=== PATIENT | female | born 1930 | race Caucasian/White ===

== ENCOUNTER 2016-08-24 18:31 | Inpatient (IN) ==
--- NOTE | 2016-08-24 18:56 | Diag Imaging Result Doc PS360 ---
EXAM: HEAD W/O CONTRAST HISTORY: AMS TECHNIQUE: CT of the head without contrast with dose reduction (clarity.) COMMENT: There is some motion artifact. There is encephalomalacia in the posterior parietal lobe on the right. This was not present on 06/08/2008. There is also patchy lucency in the internal capsule on both sides particularly the right with lacunae in a in the basal ganglia. There is generally more atrophic change in the brain than on the previous study. No evidence of bleed or abnormal extra-axial fluid collection is present. IMPRESSION: Chronic ischemic changes and atrophy which have progressed since 06/08/2008. No evidence of acute disease. Electronically signed by Dmitriy Rios 08/24/2016 6:54 PM
--- NOTE | 2016-08-24 19:09 | ED EKG INTERP ---
This chart was entered by Jerry Varghese Scribe, acting as scribe for Tyrese Baumann MD. EKG Interpretation - EKG Time of EKG reading by physician:: 18:50 EKG Read and Signed by:: Tyrese Baumann EKG Interpretation (*Must complete 3 of following elements*): Abnormal (Marked ST abnormality, consider subendocardial injury) Rate: 137 Rhythm: SVT This chart was documented by the indicated scribe, (Jerry Varghese Scribe) and accurately reflects the services I performed and decisions made by me, Tyrese Baumann MD, as attested by the provider's signature.
--- NOTE | 2016-08-24 21:12 | Diag Imaging Result Doc PS360 ---
EXAM: CHEST-PORTABLE HISTORY: AMS TECHNIQUE: AP portable chest at 2100 COMMENT: There is cardiomegaly and increased pulmonary vascularity. There is mild interstitial pulmonary edema. This is worse than on 01/20/2010. IMPRESSION: Pulmonary edema and cardiomegaly. Electronically signed by Dmitriy Rios 08/24/2016 9:10 PM
[2016-08-24 21:13] LABS: ALLEN TEST YES; BE 1.1 mmoll (-3.0-3.0); BLOOD TYPE ARTERIAL; DRAW SITE R RADIAL; METHB 0.5 % (0.0-1.5); MODALITY ROOM AIR; PCO2(98.6) 37 mmHg (35-45); PO2(98.6) 84 mmHg (60-100); SAMPLE BLOOD; THB 12.4 g/dL (11.5-17.4); pH(98.6) 7.44 (7.35-7.45)
[2016-08-24 21:23] LABS: MANUAL DIFF NEEDED? NO; URINE CULTURE NEEDED? NO; URINE MICRO REVIEW NEEDED? NO; URINE SOURCE CATH
[2016-08-24 21:31] LABS: BASO% 0.4 % (0.0-0.8); EOS# 0.05 X1000 (0.0-0.7); EOS% 0.7 % (0.0-10.0); HEMATOCRIT 39.9 % (37.0-47.0); HEMOGLOBIN 13.3 g/dL (12.0-16.0); IMM GRAN# 0.04 X1000 (0.0-0.04); IMM GRAN% 0.5 % (0.0-0.5); LYMPH# 1.51 X1000 (1.2-3.4); LYMPH% 20.5 % (20.5-51.1); MCH 31.5 PG (27-31); MCHC 33.3 g/dL (33-37); MCV 94.5 FL (81-99); MONO# 0.46 X1000 (0.11-0.59); MONO% 6.2 % (1.7-9.3); MPV 11.2 FL (7.4-10.4); NEUT% 71.7 % (42.2-75.2); PLT 179 X1000 (130-400); RBC 4.22 XMIL (4.2-5.4)
[2016-08-24 21:34] LABS: BILIRUBIN URINE NEGATIVE (NEGATIVE); BLOOD URINE NEGATIVE (NEGATIVE); COLOR YELLOW; GLUCOSE URINE NEGATIVE (NEGATIVE); LEUKOCYTES URINE NEGATIVE (NEGATIVE); NITRITE URINE NEGATIVE (NEGATIVE); PROTEIN URINE NEGATIVE (NEGATIVE); SP GRAVITY URINE 1.015; TURBIDITY URINE CLEAR (CLEAR); UROBILINOGEN URINE NORMAL (NORMAL)
[2016-08-24 21:36] LABS: UR EPITHELIAL CELLS <10 /HPF (<10); URINE BACTERIA NEGATIVE /HPF; URINE RBC <10 /HPF (<10); URINE WBC <10 /HPF (<10)
[2016-08-24 21:44] LABS: UR AMPHETAMINES QUAL NONE DETECTED (NONE DETECT); UR BARBITUATES QUAL NONE DETECTED (NONE DETECT); UR BENZODIAZEPIN QUAL NONE DETECTED (NONE DETECT); UR CANNABINOIDS QUAL NONE DETECTED (NONE DETECT); UR COCAINE QUAL NONE DETECTED (NONE DETECT); UR METHADONE QUAL NONE DETECTED (NONE DETECT); UR OPIATES QUAL NONE DETECTED (NONE DETECT); UR OXYCODONE QUAL NONE DETECTED (NONE DETECT); UR PCP QUAL NONE DETECTED (NONE DETECT)
[2016-08-24 21:57] LABS: ALBUMIN 3.6 g/dL (3.5-5.0); CALCIUM 9.4 mg/dL (8.8-10.2); TOTAL BILIRUBIN 0.13 mg/dL (0.20-1.00); TOTAL PROTEIN 6.3 g/dL (6.3-8.3)
[2016-08-24] MEDS ORDERED: LASIX IV ONE (22:00)
--- NOTE | 2016-08-24 22:17 | PROVIDER DOCUMENTATION ---
This chart was entered by Jerry Varghese Scribe, acting as scribe for Tyrese Baumann MD. HPI-Neurological Disorder - General Chief Complaint: Brain Attack Stated Complaint: AMS Time Seen by Provider: 08/24/16 18:59 Source: EMS, RN notes reviewed Unable to obtain history due to:: altered Allergies/Adverse Reactions: Patient Allergies Allergy/AdvReac Type Severity Reaction Status Date / Time Penicillins Allergy ANAPHYLAXIS Verified 08/24/16 22:04 Home Medications: Home Medication List Medication Instructions Recorded Confirmed Last Taken Type Atenolol [Tenormin] 1 tab PO DAILY 08/24/16 08/24/16 Unknown History Divalproex E.r. [Depakote ER] 250 mg PO DIRECTED 08/24/16 08/24/16 Unknown History Divalproex E.r. [Depakote ER] 500 mg PO DAILY 08/24/16 08/24/16 Unknown History Losartan [Cozaar] 50 mg PO DAILY 08/24/16 08/24/16 Unknown History Rivastigmine [Exelon 9.5MG/24Hrs] 1 patch TD DIRECTED 08/24/16 08/24/16 Unknown History - History of Present Illness-Neuro Nature of Presenting Problem: Pt is a 86 yowf who presents to ER via EMS from home for possible stroke. Pt's family reports taht pt was at her baseline all yesterday and today until approximately [id number]. Family states that they went to the grocery store at 1630 and when they arrived home at 1700, pt was slouched over the side of her bed and was drooling. Pt non-verbal and does not obey commands. GCS - 9. Family states pt recently started on an anti-seizure medicine for bipolar disorder. Severity: reports: moderate Onset/Duration: reports: unsure Timing: reports: still present Context: reports: other (decreased responsiveness, found by family) Character of Altered Mental Status: reports: decreased responsiveness Character of Deficits: reports: impaired speech Cognitive Baseline: alert, oriented x3 Gait Baseline: walks without assistance Associated Symptoms: reports: other (non-verbal and does not obey commands). denies: short of breath, headache, decreased ability to walk or stand, fainting , fatigue, loss of consciousness, seizures, slurred speech, vision changes, weakness Similar Symptoms Previously?: Yes Recently seen or treated by another doctor?: Yes Review of Systems - Adult - REVIEW OF SYSTEMS - ADULT ROS:: limited per condition Constitutional: denies: chills, fever, fatique, night sweats, weight gain, weight loss Eyes: reports: no symptoms reported Ears, Nose, Mouth & Throat: reports: no symptoms reported Cardiovascular: reports: no symptoms reported Respiratory: reports: no symptoms reported Gastrointestinal: reports: no symptoms reported Genitourinary: reports: no symptoms reported Musculoskeletal: reports: no symptoms reported Integumentary: reports: no symptoms reported Neurological: reports: other (non-verbal, does not obey commands). denies: ataxia, dizziness/vertigo, headache/migraines, loss of balance, numbness, paresthesia, seizure, slurred speech, syncope, tremors Psychiatric: reports: no symptoms reported Endocrine: reports: no symptoms reported Hematologic/Lymphatic: reports: no symptoms reported Allergic/Immunologic: reports: no symptoms reported All Other Systems: Reviewed and Negative Past History - Adult - PAST MEDICAL HISTORY-ADULT Review of Records: reports: Nursing Assessment Review, Medications Reviewed - IMMUNIZATION STATUS Childhood Immunizations: See Nurse Assessment Flu Vaccine: See Nurse Assessment Physical Exam- Neurological - Physical Exam-Neuro Initial Vital Signs Reviewed: Yes General Appearance: alert, moderate distress, obtunded. negative: appears well Eye Exam: bilateral eye: PERRL, EOMI HENMT: moist mucous membranes, TMs normal, pharynx normal Head Injury: no evidence of injury Respiratory: chest non-tender, lungs clear, no pleuratic chest pain, no respiratory distress, no accessory muscle use, other (upper respiratory wheezing ). negative: normal breath sounds, respiratory distress, decreased breath sounds, accessory muscle use Cardiovascular: normal peripheral pulses, tachycardia. negative: regular rate, rhythm, bradycardia, irregularly irregular Abdominal Exam: normal bowel sounds, non tender, soft, no organomegaly, no pulsatile mass. 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 negative: normal hearing, normal speech Motor/Sensory: weak motor strength LUE, weak motor strength LLE Neurologic: other (decreased responsiveness; non-verbal and does not obey commands) Psych/Mental Status: depressed affect, other (non-verbal). negative: normal mood/affect, normal thought content, normal thought process, oriented x 3 - Glascow Coma Scale Best Eye Response: (4) open spontaneously Best Verbal Response: (1) no verbal response Best Motor Response: (4) withdraws to pain Total Glascow Score: 9 Progress - PLAN OF CARE/RESULTS Progress/Plan/Lab Results: Vital Signs - 8 hr 08/24/16 18:55 08/24/16 19:18 08/24/16 21:41 Temperature 98.0 F Pulse Rate 133 H 134 H 115 H Respiratory Rate 18 29 H 23 Blood Pressure 100/78 105/78 97/72 O2 Sat by Pulse Oximetry 95 99 96 Laboratory Results - last 24 hr 08/24/16 08/24/16 08/24/16 20:42 21:14 21:14 WBC 7.38 RBC 4.22 Hgb 13.3 Hct 39.9 MCV 94.5 MCH 31.5 H MCHC 33.3 RDW Std Deviation 12.6 Plt Count 179 MPV 11.2 H Immature Gran % (Auto) 0.5 Neut % (Auto) 71.7 Lymph % (Auto) 20.5 Tift % (Auto) 6.2 Eos % (Auto) 0.7 Baso % (Auto) 0.4 Immature Gran # (Auto) 0.04 Neut # (Auto) 5.29 Lymph # (Auto) 1.51 Tift # (Auto) 0.46 Eos # (Auto) 0.05 Baso # (Auto) 0.03 Specimen Type ARTERIAL Sample Site R RADIAL pH 7.44 pCO2 37 pO2 84 HCO3 25.8 Base Excess 1.1 Oxyhemoglobin 97.0 ABG O2 Sat (Calculated) 17.0 ABG O2 Saturation 100.0 ABG Carboxyhemoglobin 2.50 ABG Methemoglobin 0.5 Luis Carlos Test YES A-a O2 Difference 19.0 Total Hemoglobin 12.4 Lactate 3.20 H Blood Gas Modality ROOM AIR FiO2 % 21.0 Sodium 143 Potassium 4.0 Chloride 106 Carbon Dioxide 23 L Anion Gap 14 BUN 32 H Creatinine 1.2 H Estimated GFR/1.73 m2 43 BUN/Creatinine Ratio 27 Glucose 151 H Calculated Osmolality 295 Calcium 9.4 Total Bilirubin 0.13 L AST 21 ALT 10 Alkaline Phosphatase 49 Creatine Kinase 54 Troponin T Total Protein 6.3 Albumin 3.6 Globulin 2.7 Albumin/Globulin Ratio 1.3 Plasma Lactate Urine Source Urine Color Urine Turbidity Urine pH Ur Specific [place] Urine Protein Ur Glucose (Stick) Ur Ketones (Stick) Urine Blood Urine Nitrite Urine Bilirubin Urobilinogen Dipstick Urine Leukocytes Urine WBC (Auto) Urine RBC (Auto) U Epithel Cells (Auto) Urine Bacteria (Auto) Urine Opiates Screen Ur Oxycodone Screen Ur Methadone, Qual Ur Barbiturates Screen Ur Phencyclidine Scrn Ur Amphetamines Screen U Benzodiazepines Scrn Urine Cocaine Screen U Cannabinoids Screen 08/24/16 08/24/16 08/24/16 21:14 21:14 21:14 WBC RBC Hgb Hct MCV MCH MCHC RDW Std Deviation Plt Count MPV Immature Gran % (Auto) Neut % (Auto) Lymph % (Auto) Tift % (Auto) Eos % (Auto) Baso % (Auto) Immature Gran # (Auto) Neut # (Auto) Lymph # (Auto) Tift # (Auto) Eos # (Auto) Baso # (Auto) Specimen Type Sample Site pH pCO2 pO2 HCO3 Base Excess Oxyhemoglobin ABG O2 Sat (Calculated) ABG O2 Saturation ABG Carboxyhemoglobin ABG Methemoglobin Luis Carlos Test A-a O2 Difference Total Hemoglobin Lactate Blood Gas Modality FiO2 % Sodium Potassium Chloride Carbon Dioxide Anion Gap BUN Creatinine Estimated GFR/1.73 m2 BUN/Creatinine Ratio Glucose Calculated Osmolality Calcium Total Bilirubin AST ALT Alkaline Phosphatase Creatine Kinase Troponin T < 0.010 Total Protein Albumin Globulin Albumin/Globulin Ratio Plasma Lactate 3.4 H Urine Source CATH Urine Color YELLOW Urine Turbidity CLEAR Urine pH 6.0 Ur Specific [place] 1.015 Urine Protein NEGATIVE Ur Glucose (Stick) NEGATIVE Ur Ketones (Stick) NEGATIVE Urine Blood NEGATIVE Urine Nitrite NEGATIVE Urine Bilirubin NEGATIVE Urobilinogen Dipstick NORMAL Urine Leukocytes NEGATIVE Urine WBC (Auto) <10 Urine RBC (Auto) <10 U Epithel Cells (Auto) <10 Urine Bacteria (Auto) NEGATIVE Urine Opiates Screen Ur Oxycodone Screen Ur Methadone, Qual Ur Barbiturates Screen Ur Phencyclidine Scrn Ur Amphetamines Screen U Benzodiazepines Scrn Urine Cocaine Screen U Cannabinoids Screen 08/24/16 21:14 WBC RBC Hgb Hct MCV MCH MCHC RDW Std Deviation Plt Count MPV Immature Gran % (Auto) Neut % (Auto) Lymph % (Auto) Tift % (Auto) Eos % (Auto) Baso % (Auto) Immature Gran # (Auto) Neut # (Auto) Lymph # (Auto) Tift # (Auto) Eos # (Auto) Baso # (Auto) Specimen Type Sample Site pH pCO2 pO2 HCO3 Base Excess Oxyhemoglobin ABG O2 Sat (Calculated) ABG O2 Saturation ABG Carboxyhemoglobin ABG Methemoglobin Luis Carlos Test A-a O2 Difference Total Hemoglobin Lactate Blood Gas Modality FiO2 % Sodium Potassium Chloride Carbon Dioxide Anion Gap BUN Creatinine Estimated GFR/1.73 m2 BUN/Creatinine Ratio Glucose Calculated Osmolality Calcium Total Bilirubin AST ALT Alkaline Phosphatase Creatine Kinase Troponin T Total Protein Albumin Globulin Albumin/Globulin Ratio Plasma Lactate Urine Source Urine Color Urine Turbidity Urine pH Ur Specific [place] Urine Protein Ur Glucose (Stick) Ur Ketones (Stick) Urine Blood Urine Nitrite Urine Bilirubin Urobilinogen Dipstick Urine Leukocytes Urine WBC (Auto) Urine RBC (Auto) U Epithel Cells (Auto) Urine Bacteria (Auto) Urine Opiates Screen NONE DETECTED Ur Oxycodone Screen NONE DETECTED Ur Methadone, Qual NONE DETECTED Ur Barbiturates Screen NONE DETECTED Ur Phencyclidine Scrn NONE DETECTED Ur Amphetamines Screen NONE DETECTED U Benzodiazepines Scrn NONE DETECTED Urine Cocaine Screen NONE DETECTED U Cannabinoids Screen NONE DETECTED Orders Category Date Time Status Cardiac Monitoring DIRECTED Care 08/24/16 20:42 Active Finger Stick Blood Sugar (ED) DIRECTED Care 08/24/16 20:42 Active Oxygen Therapy- ED Nursing DIRECTED Care 08/24/16 20:42 Active Saline Loc NOW Care 08/24/16 20:42 Active CHEST-PORTABLE [RAD] Stat Exams 08/24/16 20:42 Completed HEAD W/O CONTRAST [CT] Stat Exams 08/24/16 18:32 Completed ABG [RESP] Routine Lab 08/24/16 20:42 Completed BLOOD CULTURE [BLDCUL] Stat Lab 08/24/16 22:08 Ordered CBC WITH ELECTRONIC DIFF [HEME] Stat Lab 08/24/16 21:14 Completed CK PROFILE [SP CHEM] Stat Lab 08/24/16 21:14 Completed CK PROFILE [SP CHEM] Urgent Lab 08/24/16 22:14 Ordered COMPREHENSIVE METABOLIC PANEL [CHEM] Stat Lab 08/24/16 21:14 Completed LACTATE, PLASMA [CHEM] Stat Lab 08/24/16 21:14 Completed TROPONIN T Stat Lab 08/24/16 21:14 Completed TROPONIN T Urgent Lab 08/24/16 22:14 Ordered URINALYSIS W/POSS RFLX CULT-1 [URINALYSIS] Stat Lab 08/24/16 21:14 Completed URINE DRUG SCREEN Stat Lab 08/24/16 21:14 Completed pro-bnp [PRO B-NATRIURETIC PEPTIDE] Stat Lab 08/24/16 21:14 Received Furosemide [Lasix] Med 08/24/16 22:00 Discontinued 40 mg IV NOW ONE Pulse Oximetry Stat Oth 08/24/16 20:42 Active EKG [EKG] Stat Ther 08/24/16 20:42 Ordered Result Diagrams: 08/24/16 21:14 08/24/16 21:14 - REASSESSMENT Reassessment #1 Time Reassessed: 20:54 (Family at bedside reports that pt's diaz is A/Ox3, cognitive, and self-sustainable. Family reports that they last saw pt at baseline at approximately 0261-1919 today, when family came back from store, pt was slouched over her bed drooling, non-verbal, and does not follow commands.) Status: other Reassessment #2 Time Reassessed: 22:07 (Discussed results of labs and radiology and discussed POC to admit pt. Family at bedside verbally acknowledge and agreed.) Status: other - XRAY 1 XRAY: Bilateral XRAY Study: Chest Impression: See EMR Report (Pulmonary edema and cardiomegaly - Dr. Rios ( Radiologist)) XRAY Interpretation: See report - CT/MRI 1 CT Study: Head Impression: See EMR Report (Chronic ischemic changes and atrophy which have progressed since 06/08/2008. No evidence of acute disease - Dr. Rios ( Radiologist)) CT Results: See report - CONSULTS/PCP/HOSPITALIST Notification #1 *Consult/PCP/Hospitalist*: Dr. Dominguez (Hospitalist) Time Discussed: 22:10 Consult Disposition: Admit Departure - Departure Date of Disposition Decision: 08/24/16 Time of Disposition Decision: 22:15 DIAGNOSIS: CVA (cerebral vascular accident) Qualifiers: CVA mechanism: thrombosis Precerebral and cerebral artery: unspecified cerebral artery Qualified Code(s): I63.30 - Cerebral infarction due to thrombosis of unspecified cerebral artery Disposition: ADMITTED INPATIENT 09 Certified Medical Emergency: Emergent Condition: Serious Referrals and Follow-Ups: Zulay Walker MD [Primary Care Provider] - - Critical Care Note This patient required my direct & personal management of CC.: Yes Total Time (mins): 30 Critical Care Statement: This patient required my direct personal management to treat or rule out processes, the absence of which, could potentiallly result in sudden, clinically significant life or limb threatening deterioration. This chart was documented by the indicated scribe, (Jerry Varghese, Yuliya) and accurately reflects the services I performed and decisions made by me, Tyrese Baumann MD, as attested by the provider's signature.
--- NOTE | 2016-08-24 23:34 | HISTORY AND PHYSICAL ---
PRIMARY CARE PHYSICIAN: Dr. Walker. CHIEF COMPLAINT: Altered mental status. HISTORY OF PRESENT ILLNESS: Ms Morris is a 86-year-old female with a past medical history of CVA, bipolar disorder, coronary artery disease status post IA, hypertension, dementia and thyroid goiter status post thyroidectomy per family, presents to the emergency room on date of admission with confusion. The patient's family reports that this morning she was her usual self alert, oriented and very independent actively helping take care of her great granddaughter when the granddaughter left and returned to find her around 4:30 p.m. this afternoon very confused and drooling out of the right side of her mouth and dysphasic and has not spoke a word since and is not obeying many commands. She was brought to the emergency room at which time she was found have atrial fibrillation in the 130s when she arrived. She does not have a known history of atrial fibrillation per the daughter and she currently is not on any anticoagulant including aspirin, she has not had any preceding illness per the granddaughter or any other symptoms prior to this episode tonight and no injury reported as well. She will be admitted for further evaluation by Cardiology and Neurology and with MRI in the morning. PAST MEDICAL HISTORY: 1. CVA approximately 2008 with no major deficits per granddaughter. 2. Bipolar disorder. 3. Coronary artery disease status post IA. 4. Hypertension. 5. Dementia. 6. Thyroid goiter. PAST SURGICAL HISTORY: 1. Questionable heart surgery per granddaughter believed to be possibly an intraaortic balloon pump. 2. Thyroid surgery. 3. D and C. SOCIAL HISTORY: Patient dips snuff 1-2 times a day and has done so for many years. No other tobacco use. No alcohol use and she does live with her granddaughter. FAMILY HISTORY: Her father of a presumed IA less than 60 years old and also a history of CVA within the family. ALLERGIES: Penicillin. MEDICATIONS: Pending reconciliation. LABORATORIES AND DIAGNOSTICS: CBC: White count 7.38, hemoglobin and hematocrit 13.3, 39.9, platelets 179,000. Blood gases within normal limits however lactate of 3.2. Sodium 143, potassium 4, chloride 106, CO2 23, BUN 32, creatinine 1.2, glucose 151, pro-BNP was 1947. CPK was 54, troponin less than 0.010. LFTs were within normal limits. UA was normal. Urine drug screen was negative. Chest x-ray showed pulmonary edema, cardiomegaly. Head CT showed chronic ischemic changes. REVIEW OF SYSTEMS: Negative 10-point review of systems other than previously stated in HPI. PHYSICAL EXAMINATION: HEENT: Normocephalic, atraumatic. Pupils equal, round, reactive to light. NECK: Supple. No JVD. CHEST: Bilateral breath sounds diminished. No accessory muscle use noted. Respirations unlabored. CARDIOVASCULAR: Irregular rhythm. Tachycardic rate. ABDOMEN: Abdomen soft, nontender. EXTREMITIES: Trace amount of edema. NEUROLOGIC: Patient is alert and awake however she does not obey even simple commands. Her pupils are equal, round, reactive to light. She does appear to have a slight right facial droop and is not moving her right upper and lower extremities as much and appeared to be slightly weaker. However she does not obey commands to check hand grasps and other exam testing. ASSESSMENT AND PLAN: 1. New onset atrial fibrillation with rapid ventricular response. We will place on anticoagulation and admit to [facility] for further evaluation. Will have Cardiology evaluate. Will check a TSH, cardiac enzymes, obtain an echocardiogram and if blood pressure tolerates will attempt possibly Cardizem. 2. Rule out cerebrovascular accident. We will check carotid Dopplers, echocardiogram as previously reported. This is likely due to the new onset atrial fibrillation. We will go ahead and place on aspirin and also will get a swallowing screen with her drooling. Will place NPO to prevent any aspiration. 3. Unilateral weakness. Will consult physical therapy to evaluate and treat accordingly. 4. Hypertension. Will continue her medications an continue to observe her blood pressures. 5. Pulmonary edema. We will go ahead and treat with diuresis and strict I's and O's and obtain an echocardiogram in the morning. Further orders pending physician evaluation. Dictated by LANA Fleming for Vinod Dominguez MD cc: LANA Felming MD pt examined, most likley a new CVA related to afib, will pursue MRI and then consider full anticoagulation as she will likely need [facility] antico[facility], pt is outside window for TPA and higher risk to likely size of CVA APENOT MTDD
[2016-08-25] MEDS ORDERED: LOVENOX SUBQ SCH (00:55)
[2016-08-25] MEDS: CARDIZEM 100 MG/NS 100 MG/100 ML IVPB IV SCH (01:26)
[2016-08-25 02:02] LABS: INR 0.94 (0.86-1.15); PROTIME 12.9 Seconds (12.1-15.5)
[2016-08-25 02:03] LABS: PTT PL 36.4 Seconds (22.6-43.9)
--- NOTE | 2016-08-25 05:39 | EKG Report ---
Test Performed on : 08/24/2016 10:26:20 PM Test Reason : AMS Blood Pressure : / mmHG Vent. Rate : 109 BPM Atrial Rate : 375 BPM P-R Int : 000 ms QRS Dur : 092 ms QT Int : 350 ms P-R-T Axes : 000 -04 095 degrees QTc Int : 471 ms Atrial fibrillation. with rapid ventricular response. Minimal voltage criteria for LVH, may be normal variant ST \T\ T wave abnormality, consider lateral ischemia Abnormal ECG When compared with ECG of 24-AUG-2016 18:54, (Unconfirmed) Atrial fibrillation. has replaced Sinus rhythm. ST less depressed in Anterior leads Unconfirmed Result
[2016-08-25 05:58] LABS: MANUAL DIFF NEEDED? NO
[2016-08-25 06:21] LABS: HEMATOCRIT 42.5 % (37.0-47.0); LYMPH% 20.6 % (20.5-51.1); MCH 30.9 PG (27-31); MCHC 32.9 g/dL (33-37); MCV 93.8 FL (81-99); MPV 11.3 FL (7.4-10.4); NEUT% 68.5 % (42.2-75.2); PLT 196 X1000 (130-400); RBC 4.53 XMIL (4.2-5.4)
[2016-08-25 06:22] LABS: BASO% 0.2 % (0.0-0.8); EOS# 0.03 X1000 (0.0-0.7); EOS% 0.3 % (0.0-10.0); IMM GRAN# 0.04 X1000 (0.0-0.04); IMM GRAN% 0.4 % (0.0-0.5); LYMPH# 2.08 X1000 (1.2-3.4); MONO# 1.01 X1000 (0.11-0.59)
[2016-08-25 06:37] LABS: CALCIUM 9.5 mg/dL (8.8-10.2)
[2016-08-25] MEDS ORDERED: TYLENOL PO PRN (07:11)
[2016-08-25] MEDS ORDERED: ZOFRAN IV PRN (07:11)
--- NOTE | 2016-08-25 07:24 | EKG Report ---
Test Performed on : 08/25/2016 02:18:41 AM Test Reason : rhythm change Blood Pressure : / mmHG Vent. Rate : 056 BPM Atrial Rate : 056 BPM P-R Int : 160 ms QRS Dur : 094 ms QT Int : 456 ms P-R-T Axes : 052 003 100 degrees QTc Int : [address] \T\ T wave abnormality, consider anterolateral ischemia Abnormal ECG When compared with ECG of 24-AUG-2016 22:26, (Unconfirmed) Sinus rhythm. has replaced Atrial fibrillation. Vent. rate has decreased BY 53 BPM T wave inversion now evident in Anterior leads Unconfirmed Result
--- NOTE | 2016-08-25 07:34 | EKG Report ---
Test Performed on : 08/24/2016 6:50:39 PM Test Reason : No Order in Simparel Blood Pressure : / mmHG Vent. Rate : 137 BPM Atrial Rate : 024 BPM P-R Int : 000 ms QRS Dur : 088 ms QT Int : 330 ms P-R-T Axes : 000 020 173 degrees QTc Int : 498 ms Supraventricular tachycardia. Marked ST abnormality, possible anterior subendocardial injury Abnormal ECG No previous ECGs available Unconfirmed Result
[2016-08-25] MEDS: LASIX IV SCH ×2 (08:42→20:48)
[2016-08-25] MEDS: ASPIRIN PR SCH (08:42)
--- NOTE | 2016-08-25 11:29 | EKG Report ---
Test Performed on : 08/25/2016 11:11:52 AM Test Reason : afib, cva Blood Pressure : / mmHG Vent. Rate : 048 BPM Atrial Rate : 048 BPM P-R Int : 162 ms QRS Dur : 100 ms QT Int : 534 ms P-R-T Axes : 052 025 087 degrees QTc Int : 477 ms Sinus bradycardia. Left ventricular hypertrophy with repolarization abnormality Abnormal ECG When compared with ECG of 25-AUG-2016 02:18, (Unconfirmed) T wave inversion more evident in Anterior leads Confirmed by Barak Mckeon MD ([id number]) on 08/25/2016 6:22:25 PM
--- NOTE | 2016-08-25 12:33 | PROGRESS NOTE ---
DATE: 08/25/2016 SUBJECTIVE: The patient is awake but does not respond to commands. OBJECTIVE: Temperature 97, pulse 50, respiratory rate 21-32. Blood pressure 97/52, 118/57. Saturating 100% on 2 L.General: Patient is lying in bed. She is currently having an echo performed. A carotid was done earlier. The patient does not follow commands nor respond to questions. She simply sneezes and sighs occasionally. She has very little movement otherwise. HEENT: Normocephalic. Neck: Supple. No JVD appreciable. Cardiovascular: Bradycardia. Chest: Positive rhonchi. Otherwise clear. Abdomen: Soft. Extremities: The patient is noted to have very minimal movement if any in her extremities. Currently she does not follow commands. Neurologic: As noted. Patient is not awake and does not follow commands and does not answer questions. Simply yawns and sneezes occasionally. ASSESSMENT: 1. New onset atrial fibrillation. Currently with bradycardia. 2. Acute cerebrovascular accident. 3. Unilateral weakness secondary to the acute cerebrovascular accident. 4. Hypertension. 5. Pulmonary edema appears to be improving. PLAN: We will continue to follow. Cardiology has seen the patient and recommends Eliquis 2.5 b.i.d., when appropriate, due to her current stroke. We will continue to follow. Keep in the ICU. Further orders as needed. cc: Jean Paul Johnson MD
--- NOTE | 2016-08-25 13:58 | Extremity Venous Study ---
EXAM: Carotid Ultrasound - 08/25/2016 HISTORY: cva TECHNIQUE: Carotid flow studies COMPARISON: None FINDINGS: There is mild atherosclerotic plaquing at the right carotid bulb. Maximum systolic velocity in the right internal carotid artery is 79 cm/s, and maximum diastolic velocity is 21 cm/s. The right internal to common carotid artery systolic velocity ratio is 1.50. The flow velocities and ratio are consistent with less than 40% stenosis in the right internal carotid artery. The right vertebral artery demonstrates antegrade flow. There is atherosclerotic plaquing of the left carotid bulb. Maximum systolic velocity in the left internal carotid artery is 85 cm/s, and maximum diastolic velocity is 18 cm/s. The left internal to common carotid artery systolic velocity ratio is 1.40. The flow velocities and ratio are consistent with less than 40% stenosis in the left internal carotid artery. The left vertebral artery demonstrates antegrade flow. IMPRESSION: Atherosclerotic plaquing at bilateral carotid bulbs. No evidence of hemodynamically significant stenosis in the right nor the left carotid system. Electronically signed by Jesus Calvo 08/25/2016 1:56 PM
--- NOTE | 2016-08-25 14:10 | ECHO REPORT ---
ORDER DATE: 08/25/2016 INTERPRETING PHYSICIAN: Dr. Constantino Reed ECHOCARDIOGRAPHIC MEASUREMENTS: Interventricular septum: 1.1 cm. Left ventricular posterior wall: 0.9 cm. Diastolic diameter: 4.7 cm. Right ventricle: 5.1 cm. Aorta: 3.5 cm. Technically suboptimal study. Poor acoustic window SUMMARY OF THE 2-DIMENSIONAL IMAGING: Aortic valve leaflets are trileaflet, sclerosed, opening normally. Pulmonic valve was normal. Mitral valve leaflets are normal. There is moderate mitral annular calcification. Mild systolic motion of the tip of the anterior mitral leaflet. Normal left ventricular cavity size. Estimated ejection fraction of 60% to 6%. There is left atrial enlargement. There is mild mitral regurgitation. Peak velocity across the aortic valve was 3 meters per second. There is no aortic stenosis. There is aortic sclerosis. There is mild aortic regurgitation. There is mild tricuspid regurgitation. Peak velocity across the tricuspid valve was 2.5 meters per second. There is no pericardial effusion . Cannot rule out apical thrombus would recommend Definity study to assess and better evaluate left ventricle. Technically suboptimal study. Poor acoustic window. cc: MD Janeth Christie CRNP MTDD
--- NOTE | 2016-08-25 14:33 | Diag Imaging Result Doc PS360 ---
EXAM: MRI BRAIN W/O CONTRAST - 08/25/2016 HISTORY: RULE OUT CVA TECHNIQUE: Without contrast per request the referring provider COMPARISON: CT head on 08/24/2016 FINDINGS: There are artifacts from motion which limit detail on some images. The diffusion weighted images show restricted diffusion at the superior temporal lobe and adjacent inferior frontal parietal junction on the left. The FLAIR and T2-weighted images show corresponding increased signal and gyral swelling. These findings are compatible with acute infarct. There are chronic microvascular ischemic changes and there is an old small infarct at the right temporal occipital junction. There is an old tiny lacunar infarct at the left thalamus. There is no evidence of hemorrhage, substantial mass effect on the ventricular system, midline shift, or hydrocephalus. IMPRESSION: Acute infarct involving the superior temporal lobe and adjacent inferior frontal parietal junction on the left. Verbal results provided to Tiffani Perez at 2:30 PM on 08/25/2016. Electronically signed by Jesus Calvo 08/25/2016 2:31 PM
[2016-08-25] MEDS: D5 1/2 NS 1,000 ML IV SCH (15:57)
--- NOTE | 2016-08-25 17:33 | CONSULTATION ---
DATE OF CONSULTATION: 08/25/2016 HISTORY OF PRESENT ILLNESS: Ms. Morris is 86 years old and she has had a stroke. History from the patient is unobtainable because of apparent dysphasia. History from review of hospital chart and discussion with attentive staff is that she had sudden neurologic change and was found drooling and unable to speak. In the hospital, she has been noted to have right-sided paralysis and she has continued not speaking, not following commands but awake. There is reported to be history of previous stroke event causing left hemiparesis. I am not certain about the timing of that. The initial noncontrast CT of the head here showed old right posterior parietal encephalomalacia which was not present on the 06/08/2008 scan , so I presume the previous stroke event occurred just prior to that scan. Current CT does show chronic ischemic changes, which are not significantly changed compared to 06/08/2008 scan. Laboratory showed BUN 32, 33, blood sugar 157, proBNP about 2000, urine drug screen all negative. She has been afebrile. Heart rate has ranged from the 130s on admission down to the 50s recently. There is report that she has atrial fibrillation. Systolic blood pressures have ranged from 90s to 100s. PAST MEDICAL HISTORY: Past history is remarkable for stroke as above, hypertension, ischemic heart disease, and [place]. There is report of bipolar disorder and dementia but I do not have details. HOME MEDICINES: Include rivastigmine patch 9.5 mg daily, divalproex 500 mg every day and 250 mg additional dose every other day, atenolol, losartan. PHYSICAL EXAMINATION: On exam now, she is awake, alert, attentive. She is not able to follow simple commands. She attempted to mimic but could not do that consistently. She did not speak. She used her left hand purposefully. She did not use her right limbs. There is brisk withdrawal of the left foot more than the right. When I held her right arm passively above her face, she allowed the right arm to drop to her face consistently. Tone is diminished in the right arm. She has full lateral eye movement with passive head turning. Pupils react to light. I did not test visual hubbard. Facial motility is diminished bilaterally with the right nasolabial fold less prominent than the left. Tongue is midline. Head is unremarkable. There is not meningismus. Plantar response is extensor bilaterally. IMPRESSION: 1. Acute onset global dysphasia and right hemiplegia in an 86-year-old woman with history of previous stroke and other risk factors including ischemic heart disease and hypertension, now also atrial fibrillation. All of this is consistent with acute ischemic significant dominant left hemisphere infarction. She has MRI just completed and further plans will depend on that report. Initial negative CT is consistent with acute ischemic stroke. 2. Previous nondominant right hemisphere infarction as documented on imaging. 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 3. Chart reports history of dementia and rivastigmine patch on board. However, she apparently was doing well and the family was comfortable with her tending to a great- grandchild while family was away for a short time. PLAN: I do not have any urgent suggestion. We need to see the MRI report. I believe that she had carotid ultrasound this morning with report pending. Decision regarding anticoagulation will depend on the extent of hemisphere infarction, on her clinical course, on her baseline cognitive function. In general, the risk of converting ischemic infarction into hemorrhagic event is greater than the potential benefit with anticoagulation acutely. That equation will change gradually to favor full anticoagulation at some point in the future. Literature is uncertain on precise timing and 1 week has recently been a generally accepted reasonable timeframe. Thanks for asking me to see Ms. Morris. cc: MD CHRISTO Kearns III
[2016-08-25] MEDS: LIPITOR PO SCH (20:25)
--- NOTE | 2016-08-25 20:57 | CONSULTATION ---
DATE OF CONSULTATION: 08/25/2016 CONSULTATION REQUESTED BY: Hospitalist Service. REASON FOR CONSULTATION: Stroke, atrial fibrillation (paroxysmal). HISTORY OF PRESENT ILLNESS: The patient presented to the hospital on August 24 at about 6:30 p.m., brought by the family because they found her nonverbal and not responding to commands. At the time of initial evaluation in the ER at [facility], she was obviously aphasic and could not move the right side of her body. This raised concern for acute stroke. CT scan of the head has been done at the time of admission and that shows chronic ischemic changes and atrophy with encephalomalacia in the posterior parietal lobe on the right side. A carotid ultrasound has been done but there are no reports yet. Initial electrocardiogram showed atrial fibrillation with a rapid response and eventually she converted back to sinus rhythm. A chest x-ray was done and that showed some pulmonary edema, congestion, with cardiomegaly. The patient was placed on a low dose of Cardizem. Eventually she converted relatively quickly to sinus rhythm and she had no further arrhythmia since last night. At this time she is not in any distress. She is lying in bed, however, she is totally nonverbal. She seems to track me with her eyesight. PAST MEDICAL HISTORY: Her past history per records is positive for: 1. Supraventricular tachycardia somehow treated with radiofrequency ablation several years ago. She was followed by Dr. [facility]. She had a heart catheterization in February 2002 which showed essentially normal coronary arteries. 2. History of suspected cerebrovascular disease at some point. 3. Hypertension. 4. There is a history of bipolar disorder and also some dementia. 5. There has been thyroid enlargement and thyroid surgery has been done at some point. SOCIAL HISTORY: She lives with her granddaughter. She has used smokeless tobacco. FAMILY HISTORY: Positive for myocardial infarction and stroke. ALLERGIES: Penicillin. HOME MEDICATIONS: Home medications reported at the time of this visit included: 1. Depakote 250 every other day. 2. Exelon 9.5 every 24 hours. 3. Cozaar 50 mg daily. 4. Depakote 500 mg daily. 5. Atenolol 1 tablet daily. REVIEW OF SYSTEMS: Review of systems is not obtainable. The patient is nonverbal. There is no family around here. PHYSICAL EXAMINATION: Vital signs: Today pulse is 50 per minute. Blood pressure 97/50. Temperature 97.2. Respirations 16. General: She is awake, opens her eyes, follows some minimal commands, does not move the rest of her body. HEENT: Otherwise unremarkable. Chest: Symmetrical breath sounds. I do not hear any rales. Cardiac: Heart sounds are regular and rhythmic with a systolic murmur 2 to 3/6 over the aortic area. That raises concern for aortic stenosis. Abdomen: Soft, nontender. Extremities: Show good palpable pulses bilaterally. No edema. Neurologic: She has hemiplegia of her right side. She is aphasic. LABORATORY STUDIES: Hemoglobin 14 g. BUN 33, creatinine 1.4, sodium 143, potassium 4.0. Troponin has been checked 3 times. They are negative. ProBNP was checked, it was 1947. EKGs done serially reveal diffuse repolarization abnormality with a deep T wave inversion across the precordial leads with LVH. IMPRESSION: 1. Patient presenting with paroxysmal atrial fibrillation converting spontaneously to sinus rhythm. There is a remote history of paroxysmal supraventricular tachycardia treated with ablation. 2. Acute left cerebrovascular accident with right hemiplegia and aphasia. That would suggest involvement of the frontoparietal lobe on the left side. CT scan is unrevealing. MRI is pending. 3. History of hypertension. 4. Abnormal EKG with deep T wave inversion. The patient has ausculatory findings consistent with aortic stenosis. This could be severe. That may explain her EKG abnormalities. She had normal coronary arteries on a cardiac cath performed 14 years ago. RECOMMENDATIONS: We will review the echocardiogram whenever it gets done. We will observe her for the time being. I would suggest to get a neurology consultation for specific recommendations regarding management of her acute cerebrovascular condition. We will be following her along. cc: Catarino Tinsley MD
[2016-08-26] MEDS: CARDIZEM 100 MG/NS 100 MG/100 ML IVPB IV SCH ×4 (01:58→18:35)
[2016-08-26] MEDS: D5 1/2 NS 1,000 ML IV SCH (05:14)
--- NOTE | 2016-08-26 06:50 | Diag Imaging Result Doc PS360 ---
EXAM: CHEST-PORTABLE HISTORY: dyspnea TECHNIQUE: Portable COMPARISON: 08/24/2016 FINDINGS: The lungs are well expanded. Heart is not enlarged. The vessels are not distended. No consolidation. No pleural effusions identified. Trachea is deviated to the right. Prominent soft tissue adjacent to the aortic arch. IMPRESSION: Deviated trachea to the right which may be due to a dilated aortic arch or from a substernal thyroid. This is similar to study from 01/20/2010. Electronically signed by Porfirio Houser 08/26/2016 6:48 AM
[2016-08-26 07:39] LABS: AGAP 12; BUN 38 mg/dL (8-22); CHLORIDE 98 mmol/L (98-107); COSMO 286; HDL 29 mg/dL (45-65); LDL 146 mg/dL; POTASSIUM 3.7 mmol/L (3.5-5.1); SODIUM 138 mmol/L (136-145); TCO2 29 mmol/L (25-35); TRIGLYCERIDES 253 mg/dL (35-135); VLDL 51 mg/dL
[2016-08-26] MEDS: LASIX IV SCH (09:20)
[2016-08-26] MEDS: ASPIRIN PR SCH (10:18)
[2016-08-26] MEDS: NS 1,000 ML IV SCH ×3 (11:27→22:18)
--- NOTE | 2016-08-26 11:52 | PROGRESS NOTE ---
DATE: 08/26/2016 SUBJECTIVE: Early on today, the patient's blood pressures were in the very lows consistently, so the nurses notified us and came to evaluate the patient early. We tried to get her a right IJ but were unable to cannulize the vein. OBJECTIVE: Vital signs: Now blood pressure is 113/83, pulse is 129, respiration is 22, patient is saturating 95%. General: Ms. Morris is an 86-year-old female. She is in bed, not seemingly distressed. HEENT: Mucosa is pink, slightly dry. Anicteric and acyanotic. Neck: Supple. Chest: Air entry is bilaterally reduced. There is no crepitations. Cardiovascular: Irregularly irregular. Very tachycardic, no murmurs. Abdomen: Soft. Extremities: No pedal edema. DRY CLEANING CHECKER: Patient is awake, but nonverbal and has a right hemiparesis. LABORATORY DATA: Sodium is 138, potassium is 3.7, chloride is 98, bicarb is 29. Creatinine is 1.3. Triglyceride is 253. Total cholesterol is 226. MRI of the brain was done yesterday which shows acute infarct involving the superior temporal lobe and I just sent in for a frontal parietal junction on the left. ASSESSMENT: 1. Left dominant MCA territory infarct with subsequent right-sided hemiparesis and global Aphasia. 2. Atrial fibrillation, rapid ventricular rate. Patient continues to be on the Cardizem drip. We are going to titrate this for a better rate control. 3. Hypertension. Patient was running actually hypotensive, so we are going to get her central line but were unsuccessful. will get surgery Blood pressure is now normalized. However, patient will have to be on pressor to help with adequate perfusion of the penumbra. We would avoid any antihypertensive medications in her. 6. I understand patient has failed a swallow evaluation which would mean that down the line would have to be thinking about PEG tube placement for nutritional purposes with the family if she continues to fail swallow evaluation. 7. Acute kidney injury likely from hypoperfusion from the atrial fibrillation, rapid ventricular rate. We are going to continue with IV fluids. We will however discontinue the D51/2NS because of the brain injury now and put the patient on just normal saline at 100 mL/h and reevaluate her. We will also discontinue the Lasix that she was on. 8. We will use rectal aspirin if needed for now all p.o. medications have stand by. 9. Will get a chest x-ray to review for the attempted right IJ central line placement. 10. We will also consult surgery just in case. We will continue to be needing a central line at a later date and they will be on board. cc: Canelo Moncada MD MTDD
--- NOTE | 2016-08-26 11:55 | EKG Report ---
Test Performed on : 08/26/2016 09:14:03 AM Test Reason : poss afib conversion Blood Pressure : / mmHG Vent. Rate : 125 BPM Atrial Rate : 131 BPM P-R Int : 192 ms QRS Dur : 102 ms QT Int : 348 ms P-R-T Axes : 000 025 089 degrees QTc Int : 502 ms Sinus tachycardia. Nonspecific ST abnormality Abnormal ECG No previous ECGs available Unconfirmed Result
--- NOTE | 2016-08-26 11:59 | Diag Imaging Result Doc PS360 ---
EXAM: CHEST-PORTABLE HISTORY: dyspnea TECHNIQUE: COMPARISON: Compared to films taken earlier at 5:29 AM FINDINGS: The lungs remain well expanded and clear. There are no infiltrates. The vessels are not distended. No pleural effusions identified. Left paratracheal prominence persists. IMPRESSION: No interval change. Electronically signed by Porfirio Houser 08/26/2016 11:56 AM
[2016-08-26] MEDS: NEO-SYNEPHRINE 50 MG in NS 250 ML IV SCH ×4 (12:08→23:50)
--- NOTE | 2016-08-26 13:33 | Diag Imaging Result Doc PS360 ---
EXAM: CHEST-PORTABLE HISTORY: Central line placement TECHNIQUE: Portable COMPARISON: Compared to films taken at 11:22 AM FINDINGS: Interval placement of a right-sided jugular line. The tip overlies the right atrium. No pneumothorax. No other change has occurred since the prior exam. IMPRESSION: No postprocedural pneumothorax following placement of the right jugular line. Electronically signed by Porfirio Houser 08/26/2016 1:31 PM
--- NOTE | 2016-08-26 13:34 | OPERATIVE NOTE ---
PROCEDURE DATE: 08/26/2016 PREOPERATIVE DIAGNOSES: 1. Recent cerebrovascular accident. 2. Phlebosclerosis. 3. Hypotension. 4. Paroxysmal atrial fibrillation. POSTOPERATIVE DIAGNOSES: 1. Recent cerebrovascular accident. 2. Phlebosclerosis. 3. Hypotension. 4. Paroxysmal atrial fibrillation. PROCEDURE PERFORMED: Ultrasound-guided placement of right internal jugular vein central line. SURGEON: Duncan Campos MD DEPOT MANAGER: None. ANESTHESIA: Local, administered by the surgeon. INTRAOPERATIVE FINDINGS: Ultrasound showed a small caliber right internal jugular vein but is of sufficient size to accommodate a triple-lumen. HISTORY: The patient is an 86-year-old female who came in with stroke-like symptoms. She was requiring medications for blood pressure support and heart rate support. It was felt the patient would benefit from a central line. The risks, benefits, and alternatives were discussed. Consent was obtained. It should be noted that the hospitalist service had attempted, prior to my placement but were unsuccessful. They did do a chest x-ray that did not show any obvious pathology. DESCRIPTION OF PROCEDURE: After informed consent was obtained, the patient remained in her ICU bed. The right neck was prepped and draped in a sterile fashion. After a formal time-out, we used ultrasound to identify the right internal jugular vein. We used a local anesthetic to anesthetize the skin. I was able to cannulate the right internal jugular vein under ultrasound guidance and pass a wire easily into the vein. I was able to serially dilate up the tract and pass a central line using the Seldinger technique and secured it to the skin, approximately 15 cm. All ports aspirated and flushed easily. We placed a sterile dressing. At the time of this dictation, chest x-ray is pending. The patient tolerated the procedure well and had no immediate postprocedure complications. A chest x-ray is pending. cc: Duncan Campos MD
--- NOTE | 2016-08-26 18:43 | EKG Report ---
Test Performed on : 08/26/2016 5:19:58 PM Test Reason : a.flutter possibility Blood Pressure : / mmHG Vent. Rate : 098 BPM Atrial Rate : 098 BPM P-R Int : 286 ms QRS Dur : 098 ms QT Int : 370 ms P-R-T Axes : 088 017 103 degrees QTc Int : 472 ms Sinus rhythm. with 1st degree AV block. with premature supraventricular complexes. Marked ST abnormality, possible inferior subendocardial injury Abnormal ECG When compared with ECG of 26-AUG-2016 09:14, (Unconfirmed) premature supraventricular complexes. are now present NH interval has increased ST now depressed in Inferior leads T wave inversion now evident in Inferior leads Unconfirmed Result
[2016-08-26] MEDS ORDERED: NS 250 ML ONE ×2 (19:34→22:50)
[2016-08-26] MEDS: LIPITOR PO SCH (20:36)
[2016-08-26] MEDS ORDERED: NEO-SYNEPHRINE ONE (23:07)
--- NOTE | 2016-08-27 01:18 | EKG Report ---
Test Performed on : 08/27/2016 01:10:59 AM Test Reason : rhythm change Blood Pressure : / mmHG Vent. Rate : 056 BPM Atrial Rate : 072 BPM P-R Int : 000 ms QRS Dur : 102 ms QT Int : 466 ms P-R-T Axes : 000 011 112 degrees QTc Int : [address] \T\ T wave abnormality, consider anterolateral ischemia Abnormal ECG When compared with ECG of 26-AUG-2016 17:19, (Unconfirmed) Junctional rhythm. has replaced Sinus rhythm. Vent. rate has decreased BY [address] no longer depressed in Inferior leads T wave inversion no longer evident in Inferior leads T wave inversion now evident in Anterior leads Unconfirmed Result
[2016-08-27] MEDS: NEO-SYNEPHRINE 50 MG in NS 250 ML IV SCH ×3 (04:23→18:12)
--- NOTE | 2016-08-27 05:49 | EKG Report ---
Test Performed on : 08/26/2016 05:41:37 AM Test Reason : afib, cva Blood Pressure : / mmHG Vent. Rate : 065 BPM Atrial Rate : 056 BPM P-R Int : 158 ms QRS Dur : 096 ms QT Int : 438 ms P-R-T Axes : 055 022 089 degrees QTc Int : 455 ms Sinus bradycardia. with premature atrial complexes. ST \T\ T wave abnormality, consider anterolateral ischemia Abnormal ECG When compared with ECG of 25-AUG-2016 11:11, premature atrial complexes. are now present T wave inversion less evident in Lateral leads Unconfirmed Result
--- NOTE | 2016-08-27 05:51 | EKG Report ---
Test Performed on : 08/27/2016 05:39:16 AM Test Reason : No Order in [employer] Blood Pressure : / mmHG Vent. Rate : 052 BPM Atrial Rate : 052 BPM P-R Int : 112 ms QRS Dur : 098 ms QT Int : 546 ms P-R-T Axes : 000 031 179 degrees QTc Int : 507 ms Sinus bradycardia. Marked ST abnormality, possible inferior subendocardial injury Prolonged QT Abnormal ECG When compared with ECG of 27-AUG-2016 01:10, (Unconfirmed) Sinus rhythm. has replaced Junctional rhythm. Nonspecific T wave abnormality now evident in Inferior leads QT has lengthened Unconfirmed Result
[2016-08-27 06:17] LABS: HEMATOCRIT 41.2 % (37.0-47.0); HEMOGLOBIN 13.6 g/dL (12.0-16.0); MCH 30.6 PG (27-31); MCV 92.8 FL (81-99); MPV 11.2 FL (7.4-10.4); RBC 4.44 XMIL (4.2-5.4)
[2016-08-27 06:31] LABS: ALBUMIN 3.4 g/dL (3.5-5.0); CALCIUM 8.2 mg/dL (8.8-10.2); POTASSIUM 3.4 mmol/L (3.5-5.1); TOTAL BILIRUBIN 0.5 mg/dL (0.20-1.00); TOTAL PROTEIN 6.1 g/dL (6.3-8.3)
--- NOTE | 2016-08-27 08:53 | ECHO REPORT ---
ORDER DATE: 08/25/2016 ADDENDUM REPORT CONCLUSIONS: 1. No pericardial effusion. 2. Cannot rule out layered thrombus in the left ventricular apex as it was technically suboptimal. I would recommend Definity study to assess for LV apical thrombus. cc: MD Janeth Christie CRNP
[2016-08-27] MEDS: NS 1,000 ML IV SCH ×3 (09:33→19:46)
[2016-08-27] MEDS: ASPIRIN PR SCH (09:34)
--- NOTE | 2016-08-27 10:45 | PROGRESS NOTE ---
DATE: 08/27/2016 SUBJECTIVE: Today, Ms. Morris continued to be stable. She continues to be nonverbal, but she did have a very good interaction with her granddaughter who was at the room at the time. She was more focalized when she was talking to her, and she seems to give her some smiles. I am not quite sure if she understood what ever the granddaughter was saying. OBJECTIVE: Vital Signs: Blood pressure is 165/76, pulse of 52, respiration is 20, temperature 98.8 degrees. General: Ms. Morris is an 86-year-old, female. She is in bed, not seemingly distress. HEENT: Mucosa is pink, slightly dry. Anicteric. Acyanotic. Neck is supple. Chest: Good air entry bilaterally. Few bibasilar crepitations. Cardiovascular: Regular rate is slightly bradycardic. No murmurs. Abdomen is soft. Extremities: No pedal edema. INTERN BRAND: Patient is awake and nonverbal, has a right hemiparesis. I do not think she understands what is communicated to her. She actively moves the left side. LABORATORY DATA: WBC is 12.28, hemoglobin is 13.6, platelet count of 196,000. Chemistries reviewed. Sodium is 139, potassium is 3.4, chloride is 103, bicarb is 24, creatinine is down to 1.1. ASSESSMENT: 1. 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 2. Atrial fibrillation with rapid ventricular response. Patient was on Cardizem drip. The drip was turned off. She has converted to sinus and bradycardic actually now. Will however keep the drip very closely since she might probably bounce back into paroxysmal atrial fibrillation. The patient failed the swallow evaluation yesterday, so we cannot use any oral medications at this point. 3. Hypertension. The patient was running hypotensive yesterday and was hard to be started on phenylephrine to keep the blood pressure at an acceptable range to perfuse the penumbra. This morning, blood pressures are high. We are coming down on the phenylephrine, hopefully, we will be able to take it off later on today and monitor the blood pressure. 4. Acute kidney injury likely from hypoperfusion during the atrial fibrillation rapid ventricular response. Creatinine is a little better and patient is having adequate urine output. We will continue with the current IV fluids and recheck her labs in the morning. At this point, the patient is not on any blood thinner for the atrial fibrillation because of the acute stroke which would have to wait until after 2 weeks to re-evaluate for anticoagulation. Patient seems to be failing her swallow evaluation which means on the long-term she is going to be needing a PEG tube to be placed. We would have to start thinking about that. If patient fails her swallow evaluation today, we would get GI consult for a PEG tube placement. cc: Canelo Moncada MD
[2016-08-27] MEDS: LIPITOR PO SCH (20:45)
[2016-08-28] MEDS: NEO-SYNEPHRINE 50 MG in NS 250 ML IV SCH ×3 (00:57→04:39)
[2016-08-28] MEDS: NS 1,000 ML IV SCH ×2 (05:42→18:00)
[2016-08-28 05:44] LABS: HEMATOCRIT 35.8 % (37.0-47.0); HEMOGLOBIN 11.4 g/dL (12.0-16.0); MCH 30.4 PG (27-31); MCHC 31.8 g/dL (33-37); MCV 95.5 FL (81-99); RBC 3.75 XMIL (4.2-5.4)
--- NOTE | 2016-08-28 05:44 | EKG Report ---
Test Performed on : 08/28/2016 05:37:07 AM Test Reason : a.fib protocol/cardizem gtt Blood Pressure : / mmHG Vent. Rate : 093 BPM Atrial Rate : 250 BPM P-R Int : 000 ms QRS Dur : 098 ms QT Int : 390 ms P-R-T Axes : 000 004 100 degrees QTc Int : 484 ms Atrial flutter. with variable AV block. Nonspecific ST and T wave abnormality Prolonged QT Abnormal ECG When compared with ECG of 27-AUG-2016 05:39, Atrial flutter. has replaced Sinus rhythm. Vent. rate has increased BY [address] no longer depressed in Inferior leads Nonspecific T wave abnormality no longer evident in Inferior leads T wave inversion less evident in Anterolateral leads Unconfirmed Result
[2016-08-28 05:51] LABS: AGAP 9; ALBUMIN 2.6 g/dL (3.5-5.0); ALKALINE PHOSPHATASE 39 U/L (32-104); BUN 26 mg/dL (8-22); CALCIUM 7.8 mg/dL (8.8-10.2); CHLORIDE 110 mmol/L (98-107); COSMO 285; GOT 29 U/L (10-30); GPT 7 U/L (10-36); POTASSIUM 3.4 mmol/L (3.5-5.1); SODIUM 141 mmol/L (136-145); TCO2 21 mmol/L (25-35); TOTAL PROTEIN 5.1 g/dL (6.3-8.3)
[2016-08-28] MEDS: ASPIRIN PR SCH (10:30)
[2016-08-28] MEDS ORDERED: LIPOSYN 20% 500 ML IV SCH (12:14)
[2016-08-28] MEDS ORDERED: NS 1,000 ML IV SCH (12:14)
[2016-08-28] MEDS ORDERED: CLINIMIX E 4.25%-5% SOLUTION 1,000 ML IV SCH (12:14)
--- NOTE | 2016-08-28 12:38 | PROGRESS NOTE ---
DATE: 08/28/2016 SUBJECTIVE: Today, Ms. Morris continues to be in the ICU, but relatively stable and looks a little better than yesterday. She is able to make some sounds, incomprehensible, but I think that is a little bit of improvement from yesterday or the day before, when she was not able to make anything at all. She is also able to smile and able to move actively the left side. She tried to move the right side, but no movement. At other times, she just does not seem to understand what you are telling her. OBJECTIVE: Vital signs: Blood pressure is 103/56, pulse is 92, respirations 20, temperature is 98.2 degrees. General: Ms. Morris is an 86-year-old female. She is in bed, not seemingly distressed. HEENT: Mucosa is pink, a little dry, anicteric and acyanotic. Neck: Supple. Chest: Good air entry bilaterally. A few bibasilar crepitations. Cardiovascular: Irregularly irregular, but normal rate. No murmurs. Abdomen: Soft, nontender. Extremities: No pedal edema. Central Nervous System: Patient is awake, alert, able to mumble some sounds which are incomprehensible. Continues to have a dense right hemiplegia, more so upper than the lower, since when you scratch the bottom of the foot she is able to withdraw it slightly. The left side is fine. Occasionally, patient seems to understand, but it is very, very inconsistent. LABORATORY DATA: WBC is 7.02, hemoglobin is 11.4, platelet count is 121,000. Chemistries reviewed. Sodium is 140, potassium is 3.4, chloride is 110, bicarbonate is 21. ASSESSMENT: 1. Left dominant middle cerebral artery territory infarct with subsequent right-sided hemiplegia and global aphasia. 2. Atrial fibrillation with rapid ventricular response. Patient was on Cardizem drip. Yesterday, this was turned off because she was bradycardic. Today, the pulse is on the higher end. We are going to pay critical attention to that. If it is above 110, we are going to start her back on the Cardizem drip. 3. Hypertension, stable. 4. Acute kidney injury secondary to hypoperfusion during atrial fibrillation with rapid ventricular response. This is improved. Creatinine has normalized. 5. Nutritional needs. The patient has not had anything to eat since the last 4 days. We are therefore going to put her on Clinimix with lipid infusion and hopefully get Gastroenterology to put in a PEG tube and start enteral feedings. 6. I have been in contact with Dr. Jefferson's office, but I have not had any response back. I am also in communication with Dr. Xiong and have notified him of the patient needing a PEG tube. He has responded that they can do this tomorrow. We are still waiting for the final arrangement as to what time and how we are going to get the patient there. Hopefully, we can make all the necessary arrangements and get a PEG tube done tomorrow and bring her back. cc: Canelo Moncada MD
[2016-08-28] MEDS ORDERED: ZOFRAN IV PRN (17:32)
[2016-08-28] MEDS: CLINIMIX E 4.25%-5% SOLUTION 1,000 ML IV SCH ×2 (17:59→18:00)
[2016-08-28] MEDS: LIPITOR PO SCH (20:39)
[2016-08-29 05:32] LABS: HEMATOCRIT 32.7 % (37.0-47.0); HEMOGLOBIN 10.8 g/dL (12.0-16.0); MCH 31.8 PG (27-31); MCV 96.2 FL (81-99); RBC 3.4 XMIL (4.2-5.4)
[2016-08-29 05:55] LABS: AGAP 11; ALBUMIN 2.6 g/dL (3.5-5.0); ALKALINE PHOSPHATASE 41 U/L (32-104); BUN 34 mg/dL (8-22); CALCIUM 7.9 mg/dL (8.8-10.2); CHLORIDE 110 mmol/L (98-107); COSMO 293; GOT 32 U/L (10-30); GPT 11 U/L (10-36); POTASSIUM 3.8 mmol/L (3.5-5.1); SODIUM 143 mmol/L (136-145); TCO2 22 mmol/L (25-35); TOTAL BILIRUBIN 0.36 mg/dL (0.20-1.00); TOTAL PROTEIN 4.9 g/dL (6.3-8.3)
--- NOTE | 2016-08-29 06:13 | EKG Report ---
Test Performed on : 08/29/2016 05:39:22 AM Test Reason : a.fib protocol/cardizem gtt Blood Pressure : / mmHG Vent. Rate : 075 BPM Atrial Rate : 330 BPM P-R Int : 000 ms QRS Dur : 098 ms QT Int : 404 ms P-R-T Axes : 000 010 110 degrees QTc Int : 451 ms Atrial flutter. with variable AV block. ST \T\ T wave abnormality, consider anterior ischemia Abnormal ECG When compared with ECG of 28-AUG-2016 05:37, Inverted T waves have replaced nonspecific T wave abnormality in Anterior leads Nonspecific T wave abnormality, improved in Lateral leads Confirmed by Maximus CHILDERS, MPiyush Reece ([id number]) on 08/29/2016 1:02:55 PM
--- NOTE | 2016-08-29 09:25 | PROGRESS NOTE ---
DATE: 08/29/2016 SUBJECTIVE: The patient is resting comfortably in the bed. She does not answer any questions but opening eyes to verbal stimuli. OBJECTIVE: Vital Signs: Temperature 96.8 degrees, heart rate 92, respiratory rate 22, blood pressure 122/64. O2 saturation 100% 2 L nasal cannula. General: This is a chronically ill- looking, frail, and malnourished 86-year-old female lying in bed in no acute distress. HEENT: Head is normocephalic and atraumatic. Anicteric sclerae. Very dry mucous membranes. Neck supple. No JVD noted. No carotid bruits. No lymphadenopathy. Cardiovascular : S1, S2 heard. Irregularly irregular. No murmurs, gallops, or rubs. Respiratory: Some few bibasilar crepitations noted but patient is not using any accessory muscles or having work of breathing. Abdomen is soft, nontender to palpation. Bowel sounds present. No organomegaly. Extremities: No clubbing, cyanosis, or edema. Neurological: Patient is sleepy today and does not talk. Awakes to verbal stimuli. Right hemiplegia noted more remarkable in the upper than the lower. LABORATORY DATA: ASSESSMENT AND PLAN: 1. Left dominant middle cerebral artery territory infarct, aware. Physical therapy is going to be consulted to work with her. 2. Atrial fibrillation with rapid ventricular response. Patient is still in atrial fibrillation but heart rate is well controlled. At this point, we are going to continue with the same management. 3. Hypertension. Blood pressure is definitely stable. We will continue with the same management. 4. Acute kidney injury, resolved. 5. Malnourishment. As per previous notes from this patient, apparently she had not had anything to eat in the last 5 days so that is why the patient was transferred over here. GI was consulted to put a PEG tube and then, apparently, the patient will go back to [facility]. Dr. Xiong from has been consulted and, apparently, he is going to place the PEG tube today. cc: Sanchez Zepeda MD [facility]
[2016-08-29] MEDS: ASPIRIN PR SCH (09:58)
--- NOTE | 2016-08-29 10:17 | PROGRESS NOTE ---
DATE: 08/29/2016 CHIEF COMPLAINT: Aphasia, weakness of the right side of the body, and irregular heartbeat. SUBJECTIVE: Ms. Morris has been transferred from [facility] to the main campus at [facility] for the purposes of implanting a percutaneous gastrostomy tube. The patient is mumbling or trying to vocalize some words. However, she does not make any sense. This is an improvement compared to her initial presentation when she was completely aphasic. She is still completely paralyzed on the right side. She does have upgoing toe on the right foot, Babinski's sign. She is not in any distress. She is on IV Cardizem. OBJECTIVE: Vital signs: Temperature is 98.1, pulse 87, respirations 23, and blood pressure 157/78. General: She is awake. She mumbles. HEENT: Otherwise, unremarkable. Chest: Symmetrical breath sounds. I do not hear any rales. Cardiovascular: Heart sounds are slightly irregular. She is in atrial fibrillation with a controlled rate. Abdomen: Nontender. Extremities: The extremities show no obvious edema. Neurological: She has hemiplegia on the right side and severe dysphasia or global aphasia. LABORATORY DATA: Blood work today shows a sodium of 143, potassium 3.8, BUN 34, and creatinine 0.7. White count is 5,830, hemoglobin 10.8, and platelet count 120,000. IMPRESSION: 1. The patient has suffered a severe stroke involving the left side of the brain with resultant hemiplegia and aphasia. 2. Paroxysmal atrial fibrillation which is controlled right now with Cardizem. She had converted for some period of time however she went back into atrial fibrillation and now she is controlled with Cardizem. 3. History of hypertension. 4. Questionable history of myocardial infarction in the past. Heart catheterization performed several years ago showed no evidence of any coronary stenosis. RECOMMENDATIONS: At this point in time I would suggest to continue IV Cardizem. Once the gastrostomy tube is in place we can switch over to liquid Cardizem or crushed tablet of regular Cardizem. Otherwise, her prognosis appears to be very guarded because she has dense hemiplegia and she is going to have to go to rehab and she may end up staying indefinitely at a detention since she will be very difficult to care for. We will follow her along. cc: Catarino Tinsley MD
[2016-08-29] MEDS ORDERED: DIPRIVAN 1% ONE (14:01)
[2016-08-29] MEDS ORDERED: XYLOCAINE-MPF 2% ONE (14:01)
[2016-08-29] MEDS: CLINIMIX E 4.25%-5% SOLUTION 1,000 ML IV SCH (16:10)
[2016-08-29] MEDS: LIPOSYN 20% 250 ML IV SCH (17:38)
[2016-08-29] MEDS: NS 1,000 ML IV SCH (18:37)
[2016-08-29] MEDS: LIPITOR PO SCH (23:16)
[2016-08-30] MEDS: CARDIZEM 100 MG/NS 100 MG/100 ML IVPB IV SCH (01:22)
[2016-08-30] MEDS: TYLENOL PR PRN (03:43)
[2016-08-30 06:06] LABS: AGAP 12; ALBUMIN 2.7 g/dL (3.5-5.0); ALKALINE PHOSPHATASE 45 U/L (32-104); BUN 32 mg/dL (8-22); CALCIUM 7.8 mg/dL (8.8-10.2); CHLORIDE 107 mmol/L (98-107); COSMO 287; GOT 27 U/L (10-30); GPT 8 U/L (10-36); MAGNESIUM 1.9 mg/dL (1.5-2.7); POTASSIUM 3.6 mmol/L (3.5-5.1); PREALBUMIN 13.9 mg/dL (20-40); SODIUM 140 mmol/L (136-145); TCO2 21 mmol/L (25-35); TOTAL BILIRUBIN 0.45 mg/dL (0.20-1.00); TRIGLYCERIDES 151 mg/dL (35-135)
[2016-08-30] MEDS: CLINIMIX E 4.25%-5% SOLUTION 1,000 ML IV SCH ×2 (07:03→11:30)
[2016-08-30] MEDS: ASPIRIN PR SCH (08:15)
--- NOTE | 2016-08-30 12:13 | PROGRESS NOTE ---
DATE: 08/30/2016 SUBJECTIVE: The patient is resting comfortably on the bed, is nonverbal today with me. Opened eyes to verbal stimuli. OBJECTIVE: Vital signs: Temperature 97.8, heart rate 89, respiratory rate 24, blood pressure 148/89, O2 sat 100% on 2 L nasal cannula. General: This is a chronically ill- looking and frail and malnourished 86-year-old female lower GI bleed in no acute distress. HEENT: Head is normocephalic and atraumatic. Anicteric sclerae. Pale conjunctivae. Mucous membranes dry. Neck: Supple, no JVD noted, no carotid bruits, no lymphadenopathy, no thyromegaly. Cardiovascular: The S1, S2 heard. Irregularly irregular, no murmurs, gallops, or rubs. Respiratory : Some few bibasilar crepitations noted, but patient is not using any accessory muscles or having work of breathing. Abdomen: Soft, nontender to palpation, bowel sounds present, no organomegaly. PEG tube in place. Extremities: No clubbing, cyanosis, or edema. Neurological: The patient is sleepy, does not talk. Left hemiparesis noted. ASSESSMENT AND PLAN: 1. Left dominant middle cerebral artery territory infarct. Aware. Physical Therapy has been consulted, but considering his mental status, the prognosis is very poor. 2. Paroxysmal atrial fibrillation. That condition is now controlled with Cardizem. Some time she converted to sinus rhythm and then she is back to atrial fibrillation again. At this point, we will treat with Cardizem and, as she has a PEG tube, we can use liquid or crush the Cardizem. Cardiology is following this patient. 3. Hypertension. Blood pressure is stable. 4. Acute kidney injury, resolved. 5. Malnourishment. The patient had a PEG tube placed yesterday, so we are planning to send this patient back to [facility] today. cc: Sanchez Zepeda MD [facility]
[2016-08-30] MEDS: LIPOSYN 20% 250 ML IV SCH (17:59)
[2016-08-30] MEDS: NS 1,000 ML IV SCH (18:00)
[2016-08-30] MEDS: LIPITOR PO SCH (23:03)
[2016-08-31] MEDS: CLINIMIX E 4.25%-5% SOLUTION 1,000 ML IV SCH ×2 (03:16→05:04)
[2016-08-31] MEDS: CARDIZEM 100 MG/NS 100 MG/100 ML IVPB IV SCH ×2 (03:16→22:57)
[2016-08-31] MEDS: TYLENOL PR PRN (03:18)
[2016-08-31] MEDS: ASPIRIN PR SCH (08:46)
--- NOTE | 2016-08-31 09:48 | PROGRESS NOTE ---
DATE: 08/31/2016 SUBJECTIVE: Patient is awake resting comfortable in bed. Nonverbal today. Definitely opens eyes to verbal stimuli. OBJECTIVE: Vital Signs: Temperature 97.9 degrees, heart rate 79, respiratory rate 22, blood pressure 119/74. O2 saturation 99% on 2 L nasal cannula. General Examination: This is a chronically ill-looking and frail, malnourished 86-year-old female lying in bed in no acute distress. HEENT: Head is normocephalic, atraumatic. Anicteric sclerae and pale conjunctivae. Mucous membranes moist. Neck: Supple. No JVD noted. No carotid bruits. No lymphadenopathy. No thyromegaly. Cardiovascular: S1-S2 heard, irregularly irregular but no murmurs, gallops, or rubs. Respiratory: Bibasilar crepitation noted in both bases. Definitely better in comparing with yesterday. Patient is not using any accessory muscles or having work of breathing. Abdomen: Soft, nontender to palpation. Bowel sounds present. No organomegaly. Peg tube in place. No erythema surrounding the PEG tube insertion area. Extremities: No clubbing, cyanosis, or edema. Neurological: Patient is sleepy. Left hemiparesis is noted. LABORATORY DATA: There are no labs from today. ASSESSMENT AND PLAN: 1. Left dominant middle cerebral artery territory infarct. Aware. Physical therapy has been consulted. 2. Paroxysmal atrial fibrillation. Patient is not controlled with Cardizem. Cardiology is following. 3. Hypertension. Blood pressure is well controlled. We will continue with the same management. 4. Acute kidney injury, resolved. 5. Malnutrition. The patient had a PEG tube placed 2 days ago and according to nursing staff, as per nursing staff, there is no high residual and the patient is tolerating those feelings very well. 6. Disposition: Patient, once cleared by cardiology, is straight to go to a rehab facility. cc: Sanchez [facility]epeda [facility]
[2016-08-31] MEDS: DIFLUCAN 150 MG/NS 150 MG/75 ML IVPB IV SCH (10:58)
[2016-08-31] MEDS: MONISTAT-7 VAG CREAM VAG SCH (13:35)
--- NOTE | 2016-08-31 13:49 | PROGRESS NOTE ---
DATE: 08/31/2016 SUBJECTIVE: Patient awake. Responds to verbal stimuli. Family at bedside. OBJECTIVE: Vital signs: Are noted and normal. O2 saturation 99-100% on 2 L. General: No scleral icterus or conjunctival pallor. Heart: Normal first and second heart sounds. Lungs: Clear. Abdomen: G site appears normal. No signs of infection. Tolerating feeding. Abdomen: Soft, nondistended. LABORATORY: None today. IMPRESSION AND PLAN: 1. Left dominant middle cerebral artery infarct. 2. Paroxysmal atrial fibrillation. 3. Hypertension. 4. Motor dysphagia. Currently being treated with G-tube feedings. Tolerating the feedings well with no significant residuals. 5. Disposition. Once she is cleared, she will go to the rehab, but no further suggestions from Gastroenterology. We will ask the dietitian to calculate the calorie requirement and adjust her tube feedings accordingly. -1 cc: Marli Jefferson MD
--- NOTE | 2016-08-31 13:49 | PROGRESS NOTE ---
DATE: 08/30/2016 SUBJECTIVE: The patient responds to verbal stimuli by opening her eyes, moving the left side of the face and the left hand. Family is at bedside. OBJECTIVE: Vital Signs: Temperature 97.9 degrees, heart rate 79, respirations 20, blood pressure 119/70, O2 saturation 99% on 2 L. HEENT: No scleral icterus or conjunctival pallor. Neck: Supple. Heart: Normal first and second heart sounds. Lungs: Clear. Abdomen: G site is normal. There is no evidence of any infection. Tube feeding is progressing. Neurological: Unable to examine. LABORATORY DATA: No change. IMPRESSION AND PLAN: 1. Left dominant middle cerebral artery infarct. 2. Paroxysmally atrial fibrillation. 3. Hypertension. 4. Acute tubular necrosis, resolved. 5. Malnutrition. Patient is tolerating the tube feeding without any problems. 6. Disposition. Depends on Cardiology, and once they clear the patient, will go to [place] and then rehab. cc: Marli Jefferson MD
[2016-08-31 16:31] LABS: HEMATOCRIT 35.4 % (37.0-47.0); MCH 31.2 PG (27-31); MCHC 33.9 g/dL (33-37); MCV 91.9 FL (81-99); RBC 3.85 XMIL (4.2-5.4)
--- NOTE | 2016-08-31 17:33 | OPERATIVE NOTE ---
PROCEDURE DATE: 08/29/2016 PROCEDURE: Percutaneous endoscopy gastrostomy. 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 DESCRIPTION OF PROCEDURE: After informed consent and adequate intravenous sedation by Anesthesia, the scope was introduced to the esophagus and stomach. Good transillumination is obtained in the epigastric area which was previously cleaned and draped in sterile fashion. A small incision was made and angiocath was introduced through which silk was introduced, pulled through the patient's mouth. To this end, a 24-Welsh gastrostomy tube was attached and gentle traction was applied to the abdominal side until the tube came through the anterior gastric and anterior abdominal wall and the internal bolster was close to the anterior gastric wall. External bolster was applied and dressings were placed. The patient tolerated the procedure well without any immediate complications. cc: Marli Jefferson MD
[2016-08-31] MEDS: NS 1,000 ML IV SCH (18:37)
[2016-08-31] MEDS: LIPITOR PO SCH (22:57)
[2016-09-01] MEDS: ASPIRIN PR SCH (08:35)
[2016-09-01] MEDS: DIFLUCAN 150 MG/NS 150 MG/75 ML IVPB IV SCH (08:35)
[2016-09-01] MEDS: MONISTAT-7 VAG CREAM VAG SCH (08:35)
--- NOTE | 2016-09-01 09:19 | PROGRESS NOTE ---
DATE: 09/01/2016 SUBJECTIVE: Patient is more awake today, nonverbal, basic commands. OBJECTIVE: Vital Signs: Temperature 98.9 degrees, heart rate 94, respiratory rate 32, blood pressure 127/71, O2 saturation 99% on 2 L nasal cannula. General: This is a chronically ill- looking and frail, malnourished, 86-year-old, female lying in bed, in no acute distress. HEENT: Head is normocephalic and atraumatic. Anicteric sclerae and pale conjunctivae. Mucous membranes dry. Neck: Supple. No JVD noted. No carotid bruits. No lymphadenopathy. No thyromegaly. Cardiovascular: S1 and S2 heard. Irregularly irregular. No murmurs, gallops, or rubs. Respiratory Examination: Bibasilar crepitations still noted in both bases but definitely better in comparing with the previous days. Patient is not using any accessory muscles or having work of breathing. Abdomen: Soft, nontender to palpation. Bowel sounds present. No organomegaly. PEG tube in place. No erythema surrounding the PEG tube insertion area. Extremities: No clubbing, cyanosis, or edema. Peripheral pulses present in both legs. Neurological Examination: Patient is sleepy, nonverbal, awake. Right hemiparesis noted. ASSESSMENT AND PLAN: 1. Left dominant middle cerebral artery territory infarct. Aware. Physical therapy has been consulted. 2. Paroxysmal atrial fibrillation. Patient is still on Cardizem drip, requiring 7.5 mg intravenous per hour. Cardiology is following this patient. We will leave to them the management of this condition. 3. Hypertension. Blood pressure is well controlled. We will continue with the same management. 4. Acute kidney injury, resolved. 5. Malnutrition. The patient had a PEG tube placed [address] Jefferson. According to the nursing staff, she is doing good. No high residuals. 6. Disposition. Patient, once cleared by cardiology, can go to a rehab facility. cc: Sanchez Zepeda MD
[2016-09-01] MEDS ORDERED: DUONEB (A & A) INH PRN (09:51)
[2016-09-01] MEDS: CARDIZEM 100 MG/NS 100 MG/100 ML IVPB IV SCH (11:02)
[2016-09-01] MEDS: DUONEB (A & A) INH SCH ×3 (11:24→19:46)
--- NOTE | 2016-09-01 15:00 | ECHO REPORT ---
ORDER DATE: 08/25/2016 ADDENDUM REPORT Definity was used to assess left ventricular systolic function and to rule out clot. CONCLUSIONS: There is no interventricular clot or thrombus. Left ventricular ejection fraction is 65% to 70%. cc: Constantino Reed MD
[2016-09-01] MEDS: NS 1,000 ML IV SCH (18:14)
[2016-09-01 18:59] LABS: URINE MICRO REVIEW NEEDED? NO; URINE SOURCE CATH
[2016-09-01 19:06] LABS: UR EPITHELIAL CELLS <10 /HPF (<10); URINE BACTERIA NEGATIVE /HPF; URINE RBC TNTC /HPF (<10); URINE WBC <10 /HPF (<10)
[2016-09-01 19:11] LABS: BILIRUBIN URINE NEGATIVE (NEGATIVE); BLOOD URINE LARGE (NEGATIVE); COLOR BROWN; GLUCOSE URINE NEGATIVE (NEGATIVE); LEUKOCYTES URINE TRACE (NEGATIVE); NITRITE URINE NEGATIVE (NEGATIVE); PROTEIN URINE 100 mg/dL (NEGATIVE); SP GRAVITY URINE 1.003; TURBIDITY URINE HAZY (CLEAR); URINE CULTURE NEEDED? YES; UROBILINOGEN URINE NORMAL (NORMAL)
[2016-09-01] MEDS: LIPITOR PO SCH (21:38)
[2016-09-02] MEDS: DUONEB (A & A) INH SCH ×7 (01:47→23:14)
[2016-09-02] MEDS: CARDIZEM 100 MG/NS 100 MG/100 ML IVPB IV SCH ×2 (02:26→14:06)
[2016-09-02] MEDS ORDERED: SOLU-MEDROL IV ONE (04:23)
[2016-09-02 04:38] LABS: ALLEN TEST YES; BE 0.6 mmoll (-3.0-3.0); BLOOD TYPE ARTERIAL; DRAW SITE R RADIAL; METHB 0.7 % (0.0-1.5); O2(CT) 13.9 mL/dL (15.0-23.0); PCO2(98.6) 34 mmHg (35-45); PO2(98.6) 102 mmHg (60-100); SAMPLE BLOOD; SAO2 100.3 % (95.0-100.0); pH(98.6) 7.46 (7.35-7.45)
[2016-09-02 04:39] LABS: MODALITY CANNULA
--- NOTE | 2016-09-02 08:00 | Diag Imaging Result Doc PS360 ---
EXAM: CHEST-PORTABLE INDICATION: Labored breathing/wheezing TECHNIQUE: One view COMPARISON: 08/26/2016 FINDINGS: The right IJ line has been retracted significantly. The tip now projects over the soft tissues of the right supraclavicular region. Lung volumes are very low. There is suggestion of subsegmental atelectasis at the right lung base. A trace right pleural effusion is possible as well. Low lung volumes are causing central vascular crowding. Cardiac silhouette is essentially stable. IMPRESSION: 1.Interval retraction of the right IJ line, which is now in suboptimal position. 2.Low lung volumes and suggestion of subsegmental atelectasis at the right lung base and possible trace right effusion. Electronically signed by Julio Posadas 09/02/2016 7:58 AM
--- NOTE | 2016-09-02 10:06 | Diag Imaging Result Doc PS360 ---
EXAM: ABDOMEN/PELVIS W/WO CONTRAST HISTORY: gross hematuria TECHNIQUE: CT of the abdomen and pelvis with and without intravenous contrast with dose reduction (clarity.) COMMENT: There are no previous studies. There are bilateral pleural effusions more so on the right than the left. There is bibasal or atelectasis. There is no evidence of nephrolithiasis. There is no evidence of cholelithiasis, although there is some apparent para cholecystic fluid. There is a gastrostomy tube with its tip in the gastric antrum. There is a solid mass arising from the upper pole of the right kidney measuring 6.1 x 5.1 x 6.6 cm. There are atherosclerotic calcifications in the aorta and the ostia of the superior mesenteric and left renal arteries. 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 One of the arteries, the one more most anteriorly located is partially draped over the mass anteroinferiorly. There are additional masses in the right kidney anteriorly and posteriorly of visible on image 71 of the arterial phase. Both are round 19 to 20 mm in diameter. There is also an apparent solid mass anteriorly in the left kidney around image 61, another over the upper pole on image 42 measuring 15 mm in diameter and to other areas of decreased attenuation on the portal venous phase are present on image 49 in the left kidney one measuring 18 mm and the other 9 mm. There is no evidence of thrombus in the renal vein on the right or the inferior vena cava. The adrenal glands are unremarkable. The pancreas spleen and liver are otherwise unremarkable. There is some perinephric fluid on the right. There is no evidence of significant adenopathy. Pelvis with and without intravenous contrast: There is a Manuel catheter in the urinary bladder which is completely contracted. There is diverticulosis in the sigmoid colon without evidence of diverticulitis. There are no adnexal masses or abnormal fluid collections. There is bilateral spondylolysis at L5. IMPRESSION: 1. Renal masses particularly on the right. The smaller masses may be due to metastatic disease. The larger mass would most likely be a solid renal neoplasm. 2. Bilateral pleural effusions and basilar opacities probably representing atelectasis although the possibility of pneumonia cannot be excluded. Electronically signed by Dmitriy Rios 09/02/2016 10:03 AM
[2016-09-02] MEDS: DIFLUCAN 150 MG/NS 150 MG/75 ML IVPB IV SCH (10:09)
[2016-09-02] MEDS: ASPIRIN PR SCH (10:10)
[2016-09-02] MEDS: MONISTAT-7 VAG CREAM VAG SCH (10:10)
[2016-09-02] MEDS ORDERED: LASIX IV ONE (14:20)
--- NOTE | 2016-09-02 15:04 | PROGRESS NOTE ---
DATE: 09/02/2016 SUBJECTIVE: Today Ms. Morris continues to be the same. Unfortunately she had a CT scan of the abdomen done early this morning because of hematuria and the findings have been very devastating with a right renal mass which is suspicious for renal cell carcinoma. OBJECTIVE: Vital signs: Blood pressure is 94/59, pulse is 103, respiration is 24, temperature 97.9 degrees. General: Ms. Morris is an 86-year-old female. She is in bed, not seemingly distressed. HEENT: Mucosa is pink and moist. Anicteric and acyanotic. Neck: Neck is supple. Chest: Air entry is bilaterally reduced. There are a few bibasilar crepitations. Cardiovascular: Irregularly irregular. Abdomen: Soft. Extremities: No pedal edema. PEDIGREE TRACER: Patient is awake and alert. Continues to be nonverbal. Makes some noncomprehensive noise. Actively moves the left side, not the right. DIAGNOSTIC STUDIES: A CT scan of the abdomen and pelvis was done this morning which shows renal masses particularly on the right, the small masses may be due to metastatic disease. The larger mass would most likely be a solid renal mass. There are bilateral pleural effusions and basilar opacities probably represent atelectasis, although a possibility of pneumonia could not be excluded. O2 saturations 97%. ASSESSMENT: 1. 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 2. Paroxysmal atrial fibrillation. Currently on Cardizem drip. We are going to start the patient on 30 mg of p.o. Cardizem through the PEG tube as we gradually take care of the IV Cardizem. 3. Hypertension, stable. 4. Acute kidney injury, resolved. 5. Nutritional needs. The patient is now on PEG tube feedings. We will plan to continue on that. We are going to discontinue the IV fluids. 6. Recently diagnosed right renal mass with metastases suspicious for renal cell carcinoma. Patient will eventually need to have a tissue diagnosis. However, with a baseline performance status as well as her primary diagnoses of stroke, I am not quite sure if this is the path the family wants to take. So I will be waiting on the granddaughter to come and I will discuss this new finding with her.. 7. Mild respiratory distress likely secondary to pleural effusions and atelectasis. We are going to discontinue the IV fluids. We will give the patient a dose of Lasix and repeat a chest x- ray for tomorrow morning. PLAN: So in general I think Ms. Morris continues to be critically sick, has hematuria which I think is due to the underlying right renal tumor which we suspect is malignant. I am going to be waiting on the granddaughter to come and we will discuss this new finding since I think the overall prognosis looks very dismal and at this point, I think Ms. Morris will better be served with hospice services going forward, but I am yet to discuss this with the granddaughter. We are going to discontinue the central line since it is almost completely out cc: Canelo Moncada MD MTDD
--- NOTE | 2016-09-02 21:30 | CONSULTATION ---
DATE OF CONSULTATION: 09/01/2016 CONSULTING PHYSICIAN: Sanchez Zepeda MD REASON FOR CONSULTATION: Gross hematuria. HISTORY OF PRESENT ILLNESS: An 86-year-old female, who is here because of stroke with significant deterioration in her mental status. In fact, she is unable to give any history. Hence, the records are obtained through other notes. She has been nonverbal and not following commands. She has been on aspirin. Of note, she did have a right internal jugular central line placed on 08/24/2016. She developed gross hematuria. Urology was consulted. Again per record review, there was no evidence of hematuria in the past. There is nothing in past medical history to suggest the etiology of it. PAST MEDICAL HISTORY: Cerebrovascular accident, coronary artery disease, hypertension, thyroid disorder, bipolar dementia. PAST SURGICAL HISTORY: Heart surgery. Thyroid surgery. Dilatation and curettage. ALLERGIES: Penicillin. MEDICATIONS: See electronic medical chart. FAMILY HISTORY: No record of malignancies. SOCIAL HISTORY: There is no record of illicit drugs or alcohol. History of tobacco use. REVIEW OF SYSTEMS: Unobtainable secondary to mental status. PHYSICAL EXAMINATION: Vital signs: Temperature 97.8 degrees, pulse 109, blood pressure 125/67. General: No acute distress. Cardiovascular: Regular rhythm. Pulmonary: Bilateral breath sounds. Abdomen: Protuberant, nontender to palpation. : Bladder is nontender to palpation. Manuel catheter in place draining red urine. No groin lymphadenopathy. Back: No CVA tenderness. Neurologic: She does not respond to conversation or any commands. Psychiatric: Unable to assess. PERTINENT LABORATORY: Her white cell count is 8000, hematocrit 35, creatinine 0.8. Her urinalysis on 09/01/2016 is positive for blood, negative for bacteria. ASSESSMENT: An 86-year-old female with history of stroke who is fairly nonfunctional and is definitely not a historian. I have discussed with the nursing staff that she would benefit from workup given the absence of urinary tract infection and we agreed to try to perform computed tomography abdomen and pelvis with an without intravenous contrast. PLAN: 1. Computed tomography abdominal and pelvis with and without contrast later today. 2. We will review the findings and proceed from there. 3. Thank you for the consultation. cc: Ru Freedman MD
[2016-09-02] MEDS: LIPITOR PO SCH (21:57)
[2016-09-02] MEDS: CARDIZEM SCH (21:58)
[2016-09-03] MEDS: CARDIZEM 100 MG/NS 100 MG/100 ML IVPB IV SCH ×3 (02:25→21:45)
[2016-09-03] MEDS: CARDIZEM SCH ×4 (02:25→21:21)
[2016-09-03] MEDS: DUONEB (A & A) INH SCH ×6 (02:40→22:57)
[2016-09-03] MEDS ORDERED: LASIX IV ONE (02:52)
[2016-09-03 05:10] LABS: BASO% 0.1 % (0.0-0.8); HEMATOCRIT 29.6 % (37.0-47.0); HEMOGLOBIN 9.8 g/dL (12.0-16.0); IMM GRAN# 0.06 X1000 (0.0-0.04); IMM GRAN% 0.5 % (0.0-0.5); LYMPH# 0.47 X1000 (1.2-3.4); LYMPH% 3.8 % (20.5-51.1); MANUAL DIFF NEEDED? YES; MCH 30.8 PG (27-31); MCHC 33.1 g/dL (33-37); MCV 93.1 FL (81-99); MONO% 5.6 % (1.7-9.3); MPV 11.2 FL (7.4-10.4); PLT 253 X1000 (130-400); RBC 3.18 XMIL (4.2-5.4)
[2016-09-03 05:28] LABS: CALCIUM 8.9 mg/dL (8.8-10.2); POTASSIUM 3.6 mmol/L (3.5-5.1)
[2016-09-03 07:39] LABS: BANDS 1 % (0-1); LYMPHS 4 % (21-51); NRBC 1 % (0-0)
[2016-09-03] MEDS: MONISTAT-7 VAG CREAM VAG SCH (08:30)
[2016-09-03] MEDS: ASPIRIN PR SCH (08:30)
--- NOTE | 2016-09-03 12:54 | Diag Imaging Result Doc PS360 ---
CHEST-PORTABLE - 09/03/2016 INDICATION: SOB TECHNIQUE: COMPARISON: 09/02/2016 FINDINGS: The right central line appears to have been removed. Lung volumes are improved but still very low. There is improvement in the bibasilar bronchovascular crowding. No obvious infiltrates. No pneumothorax or large effusion. Stable cardiomegaly. IMPRESSION: Right central line removed. Improved aeration of the lungs. No new abnormalities. Electronically signed by Carl Rodrigues 09/03/2016 12:51 PM
[2016-09-03 13:19] LABS: ALLEN TEST YES; BE 4.1 mmoll (-3.0-3.0); BLOOD TYPE ARTERIAL; DRAW SITE R RADIAL; METHB 1.1 % (0.0-1.5); O2(CT) 13.6 mL/dL (15.0-23.0); PCO2(98.6) 33 mmHg (35-45); PO2(98.6) 99 mmHg (60-100); SAMPLE BLOOD; SAO2 98.9 % (95.0-100.0); THB 9.9 g/dL (11.5-17.4); pH(98.6) 7.52 (7.35-7.45)
[2016-09-03 13:21] LABS: MODALITY VENTIMASK
[2016-09-03] MEDS: MORPHINE IV PRN ×2 (15:14→22:58)
--- NOTE | 2016-09-03 16:55 | PROGRESS NOTE ---
DATE: 09/03/2016 SUBJECTIVE: Today, Ms. Morris continues to be the same. There has not been any significant changes in her clinical picture. OBJECTIVE: Blood pressure is 114/74, pulse of 128, respirations 20, temperature 98.2. General, Ms. Moscoso is an 86-year-old, female. She is in bed, seems slightly tachypneic. HEENT: Mucosa is pink and moist. Chest: Air entry is bilaterally reduced. There is bilateral crepitations. Cardiovascular is irregularly irregular. Abdomen is soft. Extremities: No pedal edema. COTTAGE ATTENDANT: Patient is awake. Does not follow any commands. She continues to be nonverbal. Will move actively the left side, not the right. LABORATORY DATA: WBC is 12.4, hemoglobin is 9.8, platelet count of 253,000. Chemistry is reviewed. Creatinine is 1.1. Recent chest x-ray which was done this morning shows improvement of aeration of the lung. No new abnormalities is found. ASSESSMENT: 1. 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 2. Persistent atrial fibrillation with rapid ventricular response. Patient is on Cardizem drip. 3. Hypertension. 4. Acute kidney injury, resolved. However, creatinine has bumped up slightly today. 5. Recently diagnosed right renal mass with metastasis suspicious for renal cell carcinoma. 6. Respiratory distress likely secondary to underlying pulmonary effusions and atelectasis. 7. Diastolic heart failure. In general, I think Ms. Morris continues to be stable. Her respiratory status seems to be declining a little bit. I had a lengthy phone conversation with Dr. Freedman and he is also with the impression that at this point there is no benefit trying to go in there to do any surgery. He also recommends that we go more with palliative therapy and I am pending to discuss the plan with the family members today. cc: Canelo Moncada MD
[2016-09-03] MEDS: LIPITOR PO SCH (21:21)
[2016-09-03] MEDS: LASIX IV SCH (21:21)
[2016-09-03] MEDS: SOLU-MEDROL IV SCH (21:21)
[2016-09-04] MEDS: CARDIZEM SCH ×4 (03:11→21:28)
[2016-09-04] MEDS: MORPHINE IV PRN ×4 (03:27→21:45)
[2016-09-04] MEDS: DUONEB (A & A) INH SCH ×6 (03:46→23:03)
[2016-09-04] MEDS: MONISTAT-7 VAG CREAM VAG SCH (08:45)
[2016-09-04] MEDS: LASIX IV SCH ×2 (08:46→21:28)
[2016-09-04] MEDS: SOLU-MEDROL IV SCH ×2 (08:46→21:28)
[2016-09-04] MEDS: ASPIRIN PR SCH (08:47)
--- NOTE | 2016-09-04 13:15 | PROGRESS NOTE ---
DATE: 09/04/2016 SUBJECTIVE: Ms. Morris had a CT scan performed yesterday as ordered by me, which revealed large right renal mass, as well as the multiple bilateral renal masses concerning for possible metastatic disease. This morning on rounds, her urine looked clear, although had some streaks of blood in it. There were no clots that I saw in the bag. She had no family at bedside present at the time of the rounds. OBJECTIVE: Vital Signs: Temperature 97.2, pulse 76, blood pressure 97/42. General: No acute distress. Abdomen: Nontender, nondistended. Genitourinary: Manuel catheter in place, draining straw-colored urine with streaks of blood, but no clots. ASSESSMENT AND PLAN: An 86-year-old female with medical comorbidities and advanced age, dementia, and gross hematuria, with CT scan findings of multiple renal masses. I have spoken to Dr. Canelo Moncada yesterday and over the phone and explained to him that given the patient's advanced age, medical comorbidities, and extent of disease, I do not feel surgical intervention would be beneficial. I agree with Dr. Canelo Moncada that she will likely benefit from hospice being comfortable. If she had significant hematuria which caused her much distress, which on this morning rounds does not appear to be so, she could qualify for potential embolization of the right renal arteries, which would lead to renal infarct but may resolve hematuria. I definitely do not recommend at this point. PLAN: 1. No genitourinary intervention planned at this point. 2. Please call with questions. 3. Thank you for consultation. cc: Ru Freedman MD
[2016-09-04] MEDS: CARDIZEM 100 MG/NS 100 MG/100 ML IVPB IV SCH (18:54)
[2016-09-04] MEDS: LIPITOR PO SCH (21:28)
[2016-09-05] MEDS: CARDIZEM SCH ×4 (02:09→20:41)
[2016-09-05] MEDS: DUONEB (A & A) INH SCH ×6 (02:44→23:09)
[2016-09-05] MEDS: CARDIZEM 100 MG/NS 100 MG/100 ML IVPB IV SCH (02:52)
[2016-09-05] MEDS: ASPIRIN PR SCH (08:36)
[2016-09-05] MEDS: LASIX IV SCH (08:36)
[2016-09-05] MEDS: MONISTAT-7 VAG CREAM VAG SCH (08:36)
[2016-09-05] MEDS: SOLU-MEDROL IV SCH ×2 (08:40→20:41)
--- NOTE | 2016-09-05 17:07 | PROGRESS NOTE ---
DATE: 09/05/2016 Today Ms. Morris continues to be stable. She tries to make some noise but it is non comprehensible.Vitals: Her blood pressure is 119/74, pulse of 97, respirations 20, temperature is 98 degrees. General Exam: Ms. Morris is an 86-year-old, female. She is in bed. She is not in any distress. HEENT: Mucosa is pink and moist. Anicteric. Acyanotic. Neck: Neck is supple. Chest: Air entry is bilaterally reduced. There are a few bibasilar crepitations. Cardiovascular: Irregularly irregular. No murmurs. Abdomen: Is soft. Extremities: No pedal edema. FACILITY WORKER: Patient is awake. She tries to make some non comprehensive sounds. She she actively moves the left side, the right side not so much. LABORATORY DATA: None for today. ASSESSMENT: 1. 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 2. Persistent atrial fibrillation with rapid ventricular response. The patient is currently on oral Cardizem. 3. Hypertension stable. 4. Acute kidney injury improved. 5. Recently diagnosed right renal mass with other masses in the left which is suspicious for metastasis from renal cell carcinoma. 6. Respiratory distress secondary to underlying pulmonary effusion and atelectasis. 7. Diastolic heart failure. So, today I spoke extensively with the granddaughter for Ms. Morris. At this point, they think Ms. Morris is showing a little bit of improvement so they would want her to go to a rehab and transition her to a long-term snf. We would therefore be pending social work for placement. For today we are going to discontinue the Manuel catheter and will use adult brief if necessary. cc: Canelo Moncada MD
[2016-09-05] MEDS: LIPITOR PO SCH (20:41)
[2016-09-06] MEDS: CARDIZEM SCH ×4 (02:59→20:15)
[2016-09-06] MEDS: DUONEB (A & A) INH SCH ×6 (03:09→23:05)
[2016-09-06 05:07] LABS: BASO% 0.2 % (0.0-0.8); HEMATOCRIT 32.3 % (37.0-47.0); HEMOGLOBIN 10.5 g/dL (12.0-16.0); IMM GRAN# 0.47 X1000 (0.0-0.04); IMM GRAN% 2.6 % (0.0-0.5); LYMPH# 0.79 X1000 (1.2-3.4); LYMPH% 4.4 % (20.5-51.1); MANUAL DIFF NEEDED? YES; MCHC 32.5 g/dL (33-37); MCV 95.3 FL (81-99); MONO# 0.66 X1000 (0.11-0.59); MONO% 3.7 % (1.7-9.3); NEUT% 89.1 % (42.2-75.2); PLT 376 X1000 (130-400); RBC 3.39 XMIL (4.2-5.4)
[2016-09-06 05:41] LABS: BANDS 14 % (0-1); LYMPHS 4 % (21-51); MONO 2 % (1-9)
[2016-09-06 05:58] LABS: CALCIUM 9.1 mg/dL (8.8-10.2); POTASSIUM 3.6 mmol/L (3.5-5.1)
[2016-09-06] MEDS: MONISTAT-7 VAG CREAM VAG SCH (09:24)
[2016-09-06] MEDS: ASPIRIN PR SCH (09:24)
[2016-09-06] MEDS: SOLU-MEDROL IV SCH (09:24)
--- NOTE | 2016-09-06 11:53 | PROGRESS NOTE ---
DATE: 09/06/2016 Today Ms. Morris continues to be stable. There were not any acute changes overnight. However when I inquired if Ms. Morris had any bowel movement I do not see any charted since the . OBJECTIVE: Vital signs: Blood pressure 127/61, pulse 97, respirations 20, temperature 97.9 degrees. General: Ms. Morris is an 86-year-old, female. She is in bed, not seemingly distressed. HEENT: Mucosa is pink and moist. Anicteric. Acyanotic. Neck: Supple. Chest: Air entry is bilaterally reduced. A few bibasilar crepitations. Cardiovascular: Irregularly irregular. No murmurs, no rubs. No gallops. Abdomen: Soft. Slightly distended. Extremities: No pedal edema. SKILLED LABOR: Patient is awake and alert. Tries to makes some non comprehensive sounds. Has a right-sided hemiparesis. LABORATORY DATA: WBC 17.96, hemoglobin is 10.5, platelet count is 376,000. There is 14% of bands on the peripheral smear. Chemistry is reviewed. BUN is 52. ASSESSMENT: 1. 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 2. Persistent atrial fibrillation with RVR. Patient has been started on oral Cardizem. I spoke with the pharmacy yesterday and my understanding is that the short acting Cardizem can be crushed and give it to her through the PEG tube so that is what we will be doing. 3. Hypertension is stable. 4. Acute kidney injury improved. 5. Recently diagnosed right renal mass with other masses on the left suspicious for metastatic renal cell carcinoma. I will discuss this with Urology and with the family members. At this point, they do not want to pursue anything aggressive. 6. Respiratory distress secondary to underlying pneumonia, effusion and atelectasis. Patient had antibiotic course for over 10 days. Antibiotics were discontinued 3 days ago however, this morning, white count is high and there are some bands on the peripheral smear. Not quite sure if there is a recurring pneumonia or something else. I will therefore do a chest x-ray to follow up on the lungs. We will also do a KUB to follow up on the abdominal distention. 7. Abdomen distention likely due to constipation. Patient is tolerating her tube feedings. There has not been any residual reported. We would do a KUB to be sure there are no underlying obstructions. 8. Diastolic heart failure. Noted. Today Ms. Morris continued to be stable. Has not had any bowel movement. Seems to be tolerating the NG tube feedings. We would do a KUB and a chest x-ray and I will follow up on the results. cc: Canelo Moncada MD
--- NOTE | 2016-09-06 13:17 | Diag Imaging Result Doc PS360 ---
EXAM: FLAT/UPRIGHT ABD/1 VIEW CHEST HISTORY: wbc/ abd distension TECHNIQUE: Three views COMPARISON: Chest is compared to 09/03/2016 FINDINGS: Poor inspiratory effort. The heart is enlarged. There are mild increased interstitial markings believed to be pulmonary edema. No free air beneath the diaphragm. The bowel loops are not dilated. There is stool throughout the colon. No organomegaly. Believe there is a gastric tube. IMPRESSION: 1.Cardiomegaly with mild pulmonary edema 2.Mild constipation Electronically signed by Porfirio Houser 09/06/2016 1:15 PM
[2016-09-06] MEDS: LIPITOR PO SCH (20:15)
[2016-09-07] MEDS: DUONEB (A & A) INH SCH ×6 (03:20→23:17)
[2016-09-07] MEDS: CARDIZEM SCH ×4 (03:50→20:48)
[2016-09-07 06:10] LABS: CALCIUM 8.8 mg/dL (8.8-10.2); POTASSIUM 3.8 mmol/L (3.5-5.1)
[2016-09-07 06:24] LABS: BASO% 0.2 % (0.0-0.8); EOS# 0.06 X1000 (0.0-0.7); EOS% 0.4 % (0.0-10.0); HEMATOCRIT 32.3 % (37.0-47.0); HEMOGLOBIN 10.4 g/dL (12.0-16.0); IMM GRAN% 3.6 % (0.0-0.5); LYMPH# 0.84 X1000 (1.2-3.4); LYMPH% 5.1 % (20.5-51.1); MANUAL DIFF NEEDED? YES; MCH 30.9 PG (27-31); MCHC 32.2 g/dL (33-37); MCV 95.8 FL (81-99); MONO# 0.91 X1000 (0.11-0.59); MONO% 5.5 % (1.7-9.3); MPV 11.1 FL (7.4-10.4); NEUT% 85.2 % (42.2-75.2); PLT 382 X1000 (130-400); RBC 3.37 XMIL (4.2-5.4)
[2016-09-07 07:38] LABS: LYMPHS 11 % (21-51); MONO 3 % (1-9)
[2016-09-07] MEDS: ASPIRIN PR SCH (08:22)
[2016-09-07] MEDS: MONISTAT-7 VAG CREAM VAG SCH (08:23)
--- NOTE | 2016-09-07 09:10 | PROGRESS NOTE ---
DATE: 09/02/2016 SUBJECTIVE: Ms. Morris appears to be about the same. She had some hematuria and has a CT of the abdomen which showed a possible renal cell carcinoma. OBJECTIVE: Vital Signs: Blood pressure 94/59, pulse of 90, respiratory rate 24, temperature normal. General: Elderly lady, appears weak, in no distress. HEENT: No scleral icterus or cyanosis or pallor. Neck: Supple. Heart: Irregularly irregular. Lungs: Normal. Abdomen: Soft. PEG site appears dry. No signs of infection. IMPRESSION AND PLAN: 1. Left cerebrovascular accident with right hemiplegia. 2. Motor dysphagia, on percutaneous endoscopic gastrostomy, tolerating the tubes well and no significant residuals. 3. Paroxysmal atrial fibrillation. 4. Hypertension, stable. 5. Renal mass, most likely renal cancer. RECOMMENDATION AND PLAN: I think the GI-ovalle, the patient is tolerating the diet well. From her CVA and new renal cancer with possible metastasis, I think she needs hospice care. cc: Marli Jefferson MD
--- NOTE | 2016-09-07 09:12 | PROGRESS NOTE ---
DATE: 09/05/2016 SUBJECTIVE: Stable, no change. Tolerating the tube feedings. OBJECTIVE: General: An 86-year-old lady in no acute distress. HEENT: No scleral icterus or conjunctival pallor. Neck: Supple. Trachea midline. Heart: Irregular. Lungs: Are clear. Abdomen: G-site appears uninfected and dry. Laboratory Data: None. IMPRESSION AND PLAN: 1. Left cerebrovascular accident with right hemiplegia. 2. Atrial fibrillation with rapid ventricular response, on Cardizem. 3. Hypertension. 4. Acute kidney injury, improved. 5. Renal mass with possible metastasis. 6. Diastolic heart failure. Dr. Moncada has talked to the granddaughter. Nephrology is consulted. Hospice will be consulted. She seems to shows slight improvement. I think it appears mostly palliative care in this 86-year- old lady. Patient is stable as far as nutrition and G-tube issues are concerned. We will sign off. -3 cc: Marli Jefferson MD
--- NOTE | 2016-09-07 17:45 | PROGRESS NOTE ---
DATE: 09/07/2016 SUBJECTIVE: Today Ms. Morris continues to be relatively stable. No acute changes overnight. OBJECTIVE: Vital signs: Blood pressure is 115/67, pulse of 83, respirations 16, temperature 97.7 degrees. Patient is saturating 100% on 3 L of oxygen. General: Ms. Morris is an 86-year-old female. She is in bed, not seemingly distressed. HEENT: Mucosa is pink and moist. Anicteric. Acyanotic. Neck: Supple. Chest: Good air entry bilaterally. Few bibasilar crepitations. Cardiovascular: Irregularly irregular. No murmurs. Abdomen: Soft. PEG tube is in place. Extremities: No pedal edema. BAND MANAGER: Patient is awake, alert. She tries to makes some incomprehensive sounds. Has a right-sided hemiparesis. LABORATORY DATA: WBC 16.52, hemoglobin is 10.4, platelet count of 382,000. Chemistries is reviewed and completely unremarkable except for BUN that is slightly elevated but it is getting better. ASSESSMENT: 1. 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 2. Atrial fibrillation with rapid ventricular response, currently rate controlled. 3. Motor dysphagia. Patient is status post PEG tube. 4. Recently diagnosed renal mass suspicious for renal cell carcinoma with metastasis. 5. Respiratory distress secondary, improved. 6. Abdominal distention due to constipation. KUB yesterday did show some constipation. Will continue to address this more symptomatically. 7. Diastolic heart failure, stable. PLAN: So in general, I think Ms. Morris is relatively stable. She is pending a rehab evaluation but I think eventually Ms. Morris will need hospice. I think the plan from the family's standpoint is to have her go to rehab and transition to long-term care because they do not think they will be able to take care of her at home. cc: Canelo Moncada MD
[2016-09-07] MEDS: LIPITOR PO SCH (20:48)
[2016-09-08] MEDS: CARDIZEM SCH ×4 (02:45→20:23)
[2016-09-08] MEDS: DUONEB (A & A) INH SCH ×6 (03:20→23:39)
[2016-09-08] MEDS: ASPIRIN PR SCH (08:07)
--- NOTE | 2016-09-08 15:47 | PROGRESS NOTE ---
DATE: 09/08/2016 SUBJECTIVE: Today Ms. Morris continued to be stable. No acute changes overnight. OBJECTIVE: Vital signs: Blood pressure is 125/87, pulse of 125, respiration is 21, temperature is 97.2. General: Ms. Morris 86-year-old female. She is in bed, not seemingly distressed. HEENT: Mucosa is pink and moist. Anicteric. Acyanotic. Neck: Supple. Chest: Air entry is bilaterally reduced. Cardiovascular: Irregularly irregular. No murmurs. Abdomen: Soft. PEG tube is in place. Extremities: No pedal edema. CASTING AND LOCKER ROOM SERVICER: Patient is awake, alert, tried to make some incomprehensible sounds, has a right side hemiparesis. LABORATORY DATA: None for today. ASSESSMENT: 1. Left dominant middle cerebral artery territory infarct with right side hemiparesis. 2. Motor dysphagia status post percutaneous endoscopic gastrostomy tube placement. 3. Atrial fibrillation with rapid ventricular response currently rate controlled. Patient continues to be on p.o. Cardizem. We added atenolol which patient was on it at home. 4. Recently diagnosed renal mass suspicious for renal cell carcinoma with metastases. Patient family members have decided not to do any further investigations on this. Patient was evaluated by Dr. Freedman with regard to this and the decision is to keep the patient comfortable. 5. Respiratory distress improved. 6. Abdominal distention secondary to constipation. Will continue to treat this symptomatically. 7. Diastolic heart failure improved. So in general Ms. Morris is relatively stable from a medical standpoint. At 1 point the decision was to discharge her with hospice. However patient's family referred that they will not be able to cater for her at home so they are looking for a long-term placement for Ms. Morris. hot tamale worker is on board and we are pending adequate disposition plan. cc: Canelo Moncada MD MTDD
[2016-09-08] MEDS: TENORMIN PO SCH (17:50)
[2016-09-08] MEDS: EXELON 9.5MG/24HRS TD SCH (17:51)
[2016-09-08] MEDS: LIPITOR PO SCH (20:23)
[2016-09-09] MEDS: CARDIZEM SCH ×4 (03:08→20:34)
[2016-09-09] MEDS: DUONEB (A & A) INH SCH ×6 (03:30→23:10)
[2016-09-09] MEDS: TENORMIN PO SCH (08:40)
[2016-09-09] MEDS: COZAAR PO SCH (08:40)
[2016-09-09] MEDS: ASPIRIN PO SCH (08:40)
[2016-09-09] MEDS ORDERED: DEPAKOTE ER PO SCH (09:00)
[2016-09-09] MEDS: EXELON 9.5MG/24HRS TD SCH (09:07)
--- NOTE | 2016-09-09 15:23 | DISCHARGE SUMMARY ---
ADMISSION DATE: 08/24/2016 DISCHARGE DATE: 09/09/2016 CONSULTATIONS: 1. Dr. Catarino Tinsley with Cardiology. 2. Dr. Maggie Sloan with Neurology. 3. Dr. Marli Jefferson with Gastroenterology. 4. Dr. Ru Freedman with Urology. DISCHARGE DIAGNOSES: 1. 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 2. Motor dysphagia, status post PEG tube placement performed by Dr. Jefferson. 3. Atrial fibrillation. Currently rate controlled. 4. Recently diagnosed renal mass suspicious for renal cell carcinoma with metastasis. Family members have decided not to do any further investigation. The patient was evaluated by Dr. Freedman in regard to this and the decision is to keep the patient comfortable. 5. Respiratory distress, improved. 6. Abdominal distention secondary to constipation. Continue to treat symptomatically. Improved. 7. Diastolic heart failure. Improved. PERTINENT PROCEDURES: 1. Head CT showed chronic ischemic changes and atrophy which progressed since 06/08/2008. No evidence of acute disease. Brain MRI showed acute infarct involving the superior temporal lobe and adjacent inferior frontoparietal junction on the left. 2. Carotid Doppler study showed atherosclerotic plaquing at bilateral carotid bulbs. No evidence of hemodynamically significant stenosis on the right nor the left carotid system. 3. Echocardiogram showed an EF of 60-65%. 4. Ultrasound-guided placement of a right internal jugular central line performed by Dr. Duncan Campos. 5. PEG tube placement performed by Dr. Jefferson. 6. Abdomen and pelvis CT showed renal masses, particularly on the right. Smaller masses may be due to metastatic disease. The larger mass would most likely be a solid renal neoplasm. Bilateral pleural effusion and basilar opacities probably representing atelectasis, although the possibility of pneumonia could not be excluded. 7. Abdominal x-ray showed cardiomegaly with mild pulmonary edema, mild constipation. HOSPITAL COURSE: Briefly, Ms. Morris is an 86-year-old female, who carries a past medical history of CVA, bipolar disease, coronary artery disease, status post [place], hypertension, dementia, thyroid goiter status post thyroidectomy per family presented to the ED with confusion. Family reported she was her usual self. Alert and oriented. Very independent. Actively helping take care of her great granddaughter. When the granddaughter left, and returned to find her around 4:30 p.m. in the afternoon very confused, drooling out of the right side of her mouth, dysphasic and has not spoken a word since and was not obeying any commands. She was brought to the ED at which time she was found to be in atrial fibrillation in the 130s. She was noted to have atrial fibrillation per the daughter and was currently not on any anticoagulation, including aspirin. She has not had any preceding illnesses per the granddaughter or any other symptoms prior to this episode tonight, and no injury reported as well. She was admitted for further evaluation by Cardiology and Neurology with an MRI pending the next day. She was placed on anticoagulation and admitted to the [facility], trended cardiac enzymes as well as an echocardiogram and started on Cardizem and obtained carotid Dopplers. Patient was made nothing per oral and placed on aspiration precautions and consulted physical therapy for unilateral weakness. Her brain MRI did show acute infarct involving the superior temporal lobe adjacent to the inferior frontoparietal junction on the left. The patient did fail her swallow study. Her pressures did drop on a Cardizem drip. General Surgery was called in to place a central line. GI was called in to place a PEG tube. The patient's pressures were able to normalize. Her heart rate stabilized. She continued to have right-sided hemiparesis and global aphasia. Dr. Freedman was brought in for gross hematuria. After a CT of the abdomen and pelvis was obtained, they did note a right renal mass as well as multiple bilateral renal masses concerning for possible metastatic disease. They did not feel that surgical intervention would even beneficial given the patient's age and multiple medical comorbidities and extent of her diseases that it would be appropriate and that she would likely benefit from hospice and being comfortable. Dr. Moncada had extensively spoken with the granddaughter for Ms. Morris. At one point they had decided for her to go home with hospice; however, she showed a slight sign of improvement to the family so now they are looking for long-term placement for the patient. Greenhouse Assistant has been reconsulted for long-term placement. The granddaughter had visited nursing homes over the weekend. She has chosen to [facility]. They have accepted the patient and she will be discharged there today. In the interim, Ms. Morris has been tolerating her PEG tube feedings with minimal residuals reported. She has been getting Jevity 1.5 at a goal rate of 40 mL/hour with 30 mL/hour H2O flush. She has remained stable with no acute changes. VITAL SIGNS AT TIME OF HER DISCHARGE: Temperature is 97.5 degrees, heart rate 91, respirations 20, blood pressure is 129/69, O2 is 100% on 2 L nasal cannula. DISCHARGE DIET: NPO. Aspiration precautions. She will be getting PEG tube feedings with Jevity 1.5 at goal rate of 40 mL/hour with 30 mL/hour H2O flush. DISCHARGE MEDICATIONS: As per Dr. Dominguez. Please see MAR. FOLLOW-UP: Ms. Morris is being discharged to [facility] for long-term placement. She can return to the ED for any worsening of symptoms. She was a Do Not Resuscitate level 1 while in our facility. DISCHARGE TIME: Greater than 40 minutes. Dictated by LANA Mckeon for Vinod Dominguez MD cc: Vinod Dominguez MD
[2016-09-09] MEDS: LOVENOX SUBQ SCH (18:09)
[2016-09-09] MEDS ORDERED: CALMOSEPTINE OINTMENT TOP PRN (18:33)
[2016-09-09] MEDS: LIPITOR PO SCH (20:33)
--- NOTE | 2016-09-09 20:47 | PROGRESS NOTE ---
DATE: 09/09/2016 SUBJECTIVE: Patient has no focal complaints. OBJECTIVE: Vital Signs: Blood pressure 140/79, heart rate 92, respiratory rate 18, temperature 97.6 degrees, 99% on room air. Cardiovascular: Regular rate and rhythm. Pulmonary: Bilateral breath sounds. Clear to auscultation. Gastrointestinal: Soft, nontender, nondistended. Bowel sounds are positive. LABORATORY DATA: White count 16, hemoglobin and hematocrit 10 and 32, platelets 382,000. Basic was normal. BUN of 44. PROBLEM LIST: 1. Acute ischemic stroke with dysphagia. She is status post PEG and getting tube feeds. 2. Atrial fibrillation with rapid ventricular response. Rate controlled on Cardizem. She has been on atenolol. Holding on long-term anticoagulation because of large stroke. I think she will need this revenue tax specialist though, with atrial fibrillation and the stroke. Her stroke I think was on admission, which at this point was on the 3rd, so I would consider that we should be able to start anticoagulation on her. We have not done so, I guess just because of the large volume of stroke. 3. Acute kidney injury. She seems to be doing better. 4. Presumed metastatic renal carcinoma at this point. Family does not want to be further aggressive with the patient, so we are just managing it with comfort care. DISPOSITION: Plan for rehab when cleared. Because of her bipolar disorder we are awaiting psychiatric evaluation per the state before placement. cc: Vinod Dominguez MD
[2016-09-10] MEDS: DEPAKOTE SPRINKLE PO SCH ×4 (02:23→21:00)
[2016-09-10] MEDS: CARDIZEM SCH ×5 (02:23→20:59)
[2016-09-10] MEDS: DUONEB (A & A) INH SCH ×6 (03:05→23:28)
[2016-09-10 05:39] LABS: HEMATOCRIT 34.8 % (37.0-47.0); HEMOGLOBIN 11.1 g/dL (12.0-16.0); MCHC 31.9 g/dL (33-37); MCV 97.2 FL (81-99); MPV 10.5 FL (7.4-10.4); RBC 3.58 XMIL (4.2-5.4)
[2016-09-10 06:13] LABS: CALCIUM 8.1 mg/dL (8.8-10.2); POTASSIUM 4.4 mmol/L (3.5-5.1)
[2016-09-10] MEDS ORDERED: DEPAKOTE ER PO SCH (09:00)
[2016-09-10] MEDS: ASPIRIN PO SCH ×2 (09:30→09:47)
[2016-09-10] MEDS: TENORMIN PO SCH ×2 (09:32→09:47)
[2016-09-10] MEDS: EXELON 9.5MG/24HRS TD SCH (09:55)
[2016-09-10] MEDS: COZAAR PO SCH (09:59)
[2016-09-10] MEDS: LOVENOX SUBQ SCH (16:30)
[2016-09-10] MEDS: LIPITOR PO SCH (21:00)
--- NOTE | 2016-09-10 22:18 | PROGRESS NOTE ---
DATE: 09/10/2016 SUBJECTIVE: The patient is sleeping. No major complaints. OBJECTIVE: Vital signs: Blood pressure 94/65, heart rate 79, respiratory 16, temperature 93 degrees, 100% saturation on 2 L. Cardiovascular: Regular rate and rhythm. Pulmonary: Bilateral breath sounds. Clear to auscultation. GI: Soft, nontender, nondistended. Bowel sounds are positive. Extremities: No clubbing or cyanosis. Lymphatics: No peripheral edema. Neurological: Nonfocal. LABORATORY DATA: White count down 11, hemoglobin and hematocrit 11 and 34, platelets 359,000. CMP looked okay. PROBLEM LIST: 1. Acute ischemic stroke with dysphagia. She is on aspirin therapy and stable. 2. Atrial fibrillation with rapid ventricular response. She is on Cardizem, atenolol, holding on long-term anticoagulation, although I think we can probably start that on her soon. She is on deep venous thrombosis prophylaxis at this point. 3. Acute kidney injury appears to be stable. 4. Presumed diagnosis renal cell carcinoma. We are pursuing noninvasive means at this time. 5. Disposition: Planning for rehab, but she needs a state evaluation before that happens because of history about bipolar disorder. She has been switched to Depakote sprinkles because of the PEG, so we are awaiting that before transition. cc: Vinod Dominguez MD
[2016-09-11] MEDS: CARDIZEM SCH ×4 (02:10→20:28)
[2016-09-11] MEDS: DUONEB (A & A) INH SCH ×6 (03:30→23:44)
[2016-09-11] MEDS: TENORMIN PO SCH (09:09)
[2016-09-11] MEDS: DEPAKOTE SPRINKLE PO SCH ×2 (09:09→20:28)
[2016-09-11] MEDS: ASPIRIN PO SCH (09:09)
[2016-09-11] MEDS: COZAAR PO SCH (09:09)
[2016-09-11] MEDS: EXELON 9.5MG/24HRS TD SCH (09:12)
--- NOTE | 2016-09-11 16:28 | PROGRESS NOTE ---
DATE: 09/11/2016 SUBJECTIVE: Patient is awake, but is nonverbal. OBJECTIVE: Vital Signs: Temperature 98.4 degrees, heart rate 99, respiratory rate 18, blood pressure 118/60, O2 saturation 100% 2 L nasal cannula. General Examination: This is a chronically ill-looking and frail, 86-year-old female, lying in bed in no acute distress. HEENT: Head is normocephalic, atraumatic. Anicteric sclerae and pale conjunctivae. Mucous membranes moist. Neck: Supple. No JVD noted. No carotid bruits. No lymphadenopathy. No thyromegaly. Cardiovascular exam: S1, S2 heard. No murmurs, gallops, or rubs. Regular rate and rhythm. Respiratory exam: Clear bilaterally to auscultation. No work of breathing or using accessory muscles. Abdomen: PEG tube noted. Soft, nontender to palpation. Extremities: No clubbing, cyanosis, or edema. Peripheral pulses present in both legs. Neurological exam: There is a right hemiplegia noted, more remarkable in the upper than lower extremities. ASSESSMENT AND PLAN: 1. Acute ischemic stroke with dysphagia. Patient on aspirin as per PEG tube, stable. 2. Atrial fibrillation with rapid ventricular response. Patient is on Cardizem and atenolol. I do not think she is a good candidate for long-term anticoagulation considering her high risk of falling. We will continue just with deep vein thrombosis prophylaxis only. 3. Acute kidney injury, resolved. 4. Presumed renal cell carcinoma, aware. DISPOSITION: The patient is to go to rehabilitation, but because of history of bipolar disorder she needs to be evaluated by the State. That will be probably be next week. In the meantime, we will keep this patient in the hospital. cc: Sanchez Zepeda MD
[2016-09-11] MEDS: DIFLUCAN 150 MG/NS 150 MG/75 ML IVPB IV SCH (17:15)
[2016-09-11] MEDS: LOVENOX SUBQ SCH (17:15)
[2016-09-11] MEDS: LIPITOR PO SCH (20:28)
[2016-09-12] MEDS: CARDIZEM SCH ×4 (02:03→21:57)
[2016-09-12] MEDS: DUONEB (A & A) INH SCH ×6 (03:26→23:08)
[2016-09-12] MEDS: COZAAR PO SCH ×2 (08:55→09:03)
[2016-09-12] MEDS: TENORMIN PO SCH (08:55)
[2016-09-12] MEDS: ASPIRIN PO SCH (08:55)
[2016-09-12] MEDS: DEPAKOTE SPRINKLE PO SCH ×2 (08:56→21:57)
[2016-09-12] MEDS: EXELON 9.5MG/24HRS TD SCH (09:03)
--- NOTE | 2016-09-12 14:53 | PROGRESS NOTE ---
DATE: 09/12/2016 SUBJECTIVE: Patient is awake, but nonverbal. OBJECTIVE: Vital Signs: Temperature 97.4 degrees, heart rate 84, respiratory rate 22, blood pressure 105/69, and O2 saturation 99% on 3L nasal cannula. General: This is a chronically ill- looking, frail, looking older than her age, female lying in bed in no acute distress. HEENT: Head is normocephalic and atraumatic. Anicteric sclerae and pale conjunctivae. Mucous membranes moist. Neck: Supple. No JVD noted. No carotid bruits. No lymphadenopathy. No thyromegaly. Cardiovascular: S1 and S2 heard. No murmurs, gallops, or rubs. Regular rate and rhythm. Respiratory: Clear bilaterally to auscultation. No work of breathing or use of accessory muscles. Abdomen: PEG tube present. Soft, nontender to palpation. Extremities: No clubbing, cyanosis, or edema. Neurologic: Patient has a right hemiplegia, more remarkable in the upper than in the lower extremity. ASSESSMENT AND PLAN: 1. Acute ischemic stroke with dysphagia. Patient is on aspirin per PEG tube and is stable. 2. Atrial fibrillation with rapid ventricular response. Patient is on Cardizem and atenolol. Will continue with the same management. 3. Acute kidney injury. Resolved. 4. Presumed renal cell carcinoma. Aware. DISPOSITION: Patient, as we mentioned before, is ready to go to rehab, but because of the history of bipolar disorder, the patient is going to be evaluated by the state next week. We will see what they have to say. cc: Sanchez Zepeda MD
[2016-09-12] MEDS: LOVENOX SUBQ SCH (18:27)
[2016-09-12] MEDS: DIFLUCAN 150 MG/NS 150 MG/75 ML IVPB IV SCH (18:27)
[2016-09-12] MEDS: LIPITOR PO SCH (21:57)
[2016-09-13] MEDS: DUONEB (A & A) INH SCH ×6 (03:17→22:54)
[2016-09-13] MEDS: CARDIZEM SCH ×5 (04:24→23:46)
[2016-09-13 05:27] LABS: MANUAL DIFF NEEDED? NO
[2016-09-13 05:35] LABS: BASO% 0.1 % (0.0-0.8); EOS# 0.23 X1000 (0.0-0.7); EOS% 2.8 % (0.0-10.0); HEMATOCRIT 34.8 % (37.0-47.0); HEMOGLOBIN 11.3 g/dL (12.0-16.0); IMM GRAN# 0.21 X1000 (0.0-0.04); IMM GRAN% 2.6 % (0.0-0.5); LYMPH# 0.79 X1000 (1.2-3.4); LYMPH% 9.6 % (20.5-51.1); MCH 30.8 PG (27-31); MCHC 32.5 g/dL (33-37); MCV 94.8 FL (81-99); MONO# 0.79 X1000 (0.11-0.59); MONO% 9.6 % (1.7-9.3); MPV 10.4 FL (7.4-10.4); NEUT% 75.3 % (42.2-75.2); PLT 340 X1000 (130-400); RBC 3.67 XMIL (4.2-5.4)
[2016-09-13] MEDS: TENORMIN PO SCH (10:00)
[2016-09-13] MEDS: DEPAKOTE SPRINKLE PO SCH (10:01)
[2016-09-13] MEDS: COZAAR PO SCH (10:02)
[2016-09-13] MEDS: ASPIRIN PO SCH (10:02)
[2016-09-13] MEDS: EXELON 9.5MG/24HRS TD SCH (10:03)
--- NOTE | 2016-09-13 13:16 | PROGRESS NOTE ---
DATE: 09/13/2016 SUBJECTIVE: Patient is awake, but nonverbal. OBJECTIVE: Vital Signs: Temperature 97.7 degrees, heart rate 86, respiratory rate 20, blood pressure 113/70, O2 saturation 100% on 2L nasal cannula. General: This is a chronically ill- looking, frail, and looking older than her age, 86-year-old female lying in bed in no acute distress. HEENT: Head is normocephalic and atraumatic. Anicteric sclerae and pale conjunctivae. Mucous membranes moist. Neck: Supple. No JVD noted. No carotid bruits. No lymphadenopathy. No thyromegaly. Cardiovascular: S1 and S2 heard. No murmurs, gallops, or rubs. Regular rate and rhythm. Respiratory: Clear bilaterally to auscultation. No work of breathing or use of accessory muscles. Abdomen: Soft, with PEG tube present. Bowel sounds present. Extremities: No clubbing, cyanosis, or edema. Peripheral pulses present. Neurologic: Right hemiplegia noted, more in the upper than in the lower extremities. ASSESSMENT AND PLAN: 1. Acute ischemic stroke with dysphagia. Patient on aspirin and PEG tube. The patient is doing okay. 2. Atrial fibrillation with rapid ventricular response. The heart rate is well controlled with Cardizem and we will continue with same management. 3. Acute kidney injury. Resolved. 4. Presumed renal cell carcinoma. Aware. DISPOSITION: The patient is stable from the medical standpoint and ready to go to rehabilitation, but, because of history of bipolar disorder, she needs to be evaluated by the state next week. We will keep this patient in the hospital until then. cc: Sanchez Zepeda MD
--- NOTE | 2016-09-13 15:17 | PROGRESS NOTE ---
DATE: 09/12/2016 SUBJECTIVE: The patient is awake, looking at me, and does not seem to be in any acute distress, but she is nonverbal. OBJECTIVE: Vital Signs: Temperature 97 degrees, heart rate 80, respirations 20, blood pressure 105/69, O2 saturation 99% on 3L nasal cannula. General: Chronically ill lady, looking frail, laying in bed in no acute distress. HEENT: No scleral icterus. Pale conjunctivae. The mucous membranes are moist. Neck: Supple. Trachea midline. Heart: Normal. Lungs: Normal. Abdomen: G-tube site appears to be clean and not infected. Dressings are in place. Bowel sounds are present and normal. Extremities: No cyanosis or clubbing. Patient does have evidence of right hemiplegia, but she has some movement in the right lower extremity. ASSESSMENT AND PLAN: 1. Acute ischemic stroke and resulting motor dysphagia. 2. Status post percutaneous endoscopic gastrostomy tube for nutritional support. 3. History of atrial fibrillation and rapid ventricular response, on Cardizem and nadolol, which appears to control the rate. 4. Acute tubular necrosis, resolved. 5. New found incidental primary renal carcinoma. RECOMMENDATIONS AND PLAN: I do not see any problems with the G-tube with infection. She is tolerating the tube feedings. Currently, the plan is most likely her disposition. However, she has bipolar disorder and is awaiting for state clearance to place her in rehab/half-way. We will sign off. Please call us if needed. cc: Marli Jefferson MD
[2016-09-13] MEDS: LOVENOX SUBQ SCH (16:15)
[2016-09-13] MEDS: DIFLUCAN 150 MG/NS 150 MG/75 ML IVPB IV SCH (16:15)
[2016-09-13] MEDS: LIPITOR PO SCH (22:43)
[2016-09-13] MEDS: DEPAKENE LIQUID PO SCH (22:43)
[2016-09-14] MEDS: DUONEB (A & A) INH SCH ×6 (03:26→22:48)
[2016-09-14] MEDS: CARDIZEM SCH ×4 (05:31→22:37)
[2016-09-14 06:01] LABS: MANUAL DIFF NEEDED? NO
[2016-09-14 06:05] LABS: BASO% 0.2 % (0.0-0.8); EOS# 0.17 X1000 (0.0-0.7); EOS% 2.1 % (0.0-10.0); HEMATOCRIT 35.6 % (37.0-47.0); HEMOGLOBIN 11.9 g/dL (12.0-16.0); IMM GRAN# 0.24 X1000 (0.0-0.04); LYMPH# 0.78 X1000 (1.2-3.4); LYMPH% 9.7 % (20.5-51.1); MCH 31.6 PG (27-31); MCHC 33.4 g/dL (33-37); MCV 94.7 FL (81-99); MONO# 0.92 X1000 (0.11-0.59); MONO% 11.4 % (1.7-9.3); MPV 10.7 FL (7.4-10.4); NEUT% 73.6 % (42.2-75.2); PLT 340 X1000 (130-400); RBC 3.76 XMIL (4.2-5.4)
[2016-09-14] MEDS: TENORMIN PO SCH (10:15)
[2016-09-14] MEDS: DEPAKENE LIQUID PO SCH ×2 (10:16→22:19)
[2016-09-14] MEDS: ASPIRIN PO SCH (10:16)
[2016-09-14] MEDS: COZAAR PO SCH (10:16)
[2016-09-14] MEDS: EXELON 9.5MG/24HRS TD SCH (10:16)
[2016-09-14] MEDS: LOVENOX SUBQ SCH (17:22)
[2016-09-14] MEDS: DIFLUCAN 150 MG/NS 150 MG/75 ML IVPB IV SCH (17:22)
--- NOTE | 2016-09-14 17:26 | PROGRESS NOTE ---
DATE: 09/14/2016 SUBJECTIVE: Patient is awake but nonverbal. Apparently not in any pain. OBJECTIVE: Vital Signs: Temperature 98.6 degrees, heart rate 76, respiratory rate 24, blood pressure 110/58, O2 saturation 99% on 3 L nasal cannula. General examination: This is a chronically ill-looking, frail, and looking older than her stated age, 86-year-old, female lying in bed, in no acute distress. HEENT: Head is normocephalic, atraumatic. Anicteric sclerae and pale conjunctivae. Mucous membranes moist. Neck: Supple. No JVD. No carotid bruits. No lymphadenopathy. No thyromegaly. Cardiovascular exam: S1, S2 heard. Irregularly irregular. No murmurs, gallops, or rubs. Respiratory: Clear bilaterally to auscultation. No work of breathing or using accessory muscles. Abdomen: Soft with PEG tube present. Bowel sounds present. No organomegaly. Extremities: No clubbing, cyanosis, or edema. Peripheral pulses present in both legs. Neurologic: Right hemiplegia noted, more in the upper than lower extremities. ASSESSMENT AND PLAN: 1. Acute ischemic stroke with dysphagia. Patient has been on PEG tube. The patient is doing fine. No complaints. 2. Atrial fibrillation with rapid ventricular response. The heart rate currently is well controlled with Cardizem and will continue with the same management. 3. Acute kidney injury. Resolved. 4. Bipolar disorder. Aware. 5. Presumed renal cell carcinoma. Aware. 6. Disposition. Awaiting evaluation by the [facility] next week for bipolar disorder. cc: Sanchez Zepeda MD
[2016-09-14] MEDS: LIPITOR PO SCH (22:20)
[2016-09-15] MEDS: DUONEB (A & A) INH SCH ×6 (03:28→23:00)
[2016-09-15] MEDS: CARDIZEM SCH ×4 (05:37→22:53)
[2016-09-15] MEDS: TYLENOL PO PRN (05:37)
[2016-09-15 05:49] LABS: MANUAL DIFF NEEDED? NO
[2016-09-15 05:55] LABS: BASO% 0.4 % (0.0-0.8); EOS# 0.12 X1000 (0.0-0.7); EOS% 1.6 % (0.0-10.0); HEMOGLOBIN 11.1 g/dL (12.0-16.0); IMM GRAN# 0.22 X1000 (0.0-0.04); LYMPH# 0.92 X1000 (1.2-3.4); LYMPH% 12.4 % (20.5-51.1); MCH 30.9 PG (27-31); MCHC 32.6 g/dL (33-37); MCV 94.7 FL (81-99); MONO# 0.83 X1000 (0.11-0.59); MONO% 11.2 % (1.7-9.3); MPV 10.6 FL (7.4-10.4); NEUT% 71.4 % (42.2-75.2); PLT 303 X1000 (130-400); RBC 3.59 XMIL (4.2-5.4)
[2016-09-15] MEDS: COZAAR PO SCH (09:00)
[2016-09-15 10:31] LABS: ALBUMIN 2.6 g/dL (3.5-5.0); CALCIUM 8.7 mg/dL (8.8-10.2); POTASSIUM 5.1 mmol/L (3.5-5.1); PREALBUMIN 23.3 mg/dL (20-40); TOTAL BILIRUBIN 0.27 mg/dL (0.20-1.00); TOTAL PROTEIN 4.4 g/dL (6.3-8.3)
[2016-09-15] MEDS: DEPAKENE LIQUID PO SCH ×2 (11:01→22:53)
[2016-09-15] MEDS: TENORMIN PO SCH (11:02)
[2016-09-15] MEDS: ASPIRIN PO SCH (11:02)
[2016-09-15] MEDS: EXELON 9.5MG/24HRS TD SCH (11:02)
--- NOTE | 2016-09-15 14:53 | PROGRESS NOTE ---
DATE: 09/15/2016 SUBJECTIVE: Patient awake, but nonverbal. Not in any pain apparently. Just follows simple commands like for example, squeeze my finger. No acute issues overnight as per nursing. OBJECTIVE: Vital signs: Temperature 97.7 degrees, heart rate 73, respiratory rate 20, blood pressure 109/59, O2 saturation 100% on room air. General: This is a chronically ill, frail, looking older than her age, 86-year-old female lying in bed, in no acute distress. HEENT: Head is normocephalic, atraumatic. Anicteric sclerae and pale conjunctivae. Mucous membranes moist. Neck: Supple. No JVD noted. No carotid bruits. No lymphadenopathy. No thyromegaly. Cardiovascular: S1, S2 heard. No murmurs, gallops, or rubs. Regular rate and rhythm. Respiratory: Clear bilaterally to auscultation. No work of breathing or using accessory muscles. Abdomen: Soft, nontender to palpation. Bowel sounds present. No organomegaly. PEG tube in place. Neurological: Patient has right hemiplegia noted, more in the upper than the lower extremities. ASSESSMENT AND PLAN: 1. Acute ischemic stroke with dysphagia. Patient has a PEG tube that is working normally. No complaints. 2. Atrial fibrillation with rapid ventricular response. The heart rate is well controlled with Cardizem. We will continue with the same management. 3. Acute kidney injury. Resolved. 4. Bipolar disorder. Aware. 5. Presumed renal cell carcinoma. Aware. 6. Disposition: Awaiting evaluation by the State which apparently as per social science research assistant will be next , and then she may be able to go to rehab facility. cc: Sanchez Zepeda MD
[2016-09-15] MEDS: DIFLUCAN 150 MG/NS 150 MG/75 ML IVPB IV SCH (17:05)
[2016-09-15] MEDS: LOVENOX SUBQ SCH (17:05)
[2016-09-15] MEDS: LIPITOR PO SCH (22:53)
[2016-09-16] MEDS: DUONEB (A & A) INH SCH ×6 (03:10→23:05)
[2016-09-16] MEDS: CARDIZEM SCH ×4 (05:00→21:12)
[2016-09-16 05:52] LABS: MANUAL DIFF NEEDED? NO
[2016-09-16 05:57] LABS: BASO% 0.3 % (0.0-0.8); EOS# 0.12 X1000 (0.0-0.7); EOS% 1.5 % (0.0-10.0); HEMATOCRIT 34.7 % (37.0-47.0); HEMOGLOBIN 11.4 g/dL (12.0-16.0); IMM GRAN# 0.16 X1000 (0.0-0.04); LYMPH# 0.58 X1000 (1.2-3.4); LYMPH% 7.4 % (20.5-51.1); MCH 30.6 PG (27-31); MCHC 32.9 g/dL (33-37); MONO# 0.91 X1000 (0.11-0.59); MONO% 11.7 % (1.7-9.3); MPV 10.4 FL (7.4-10.4); NEUT% 77.1 % (42.2-75.2); PLT 303 X1000 (130-400); RBC 3.73 XMIL (4.2-5.4)
[2016-09-16] MEDS: COZAAR PO SCH (10:04)
[2016-09-16] MEDS: DEPAKENE LIQUID PO SCH ×2 (10:05→21:11)
[2016-09-16] MEDS: ASPIRIN PO SCH (10:05)
[2016-09-16] MEDS: TENORMIN PO SCH (10:05)
[2016-09-16] MEDS: EXELON 9.5MG/24HRS TD SCH (10:06)
--- NOTE | 2016-09-16 16:37 | PROGRESS NOTE ---
DATE: 09/16/2016 Today Ms. Morris remains stable. No complaints. Vitals: Blood pressure is 145/78, pulse of 63, respirations 20, temperature 98.8 degrees. General Exam: Ms. Morris is an 86-year-old, female. She is in bed, not seemingly distressed. HEENT: Mucosa is pink and moist. She looks frail and chronically ill. Neck: Supple. No JVD. No carotid bruit. Cardiovascular: Regular rate and rhythm. No murmurs. Chest: Air entry is bilaterally reduced. No crepitations. No rhonchi. Abdomen: Is soft. There is a PEG tube in place. Extremities: No pedal edema. RANGE MECHANIC: Patient has a right hemiplegia. 1. No. LAB WORK: WBC 7.81, hemoglobin is 11.4, platelet count of 303,000. Chemistry is reviewed. It is completely normal. ASSESSMENT: 1. Acute ischemic stroke with motor dysphagia. Patient has a PEG tube and right-side hemiplegia. 2. Atrial fibrillation currently rate controlled. 3. Acute kidney injury resolved. 4. 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 5. Bipolar disorder. The patient is on Depakote. Has not had any form of abnormality since in the hospital. So I think the plan is we are still waiting for the state to evaluate Ms. Morris for appropriate disposition. cc: Canelo Moncada MD
[2016-09-16] MEDS: LOVENOX SUBQ SCH (18:13)
[2016-09-16] MEDS: DIFLUCAN 150 MG/NS 150 MG/75 ML IVPB IV SCH (18:13)
[2016-09-16] MEDS: LIPITOR PO SCH (21:12)
[2016-09-17] MEDS: CARDIZEM SCH ×4 (02:07→22:07)
[2016-09-17] MEDS: DUONEB (A & A) INH SCH ×6 (03:25→23:10)
[2016-09-17] MEDS: DEPAKENE LIQUID PO SCH ×2 (10:54→22:07)
[2016-09-17] MEDS: COZAAR PO SCH (10:54)
[2016-09-17] MEDS: ASPIRIN PO SCH (10:55)
[2016-09-17] MEDS: TENORMIN PO SCH (10:55)
[2016-09-17] MEDS: EXELON 9.5MG/24HRS TD SCH (10:55)
--- NOTE | 2016-09-17 16:08 | PROGRESS NOTE ---
DATE: 09/17/2016 SUBJECTIVE: Today Ms. Morris continues to be stable. She is nonverbal. No complaints. OBJECTIVE: Vital signs: Blood pressure is 132/60, pulse of 60, respiration is 16, temperature 98.6 degrees. The patient is saturating 98% on room air. General: Ms. Morris is an 86-year-old, female. She is in bed, no distress. HEENT: Mucosa is pink and moist. Anicteric. Acyanotic. Neck: Supple. Chest: Good air entry bilateral. A few bilateral crepitations. Cardiovascular: Regular rate and rhythm. Abdomen: Soft, distended, but nontender. Bowel sounds are present. There is a PEG tube in place. 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 Has a dense right side right-sided hemiplegia. LABORATORY DATA: None for today. ASSESSMENT: 1. 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 2. Motor dysphagia secondary to cerebrovascular accident. 3. Atrial fibrillation currently rate controlled. 4. Acute kidney injury, resolved. 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 1. Bipolar disorder. PLAN: In general, Ms. Morris is relatively stable. We are going to continue with her PEG tube feedings. We are still awaiting the state to evaluate her for disposition. cc: Canelo Moncada MD
[2016-09-17] MEDS: LOVENOX SUBQ SCH (17:31)
[2016-09-17] MEDS: DIFLUCAN 150 MG/NS 150 MG/75 ML IVPB IV SCH (17:32)
[2016-09-17] MEDS: LIPITOR PO SCH (22:07)
[2016-09-18] MEDS: DUONEB (A & A) INH SCH ×6 (03:28→22:57)
[2016-09-18] MEDS: CARDIZEM SCH ×4 (03:37→22:14)
[2016-09-18] MEDS: COZAAR PO SCH (10:07)
[2016-09-18] MEDS: DEPAKENE LIQUID PO SCH ×2 (10:07→22:14)
[2016-09-18] MEDS: ASPIRIN PO SCH (10:07)
[2016-09-18] MEDS: TENORMIN PO SCH (10:08)
[2016-09-18] MEDS: EXELON 9.5MG/24HRS TD SCH (10:08)
--- NOTE | 2016-09-18 16:01 | PROGRESS NOTE ---
DATE: 09/18/2016 SUBJECTIVE: Today Ms. Morris remains pretty much stable. There were 2 sisters at the bedside at the time of the interview, and I did update them about Ms. Morris current conditions. OBJECTIVE: Vital signs: Blood pressure is 123/57, pulse of 68, respirations 16 and temperature 97.6 degrees. General: Ms. Morris is an 86-year-old, female. She is in bed, not in any distress. HEENT: Mucosa is pink and moist. Anicteric. Acyanotic. Neck: Supple. Chest: Good air entry bilaterally. A few bibasilar crepitations. Cardiovascular: Regular rate and rhythm. No murmurs. Abdomen: Soft, nondistended. There is a PEG tube in place. MEAT SOAKER: Patient is awake, alert, nonverbal, has a dense right-sided hemiplegia. LABORATORY DATA: No lab work today. ASSESSMENT: 1. 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 2. Motor dysphagia secondary to cerebrovascular disease status post percutaneous endoscopic gastrostomy tube for feedings. 3. Atrial fibrillation, currently rate controlled. Patient on diltiazem. 4. Acute kidney injury, resolved. 5. 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 Family do not want to do any form of invasive procedures. 6. Bipolar disorder. PLAN: In general, Ms. Morris is relatively stable, ready for discharge, which is still pending on this date. cc: Canelo Moncada MD
[2016-09-18] MEDS: DIFLUCAN 150 MG/NS 150 MG/75 ML IVPB IV SCH (16:25)
[2016-09-18] MEDS: LOVENOX SUBQ SCH (16:26)
[2016-09-18] MEDS: LIPITOR PO SCH (22:14)
[2016-09-19] MEDS: CARDIZEM SCH ×4 (02:33→21:10)
[2016-09-19] MEDS: DUONEB (A & A) INH SCH ×6 (03:15→22:56)
[2016-09-19] MEDS: EXELON 9.5MG/24HRS TD SCH (09:41)
[2016-09-19] MEDS: ASPIRIN PO SCH (09:41)
[2016-09-19] MEDS: TENORMIN PO SCH (09:41)
[2016-09-19] MEDS: COZAAR PO SCH (09:41)
[2016-09-19] MEDS: DEPAKENE LIQUID PO SCH ×2 (09:41→21:10)
[2016-09-19 10:03] LABS: AGAP 11; ALBUMIN 2.5 g/dL (3.5-5.0); ALKALINE PHOSPHATASE 82 U/L (32-104); BUN 27 mg/dL (8-22); CALCIUM 8.4 mg/dL (8.8-10.2); CHLORIDE 91 mmol/L (98-107); COSMO 263; GOT 31 U/L (10-30); GPT 39 U/L (10-36); MAGNESIUM 1.8 mg/dL (1.5-2.7); POTASSIUM 4.9 mmol/L (3.5-5.1); SODIUM 128 mmol/L (136-145); TCO2 26 mmol/L (25-35); TOTAL BILIRUBIN 0.26 mg/dL (0.20-1.00); TOTAL PROTEIN 5.3 g/dL (6.3-8.3)
[2016-09-19] MEDS: DIFLUCAN 150 MG/NS 150 MG/75 ML IVPB IV SCH (15:58)
--- NOTE | 2016-09-19 16:52 | PROGRESS NOTE ---
DATE: 09/19/2016 SUBJECTIVE: I saw Ms. Morris today, the granddaughter was there, there are no acute changes. Will just be waiting on the state for disposition. OBJECTIVE: Vital Signs: Stable. Blood pressure is 121/89, pulse of 67, respirations 15, temperature 97.3 degrees. Physical Exam: Unchanged. 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 LAB: There is no lab work for today. ASSESSMENT: 1. Acute left middle cerebral territory artery infarct with right hemiplegia. 2. Motor dysphagia secondary to cerebrovascular disease status post percutaneous endoscopic gastrostomy tube placement. 3. Atrial fibrillation currently rate controlled. Will continue with Cardizem pills. 4. Acute kidney injury resolved. 5. 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 6. Bipolar disorder. Clinically Ms. Morris continued to be stable. We are still pending the critical access hospital for evaluation. cc: Canelo Moncada MD
[2016-09-19] MEDS: LOVENOX SUBQ SCH (17:39)
[2016-09-19] MEDS: LIPITOR PO SCH (21:10)
[2016-09-20] MEDS: CARDIZEM SCH ×4 (02:23→21:16)
[2016-09-20] MEDS: DUONEB (A & A) INH SCH ×6 (03:12→23:10)
[2016-09-20] MEDS: TENORMIN PO SCH (08:33)
[2016-09-20] MEDS: DEPAKENE LIQUID PO SCH ×2 (08:33→21:16)
[2016-09-20] MEDS: TYLENOL PO PRN (08:34)
[2016-09-20] MEDS: COZAAR PO SCH (08:34)
[2016-09-20] MEDS: EXELON 9.5MG/24HRS TD SCH (08:34)
[2016-09-20] MEDS: ASPIRIN PO SCH (08:34)
--- NOTE | 2016-09-20 15:03 | PROGRESS NOTE ---
DATE: 09/20/2016 SUBJECTIVE: Today there was nobody at the time of encounter in the room but Ms Morris is said to be stable, there has not been any changes overnight. OBJECTIVE: Vitals: Have been stable. Blood pressure is 101/73, pulse of 52, respirations 20, temperature is 98.0 degrees. General: Ms. Morris is an 86-year-old female. She is in bed, not in any distress. HEENT: Mucosa is pink and moist. Anicteric. Acyanotic. Neck: Supple. Chest: Was clear. Cardiovascular: Regular rate and rhythm. Abdomen: Soft. There is a PEG tube in place. DRUG ABUSE TECHNICIAN: Patient is awake and alert. She has a right hemiplegia and she continues to be nonverbal. LAB: There is no lab work for today. ASSESSMENT: 1. 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 2. Motor dysphagia secondary to cerebrovascular accident status post percutaneous endoscopic gastrostomy tube. 3. Percutaneous endoscopic gastrostomy tube feedings. 4. Atrial fibrillation currently rate controlled on Cardizem. 5. Acute kidney injury resolved. 6. 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 Patient has been evaluated by urology and by consensus from the family they do not want to proceed with any further investigations on that. 7. Bipolar disorder. Will continue with her medication. Patient is pending evaluation by the [facility] for disposition. cc: Canelo Moncada MD
[2016-09-20] MEDS: LOVENOX SUBQ SCH (15:49)
[2016-09-20] MEDS: DIFLUCAN 150 MG/NS 150 MG/75 ML IVPB IV SCH (15:49)
[2016-09-20] MEDS: LIPITOR PO SCH (21:16)
[2016-09-21] MEDS: CARDIZEM SCH ×4 (02:04→20:26)
[2016-09-21] MEDS: DUONEB (A & A) INH SCH ×6 (03:07→23:11)
[2016-09-21 06:31] LABS: AGAP 13; ALBUMIN 2.3 g/dL (3.5-5.0); ALKALINE PHOSPHATASE 77 U/L (32-104); BUN 28 mg/dL (8-22); CALCIUM 8.3 mg/dL (8.8-10.2); CHLORIDE 90 mmol/L (98-107); COSMO 267; GOT 33 U/L (10-30); GPT 35 U/L (10-36); MAGNESIUM 1.9 mg/dL (1.5-2.7); POTASSIUM 4.8 mmol/L (3.5-5.1); SODIUM 129 mmol/L (136-145); TCO2 26 mmol/L (25-35); TOTAL BILIRUBIN 0.22 mg/dL (0.20-1.00); TOTAL PROTEIN 4.8 g/dL (6.3-8.3)
[2016-09-21] MEDS: TENORMIN PO SCH (10:06)
[2016-09-21] MEDS: ASPIRIN PO SCH (10:06)
[2016-09-21] MEDS: DEPAKENE LIQUID PO SCH ×2 (10:06→20:27)
[2016-09-21] MEDS: COZAAR PO SCH (10:07)
[2016-09-21] MEDS: EXELON 9.5MG/24HRS TD SCH (10:07)
--- NOTE | 2016-09-21 10:31 | PROGRESS NOTE ---
DATE: 09/16/2016 SUBJECTIVE: Patient seems more alert. The patient is actually looking around. Family at bedside. No complaints. OBJECTIVE: Vital Signs: Blood pressure 140/70, pulse 63, respiratory rate 20, temperature is 98 degrees. General: An 86-year-old lady is in bed, in no distress. HEENT: The mucosa is moist. No scleral icterus. Neck: Supple. Trachea midline. Heart: Normal first and second heart sounds. Lungs: Clear. Abdomen: The G site is examined. There is no evidence of any infection. The tube position is checked. It is still at 2. The patient's feeding is in progress. Laboratory Data: Stable. IMPRESSION AND PLAN: 1. Acute ischemic stroke with oropharyngeal motor dysphagia. 2. G-tube feeding, adequate nutrition evaluated by dietitian. 3. Atrial fibrillation, under rate control. 4. Acute atubular necrosis, resolved. 5. Renal cell carcinoma with metastasis. 6. Bipolar disorder. I think the patient has been followed long enough that the G-tube site appears to be uninfected and the nutrition is going well as planned with no residuals. The patient is basically waiting for disposition. We will sign off. Please call us if needed. cc: Marli Jefferson MD
--- NOTE | 2016-09-21 14:51 | PROGRESS NOTE ---
DATE: 09/21/2016 SUBJECTIVE: Ms. Morris pretty much continues to be stable. There have not been any changes overnight. A brother and a [id number] were at the bedside at the time of my encounter. OBJECTIVE: Vital signs: Blood pressure 128/52, pulse 71, respirations 14, temperature 98.3 degrees. General: Ms. Morris is an 86-year-old female. She is in bed. She is not in any distress. HEENT: Mucosa is pink and moist. Anicteric. Acyanotic. Neck: Supple. Chest: Clear. Cardiovascular: Regular rate and rhythm. There are no murmurs. Abdomen: Soft, nontender. There is a PEG tube in place. The site is not infected. OPERATIONS COORDINATOR: Patient is awake, alert. Continues to be nonverbal and has a right hemiplegia. LABORATORY DATA: None. ASSESSMENT: 1. 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 2. Motor dysphagia secondary to cerebrovascular accident status post PEG tube placement. 3. PEG tube feedings. 4. Atrial fibrillation, currently rate controlled. 5. Acute kidney injury, resolved. 6. 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 7. Bipolar disorder. PLAN: We are going to continue with the current medications. The patient is tolerating her NG tube feedings and we are waiting for the state to evaluate her for adequate disposition. cc: Canelo Moncada MD
[2016-09-21] MEDS: LOVENOX SUBQ SCH (15:53)
[2016-09-21] MEDS: DIFLUCAN 150 MG/NS 150 MG/75 ML IVPB IV SCH (15:58)
[2016-09-21] MEDS: LIPITOR PO SCH (20:27)
[2016-09-22] MEDS: CARDIZEM SCH ×4 (02:12→22:33)
[2016-09-22] MEDS: DUONEB (A & A) INH SCH ×6 (03:35→23:15)
[2016-09-22] MEDS: TENORMIN PO SCH (10:13)
[2016-09-22] MEDS: COZAAR PO SCH (10:13)
[2016-09-22] MEDS: EXELON 9.5MG/24HRS TD SCH (10:29)
[2016-09-22] MEDS: DEPAKENE LIQUID PO SCH ×2 (10:29→22:33)
[2016-09-22] MEDS: ASPIRIN PO SCH (10:30)
[2016-09-22] MEDS: LOVENOX SUBQ SCH (16:18)
[2016-09-22] MEDS: DIFLUCAN 150 MG/NS 150 MG/75 ML IVPB IV SCH (16:18)
--- NOTE | 2016-09-22 20:18 | PROGRESS NOTE ---
DATE: 09/22/2016 SUBJECTIVE: I saw Ms. Morris this morning at about 10:30 in the morning. This is a delayed dictation for that visit. Today Ms. Morris continues to be nonverbal. She did not have any complaints. Per the nursing staff, her night was uneventful. OBJECTIVE: Vital signs: Blood pressure is 121/62, pulse of 66, respiration is 20, temperature is 98 degrees. General: Ms. Morris is an 86-year-old, female. She was in bed. Not in any distress. HEENT: Mucosa is pink and moist. Anicteric. Acyanotic. Neck: Supple. Chest: Clear. Cardiovascular: Regular rate and rhythm. There are no murmurs. Abdomen: Soft, nontender. There is a PEG tube in place. The site looks clean. HEADING AND PRIMING OPERATOR: Patient is awake and alert. She continues to be nonverbal and has a right hemiplegia. LABORATORY DATA: No lab work for today. ASSESSMENT: 1. 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 Patient is stable. 2. Motor dysphagia secondary to cerebrovascular disease status post PEG tube placement. 3. PEG tube feedings. Patient is tolerating this without complications. 4. Atrial fibrillation, currently rate controlled. We will continue with diltiazem. 5. Acute kidney injury resolved. 6. 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 7. Bipolar disorder. PLAN: 1. So in general, I think Ms. Morris continues to be medically stable. We are still pending the state to evaluate her for rehab placement. 2. We are going to continue with the current medications and PEG tube feedings. cc: Canelo Moncada MD
[2016-09-22] MEDS: LIPITOR PO SCH (22:33)
[2016-09-23] MEDS: DUONEB (A & A) INH SCH ×6 (03:55→23:04)
[2016-09-23] MEDS: CARDIZEM SCH ×4 (04:22→20:42)
[2016-09-23 06:13] LABS: AGAP 11; ALBUMIN 2.5 g/dL (3.5-5.0); ALKALINE PHOSPHATASE 80 U/L (32-104); BUN 27 mg/dL (8-22); CALCIUM 8.3 mg/dL (8.8-10.2); CHLORIDE 89 mmol/L (98-107); COSMO 264; GOT 35 U/L (10-30); GPT 30 U/L (10-36); MAGNESIUM 1.9 mg/dL (1.5-2.7); POTASSIUM 4.8 mmol/L (3.5-5.1); PREALBUMIN 29.2 mg/dL (20-40); SODIUM 128 mmol/L (136-145); TCO2 28 mmol/L (25-35); TOTAL BILIRUBIN 0.24 mg/dL (0.20-1.00)
[2016-09-23] MEDS: PERIDEX MT SCH ×2 (11:11→20:42)
[2016-09-23] MEDS: COZAAR PO SCH (11:11)
[2016-09-23] MEDS: EXELON 9.5MG/24HRS TD SCH (11:11)
[2016-09-23] MEDS: DEPAKENE LIQUID PO SCH ×2 (11:11→20:41)
[2016-09-23] MEDS: TENORMIN PO SCH (11:12)
[2016-09-23] MEDS: ASPIRIN PO SCH (11:12)
[2016-09-23 11:38] LABS: URINE MICRO REVIEW NEEDED? NO; URINE SOURCE CATH
[2016-09-23 11:46] LABS: BILIRUBIN URINE NEGATIVE (NEGATIVE); BLOOD URINE NEGATIVE (NEGATIVE); COLOR YELLOW; GLUCOSE URINE NEGATIVE (NEGATIVE); LEUKOCYTES URINE LARGE (NEGATIVE); NITRITE URINE POSITIVE (NEGATIVE); PH URINE 7.5; PROTEIN URINE TRACE mg/dL (NEGATIVE); SP GRAVITY URINE 1.009; TURBIDITY URINE HAZY (CLEAR); UR EPITHELIAL CELLS <10 /HPF (<10); URINE BACTERIA 4+ /HPF; URINE CULTURE NEEDED? YES; URINE RBC <10 /HPF (<10); URINE WBC TNTC /HPF (<10); UROBILINOGEN URINE NORMAL (NORMAL)
--- NOTE | 2016-09-23 13:28 | PROGRESS NOTE ---
DATE: 09/23/2016 SUBJECTIVE: Today Ms. Morris continues to be stable, nonverbal. According to the nurse her blood pressure was slightly in the lower zone early on today. OBJECTIVE: Vital signs: Blood pressure is 87/52, pulse 81, respirations 20, temperature is 97.9 degrees. General: Ms. Morris 86-year-old female. She is in bed, not in any distress. HEENT: Mucosa is slightly dry. Anicteric. Acyanotic. Neck: Supple. Chest: Good air entry bilateral. No crepitations. No rhonchi. Cardiovascular: Irregularly irregular but rate controlled. Abdomen: Soft, nontender. There is no hepatosplenomegaly and there and there is a PEG tube in place. The site looks clean. CARTON MACHINE OPERATOR: Patient is awake, alert, continues to be nonverbal and has a right hemiplegia. We did a urinalysis because of the fact that she went into some atrial fibrillation, RVR and became hypotensive and the urine is showing nitrite positive, there is large leukocyte and too numerous to count WBC and 4+ bacteria. I think she has UTI. ASSESSMENT: 1. 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 Patient is stable. 2. Motor dysphagia secondary to cerebrovascular disease status post percutaneous endoscopic gastrostomy tube. 3. Percutaneous endoscopic gastrostomy tube feedings. Patient is tolerating this without complications. 4. Atrial fibrillation, rapid ventricular response on presentation. The patient was actually rate control, I understand yesterday she went into rapid ventricular response , the rate was about 116, it is currently much better. We are going to continue with the p.o. diltiazem. 5. Acute kidney injury resolved. 6. 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 7. Bipolar disorder. 8. Suspected urinary tract infection. We think this probably what triggered her heart rate to be in rapid ventricular response last night and also became slightly hypotensive. The urinalysis is dirty, we are going to ask a culture on it. Patient also has low sodium and I think is probably related to her valproic acid but will do urine sodium and urine osmolarity to check on that. We going to start the patient on slow hydration with normal saline at 75 mL/h and check on her lab work for tomorrow morning. If it turns out to be SIADH, then we will DC valproic acid, dc iv fluids and plan a dose of samca. Yogi#: [id number] cc: Canelo Moncada MD [facility]
[2016-09-23] MEDS: LEVAQUIN 250 MG/D5W 250 MG/50 ML IVPB IV SCH (13:43)
[2016-09-23] MEDS: NS 1,000 ML IV SCH (13:43)
[2016-09-23] MEDS: LOVENOX SUBQ SCH (16:25)
[2016-09-23] MEDS: LIPITOR PO SCH (20:42)
[2016-09-24] MEDS: NS 1,000 ML IV SCH (03:36)
[2016-09-24] MEDS: CARDIZEM SCH ×4 (03:36→20:55)
[2016-09-24] MEDS: DUONEB (A & A) INH SCH ×6 (03:36→23:01)
[2016-09-24 05:47] LABS: BASO% 0.3 % (0.0-0.8); EOS# 0.07 X1000 (0.0-0.7); EOS% 1.1 % (0.0-10.0); HEMATOCRIT 34.7 % (37.0-47.0); HEMOGLOBIN 11.5 g/dL (12.0-16.0); IMM GRAN# 0.31 X1000 (0.0-0.04); IMM GRAN% 4.8 % (0.0-0.5); LYMPH# 0.87 X1000 (1.2-3.4); LYMPH% 13.4 % (20.5-51.1); MANUAL DIFF NEEDED? YES; MCH 30.6 PG (27-31); MCHC 33.1 g/dL (33-37); MCV 92.3 FL (81-99); MONO% 12.3 % (1.7-9.3); MPV 10.2 FL (7.4-10.4); NEUT% 68.1 % (42.2-75.2); PLT 181 X1000 (130-400); RBC 3.76 XMIL (4.2-5.4)
[2016-09-24 06:09] LABS: AGAP 7; ALBUMIN 2.4 g/dL (3.5-5.0); ALKALINE PHOSPHATASE 76 U/L (32-104); BUN 24 mg/dL (8-22); CHLORIDE 92 mmol/L (98-107); COSMO 261; GOT 29 U/L (10-30); GPT 30 U/L (10-36); POTASSIUM 4.8 mmol/L (3.5-5.1); SODIUM 127 mmol/L (136-145); TCO2 28 mmol/L (25-35); TOTAL BILIRUBIN 0.19 mg/dL (0.20-1.00); TOTAL PROTEIN 4.9 g/dL (6.3-8.3)
[2016-09-24] MEDS ORDERED: SAMSCA PO ONE (06:38)
[2016-09-24 06:55] LABS: BANDS 4 % (0-1); LYMPHS 22 % (21-51); MONO 6 % (1-9)
--- NOTE | 2016-09-24 07:27 | Diag Imaging Result Doc PS360 ---
EXAM: CHEST-PORTABLE HISTORY: dyspnea TECHNIQUE: Portable COMPARISON: 09/06/2016 FINDINGS: There is a large left paratracheal density which may be a large substernal thyroid. Heart remains mildly prominent. The vessels are slightly less distended centrally. No pleural effusions identified. No consolidation. IMPRESSION: Mild interval improvement. Electronically signed by Porfirio Houser 09/24/2016 7:25 AM
[2016-09-24] MEDS: PERIDEX MT SCH ×2 (08:38→20:55)
[2016-09-24] MEDS: EXELON 9.5MG/24HRS TD SCH (08:41)
[2016-09-24] MEDS: ASPIRIN PO SCH (08:45)
[2016-09-24] MEDS: TENORMIN PO SCH (08:46)
[2016-09-24] MEDS: LEVAQUIN 250 MG/D5W 250 MG/50 ML IVPB IV SCH (11:48)
[2016-09-24 14:58] LABS: AGAP 6; BUN 24 mg/dL (8-22); CALCIUM 8.6 mg/dL (8.8-10.2); CHLORIDE 98 mmol/L (98-107); COSMO 275; POTASSIUM 4.6 mmol/L (3.5-5.1); SODIUM 135 mmol/L (136-145); TCO2 31 mmol/L (25-35)
[2016-09-24] MEDS: COZAAR PO SCH (15:04)
--- NOTE | 2016-09-24 15:40 | PROGRESS NOTE ---
DATE: 09/24/2016 SUBJECTIVE: Today, Ms. Morris continues to be stable. She is nonverbal. Per the nurse, there are no acute changes overnight. OBJECTIVE: Vital Signs: Blood pressure is 106/53, pulse of 103, respirations 16, temperature is 97.9 degrees. General: Ms. Morris is an 86-year-old female. She is in bed, not seemingly distressed. HEENT: Mucosa is pink and moist. Anicteric. Acyanotic. Neck: Supple. Chest: Clear. Cardiovascular: Irregularly irregular. No murmurs, no rubs, no gallops. Abdomen: Soft. No hepatosplenomegaly. There is a PEG tube in place. The insertion site is clean. Central Nervous System: Patient is awake, alert, nonverbal, has dense right hemiplegia. LABORATORY DATA: WBC is 6.49, hemoglobin is 11.5, platelet count of 181,000. Chemistry is reviewed. Sodium was 127 this morning. We gave the patient Samsca. This improved to 135. Will continue to observe. The urine culture is growing Gram negative rods. ASSESSMENT AND PLAN: 1. Acute left middle cerebral artery territory with right hemiplegia and global aphasia. 2. Motor dysphagia, secondary to cerebrovascular disease, status post PEG tube placement. 3. PEG tube feedings. Patient seems to be tolerating this without complication. 4. Atrial fibrillation, with rapid ventricular response. This is better controlled now on Cardizem. 5. Acute kidney injury on presentation, resolved. 6. Presumed renal cell carcinoma, with metastases. 7. Bipolar disorder. Patient was on valproic acid. We had to discontinue that because it was causing syndrome of inappropriate antidiuretic hormone secretion. 8. Gram negative maria fernanda urinary tract infection. Patient has been started on levofloxacin. We will still be pending on the ID and sensitivity to make changes accordingly. 9. Syndrome of inappropriate antidiuretic hormone secretion. We suspect this was due to valproic acid. We have discontinued that. We gave the patient a dose of Samsca. Sodium has improved. We will repeat this tomorrow morning and make further recommendations accordingly. Disposition. Ms. Morris is still waiting on recommendations from the state to discharge her. I understand she has a bed in [facility], but we will have to wait on the state 's recommendations because of her history of mental illness (bipolar). cc: Canelo Moncada MD MTDD
[2016-09-24] MEDS: LOVENOX SUBQ SCH (17:26)
[2016-09-24] MEDS: LIPITOR PO SCH (20:55)
[2016-09-25] MEDS: CARDIZEM SCH ×4 (03:21→20:55)
[2016-09-25] MEDS: DUONEB (A & A) INH SCH ×6 (03:46→22:50)
[2016-09-25 06:27] LABS: AGAP 11; BUN 26 mg/dL (8-22); CALCIUM 8.5 mg/dL (8.8-10.2); CHLORIDE 98 mmol/L (98-107); COSMO 280; POTASSIUM 4.1 mmol/L (3.5-5.1); SODIUM 136 mmol/L (136-145); TCO2 27 mmol/L (25-35)
[2016-09-25] MEDS: PERIDEX MT SCH ×2 (08:34→20:55)
[2016-09-25] MEDS: EXELON 9.5MG/24HRS TD SCH (09:18)
[2016-09-25] MEDS: ASPIRIN PO SCH (09:20)
[2016-09-25] MEDS: TENORMIN PO SCH (09:20)
[2016-09-25] MEDS: COZAAR PO SCH (09:21)
[2016-09-25] MEDS: LEVAQUIN 250 MG/D5W 250 MG/50 ML IVPB IV SCH (11:50)
--- NOTE | 2016-09-25 13:54 | PROGRESS NOTE ---
DATE: 09/25/2016 SUBJECTIVE: This patient looks stable. She is nonverbal. No acute events overnight. OBJECTIVE: Vital Signs: Temperature 97.6 degrees, pulse 102, respiratory rate 20, blood pressure 107/49, oxygen saturation 98 on room air. HEENT: Head normocephalic. No trauma. PERRLA. Neck: Supple. Chest: Clear to auscultation. No wheezing. No rales. Cardiovascular: Irregularly irregular rate with no murmurs. Abdomen: Soft, nontender, nondistended. There is a PEG tube in place. The insertion site is clean. Neurological: The patient is awake, alert, nonverbal and she has right hemiplegia. She is not following commands for me. LABORATORY: Sodium 136, potassium 4.1, chloride 98, bicarbonate 27, BUN 26, creatinine 0.7. Glucose 149. Calcium 8.5. ASSESSMENT AND PLAN: 1. Acute left middle cerebral artery territory with right hemiplegia and global aphasia. Aware. Continue with the same management. 2. Motor dysphagia secondary to CVA status post PEG tube placement. 3. Nutritional status. Continue with PEG tube feedings. It looks like she is tolerating this without complication. 4. Atrial fibrillation with RVR. Better controlled now on Cardizem. 5. Acute kidney injury on presentation. Resolved. 6. 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 We will monitor. 7. Bipolar disorder. This patient was on valproic acid and it was discontinued secondary to syndrome of inappropriate antidiuretic hormone secretion. 8. Gram-negative maria fernanda urinary tract infection. Continue with levofloxacin. 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 She received a dose of Samsca and the sodium improved and today the sodium is stable. 10. Disposition. We are still waiting on recommendation from the State to discharge her. Apparently she was evaluated yesterday by the [facility], pending recommendations. As far as I know this patient has a bed in [facility]. cc: Seth Pina MD
[2016-09-25] MEDS: LOVENOX SUBQ SCH (17:01)
[2016-09-25] MEDS: LIPITOR PO SCH (20:55)
[2016-09-26] MEDS: CARDIZEM SCH ×3 (02:50→15:38)
[2016-09-26] MEDS: DUONEB (A & A) INH SCH ×6 (04:02→23:05)
[2016-09-26] MEDS: PERIDEX MT SCH (08:36)
[2016-09-26] MEDS: COZAAR PO SCH (08:36)
[2016-09-26] MEDS: TENORMIN PO SCH (08:36)
[2016-09-26] MEDS: ASPIRIN PO SCH (08:36)
[2016-09-26] MEDS: EXELON 9.5MG/24HRS TD SCH (08:36)
[2016-09-26] MEDS: LEVAQUIN 250 MG/D5W 250 MG/50 ML IVPB IV SCH (12:58)
--- NOTE | 2016-09-26 14:56 | PROGRESS NOTE ---
DATE: 09/26/2016 SUBJECTIVE: Ms. Morris is awake, she does not really respond, she does follow me with her eyes, appears comfortable breathing comfortably. PHYSICAL EXAMINATION: Vital Signs: Temperature 97.8 degrees, pulse 97, respirations 16, blood pressure 119/95. Pupils: Equal, round. Lungs: Clear in all lung hubbard. Cardiovascular: Regular rate without murmur or S3. Abdomen: Soft. Skin: Warm and dry. LAB: Review lab from the 2nd unremarkable, electrolytes from the 3rd. ASSESSMENT AND PLAN: 1. Acute left middle cerebral artery territory with right hemiplegia, global aphasia. Continue same management. 2. Motor dysphagia secondary to cerebrovascular accident status post percutaneous endoscopic gastrostomy tube placement. 3. Nutritional status. PEG tube feedings. She is tolerating this without complication. 4. Atrial fibrillation, rapid ventricular rate. Better control on Cardizem. 5. Acute kidney injury on presentation which resolved. 6. 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 7. Bipolar disorder which has been stable. Patient has been on valproic acid. This was discontinued due to inappropriate anti-diuretic secretion hyponatremia. 8. Gram negative maria fernanda urinary tract infection. She has been treated with Levaquin. 9. Syndrome of inappropriate antidiuretic hormone secretion secondary to valproic acid. She received a dose of Samsca, sodium had improved. 10. Disposition. Still awaiting recommendations from state on discharge. Review of orders I do not see any change. cc: Luis Carlos Hightower MD
[2016-09-26] MEDS: LOVENOX SUBQ SCH ×2 (15:39→18:39)
[2016-09-27] MEDS: CARDIZEM SCH ×4 (00:16→18:00)
[2016-09-27] MEDS: LACTULOSE PEG SCH ×3 (00:17→23:34)
[2016-09-27] MEDS: PERIDEX MT SCH ×3 (00:17→23:35)
[2016-09-27] MEDS: LIPITOR PO SCH ×2 (00:17→23:34)
[2016-09-27] MEDS: DUONEB (A & A) INH SCH ×6 (04:03→23:05)
[2016-09-27] MEDS: COZAAR PO SCH (11:02)
[2016-09-27] MEDS: MIRALAX PO SCH (11:03)
[2016-09-27] MEDS: ASPIRIN PO SCH (11:03)
[2016-09-27] MEDS: TENORMIN PO SCH (11:04)
[2016-09-27] MEDS: EXELON 9.5MG/24HRS TD SCH (11:04)
--- NOTE | 2016-09-27 13:30 | PROGRESS NOTE ---
DATE: 09/27/2016 SUBJECTIVE: She does make eye contact. She appears comfortable. Really no speech. Does not answer any questions. Seems to understand what I am asking. OBJECTIVE: Vital Signs: Temp 98.3 degrees, pulse 120, respirations 26, blood pressure 98/61. Eyes: Pupils are equal and round. Lungs: Clear in all lung hubbard. Cardiovascular exam: Regular rhythm and rate without murmur or S3. Abdomen: Soft. Skin: Warm and dry. LAB: Reviewed white count and CBC. Hematocrit stable. Electrolytes look good from the third. Serum creatinine 0.7. ASSESSMENT AND PLAN: 1. Acute left middle cerebral artery territory right hemiplegia, global aphasia. Will continue management. 2. Motor dysphasia secondary to cerebrovascular accident status post percutaneous esophagogastroduodenoscopy or percutaneous endoscopic gastrostomy tube placement. 3. Nutritional status: Percutaneous endoscopic gastrostomy tube feedings which she is tolerating. 4. Atrial fibrillation. Ventricular rate controlled on Cardizem. 5. Acute kidney injury which has resolved. 6. Renal cell carcinoma metastasis, aware. 7. Bipolar disorder. 8. Gram-negative maria fernanda urinary tract infection on Levaquin. 9. Syndrome of inappropriate antidiuretic hormone from valproic acid. Received a dose of Samsca. Her sodium is stable. 10. Disposition: Awaiting on recommendations from the State for discharge to assisted placement. We did give her something for her bowels yesterday to help constipation. The patient is on Levaquin intravenous, which I believe we can stop. cc: Luis Carlos Hightower MD
[2016-09-27] MEDS: LOVENOX SUBQ SCH (18:00)
[2016-09-27] MEDS: MORPHINE IV PRN (18:00)
[2016-09-28] MEDS: CARDIZEM SCH ×5 (01:02→23:00)
[2016-09-28] MEDS: TYLENOL PO PRN ×2 (01:02→23:00)
[2016-09-28] MEDS: DUONEB (A & A) INH SCH ×6 (03:56→22:28)
[2016-09-28] MEDS: PERIDEX MT SCH ×2 (08:33→23:01)
[2016-09-28] MEDS: COZAAR PO SCH (09:14)
[2016-09-28] MEDS: MIRALAX PO SCH (09:15)
[2016-09-28] MEDS: LACTULOSE PEG SCH ×2 (09:15→23:01)
[2016-09-28] MEDS: EXELON 9.5MG/24HRS TD SCH (09:16)
[2016-09-28] MEDS: ASPIRIN PO SCH (09:16)
[2016-09-28 10:47] LABS: ALBUMIN 2.6 g/dL (3.5-5.0); ALKALINE PHOSPHATASE 93 U/L (32-104); BUN 30 mg/dL (8-22); CALCIUM 8.8 mg/dL (8.8-10.2); CHLORIDE 98 mmol/L (98-107); COSMO 212; GOT 39 U/L (10-30); GPT 39 U/L (10-36); POTASSIUM 4.3 mmol/L (3.5-5.1); TCO2 30 mmol/L (25-35); TOTAL BILIRUBIN 0.19 mg/dL (0.20-1.00); TOTAL PROTEIN 5.4 g/dL (6.3-8.3)
[2016-09-28 10:49] LABS: AGAP 28
[2016-09-28 10:52] LABS: SODIUM 100 mmol/L (136-145)
[2016-09-28] MEDS: TENORMIN PO SCH (11:09)
[2016-09-28 14:57] LABS: AGAP 14; BUN 29 mg/dL (8-22); CALCIUM 8.4 mg/dL (8.8-10.2); CHLORIDE 98 mmol/L (98-107); COSMO 284; POTASSIUM 4.6 mmol/L (3.5-5.1); SODIUM 139 mmol/L (136-145); TCO2 27 mmol/L (25-35)
[2016-09-28] MEDS: LOVENOX SUBQ SCH (17:21)
--- NOTE | 2016-09-28 19:48 | PROGRESS NOTE ---
DATE: 09/28/2016 SUBJECTIVE: Ms. Morris is saying she is comfortable. Awake. Breathing comfortably. OBJECTIVE: Vital signs: Temperature 98.2 degrees, pulse 120, respirations 20, blood pressure is 87/51. Lungs: Are clear in all lung hubbard anterolateral. Cardiovascular: Regular rhythm and rate without murmur or S3. Abdomen: Is soft. Skin: Warm and dry. : Urine output over 4 L. LABORATORY AND X-RAY DATA: Sodium 139, potassium 4.6, chloride 98, bicarb 27, BUN 27, creatinine 0.8. This was corrected earlier. Sodium came back at 100. ASSESSMENT AND PLAN: 1. Acute left middle cerebral artery territory hemiplegia, global aphasia. Continue management. Waiting for placement. 2. Motor dysphagia secondary to cerebrovascular accident status post percutaneous esophageal EGD, percutaneous endoscopic gastrostomy tube placement. Continue present nutrition. 3. Nutritional status. Continue present PEG feeding. 4. Atrial fibrillation. Rate controlled. 5. Acute kidney injury, resolved. 6. Renal cell carcinoma. Metastasis aware. 7. Bipolar disorder. 8. Gram-negative maria fernanda urinary tract infection on Levaquin. 9. Syndrome of inappropriate antidiuretic hormone secretion. She was given some Samsca. Sodium appears better. 10. Disposition. Awaiting on custodial placement. Review of orders, looks good. cc: Luis Carlos Hightower MD
[2016-09-28] MEDS: LIPITOR PO SCH (23:00)
[2016-09-29] MEDS: DUONEB (A & A) INH SCH ×4 (02:59→14:48)
[2016-09-29] MEDS: TYLENOL PO PRN (05:52)
[2016-09-29] MEDS: CARDIZEM SCH ×3 (05:52→17:38)
[2016-09-29 06:25] LABS: AGAP 12; ALBUMIN 2.7 g/dL (3.5-5.0); ALKALINE PHOSPHATASE 94 U/L (32-104); BUN 27 mg/dL (8-22); CALCIUM 8.8 mg/dL (8.8-10.2); CHLORIDE 96 mmol/L (98-107); COSMO 279; GOT 41 U/L (10-30); GPT 39 U/L (10-36); POTASSIUM 4.8 mmol/L (3.5-5.1); SODIUM 136 mmol/L (136-145); TCO2 28 mmol/L (25-35); TOTAL BILIRUBIN 0.25 mg/dL (0.20-1.00); TOTAL PROTEIN 5.5 g/dL (6.3-8.3)
[2016-09-29] MEDS: TENORMIN PO SCH (08:50)
[2016-09-29] MEDS: COZAAR PO SCH (08:50)
[2016-09-29] MEDS: LACTULOSE PEG SCH (08:51)
[2016-09-29] MEDS: PERIDEX MT SCH (08:51)
[2016-09-29] MEDS: ASPIRIN PO SCH (08:51)
[2016-09-29] MEDS: MIRALAX PO SCH (08:52)
[2016-09-29] MEDS: EXELON 9.5MG/24HRS TD SCH (08:52)
--- NOTE | 2016-09-29 09:21 | PROGRESS NOTE ---
DATE: 09/29/2016 SUBJECTIVE: She was comfortable, awake. Sodium was 136 this morning. Breathing comfortably. The PEG tube site unremarkable and tolerating the tube feeding. PHYSICAL EXAMINATION: Vital Signs: Her temperature is 97.8 degrees. She has remained afebrile. Pulse 90, respirations 18, blood pressure 108/65. Neck: No distended neck veins. Lungs: Clear in all lung hubbard. Cardiovascular Examination: Regular rhythm and rate without murmur or S3. Abdomen: Soft. The PEG site is unremarkable. Skin: Warm and dry. Extremities: No pedal edema. LAB: Reviewed from the 6th and lab this morning, sodium 136, potassium 4.8, chloride 96, BUN 27, creatinine 0.7. ASSESSMENT AND PLAN: 1. Status post cerebrovascular accident, middle cerebral territory, hemiplegia, globally aphasia. Waiting for placement. 2. Motor dysphagia secondary to cerebrovascular accident. She has an endotracheal tube placed and tolerating tube feeding. Nutrition status is good at this point. 3. Nutritional status, percutaneous endoscopic gastrostomy feeding tolerated. 4. Atrial fibrillation, rate is controlled. 5. Acute kidney injury, which has resolved. 6. Renal cell carcinoma, metastasis. Aware. 7. Bipolar disorder. 8. Gram negative maria fernanda urinary tract infection which has been well treated. 9. Syndrome of inappropriate antidiuretic hormone secretion. The sodium is back to normal. Note that we had previously low value yesterday that was consistent with a lab error. 10. Review of her medications. I do not see anything to change at this time. She is on aspirin 81 mg a day, Tenormin 25 mg a day, Lipitor 40 mg at bedtime, Cardizem which we are using as needed for of heart rate going up above 100, lactulose 15 mL per PEG tube twice a day, Cozaar 50 mg daily, Exelon patch daily. Getting breathing treatments. Awaiting for placement. Awaiting for evaluation by the [facility]. cc: Luis Carlos Hightower MD
--- NOTE | 2016-09-29 13:19 | DISCHARGE SUMMARY ---
ADMISSION DATE: 08/24/2016 DISCHARGE DATE: 09/29/2016 HISTORY OF PRESENT ILLNESS: This is a 86-year-old, who presented with altered mental status. Her doctor is Dr. Walker. She has had a CVA, bipolar disorder, coronary artery disease status post myocardial infarction, hypertension, dementia, and thyroid, goiter status, status post thyroidectomy per family. Presented to the emergency room on 08/24/2016 with increased confusion. That morning she was not her usual self and not oriented and usually she is very independent and she was helping take care of her great granddaughter but she was drooling from the right side of her mouth and dysphasic and had not spoken word and was not obeying commands, very upset and disoriented. She has a known history of atrial fibrillation, currently on anticoagulant and aspirin. She had not had any preceding illness per her granddaughter and any other antecedent symptoms. PAST MEDICAL HISTORY: Again reviewed. 1. CVA approximately 2008. No major deficits per granddaughter. 2. Bipolar disorder. 3. Coronary artery disease status post myocardial infarction. 4. Hypertension. 5. Dementia. 6. Goiter. PAST SURGICAL HISTORY: 1. Questionable heart surgery per granddaughter, believed to be a possible intraaortic balloon pump. 2. Thyroid surgery. 3. D and C. HOSPITAL COURSE: 1. Patient was originally admitted with new onset atrial fibrillation with rapid ventricular response, placed on anticoagulation, and admitted to [facility]. Cardiology was to evaluate and checked a TSH, T4, cardiac enzymes. 2. Cerebrovascular accident was of concern and they wanted to check carotid Dopplers, noninvasive carotid studies. 3. Unilateral weakness. 4. Hypertension. 5. Pulmonary edema. They did feel she seemed to have a little pulmonary hypertension. So were going to diurese and check an echocardiogram. She had a brain MRI 08/25/2016 which showed acute infarct involving superior temporal lobe, adjacent inferior frontal parietal junction on the left, she had carotid studies done on 08/25/2016 bilateral that showed atherosclerotic plaque in bilateral carotid bulbs. No evidence of hemodynamically significant stenosis in the right or left. Echocardiogram was performed on 08/25/2016 and aortic valve leaflets were trileaflet, sclerosed, open normally. Left ventricular function 60% to 65%. No mural thrombus. No aortic stenosis. No significant valvar dysfunction. Dr. Kantamneni evaluated on 08/31/2016, did a percutaneous endoscopic gastrostomy because she just was not swallowing and she tolerated that well. Started her tube feeding. They repeated an echocardiogram on 09/01/2016 and there was no sign of clot. Left ventricular function looked good. She had an abdominal pelvic CT done 09/02/2016. Renal masses particularly on the right. Smaller masses may be due to metastatic disease. Larger mass most likely solid renal neoplasm. Bilateral pleural effusions. Bibasilar opacities representing atelectasis. The patient continued tube feeding and it was adjusted and turned up and she tolerated this well. Electrolytes were watched and they were adjusted. Neurologically not do not improve much but she appeared comfortable. Last CBC was on 09/24/2016 with white count 6490, hematocrit 34, platelet count 181,000. Chemistries looked good with creatinine 0.7, sodium 136, potassium 4.8. [place] she could she could be discharged to group home. DISCHARGE MEDICATIONS: Tylenol, albuterol nebulized treatment as needed, aspirin 81 mg a day, atenolol 25 mg a day, Lipitor 40 mg a day, Cardizem 30 mg I think t.i.d., lactulose 50 mg b.i.d., Cozaar 50 mg daily, Exelon patch 9.5 mg q.24 h., and MiraLAX 17 g p.o. daily I think probably through feeding tube. cc: Luis Carlos Hightower MD
[2016-09-29 16:04] VITALS: BP 133/94
[2016-09-29] MEDS: LOVENOX SUBQ SCH (17:39)
== END 2016-09-29 18:21 ==
LOC: ED 18:31 → SUATTDRO 22:32 → EDIPHOLD 22:32 → P.ICU 22:45 → 3S 08-28 17:15 → 4N 09-08 15:13
PROVIDERS: ATTEND Emergency Medicine

== ENCOUNTER 2018-06-02 22:21 | Inpatient (IN) ==
[2018-06-02 23:21] LABS: BASO# 0.08 X1000 (0.0-0.2); BASO% 0.6 % (0.0-0.8); EOS# 0.08 X1000 (0.0-0.7); EOS% 0.6 % (0.0-10.0); HEMATOCRIT 49.2 % (37.0-47.0); HEMOGLOBIN 16.1 g/dL (12.0-16.0); IMM GRAN# 0.06 X1000 (0.0-0.04); IMM GRAN% 0.5 % (0.0-0.5); LYMPH# 2.05 X1000 (1.2-3.4); MCH 29.4 PG (27-31); MCHC 32.7 g/dL (33-37); MCV 89.9 FL (81-99); MONO# 1.22 X1000 (0.11-0.59); MONO% 9.5 % (1.7-9.3); MPV 11.9 FL (7.4-10.4); NEUT# 9.36 X1000 (1.4-6.5); NEUT% 72.8 % (42.2-75.2); PLT 295 X1000 (130-400); RBC 5.47 XMIL (4.2-5.4); RDW 13.8 % (11.5-14.5); WBC 12.85 X1000 (4.8-10.8)
[2018-06-02 23:48] LABS: ALB/GLOB RATIO 0.9; ALBUMIN 3.3 g/dL (3.5-5.0); CALCIUM 9.4 mg/dL (8.8-10.2); POTASSIUM 4.4 mmol/L (3.5-5.1); TOTAL BILIRUBIN 0.63 mg/dL (0.20-1.00); TOTAL PROTEIN 6.9 g/dL (6.3-8.3)
[2018-06-03] MEDS ORDERED: VANCOMYCIN 1 GM/NS 1 GM/250 ML IVPB IV ONE (01:02)
[2018-06-03] MEDS ORDERED: ROCEPHIN 1 GM in NS 50 ML IV ONE (01:03)
--- NOTE | 2018-06-03 01:44 | PROVIDER DOCUMENTATION ---
This chart was entered by Malvin Rubi Scribe, acting as scribe for Rebecca Ndiaye MD. HPI-Abdominal Pain/GI Problem - General Chief Complaint: General Adult Stated Complaint: peg tube dislodgement Time Seen by Provider: 06/02/18 22:35 Source: EMS Allergies/Adverse Reactions: Patient Allergies Allergy/AdvReac Type Severity Reaction Status Date / Time Penicillins Allergy ANAPHYLAXIS Verified 06/28/17 14:48 Home Medications: Home Medication List Medication Instructions Recorded Confirmed Last Taken Type Rivastigmine [Exelon 9.5MG/24Hrs] 1 patch TD DIRECTED 08/24/16 06/03/18 Unknown History ATORVAstatin [Lipitor] 40 mg PEG QHS tablet 09/09/16 06/03/18 Unknown Rx Aspirin 81 mg PEG DAILY chewtab 09/09/16 06/03/18 Unknown Rx Diltiazem [Cardizem] 60 mg PEG TID #84 tablet 09/09/16 06/03/18 Unknown Rx Losartan [Cozaar] 50 mg PEG DAILY #0 09/09/16 06/03/18 Unknown Rx Lactulose 15 ml PEG BID udc 09/29/16 06/03/18 Unknown Rx Docusate Sodium [Colace] 200 mg PO QHS capsule 03/17/17 06/03/18 Unknown Rx Ferrous Sulfate 325 mg PO WBREAKFAST tablet 03/17/17 06/28/17 Unknown Rx Polyethylene Glycol 3350 [Miralax] 17 gm PEG DAILY powder, packet 03/17/17 06/03/18 Unknown Rx Calcium Carbonate/Vit D3 [Caltrate 1 each PEG BID 04/17/17 06/03/18 Unknown History 600 + D] Sertraline [Zoloft] 50 mg PEG DAILY 04/17/17 06/03/18 Unknown History Saw [facility] Xt/Phytosterol #2 1 each PEG DAILY 06/28/17 06/28/17 Unknown History [Prostate Sr Softgel] Atenolol [Tenormin] 25 mg PEG DAILY 06/03/18 06/03/18 Unknown History Lorazepam [Ativan] 0.5 mg PEG BID 06/03/18 06/03/18 Unknown History - History of Present Illness-ABD Nature of Presenting Problems: EMS brings in an 87 y/o F from a nursing care facility. The facility reports there has been discharge around the tube and that they have had difficulty flushing the tube and administering feeds. Pt moans of pain when moving peg tubes around but nonverbal and unable to provide any history. Abdominal Pain Onset Location: reports: periumbilical Pain Radiation: reports: no radiation Quality of Pain: reports: dull Severity in ED: reports: moderate Onset/Duration: reports: unsure Timing: reports: still present Modifying Factors: improves with: nothing Associated Symptoms: denies: fever/chills, nausea, vomiting Review of Systems - Adult - REVIEW OF SYSTEMS - ADULT Constitutional: denies: chills, fever Eyes: reports: no symptoms reported Ears, Nose, Mouth & Throat: reports: no symptoms reported Cardiovascular: reports: no symptoms reported Respiratory: reports: no symptoms reported Gastrointestinal: reports: abdominal pain. denies: nausea, vomiting Genitourinary: reports: no symptoms reported Musculoskeletal: reports: no symptoms reported Integumentary: reports: no symptoms reported Neurological: reports: no symptoms reported Psychiatric: reports: no symptoms reported Endocrine: reports: no symptoms reported Hematologic/Lymphatic: reports: no symptoms reported Allergic/Immunologic: reports: no symptoms reported All Other Systems: Reviewed and Negative Past History - Adult - PAST MEDICAL HISTORY-ADULT Review of Records: reports: Old Records Reviewed, Nursing Assessment Review, Medications Reviewed Major Childhood Illnesses: reports: denies history Cardiovascular: reports: CHF, HTN, [place] Respiratory: reports: denies history Gastrointestinal: reports: other (dysphagia) Obstetrical/Gynecological: reports: denies history Genitourinary: reports: denies history, kidney disease Musculoskeletal: reports: denies history Neurological: reports: CVA (2009), dementia Endocrine/Immune: reports: denies history Other Conditions: reports: denies history - PRIOR SURGERIES/PROCEDURES Surgical/Procedure History: reports: other (PEG placement) - IMMUNIZATION STATUS Childhood Immunizations: See Nurse Assessment Flu Vaccine: See Nurse Assessment - FAMILY HISTORY Family History: reviewed, not pertinent - SOCIAL HISTORY Smoking: non-smoker Living Situation: care facility Physical Exam-General - PHYSICAL EXAM-ADULT Initial Vital Signs Reviewed: Yes - CONSTITUTIONAL General Appearance: appears well, alert, no apparent distress - EYES Eyes: PERRL/EOMI, pink conjunctivae - HEAD, EARS, NOSE, MOUTH & THROAT HENMT: moist mucous membranes, normal ENT inspection, pharynx normal - NECK Neck: full range of motion, supple, normal inspection - RESPIRATORY Respiratory: lungs clear, normal breath sounds, no pleuratic chest pain, no respiratory distress, no accessory muscle use - CARDIOVASCULAR Cardiovascular: normal peripheral pulses, regular rate, rhythm - GASTROINTESTINAL (ABDOMEN) Abdominal Exam: normal bowel sounds, soft, tenderness (mild ttp surrounding g- tube), other (6cm x 8cm area of redness and ulceration around PEG tube) - MUSCULOSKELETAL Extremity: non-tender, normal inspection - SKIN Integumentary: normal color, normal turgor, warm/dry - NEUROLOGIC Neurologic: grossly normal, no motor/sensory deficits, other (nonverbal, baseline for pt per SNF) Progress - PLAN OF CARE/RESULTS Progress/Plan/Lab Results: Vital Signs - 8 hr 06/02/18 22:26 Temperature 98 F Pulse Rate 96 H Respiratory Rate 18 Blood Pressure 91/59 O2 Sat by Pulse Oximetry 94 L Orders Category Date Time Status IV Insertion ORDERED Care 06/02/18 22:31 Active CBC WITH ELECTRONIC DIFF [HEME] Stat Lab 06/02/18 22:31 Uncollected COMPREHENSIVE METABOLIC PANEL [CHEM] Stat Lab 06/02/18 22:31 Uncollected LACTATE, PLASMA [CHEM] Stat Lab 06/02/18 22:31 Uncollected LIPASE [CHEM] Stat Lab 06/02/18 22:31 Uncollected cellulitis surrounding g-tube with concern for dysfunction will further evaluate with CT and will cover with abx for likely cellulitis Result Diagrams: 06/02/18 23:02 06/02/18 23:02 - REASSESSMENT Reassessment #1 Status: unchanged (resting comfortably, CT concering for dislodged g-tube into the duodenum that will need replacement. no abscessd. Will admit for further treatment of her abdominal wall cellulitis and g-tube replacment. Discussed case with Dr. Hansen who will see and admit pt.) - CT/MRI 1 CT Study: Abdomen Impression: Abnormal (1. Migration of gastrostomy tube obstructing the duodenum and gastric outlet. No organizing fluid collection identified at the gastrosto my tube insertion site. No free intraperitoneal air. 2. Unchanged appearance of renal masses on the right kidney measuring up to 7cm most consistent with renal cell carcinoma.), See EMR Report - CONSULTS/PCP/HOSPITALIST Notification #1 *Consult/PCP/Hospitalist*: Hospitalist- Dr Hansen Time Discussed: 01:12 Reason/Comments: admission Consult Disposition: Admit (accepts) Departure - Departure Date of Disposition Decision: 06/03/18 Time of Disposition Decision: 01:43 DIAGNOSIS: Cellulitis, abdominal wall, Gastrostomy tube dysfunction Disposition: ADMITTED INPATIENT 09 Certified Medical Emergency: Emergent Condition: Fair Referrals and Follow-Ups: Remington Lane MD [Primary Care Provider] - - Critical Care Note This patient required my direct & personal management of CC.: No Attestation - Physician/ JHONNY Attestation Patient care was provided by Advanced Practice Provider:: No The physician spent face to face time with patient:: Yes Advanced Practice Provider documentation review:: Supervising physician onsite and consulted in the evaluation and care of this patient. The physician did have a face to face encounter with the patient. This chart was documented by the indicated scribe, (Malvin Rubi Scribe) and accurately reflects the services I performed and decisions made by me, Rebecca Ndiaye MD, as attested by the provider's signature.
[2018-06-03] MEDS ORDERED: NS 1,000 ML IV ONE (02:11)
[2018-06-03] MEDS ORDERED: LANOXIN IV ONE (02:26)
[2018-06-03] MEDS ORDERED: TYLENOL PO PRN (02:26)
[2018-06-03] MEDS ORDERED: ZOFRAN IV PRN (02:26)
[2018-06-03] MEDS ORDERED: NS 1,000 ML IV SCH (02:26)
[2018-06-03] MEDS ORDERED: VANCOMYCIN IV PER PHARMACY MISC SCH (02:26)
[2018-06-03] MEDS: CLINDAMYCIN 600 MG/D5W 600 MG/50 ML IVPB IV SCH ×3 (04:10→19:39)
--- NOTE | 2018-06-03 04:20 | HISTORY AND PHYSICAL ---
REASON FOR ADMISSION: Malfunctioning PEG tube. HISTORY OF PRESENT ILLNESS: Ms. Hyun Morris is an 87-year-old lady who is a resident of a local correction. She has a past medical history of presumably vascular dementia. She has a history of a CVA which resulted in her being nonverbal. She was brought in to the ER by her correction on account of her PEG tube not functioning, being difficult to flush. The patient is not able to give me any further information because she is nonverbal and does not even follow commands. A CT scan was done and it showed that the tube is located distally in the duodenum. The patient is being admitted primarily for 2 reasons: To get GI to position the tube appropriately, and because during the course of her evaluation I noticed abdominal wall cellulitis. REVIEW OF SYSTEMS: Officially cannot be obtained for obvious reasons. ALLERGIES: Penicillin. HOME MEDICATIONS: 1. Ativan 0.5 mg b.i.d. 2. Calcium carbonate one tablet b.i.d. 3. Exelon patch 1 daily. 4. Atenolol 25 mg daily. 5. Zoloft 50 mg daily. 6. Colace 200 mg at bedtime. 7. Atorvastatin 40 mg at bedtime. 8. Aspirin 81 mg daily. 9. Cardizem 60 mg t.i.d. 10. Losartan 50 mg daily. 11. Ferrous sulfate 325 mg daily. 12. Lactulose 50 mL b.i.d. 13. MiraLAX 17 g daily. SOCIAL HISTORY: Resides at [facility]. No documented history of alcohol, tobacco use, or illicit drug use. PAST SURGERY HISTORY: PEG tube placement. Thyroidectomy. D and C. PAST MEDICAL HISTORY: Prior CVA, bipolar disorder, coronary artery disease, atrial fibrillation, hypertension, vascular dementia, thyroid goiter, and known history of renal cell cancer. LABORATORY WORK: White count 12,000, H and H 16 and 49, platelets 295,000 with normal differential. BUN is 37, creatinine 1.0. Alkaline phosphatase 121, albumin 3.3. Lactate is normal. Lipase is normal. PHYSICAL EXAMINATION: VITAL SIGNS: Blood pressure is 91/59, heart rate is 96, respirations 18, temperature is 98 degree. She is 94% on room air. GENERAL: She is a nonverbal, elderly woman with a somewhat anxious affect. She is awake and alert. Does not follow commands. HEENT: Head is normocephalic, atraumatic. Eyes, pupils are reactive to light. EOMI on the horizontal axis is normal. ENT internal exam was not able to be performed, but visually looking into her mouth it is dry. She has dry oral mucosa. No signs of cyanosis. NECK: Supple. No JVD or carotid bruit. No thyromegaly. CHEST: The bases are clear when auscultated. No crepitations or wheezes heard anteriorly. CARDIOVASCULAR: First and second heart sounds heard. No gallops, murmurs, rubs. Rhythm is irregular. ABDOMEN: Protuberant, soft and tender around the PEG site. The PEG site entry site is surrounded by at least 5 cm circumferentially of erythematous and macerated skin. I could not express any purulent material from the entry point of the PEG tube. It is tender to touch but no peritoneal signs noted. Bowel sounds are normal. RECTAL: Deferred. No mass or organomegaly appreciated. EXTREMITIES: No edema, clubbing, or peripheral cyanosis. Pulses distally are diminished and irregular but symmetrical. NEUROLOGICAL: The patient is moving upper extremities spontaneously, and I estimate power to be at 3/5, however, the lower extremities the patient does not move them on command but with when subjected to noxious stimuli she withdraws about 2/5. SKIN: Grossly unremarkable, however, I did not evaluate the perineum and sacral area. Other abnormal findings see above in the abdominal exam. MUSCULAR EXAM: No hypertonicity or joint deformities. ASSESSMENT: 1. Anterior abdominal wall cellulitis. 2. Dehydration. 3. Atrial fibrillation. 4. Hypertension. 5. Vascular dementia complicated with CVA and expressive aphasia. 6. Coronary artery disease. 7. Partial small-bowel obstruction secondary to the PEG tube. PLAN: 1. We will consult GI for appropriate position of G-tube. 2. Start patient on vancomycin and clindamycin to cover for gram-positive cocci which are likely the cause of this patient's cellulitis. We will apply topical antifungal agents also. 3. The patient will be aggressively hydrated which is obvious based on her labs and clinically. For now will withhold all medications pending PEG tube placement. 4. We will start patient on IV digoxin because her pressure is marginal, and hopefully this can prevent her from going into atrial fibrillation RVR while she is off Cardizem. cc: Keiry Hansen MD
[2018-06-03] MEDS ORDERED: VANCOMYCIN 500 MG/NS 500 MG/100 ML IVPB IV ONE (05:00)
--- NOTE | 2018-06-03 08:02 | Diag Imaging Result Doc PS360 ---
EXAM: CT ABD/PELVIS W/PO AND IV CON INDICATION: infection at g-tubed TECHNIQUE: This exam was performed using automated exposure control, adjustment of mA or kV according to patient size, and/or use of iterative reconstruction technique. COMPARISON: 04/16/2017 FINDINGS: The liver, gallbladder, spleen, pancreas, and adrenal glands are essentially unremarkable. There are three solid enhancing masses involving the right kidney and there are two smaller enhancing masses involving the left kidney. All of these are stable. For reference, the largest on the right is at the upper pole measuring up to 6.6 x 6.1 cm axially (6.6 x 6.1 cm previously, remeasured). There is no hydronephrosis. The ureters are unremarkable. The urinary bladder is unremarkable. The reproductive tract is unremarkable as imaged. There is uncomplicated diverticulosis coli. A G-tube is in place with the tip actually in the duodenal bulb. No inflammatory changes are identified along the course of the G-tube. The remainder of the GI tract is essentially unremarkable. There is no evidence of significant abdominal or pelvic lymphadenopathy. No focal inflammatory changes, free abdominal gas, or free fluid is identified. There is extensive aortoiliac atherosclerotic disease. There has been a right hip arthroplasty. There is lumbar spondylosis. There is chronic L5 spondylolysis. There is nothing to suggest local bony metastatic disease. IMPRESSION: 1.G-tube in place with the tip actually in the duodenal bulb. 2.Stable bilateral renal masses most consistent with renal cell carcinoma. 3.Other incidental/nonacute findings detailed above. Electronically signed by Julio Posadas 06/03/2018 8:00 AM
[2018-06-03] MEDS: CARDIZEM SCH ×2 (08:16→17:48)
[2018-06-03] MEDS: ASPIRIN PEG SCH (08:16)
[2018-06-03] MEDS: EXELON 9.5MG/24HRS TD SCH (08:17)
[2018-06-03] MEDS: NS 1,000 ML IV SCH ×2 (11:41→20:04)
[2018-06-03 11:50] LABS: URINE SOURCE CATH
[2018-06-03 12:01] LABS: BILIRUBIN URINE NEGATIVE (NEGATIVE); BLOOD URINE NEGATIVE (NEGATIVE); COLOR YELLOW; GLUCOSE URINE NEGATIVE (NEGATIVE); KETONE URINE 10 mg/dL (NEGATIVE); LEUKOCYTES URINE NEGATIVE (NEGATIVE); NITRITE URINE NEGATIVE (NEGATIVE); PH URINE 6.5; PROTEIN URINE 30 mg/dL (NEGATIVE); SP GRAVITY URINE > 1.050; TURBIDITY URINE CLEAR (CLEAR); UROBILINOGEN URINE NORMAL (NORMAL)
[2018-06-03 12:04] LABS: UR EPITHELIAL CELLS <10 /HPF (<10); URINE BACTERIA NEGATIVE /HPF; URINE RBC <10 /HPF (<10); URINE WBC <10 /HPF (<10)
[2018-06-03] MEDS: LANOXIN IV SCH (12:24)
[2018-06-03] MEDS: NIZORAL 2% CREAM TOP SCH ×2 (12:24→21:00)
[2018-06-03] MEDS: PROTONIX IV SCH (12:24)
[2018-06-03] MEDS: LOVENOX SUBQ SCH (12:25)
--- NOTE | 2018-06-03 13:08 | GASTROENTEROLOGY CONSULTATION ---
DATE: 06/03/2018 ATTENDING PHYSICIAN: Dr. Lane. PRIMARY CARE DOCTOR: Dr. Lane. REASON FOR EVALUATION: Infection at the PEG tube site. HISTORY OF PRESENT ILLNESS: Ms. Morris is an 87 year female who was admitted through the ER on 06/03/2018 for malfunctioning and leakage around the PEG tube site. She is a resident of local [place] [facility]. She has history of vascular dementia. She has been nonverbal since her last CVA at the [place] [facility], there was evidence of leakage around the PEG tube site and malfunctioning PEG tube. She was sent to the ER. CT scan was done which showed that the tube is located distally in the duodenum and a CT scan was done which also showed inflammatory changes along the course of the tube. There was a questionable finding of stable bilateral renal masses most consistent with renal cell carcinoma. There was also notice of right hip arthroplasty and lumbar spondylosis. Gastroenterology consulted for further management. PAST MEDICAL HISTORY: 1. Vascular dementia. 2. Chronic dysphagia. 3. Constipation. 4. Hypertension. 5. Anemia. PAST SURGICAL HISTORY: PEG tube placement was done in February 2017, thyroidectomy D and C. SOCIAL HISTORY: She resides at [facility]. No documented history of alcohol, tobacco or illicit drug abuse. ALLERGIES: Penicillin. REVIEW OF SYSTEMS: Cannot be obtained as the patient is nonverbal. MEDICATIONS IN THE HOSPITAL: 1. Tylenol. 2. Aspirin. 3. Clindamycin. 4. Digoxin. 5. Diltiazem. 6. Lovenox. 7. Ketoconazole topical b.i.d. 8. Morphine. 9. Normal saline 100/hour. 10. Protonix once daily. 11. Zofran. 12. Vancomycin. As directed by the pharmacy. 13. Exelon patch transdermal daily. 14. Vancomycin IV every 60 hours. She is currently n.p.o. PHYSICAL EXAMINATION: Vital signs: Temperature of 98 degrees, pulse rate 123, respiratory rate of 37, blood pressure of 89/78, saturating 91% on room air. Body weight of 130 pounds BMI 25.4 kg/m2. General: Moderately-nourished, lying in bed, not verbal, in no acute distress. HEENT: No pallor. No icterus. Neck: Supple. Abdomen: Erythema noted around the external bumper and with the excoriated skin noted. There is tenderness around the PEG tube site. I suspect local PEG tube site cellulitis. No guarding or rebound. Extremities: No cyanosis, clubbing. Neurologic: She is nonverbal. LABORATORY DATA: Hemoglobin and hematocrit is 16.1 and 49.2, white count of 12.85. Platelet count of 295,000, MCV of 89.9. Sodium 143, potassium 4.4, chloride of 101, bicarb of 26, anion gap of 16, BUN of 37 creatinine of 1, glucose of 110, calcium 9.4. Total bilirubin is 0.63, AST 22, ALT 12, alkaline phosphatase 121, total protein is 6, albumin 3.3, lipase of 25, lactate of 2. Urine blood culture x2 was drawn, they are currently pending. IMAGING: CT scan of the abdomen and pelvis. 1. G-tube in place with tip actually in the duodenal bulb. 2. Stable bilateral renal masses most consistent with renal cell carcinoma. IMPRESSION AND PLAN: 1. Abdominal wall cellulitis around the percutaneous endoscopic gastrostomy tube site. 2. Dehydration. 3. Possible sepsis. Patient is tachycardic and tachypneic and hypotensive. 4. History of vascular dementia complicated with cerebrovascular accident expressive aphasia. 5. Coronary artery disease. 6. Atrial fibrillation. PLAN: 1. We will continue with IV fluids, IV antibiotics. She will continue on vancomycin, clindamycin and topical antifungal agents. 2. She is on Protonix. I will continue Protonix once daily and she will continue to be hydrated per the primary team. 3. Deep venous thrombosis prophylaxis. Lovenox. 4. We will request the skin culture from the PEG tube site to determine the source of infection. Her blood cultures have been drawn and we need to also check a UA micro and urine culture as the patient appears to be in sepsis. 5. Once the PEG tube site is healing, then we may perform a PEG tube exchange. For now at this moment, we will need to resuscitate her with the above management. 6. The above plan discussed with the patient's nurse at bedside and all questions answered. Please call us with any further questions. Thank you for involving us the care of this patient. cc: MD Remington Martinez MD
--- NOTE | 2018-06-03 18:29 | PROGRESS NOTE ---
DATE: 06/03/2018 SUBJECTIVE: An 87-year-old white female patient, known case of CVA with expressive aphasia and dysphagia, admitted with redness around the PEG tube. Her PEG tube was not functioning. Nurses were not able to flush it at the half-way. The patient was sent to the emergency room. Patient found to have cellulitis around PEG tube. Patient evaluated by ER physician, found to have mild leukocytosis. Her BUN was 37, creatinine 1. Patient admitted for GI evaluation and further care. Her past medical history and medication noted. OBJECTIVE: Vital signs reviewed. Neck supple. No JVD. Lungs: Bibasilar crepitation. Heart: S1 and S2 heard. Abdomen soft, scaphoid. Patient does have redness around the PEG tube. DESKTOP SUPPORT SPECIALIST: Alert, awake, uncooperative for detailed exam. The patient does have expressive aphasia. LABORATORY DATA: Noted. ASSESSMENT AND PLAN: 1. Cellulitis of the abdominal wall. 2. History of cerebrovascular accident and expressive aphasia. 3. History of bilateral renal mass. 4. Situational depression. 5. Hypertension. Machine Hostler already evaluated the patient. Continue current treatment, intravenous antibiotics, local wound care. Overall prognosis fair to guarded. cc: Remington Lane MD
[2018-06-04] MEDS: CLINDAMYCIN 600 MG/D5W 600 MG/50 ML IVPB IV SCH (03:00)
[2018-06-04] MEDS: CARDIZEM SCH ×4 (03:56→20:53)
[2018-06-04] MEDS: MORPHINE IV PRN (04:19)
[2018-06-04] MEDS: NS 1,000 ML IV SCH ×2 (06:43→14:25)
[2018-06-04] MEDS ORDERED: NORCO-7.5 PO SCH (06:45)
--- NOTE | 2018-06-04 07:31 | PROGRESS NOTE ---
DATE: 06/04/2018 SUBJECTIVE: An 87-year-old, white female patient, resident of [facility] with multiple medical problems, admitted with nonfunctioning PEG tube, significant excoriation of the skin around the PEG tube. The patient is nonverbal due to her previous stroke. The patient evaluated by visual basic .net developer. Her PEG tube has being changed. No high-grade fever or chills. The patient was tachycardic at times. Patient was in pain. No nausea or vomiting. I resumed her pain medication. The patient does have history of renal mass, paroxysmal atrial fibrillation, CVA with expressive aphasia and dysphagia. No nausea or vomiting. Denied any diarrhea. Admission history and physical and GI consult noted. OBJECTIVE: Vital signs: Noted. Neck: Supple. No JVD. Lungs: Bibasilar crepitations. Cardiovascular: S1 and S2. Tachycardia, a 2/6 systolic murmur at the apex. Abdomen: Soft, globular. PEG tube is in place. The patient does have significant skin excoriation around the PEG tube. Extremities: No cyanosis, clubbing. Central nervous system: Patient is nonverbal, uncooperative for detailed exam. LABORATORY DATA: Noted. CONSIDERATION: 1. Cellulitis of skin around the percutaneous endoscopic gastrostomy tube. 2. History of cerebrovascular accident and expressive aphasia. 3. Multiple renal mass. 4. Paroxysmal atrial fibrillation. 5. Hyperlipidemia chronic pain. PLAN: I am going to try Silvadene cream. The patient is on IV antibiotics, DVT and GI prophylaxis. Symptomatic treatment. Resume her home medicine. IV hydration. Overall, prognosis fair to guarded. cc: Remington Lane MD
--- NOTE | 2018-06-04 07:38 | INFECTIOUS DISEASE CONSULT REP ---
DATE: 06/04/2018 CONCLUSION: The patient has an infected PEG tubing resulting in an abdominal wall cellulitis. RECOMMENDATIONS: I have switched the patient from clindamycin and vancomycin to aztreonam and micafungin. DISCUSSION: The patient is unable to provide a history. No family member is present. According to the information in the computer, the patient resides in a local [facility]. She was brought to the hospital because of an infection on her abdominal wall. [place] [address], hemoglobin 16.1, and platelet count 295,000. Creatinine is 1. GFR is 52. Alkaline phosphatase is 121. The rest the liver function studies are normal. Urinalysis shows no white cells or bacteria. Gram stain of the abdominal wall cellulitis shows gram-negative rods and yeast. CT scan of the abdomen and pelvis shows bilateral renal masses compatible with renal cell carcinoma. PAST MEDICAL HISTORY: 1. Stroke. 2. Bipolar disorder. 3. Coronary artery disease. 4. Atrial fibrillation. 5. Hypertension. 6. Vascular dementia. 7. Thyroid goiter. 8. Renal cell carcinoma. 9. Hyperlipidemia. PAST SURGICAL HISTORY: Positive for PEG tube placement, thyroidectomy, and D and C. ALLERGIES: The patient has an allergy to penicillin manifested by anaphylaxis. MEDICATIONS TAKEN IN THE LONGTERM: 1. Ativan. 2. Calcium carbonate. 3. Exelon. 4. Atenolol. 5. Zoloft. 6. Colace. 7. Atorvastatin. 8. Aspirin. 9. Cardizem. 10. Losartan. 11. Ferrous sulfate. 12. Lactulose. 13. MiraLAX. PHYSICAL EXAMINATION: Vital Signs: Temperature is 98.1 degrees, pulse 63, respirations 15, blood pressure 142/62. General: This is a chronically ill-appearing elderly female. She is in no acute distress. Head, eyes, ears, nose and throat: No drainage was noted from the nose or ears. Patient did not open her mouth. She did track with her eyes. The patient's face was somewhat erythematous and had some scaling of the skin. Neck: No stiffness. Lungs: Clear to auscultation. Cardiovascular: Heart rate was regular. Abdomen: Soft. The abdominal wall around the PEG site was erythematous and also had superficial wounds. There was no odor to the abdominal wall. Neurologic: The patient's eyes were open. She did not respond to respond to verbal stimuli. She did seem to track with her eyes. There was no tremor. Thank you for the consultation. cc: MD Remington Shelton MD
[2018-06-04] MEDS: AZACTAM 1 GM in NS 50 ML IV SCH ×2 (07:55→14:55)
[2018-06-04 08:31] LABS: BASO# 0.04 X1000 (0.0-0.2); BASO% 0.5 % (0.0-0.8); EOS# 0.12 X1000 (0.0-0.7); EOS% 1.6 % (0.0-10.0); HEMOGLOBIN 13.4 g/dL (12.0-16.0); IMM GRAN# 0.04 X1000 (0.0-0.04); IMM GRAN% 0.5 % (0.0-0.5); LYMPH# 1.44 X1000 (1.2-3.4); LYMPH% 18.8 % (20.5-51.1); MCH 29.1 PG (27-31); MCHC 31.9 g/dL (33-37); MCV 91.1 FL (81-99); MONO# 0.67 X1000 (0.11-0.59); MONO% 8.7 % (1.7-9.3); MPV 11.3 FL (7.4-10.4); NEUT# 5.37 X1000 (1.4-6.5); NEUT% 69.9 % (42.2-75.2); PLT 255 X1000 (130-400); RBC 4.61 XMIL (4.2-5.4); RDW 13.5 % (11.5-14.5); WBC 7.68 X1000 (4.8-10.8)
[2018-06-04] MEDS: MYCAMINE 100 MG in NS 100 ML IV SCH (08:41)
[2018-06-04 09:00] LABS: AGAP 10; ALB/GLOB RATIO 1.1; ALBUMIN 3.1 g/dL (3.5-5.0); ALKALINE PHOSPHATASE 102 U/L (32-104); BUN 29 mg/dL (8-22); CALCIUM 8.6 mg/dL (8.8-10.2); CHLORIDE 111 mmol/L (98-107); COSMO 288; CREATININE 0.8 mg/dL (0.5-0.9); ESTIMATED GFR > 60; GLUCOSE 81 mg/dL (70-104); GOT 31 U/L (10-30); GPT 13 U/L (10-36); MAGNESIUM 2.1 mg/dL (1.5-2.7); POTASSIUM 3.7 mmol/L (3.5-5.1); SODIUM 142 mmol/L (136-145); TCO2 21 mmol/L (25-35); TOTAL BILIRUBIN 0.71 mg/dL (0.20-1.00); TOTAL PROTEIN 5.9 g/dL (6.3-8.3)
[2018-06-04] MEDS: ASPIRIN PEG SCH (10:22)
[2018-06-04] MEDS: CALTRATE 600 + D PEG SCH ×2 (10:22→20:53)
[2018-06-04] MEDS: COZAAR PEG SCH (10:22)
[2018-06-04] MEDS: LACTULOSE PEG SCH ×2 (10:23→20:53)
[2018-06-04] MEDS: EXELON 9.5MG/24HRS TD SCH (10:23)
[2018-06-04] MEDS: ZOLOFT PEG SCH (10:24)
[2018-06-04] MEDS: TENORMIN PEG SCH (10:45)
[2018-06-04] MEDS: LOVENOX SUBQ SCH (10:45)
[2018-06-04] MEDS: ATIVAN PEG SCH ×2 (10:46→21:01)
[2018-06-04] MEDS: LANOXIN IV SCH (10:46)
[2018-06-04] MEDS: PROTONIX IV SCH (12:39)
--- NOTE | 2018-06-04 16:16 | PROVIDER PROGRESS NOTE ---
Progress Note SUBJECTIVE: No acute overnight events. Afebrile. No N/V. Unable to obtain ROS given dementia and h/o stroke. OBJECTIVE: Last Vital Signs Temp 98.2 F 06/04/18 15:10 Pulse 106 H 06/04/18 15:10 Resp 18 06/04/18 15:10 BP 154/113 06/04/18 15:10 Pulse Ox 100 06/04/18 15:10 Height 5 ft Weight 130 lb GEN: awake, alert, NAD HEENT: anicteric, MMM, EOMI NECK: supple, no jvd CARDS: RRR, no murmurs PULM: normal WOB ABD: PEG with loosened external bolster, purulent material around stoma with surrounding erythema and ulceration; no induration. Patient would not allow me to palpate abdomen EXT: no edema LABS: 06/04/18 06/04/18 08:16 08:16 WBC 7.68 Hgb 13.4 D Plt Count 255 Sodium 142 Potassium 3.7 D Chloride 111 H Carbon Dioxide 21 L BUN 29 H Creatinine 0.8 Total Bilirubin 0.71 AST 31 H ALT 13 Alkaline Phosphatase 102 Total Protein 5.9 L Albumin 3.1 L EXAM: CT ABD/PELVIS W/PO AND IV CON 06/03/2018 INDICATION: infection at g-tubed TECHNIQUE: This exam was performed using automated exposure control, adjustment of mA or kV according to patient size, and/or use of iterative reconstruction technique. COMPARISON: 04/16/2017 FINDINGS: The liver, gallbladder, spleen, pancreas, and adrenal glands are essentially unremarkable. There are three solid enhancing masses involving the right kidney and there are two smaller enhancing masses involving the left kidney. All of these are stable. For reference, the largest on the right is at the upper pole measuring up to 6.6 x 6.1 cm axially (6.6 x 6.1 cm previously, remeasured). There is no hydronephrosis. The ureters are unremarkable. The urinary bladder is unremarkable. The reproductive tract is unremarkable as imaged. There is uncomplicated diverticulosis coli. A G-tube is in place with the tip actually in the duodenal bulb. No inflammatory changes are identified along the course of the G-tube. The keyona lou of the GI tract is essentially unremarkable. There is no evidence of significant abdominal or pelvic lymphadenopathy. No focal inflammatory changes, free abdominal gas, or free fluid is identified. There is extensive aortoiliac atherosclerotic disease. There has been a right hip arthroplasty. There is lumbar spondylosis. There is chronic L5 spondylolysis. There is nothing to suggest local bony metastatic disease. IMPRESSION: 1.G-tube in place with the tip actually in the duodenal bulb. 2.Stable bilateral renal masses most consistent with renal cell carcinoma. 3.Other incidental/nonacute findings detailed above. IMPRESSION AND PLAN: Ms. Hyun Morris is an 87-year-old nonverbal with history for CVA and vascular dementia who presented from assisted with PEG-associated abdominal wall cellulitis. She is on antibiotics as per ID recommendations with improvement of leukocytosis. No evidence of necrotizing fasciitis on imaging. Wound culture reveals GNR although wound cultures in this setting is typically not useful. #Abdominal wall cellulitis - continue abx per ID - continue wound care and keep area dry; consider zinc oxide in the area; defer to wound RN - no indication to remove PEG at this time #PEG tube: continue TFs via PEG as per nutrition recommendations #GI ppx: continue PPI Will follow with you. Please call with questions
[2018-06-04] MEDS ORDERED: CALMOSEPTINE OINTMENT TOP PRN (18:09)
[2018-06-04] MEDS: COLACE LIQUID PO SCH (20:53)
[2018-06-04] MEDS: LIPITOR PEG SCH (20:53)
[2018-06-04] MEDS: SSD CREAM TOP SCH (21:03)
[2018-06-05] MEDS: AZACTAM 1 GM in NS 50 ML IV SCH ×3 (00:58→17:11)
[2018-06-05] MEDS: NS 1,000 ML IV SCH ×3 (05:57→17:23)
[2018-06-05] MEDS: MYCAMINE 100 MG in NS 100 ML IV SCH (09:00)
--- NOTE | 2018-06-05 09:24 | PROGRESS NOTE ---
DATE: 06/05/2018 SUBJECTIVE: Ms. Morris is doing fair. The patient is not able to give good history. Admitted with abdominal wall cellulitis. Problem with her PEG tube. The patient still has some drainage around the PEG tube. No fever or chills. The patient has some abdominal distention. No dysuria or hematuria. Patient had Manuel catheter. No diarrhea, unusual cough or expectoration. OBJECTIVE: Vital Signs: Vital signs noted. Neck: Supple. No JVD. Lungs: Bibasilar crepitations. Heart: S1 and S2 heard. A 2/6 systolic murmur at the apex. Abdomen: Soft, globular. Patient does have distention. Excoriation of skin around PEG tube. The patient has some drainage around the PEG tube. Bowel sounds hypoactive. CATALYTIC CASE OPERATOR: Alert, awake, uncooperative for detailed exam. CONSIDERATION: 1. Cellulitis of the abdominal wall. Possible ileus. 2. Cerebrovascular accident with expressive aphasia. 3. Renal cell carcinoma. 4. Paroxysmal atrial fibrillation. I am going to hold feeding. Put her feeding tube to low Gomco suction. Will check residual stomach volume periodically and hold feeding accordingly. Abdominal x-ray. Check appropriate lab and GI follow up. Her other problem includes the patient's blood culture grew gram-positive cocci. It could be due to contamination; will follow final result. Infectious Disease specialist following patient with us. Lab data done yesterday noted. cc: Remington Lane MD
[2018-06-05] MEDS: CARDIZEM SCH ×3 (10:46→20:29)
[2018-06-05] MEDS: LOVENOX SUBQ SCH (10:46)
[2018-06-05] MEDS: EXELON 9.5MG/24HRS TD SCH (10:46)
[2018-06-05] MEDS: LACTULOSE PEG SCH ×2 (10:46→20:29)
[2018-06-05] MEDS: COZAAR PEG SCH (10:47)
[2018-06-05] MEDS: CALTRATE 600 + D PEG SCH ×2 (10:47→20:29)
[2018-06-05] MEDS: ZOLOFT PEG SCH (10:47)
[2018-06-05] MEDS: PROTONIX IV SCH (10:47)
[2018-06-05] MEDS: SODIUM CHLORIDE 0.9% INJ SCH (10:47)
[2018-06-05] MEDS: TENORMIN PEG SCH (10:47)
[2018-06-05] MEDS: ASPIRIN PEG SCH (10:48)
[2018-06-05] MEDS: ATIVAN PEG SCH ×2 (11:06→20:28)
[2018-06-05] MEDS: LANOXIN IV SCH (11:07)
[2018-06-05] MEDS: SSD CREAM TOP SCH ×3 (11:08→20:35)
--- NOTE | 2018-06-05 12:55 | Diag Imaging Result Doc PS360 ---
EXAM: ABDOMEN FLAT/UPRIGHT 06/05/2018 HISTORY: pain TECHNIQUE: Flat and upright abdomen COMMENT: There is gas in the colon without evidence of dilatation. The small bowel and stomach are not distended. There is no evidence organomegaly. There is some contrast in the rectum which is probably from the CT of 06/03/2018. IMPRESSION: No evidence of obstruction or other definite acute abnormality. Electronically signed by Dmitriy Rios 06/05/2018 12:53 PM
[2018-06-05] MEDS ORDERED: VANCOMYCIN 1,150 MG in NS 250 ML IV SCH (17:00)
[2018-06-05] MEDS: LIPITOR PEG SCH (20:29)
[2018-06-05] MEDS: COLACE LIQUID PO SCH (20:29)
[2018-06-06] MEDS: AZACTAM 1 GM in NS 50 ML IV SCH ×3 (01:10→18:50)
[2018-06-06] MEDS: SSD CREAM TOP SCH ×3 (01:12→20:26)
--- NOTE | 2018-06-06 07:21 | Diag Imaging Result Doc PS360 ---
EXAM: CHEST-1 VIEW 06/06/2018 HISTORY: sob TECHNIQUE: AP portable at 0609 COMMENT: The inspiration is suboptimal. There is a superior mediastinal mass displacing the trachea to the right. This was also present on 04/19/2017. 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 There is cardiomegaly. Considering the degree of inspiration the appearance of the chest has not changed significantly since the previous study. IMPRESSION: Cardiomegaly. Electronically signed by Dmitriy Rios 06/06/2018 7:19 AM
[2018-06-06 07:29] LABS: BASO# 0.02 X1000 (0.0-0.2); BASO% 0.3 % (0.0-0.8); EOS# 0.19 X1000 (0.0-0.7); EOS% 2.5 % (0.0-10.0); HEMATOCRIT 39.2 % (37.0-47.0); HEMOGLOBIN 12.6 g/dL (12.0-16.0); IMM GRAN# 0.05 X1000 (0.0-0.04); IMM GRAN% 0.6 % (0.0-0.5); LYMPH# 1.28 X1000 (1.2-3.4); LYMPH% 16.6 % (20.5-51.1); MCH 28.8 PG (27-31); MCHC 32.1 g/dL (33-37); MCV 89.5 FL (81-99); MONO# 0.69 X1000 (0.11-0.59); MONO% 8.9 % (1.7-9.3); MPV 11.4 FL (7.4-10.4); NEUT# 5.48 X1000 (1.4-6.5); NEUT% 71.1 % (42.2-75.2); PLT 246 X1000 (130-400); RBC 4.38 XMIL (4.2-5.4); RDW 13.2 % (11.5-14.5); WBC 7.71 X1000 (4.8-10.8)
[2018-06-06] MEDS: NS 1,000 ML IV SCH ×3 (07:47→18:51)
[2018-06-06 08:03] LABS: AGAP 10; ALB/GLOB RATIO 1.1; ALBUMIN 3.1 g/dL (3.5-5.0); ALKALINE PHOSPHATASE 109 U/L (32-104); BUN 12 mg/dL (8-22); CALCIUM 8.6 mg/dL (8.8-10.2); CHLORIDE 110 mmol/L (98-107); COSMO 283; CREATININE 0.6 mg/dL (0.5-0.9); ESTIMATED GFR > 60; GLUCOSE 108 mg/dL (70-104); GOT 24 U/L (10-30); GPT 13 U/L (10-36); MAGNESIUM 1.9 mg/dL (1.5-2.7); POTASSIUM 3.5 mmol/L (3.5-5.1); SODIUM 142 mmol/L (136-145); TCO2 22 mmol/L (25-35); TOTAL BILIRUBIN 0.29 mg/dL (0.20-1.00); TOTAL PROTEIN 5.9 g/dL (6.3-8.3)
[2018-06-06] MEDS: MYCAMINE 100 MG in NS 100 ML IV SCH (09:21)
[2018-06-06] MEDS: COZAAR PEG SCH (09:22)
[2018-06-06] MEDS: EXELON 9.5MG/24HRS TD SCH (09:22)
[2018-06-06] MEDS: PROTONIX IV SCH (09:22)
[2018-06-06] MEDS: CALTRATE 600 + D PEG SCH ×2 (09:22→20:25)
[2018-06-06] MEDS: LOVENOX SUBQ SCH (09:22)
[2018-06-06] MEDS: ASPIRIN PEG SCH (09:22)
[2018-06-06] MEDS: SODIUM CHLORIDE 0.9% INJ SCH (09:22)
[2018-06-06] MEDS: LACTULOSE PEG SCH ×2 (09:22→20:24)
[2018-06-06] MEDS: TENORMIN PEG SCH (09:23)
[2018-06-06] MEDS: ATIVAN PEG SCH ×2 (09:23→20:24)
[2018-06-06] MEDS: LANOXIN IV SCH (09:23)
[2018-06-06] MEDS: ZOLOFT PEG SCH (09:23)
[2018-06-06] MEDS: CARDIZEM SCH ×3 (09:23→20:25)
[2018-06-06] MEDS: MORPHINE IV PRN ×2 (09:38→14:16)
--- NOTE | 2018-06-06 11:46 | PROGRESS NOTE ---
DATE: 06/06/2018 SUBJECTIVE: The patient is nonverbal, but looks about and appears at her baseline. She is a long- term longterm patient having had a stroke in the past. OBJECTIVE: Vitals: Afebrile, pulse 68, respirations 18, blood pressure 176/63. General: She is stooling well, had liquid brown bowel movement this morning. CARDIOVASCULAR: Regular rhythm and rate with 2 to 3/6 murmur. Lungs: Clear. Abdomen: Protuberant, soft. Active bowel sounds. There is redness at the right medial abdomen, and there is some purulence around the PEG site. Extremities: No skin breakdown at the heels. No calf tenderness, cords or edema. Neurologic: Again, patient nonverbal. Appears at baseline. LABORATORY: White count has decreased from admission of 12.8 on 06/02 to 7.7, hemoglobin 12.6, platelets 246,000. CMP shows alkaline phosphatase 109, normal transaminases. Potassium 3.5, creatinine 0.6. One of two blood cultures growing out enterococcus faecalis. Also, the culture from the PEG site drainage reveals Klebsiella pneumoniae and Brianna albicans. IMAGING: Chest x-ray today shows cardiomegaly, otherwise unremarkable. Abdominal x-ray yesterday, no evidence of obstruction. ASSESSMENT: 1. Cellulitis, abdominal wall. 2. History of cerebrovascular accident with longstanding expressive aphasia. 3. Bilateral renal masses consistent with renal cell carcinoma. 4. Paroxysmal atrial fibrillation. 5. Heart murmur. 6. Hypertension. 7. Hypercholesterolemia. PLAN: Patient on aztreonam and micafungin per Dr. Flannery, Infectious Disease. PEG feeds are being held currently. The patient remains on her digoxin and diltiazem for heart rate control and she is also on Cozaar and atenolol at low doses. PLAN: Continue supportive measures. cc: MD Remington Avalos MD
[2018-06-06] MEDS: COLACE LIQUID PO SCH (20:24)
[2018-06-06] MEDS: LIPITOR PEG SCH (20:24)
[2018-06-07] MEDS: NS 1,000 ML IV SCH ×2 (04:57→08:30)
[2018-06-07] MEDS: AZACTAM 1 GM in NS 50 ML IV SCH ×2 (04:57→16:15)
[2018-06-07] MEDS: MORPHINE IV PRN ×2 (05:02→09:24)
[2018-06-07] MEDS ORDERED: VANCOMYCIN IV PER PHARMACY MISC SCH (06:45)
--- NOTE | 2018-06-07 07:19 | PROGRESS NOTE ---
DATE: 06/07/2017 SUBJECTIVE: Ms. Morris is doing better. We did have a problem with her back tube. It was not functioning well. Everything was leaking out, and we have to hold medicine and feeding. GI Specialist is aware. No high-grade fever or chills. The patient is not able to give a good history. OBJECTIVE: Vital Signs: Her vital signs as noted. Neck: Supple. No JVD. Lungs: Bibasilar crepitations. Heart S1 and S2 heard. Abdomen: Soft, globular. Bowel sounds hypoactive. BODY ENGINEER: The patient is sleeping but arousable. Uncooperative for detailed exam. The patient does have expressive aphasia. PROBLEMS: 1. Cellulitis of the abdominal wall. 2. Sepsis due to Enterococcus faecalis I am going to add vancomycin. Patient is on Azactam. 3. Cerebrovascular accident with expressive aphasia and dysphagia. 4. Paroxysmal atrial fibrillation. 5. Possible renal cell cancer. DISCUSSION: Patient and family did not want any aggressive measure. I know this patient from the senior living, and I did talk to nurse who was taking care of senior living on Thursday. I am going to make her DNR 1. Her lab data done yesterday noted. Continue rest of the treatment. Close observation. GI followup. cc: Remington Lane MD
[2018-06-07] MEDS: LANOXIN IV SCH (08:25)
[2018-06-07] MEDS: PROTONIX IV SCH ×2 (08:31→11:10)
[2018-06-07] MEDS: SODIUM CHLORIDE 0.9% INJ SCH ×2 (08:31→11:10)
[2018-06-07] MEDS: ASPIRIN PEG SCH (08:33)
[2018-06-07] MEDS: ATIVAN PEG SCH (08:34)
[2018-06-07] MEDS: LOVENOX SUBQ SCH (08:44)
[2018-06-07] MEDS: ZOLOFT PEG SCH (08:45)
[2018-06-07] MEDS: EXELON 9.5MG/24HRS TD SCH (08:46)
[2018-06-07] MEDS: COZAAR PEG SCH (08:46)
[2018-06-07] MEDS ORDERED: VANCOMYCIN 1,150 MG in NS 250 ML IV SCH (09:00)
[2018-06-07] MEDS: MYCAMINE 100 MG in NS 100 ML IV SCH (09:14)
[2018-06-07] MEDS: CARDIZEM SCH ×2 (09:23→16:03)
[2018-06-07] MEDS: CALTRATE 600 + D PEG SCH (09:23)
[2018-06-07] MEDS: SSD CREAM TOP SCH (09:23)
[2018-06-07] MEDS: LACTULOSE PEG SCH (09:23)
[2018-06-07] MEDS: CLINIMIX E 4.25%-5% SOLUTION 1,000 ML IV SCH (09:28)
[2018-06-07] MEDS: TENORMIN PEG SCH (10:55)
--- NOTE | 2018-06-07 11:00 | GASTROENTEROLOGY PROGRESS NOTE ---
DATE: 06/07/2018 SUBJECTIVE: The patient is resting in bed. She is nonverbal. I looked at the site of the PEG tube. It has shown no improvement and there was a lot of drainage and it was not working, so we removed the feeding tube at bedside with nursing assistance. The patient has been on IV Clinimix. She has been afebrile. OBJECTIVE: Vital Signs: Temperature 97.7 degrees, pulse rate of 65, respiratory rate 18, blood pressure 159/87, saturating 97% on room air. General Appearance: The patient is lying in bed in no acute distress. HEENT: No pallor. No icterus. Neck: Supple. Abdomen: The PEG tube in place was removed. There is lot of erythema and excoriation and drainage around the PEG tube site. There is some pus noted. This is consistent with abdominal wall cellulitis. Soreness noted at the abdominal site. Extremities: No cyanosis or clubbing. Neurologic: She is awake and alert, appears normal. LABORATORY DATA: Hemoglobin and hematocrit is 12.6 and 39.2, white count of 7.7, platelet count of 246,000. Sodium 142, potassium 3.5, chloride 110, bicarb 22, anion gap 10, BUN of 12, creatinine 0.6, glucose of 108, calcium is 8.6, magnesium is 1.9, total bilirubin is 0.29, AST 24, ALT 13, alkaline phosphatase 109, total protein 5.2, albumin of 3.1. Abdominal wall culture showing Klebsiella pneumonia and Brianna albicans. This is resistant to Bactrim and ampicillin. Blood culture is showing Enterococcus faecalis group D. IMPRESSION AND PLAN: 1. Abdominal wall cellulitis. In this regard, she will continue on vancomycin, aztreonam, and micafungin. Dr. Flannery is following. 2. Dysphagia. We will keep her on IV Clinimix. She may need IV TPN. We removed the PEG tube for now. We will reconsider putting a PEG tube after 6 weeks once the abdominal wall cellulitis heals. In the interim, she may need IV TPN. We will leave it to the discretion of the primary team. 3. Deep venous thrombosis with Lovenox. 4. Gastrointestinal prophylaxis. Protonix. I will increase the Protonix to twice daily to help reduce the gastric secretions in order to help with the PEG tube site drainage. 5. Sepsis. She is on antibiotics. 6. History of cerebrovascular accident with longstanding expressive aphasia. 7. Renal mass with renal cell carcinoma. Aware. 8. Paroxysmal atrial fibrillation. Aware. The above plans were discussed with the patient and nurse at bedside. All questions were answered. Please call us with any further questions. cc: MD Remington Martinez MD
--- NOTE | 2018-06-07 18:36 | INFECTIOUS DISEASE PROGRESS NO ---
DATE: 06/07/2018 PRESENT ILLNESS: Ms. Morris has an infected PEG tube with abdominal wall cellulitis. That PEG tube has been removed by Dr. Xiong. There is also a bacteremia, with 1 out of 2 blood cultures growing Enterococcus faecalis which is pierre susceptible. MEDICATIONS: She is receiving day 3 of aztreonam 1 g IV every 8 hours and micafungin 100 mg IV daily. She was also started on vancomycin IV per Pharmacy dosing today. PHYSICAL EXAMINATION: Vital Signs: Temperature is 97.6 degrees, pulse rate 72, respiratory rate 18, blood pressure 172/98, O2 saturation is 98% on room air. General: This is a chronically ill- appearing elderly female. She is lying in the bed, currently in mild distress. She is confused, combative, and pushing against me. HEENT: Atraumatic, normocephalic. Conjunctivae are pink. I was unable to visualize the oral vestibule. Cardiovascular: Heart rate is regular. Normal sinus rhythm on the monitor. Respiratory: Lung sounds are clear and diminished bilaterally. Abdomen: Soft,round, and tender. Bowel sounds are active. The PEG tube site is covered with gauze which is saturated with purulent drainage and is on her gown and sheets which is being changed by the nurse. Neurologic: The patient is awake, alert, and trying to push me away. She is not following commands and is nonverbal. DIAGNOSTIC STUDIES: No blood work today. However, yesterday her white count was 7.71, hemoglobin 12.6, platelet count 246,000. Creatinine 0.6, estimated GFR is greater than 60, total bilirubin 0.29, AST 24, ALT 13, alkaline phosphatase 109. Her blood has grown 1/2 Enterococcus faecalis and her abdominal wound culture grew Klebsiella pneumoniae and Brianna albicans. No imaging reports today. However, yesterday her chest x-ray showed no significant change. ASSESSMENT AND PLAN: Ms. Morris has a percutaneous endoscopic gastrostomy tube site infection and is receiving micafungin and aztreonam, which we will continue. There is Enterococcus faecalis growing in 1/2 blood cultures, which can sometimes be a contaminant; however, we will go ahead and treat her with daptomycin. We have also discontinued her Lipitor due to the administration of daptomycin. Also vancomycin has been discontinued due to the possibility of increasing creatinine and possibility that the patient has decreased hearing, which can be worsened with the administration of vancomycin. These plans been discussed with and recommended by Dr. Flannery. COMORBIDITIES: For Ms. Morris include: 1. She is elderly. 2. Stroke causing aphasia and dysphagia. 3. Coronary artery disease. 4. Vascular dementia. 5. Bipolar disease. 6. Renal cell carcinoma. Dictated by LANA Montanez for Fuentes Flannery MD cc: MD Remington Shelton MD MTDD
[2018-06-08] MEDS: CUBICIN 350 MG in NS 100 ML IV SCH (00:45)
[2018-06-08] MEDS: APRESOLINE IV PRN (00:47)
[2018-06-08] MEDS: PROTONIX IV SCH ×2 (00:49→09:25)
[2018-06-08] MEDS: ATIVAN PEG SCH (00:50)
[2018-06-08] MEDS: COLACE LIQUID PO SCH (00:50)
[2018-06-08] MEDS: SSD CREAM TOP SCH ×2 (00:50→09:24)
[2018-06-08] MEDS: CALTRATE 600 + D PEG SCH ×2 (00:50→18:29)
[2018-06-08] MEDS: CARDIZEM SCH ×2 (00:50→18:30)
[2018-06-08] MEDS: LACTULOSE PEG SCH ×2 (00:51→18:30)
[2018-06-08] MEDS: AZACTAM 1 GM in NS 50 ML IV SCH ×3 (00:53→18:29)
[2018-06-08] MEDS: CLINIMIX E 4.25%-5% SOLUTION 1,000 ML IV SCH (05:50)
[2018-06-08] MEDS: NS 1,000 ML IV SCH (05:52)
[2018-06-08] MEDS ORDERED: LABETALOL IV PRN (06:49)
--- NOTE | 2018-06-08 07:30 | PROGRESS NOTE ---
DATE: 06/08/2018 SUBJECTIVE: Ms. Morris is doing fair. The patient is not communicating. At times, her blood pressure is staying high. She denied any nausea or vomiting. The patient does have excoriation infection around the PEG tube. Movement Education Specialist decided to remove the PEG tube and start her on TPN. No diarrhea. No high-grade fever or chills. History part is limited. Infectious Disease specialist and GI's recommendation noted. OBJECTIVE: Vital signs: As noted. Neck: Supple. No JVD. Lungs: Bibasilar crepitations. Heart: S1 and S2 heard. Abdomen: Soft, globular. Bowel sounds are present. LEARNING CONSULTANT: Alert and awake but not communicating. ASSESSMENT AND PLAN: The patient does have multiple complex medical issues. CVA, expressive aphasia and dysphagia, paroxysmal atrial fibrillation, cellulitis of the abdominal wall, possible sepsis, hypertension, renal cell cancer, and dementia I am planning to change her medicine to IV. Continue IV nutrition. Continue the rest of the medication. Close observation. Discussed with granddaughter about her prognosis and plan. She is going to think over sending her to LTAC versus hospice care, and she is going to let me know. Meanwhile, we will continue current treatment. cc: Remington Lane MD
[2018-06-08 08:53] LABS: BASO# 0.03 X1000 (0.0-0.2); BASO% 0.3 % (0.0-0.8); EOS# 0.16 X1000 (0.0-0.7); EOS% 1.8 % (0.0-10.0); HEMATOCRIT 43.4 % (37.0-47.0); HEMOGLOBIN 14.4 g/dL (12.0-16.0); IMM GRAN# 0.09 X1000 (0.0-0.04); LYMPH# 1.58 X1000 (1.2-3.4); MCH 28.9 PG (27-31); MCHC 33.2 g/dL (33-37); MONO% 9.1 % (1.7-9.3); MPV 11.5 FL (7.4-10.4); NEUT% 69.8 % (42.2-75.2); PLT 280 X1000 (130-400); RBC 4.99 XMIL (4.2-5.4); RDW 13.6 % (11.5-14.5); WBC 8.76 X1000 (4.8-10.8)
[2018-06-08 09:15] LABS: AGAP 11; ALB/GLOB RATIO 1.1; ALBUMIN 3.1 g/dL (3.5-5.0); ALKALINE PHOSPHATASE 118 U/L (32-104); BUN 14 mg/dL (8-22); CALCIUM 8.6 mg/dL (8.8-10.2); CHLORIDE 105 mmol/L (98-107); COSMO 277; CREATININE 0.5 mg/dL (0.5-0.9); ESTIMATED GFR > 60; GLUCOSE 115 mg/dL (70-104); GOT 24 U/L (10-30); GPT 14 U/L (10-36); POTASSIUM 3.6 mmol/L (3.5-5.1); SODIUM 138 mmol/L (136-145); TCO2 22 mmol/L (25-35); TOTAL BILIRUBIN 0.38 mg/dL (0.20-1.00); TOTAL PROTEIN 5.8 g/dL (6.3-8.3)
--- NOTE | 2018-06-08 09:24 | PROVIDER PROGRESS NOTE ---
Progress Note SUBJECTIVE: No acute overnight events. No vomiting or fever. Unable to obtain ROS given dementia and patient nonverbal OBJECTIVE: Last Vital Signs Temp 97.7 F 06/08/18 07:32 Pulse 80 06/08/18 07:32 Resp 18 06/08/18 07:32 BP 156/92 06/08/18 07:32 Pulse Ox 98 06/08/18 07:32 Height 5 ft Weight 130 lb GEN: awake, alert, NAD HEENT: anicteric, MMM, EOMI NECK: supple, no jvd CARDS: 2/6 KLAUS, irregularly, irregular PULM: normal WOB ABD: upper abdomen stoma with spontaneous gastric drainage, cellulitis improving, some purulent material surrounding area; site covered with alfred instead of dressing, no induration or crepitus; BS present, NT throughout EXT: no edema NEURO: moves upper extremities symmetrically; does not follow commands LABS: 06/08/18 06/08/18 08:00 08:00 WBC 8.76 Hgb 14.4 Plt Count 280 Sodium 138 Potassium 3.6 Chloride 105 Carbon Dioxide 22 L BUN 14 Creatinine 0.5 Total Bilirubin 0.38 AST 24 ALT 14 Alkaline Phosphatase 118 H Total Protein 5.8 L Albumin 3.1 L IMPRESSION AND PLAN: Ms. Hyun Morris is an 87-year-old nonverbal with history for CVA and vascular dementia who presented from [facility]way with PEG-associated abdominal wall cellulitis. She is on antibiotics as per ID recommendations with normalization of leukocytosis. PEG was removed. No evidence of necrotizing fasciitis on imaging or exam. Site needs wound care to keep area dry. #Abdominal wall cellulitis - continue abx per ID - continue wound care and keep area dry; change dressing daily; continue zinc oxide in the area; defer to wound RN #Dysphagia: PEG removed; on clinimix; recommend TPN as patient unlikely to tolerate NGT or DHT placement for enteral feeding; nutrition consult placed for TPN recommendations; PEG will need to be replaced in about 6 weeks as outpatient; once cellulitis resolves #GI ppx: continue PPI Will follow with you. Please call with questions
[2018-06-08] MEDS: LOVENOX SUBQ SCH (09:25)
[2018-06-08] MEDS: EXELON 9.5MG/24HRS TD SCH (09:25)
[2018-06-08] MEDS: SODIUM CHLORIDE 0.9% INJ SCH (09:25)
[2018-06-08] MEDS: LANOXIN IV SCH (09:25)
[2018-06-08] MEDS: CATAPRES-TTS-2 TD SCH (12:14)
[2018-06-08] MEDS: MYCAMINE 100 MG in NS 100 ML IV SCH (12:18)
--- NOTE | 2018-06-08 16:43 | INFECTIOUS DISEASE PROGRESS NO ---
DATE: 06/08/2018 PRESENT ILLNESS: The patient has an infected PEG tube with resulting abdominal wall cellulitis. The patient's PEG tube has been removed by Dr. Xiong. The patient not only has an abdominal wall cellulitis secondary to an infected PEG tube site, but she also has an enterococcal bacteremia. MEDICATIONS: The patient is receiving a combination of aztreonam, daptomycin, and micafungin. PHYSICAL EXAMINATION: Vital Signs: Temperature is 97.9 degrees, pulse 77, respirations 16, blood pressure 147/79. General: This is an ill-appearing elderly female. She is in no acute distress. She does seem somewhat confused and can be combative at time when we are trying to examine her or change her dressing on her abdominal wall. Head, Eyes, Ears, Nose, and Throat: No drainage was noted from the nose or ears. She did not open her mouth so I could not examine that. Neck: The patient did not seem to have any pain when she turned her head. Lungs: Clear to auscultation. Cardiovascular: Heart rate is regular. Abdomen: Soft. The PEG tube has been removed. The area where the infection is is less erythematous in color, and I think it is getting a little bit smaller in size. Neurologic: The patient is awake. She tracks with her eyes. She did not speak. She did not follow request to move her extremities. There was no tremor. DIAGNOSTIC STUDIES: There is no new radiographic test. CBC today shows a white count of 8760, hemoglobin 14.4, and platelet count of 180,000. Creatinine is 0.5, GFR is greater than 60, alkaline phosphatase is 118. ASSESSMENT AND PLAN: 1. The patient has abdominal wall cellulitis secondary to an infected percutaneous endoscopic gastrostomy tube. Patient is being treated for the infected abdominal wall. 2. Also the patient has an enterococcal bacteremia. The plan is to continue the current antimicrobial agents, namely aztreonam, daptomycin, and micafungin. PATIENT'S COMORBIDITIES: 1. She is elderly. 2. She has had a stroke. 3. She has dementia. 4. Bipolar disease. 5. She also has a renal cell carcinoma. cc: MD Remington Shelton MD
[2018-06-08] MEDS: ASPIRIN PEG SCH (18:26)
[2018-06-08] MEDS: TENORMIN PEG SCH (18:27)
[2018-06-08] MEDS: MORPHINE IV PRN (18:29)
[2018-06-08] MEDS: COZAAR PEG SCH (18:30)
[2018-06-08] MEDS: ZOLOFT PEG SCH (19:36)
[2018-06-09] MEDS: CLINIMIX E 4.25%-5% SOLUTION 1,000 ML IV SCH (00:26)
[2018-06-09] MEDS: CUBICIN 350 MG in NS 100 ML IV SCH (00:28)
[2018-06-09] MEDS: PROTONIX IV SCH ×3 (00:31→23:06)
[2018-06-09] MEDS: SSD CREAM TOP SCH ×3 (00:35→23:07)
[2018-06-09] MEDS: CARDIZEM SCH ×4 (00:36→23:07)
[2018-06-09] MEDS: COLACE LIQUID PO SCH ×2 (00:36→23:07)
[2018-06-09] MEDS: LACTULOSE PEG SCH ×3 (00:36→23:07)
[2018-06-09] MEDS: CALTRATE 600 + D PEG SCH ×3 (00:36→23:07)
[2018-06-09] MEDS: LABETALOL IV PRN (01:03)
[2018-06-09] MEDS: AZACTAM 1 GM in NS 50 ML IV SCH ×3 (02:05→23:04)
[2018-06-09] MEDS: NS 1,000 ML IV SCH ×2 (02:57→18:17)
--- NOTE | 2018-06-09 06:58 | PROGRESS NOTE ---
DATE: 06/09/2018 SUBJECTIVE: Ms. Morris is doing fair. No high-grade fever or chills. No nausea or vomiting. We are trying to put a PICC line in and start TPN. No diarrhea. I started her on Catapres TTS. The patient also had p.r.n. IV hydralazine and labetalol. The patient is getting morphine for pain management. No typical chest pain. The patient does have expressive aphasia. PHYSICAL EXAMINATION: Vital Signs: Noted. This morning, blood pressure was better. The patient was afebrile. Neck: Supple. No JVD. Lungs: Bibasilar crepitations. Heart: S1 and S2. Irregularly irregular. A 2/6 systolic murmur at the apex. Abdomen: Soft, globular. Bowel sounds present. JUDGE: Alert, awake. Uncooperative for detailed exam. LABORATORY DATA: Done yesterday, noted. Hemoglobin 14.4, hematocrit 43.4, WBC count 8.76, platelets 280,000. The rest of the electrolytes were fairly benign. ASSESSMENT: The patient's medical problems include: 1. Cellulitis of the abdominal wall, possible sepsis. I repeated blood culture. 2. Renal mass, presumed to be renal cell cancer. 3. Atrial fibrillation. 4. Cerebrovascular accident with expressive aphasia and dysphagia. PLAN: Plan is to continue current treatment, IV antibiotics. 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 Dr. Xiong wants her PEG tube out for 4 to 6 weeks and then once the abdominal wall cellulitis improves, they will consider putting it back. cc: Remington Lane MD
[2018-06-09] MEDS ORDERED: NS 250 ML ONE (08:40)
[2018-06-09] MEDS: LANOXIN IV SCH (08:56)
[2018-06-09] MEDS: DURAGESIC 12 MICROGM/HR PATCH TD SCH (08:57)
[2018-06-09] MEDS: MORPHINE IV PRN (09:01)
--- NOTE | 2018-06-09 09:03 | PROVIDER PROGRESS NOTE ---
Progress Note SUBJECTIVE: No acute overnight events. No N/V/F. Unable to obtain ROS given dementia and nonverbal. PICC line consult pending OBJECTIVE: Last Vital Signs Temp 97.6 F 06/09/18 07:16 Pulse 70 06/09/18 08:56 Resp 23 06/09/18 07:16 BP 139/72 06/09/18 07:16 Pulse Ox 99 06/09/18 07:16 Height 5 ft Weight 130 lb GEN: awake, alert, NAD HEENT: anicteric, MMM, EOMI NECK: supple, no jvd CARDS: 2/6 KLAUS, irregularly, irregular PULM: normal WOB ABD: dressing saturated, which was removed; stoma with spontaneous gastric drainage, cellulitis and ulceration appears to be improving; no induration or crepitus; BS present, NT/ND EXT: no edema NEURO: moves upper extremities symmetrically; does not follow commands LABS: normal INR IMPRESSION AND PLAN: Ms. Hyun Morris is an 87-year-old nonverbal with history for CVA and vascular dementia who presented from [facility] with PEG-associated abdominal wall cellulitis and E faecalis bacteremia. PEG was removed. She is on antibiotics as per ID recommendations with normalization of leukocytosis. No evidence of necrotizing fasciitis on imaging or exam. Repeat blood cultures are negative to date. #Abdominal wall cellulitis: improving - continue abx per ID - continue wound care and keep area dry; change dressing daily; continue zinc oxide in the area; defer to wound RN #E faecalis bacteremia: abx as above #Dysphagia: PEG removed; - on clinimix - PICC line consult pending for initiation of TPN - nutrition consulted; appreciate recommendations - PEG will need to be replaced in about 6 weeks as outpatient once cellulitis resolves #Bilateral renal masses concerning for RCC: noted; defer to primary #GI ppx: continue PPI Will follow with you. Please call with questions
[2018-06-09] MEDS: ASPIRIN PEG SCH (09:08)
[2018-06-09] MEDS: COZAAR PEG SCH (09:09)
[2018-06-09] MEDS: TENORMIN PEG SCH (09:12)
[2018-06-09] MEDS: ZOLOFT PEG SCH (09:12)
[2018-06-09] MEDS: EXELON 9.5MG/24HRS TD SCH (11:14)
[2018-06-09] MEDS: MYCAMINE 100 MG in NS 100 ML IV SCH (11:16)
[2018-06-09] MEDS: SODIUM CHLORIDE 0.9% INJ SCH (11:23)
[2018-06-09 11:24] LABS: AGAP 10; ALB/GLOB RATIO 1.2; ALBUMIN 2.8 g/dL (3.5-5.0); ALKALINE PHOSPHATASE 91 U/L (32-104); BUN 23 mg/dL (8-22); CALCIUM 8.4 mg/dL (8.8-10.2); CHLORIDE 108 mmol/L (98-107); COSMO 282; CREATININE 0.6 mg/dL (0.5-0.9); ESTIMATED GFR > 60; GLUCOSE 118 mg/dL (70-104); GOT 23 U/L (10-30); GPT 12 U/L (10-36); MAGNESIUM 2.1 mg/dL (1.5-2.7); PHOSPHORUS 3.6 mg/dL (2.7-4.5); POTASSIUM 3.6 mmol/L (3.5-5.1); SODIUM 139 mmol/L (136-145); TCO2 21 mmol/L (25-35); TOTAL BILIRUBIN 0.21 mg/dL (0.20-1.00); TOTAL PROTEIN 5.2 g/dL (6.3-8.3)
[2018-06-09] MEDS: LOVENOX SUBQ SCH (11:24)
[2018-06-09] MEDS ORDERED: TPN ELECTROLYTES IV SCH ×8 (14:00)
[2018-06-09] MEDS ORDERED: D10W 1,000 ML IV PRN (14:00)
[2018-06-09] MEDS ORDERED: MAGNESIUM SULFATE IV SCH ×8 (14:00)
[2018-06-09] MEDS ORDERED: [UNRECOGNIZED DRUG - OTHER] IV SCH ×8 (14:00)
[2018-06-09] MEDS ORDERED: POTASSIUM CHLORIDE IV SCH ×8 (14:00)
[2018-06-09] MEDS: LIPOSYN 20% 250 ML IV SCH (14:54)
--- NOTE | 2018-06-09 18:37 | INFECTIOUS DISEASE PROGRESS NO ---
DATE: 06/09/2018 PRESENT ILLNESS: Ms. Morris has an infected PEG tube site. That PEG tube has been removed. There is abdominal wall cellulitis, with Klebsiella and Brianna albicans growing to the area. She is also being treated for an enterococcal bacteremia. MEDICATIONS: She is receiving aztreonam 1 g IV every 8 hours, daptomycin 350 mg IV every 24 hours and Micafungin 100 mg IV daily. PHYSICAL EXAMINATION: Vital Signs: Temperature is 98, pulse rate 72, respiratory rate 14, blood pressure 144/62. O2 saturation is 96% on 2 L nasal cannula. General: This is a chronically ill- appearing, elderly female. She is lying in the bed currently in no acute distress. HEENT: Atraumatic, normocephalic. Oral mucous membranes cannot be visualized. Conjunctiva are pink. Respiratory: Lung sounds are clear and diminished bilaterally. Cardiovascular: Heart rate is regular with a systolic murmur noted. Normal sinus rhythm on the monitor. Abdomen: Soft, round and tender to the area of infection, which is difficult to visualize due to patient guarding. What I can see has erythema with some cream applied and dressing over top. Integumentary: There is a PICC line in place to the right upper arm. That site is without edema, erythema, or drainage. Neurologic: She is awake, alert and tracks the practitioner, however, she will not respond to commands or nod her head. LABORATORY AND X-RAY: No CBC today. Her creatinine is 0.6. Estimated GFR is greater than 60. Total bilirubin is 0.21, AST 23, ALT 12. Alkaline phosphatase 91. Her abdominal wound grew a Klebsiella pneumoniae and Brianna albicans and her blood grew 1 out of 2 enterococcal faecalis. There is another set of blood cultures pending which were drawn yesterday. No imaging reports today. ASSESSMENT AND PLAN: Ms. Morris is being treated for abdominal wall cellulitis due to an infected PEG tube which has been removed. She also has a bacteremia. For now, we will continue aztreonam, daptomycin and micafungin as ordered. These plans have been discussed with and recommended by Dr. Flannery. COMORBIDITIES: For Ms. Morris include that she is elderly, previous stroke with aphasia, vascular dementia, bipolar disease and renal cell carcinoma. Dictated by LANA Montanez for Fuentes Flannery MD cc: MD Remington Shelton MD [facility]
[2018-06-10] MEDS: CUBICIN 350 MG in NS 100 ML IV SCH ×2 (00:02→21:21)
[2018-06-10] MEDS: AZACTAM 1 GM in NS 50 ML IV SCH (03:49)
[2018-06-10] MEDS ORDERED: LASIX IV ONE (06:52)
--- NOTE | 2018-06-10 07:08 | PROGRESS NOTE ---
DATE: 06/10/2018 SUBJECTIVE: Ms. Morris is doing better. The patient is nonverbal. No nausea or vomiting. The patient had PICC line placed yesterday. She was started on TPN. The patient is tolerating fluid well. No fever or chills. No unusual shortness of breath. OBJECTIVE: Vital Signs: Noted. Neck: Supple. No JVD. Lungs: Bibasilar crepitations, occasional wheezing. Cardiovascular: S1 and S2 heard. Abdomen: Soft, globular. Bowel sounds present. LASTEX OPERATOR: Alert, awake, able to move all 4 limbs. Patient has expressive aphasia. Uncooperative for detailed exam. ASSESSMENT: 1. The patient admitted with cellulitis of the abdominal wall. 2. Problem with the percutaneous endoscopic gastrostomy tube. 3. Cerebrovascular accident, expressive aphasia and dysphagia. 4. Paroxysmal atrial fibrillation. 5. Culture from the skin grew Brianna and Klebsiella. One blood culture was positive for Enterococcus faecalis. PLAN: I repeated blood culture, results are pending. We will continue the rest of the treatment. Close observation. Plan is to discharge patient to LTAC once a bed is available. Dr. Feng managing her TPN. cc: Remington Lane MD
[2018-06-10] MEDS: LANOXIN IV SCH (09:22)
[2018-06-10] MEDS: CARDIZEM SCH ×4 (09:22→21:20)
[2018-06-10] MEDS: ASPIRIN PEG SCH ×2 (09:22→09:43)
[2018-06-10] MEDS: ZOLOFT PEG SCH ×2 (09:24→09:47)
[2018-06-10] MEDS: TENORMIN PEG SCH ×2 (09:24→09:47)
[2018-06-10] MEDS: SODIUM CHLORIDE 0.9% INJ SCH ×2 (09:24→21:21)
[2018-06-10] MEDS: LACTULOSE PEG SCH ×3 (09:24→21:19)
[2018-06-10] MEDS: CALTRATE 600 + D PEG SCH ×3 (09:24→21:19)
[2018-06-10] MEDS: COZAAR PEG SCH ×2 (09:24→09:46)
[2018-06-10] MEDS: PROTONIX IV SCH ×2 (09:24→21:21)
[2018-06-10] MEDS: MYCAMINE 100 MG in NS 100 ML IV SCH (09:25)
[2018-06-10] MEDS: SSD CREAM TOP SCH ×2 (09:25→21:23)
[2018-06-10] MEDS: LOVENOX SUBQ SCH (09:36)
--- NOTE | 2018-06-10 11:02 | Diag Imaging Result Doc PS360 ---
EXAM: CHEST-PORTABLE 06/10/2018 HISTORY: sob TECHNIQUE: AP portable at 0700 COMMENT: There is a PICC line on the right with its tip just above the right atrium. There is cardiomegaly and increased pulmonary vascularity. Compared to 06/06/2018 there has been no significant change. 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 IMPRESSION: Mild pulmonary edema and cardiomegaly. Electronically signed by Dmitriy Rios 06/10/2018 11:00 AM
--- NOTE | 2018-06-10 11:26 | GASTROENTEROLOGY PROGRESS NOTE ---
DATE: 06/10/2018 SUBJECTIVE: Patient is resting in bed. She appears to be in pain. She has abdominal wall cellulitis. According to the nursing staff, she is on TPN, and she is tolerating it well. No fevers reported. OBJECTIVE: Vitals: Temperature 97.9 degrees, pulse rate of 73, respiratory rate of 15, blood pressure 172/73, saturating 90% on room air. General Appearance: Moderately nourished, lying in bed, in no acute distress. HEENT: No pallor. No icterus. Neck is supple. Abdomen: The PEG tube site is examined. It has evidence of erythema and drainage. Tenderness at the site of infection. I removed the dressing. I saw some cream around the infection site. No blood noted. Extremities: No cyanosis, clubbing. Neurological: She is alert and awake. She is nonfocal. LABORATORIES: Glucose of 123. No labs were drawn today. MICROBIOLOGICAL DATA: Her gram stain from the abdominal wound showed Klebsiella pneumoniae and Brianna albicans, and blood culture showed Enterococcus faecalis. IMPRESSION AND PLAN: 1. Abdominal wall cellulitis secondary to percutaneous endoscopic gastrostomy tube. She will continue on aztreonam, daptomycin, and micafungin per Dr. Flannery. 2. Dysphagia. She will continue on TPN. 3. History of previous stroke with aphasia and dysphagia. Aware. 4. Renal cell carcinoma. Seen on CT scan. Being monitored by primary team. 5. Vascular dementia. Aware. 6. Gastrointestinal prophylaxis with Protonix. 7. Deep vein thrombosis prophylaxis with Lovenox. I spoke with the patient's nurse at the bedside, and all questions were answered. Please call us with any further questions. cc: MD Remington Martinez MD [facility]
[2018-06-10 11:48] LABS: AGAP 10; ALB/GLOB RATIO 1.1; ALBUMIN 2.9 g/dL (3.5-5.0); ALKALINE PHOSPHATASE 95 U/L (32-104); BUN 20 mg/dL (8-22); CALCIUM 8.5 mg/dL (8.8-10.2); CHLORIDE 113 mmol/L (98-107); CHOLESTEROL 132 mg/dL (0-200); COSMO 294; CREATININE 0.6 mg/dL (0.5-0.9); ESTIMATED GFR > 60; GLUCOSE 115 mg/dL (70-104); GOT 28 U/L (10-30); GPT 13 U/L (10-36); MAGNESIUM 2.1 mg/dL (1.5-2.7); PHOSPHORUS 2.3 mg/dL (2.7-4.5); POTASSIUM 4.4 mmol/L (3.5-5.1); PREALBUMIN 14.1 mg/dL (20-40); SODIUM 146 mmol/L (136-145); TCO2 23 mmol/L (25-35); TOTAL BILIRUBIN 0.22 mg/dL (0.20-1.00); TOTAL PROTEIN 5.5 g/dL (6.3-8.3); TRIGLYCERIDES 165 mg/dL (35-135)
--- NOTE | 2018-06-10 12:34 | INFECTIOUS DISEASE PROGRESS NO ---
DATE: 06/10/2018 PRESENT ILLNESS: The patient has an infected PEG tube site. The PEG tube has been removed. The surrounding abdominal wall cellulitis is improving. The patient also has an enterococcal bacteremia. MEDICATIONS: The patient is on daptomycin for the enterococcal bacteremia, and I have ordered fluconazole and Levaquin for the abdominal wall cellulitis around the PEG tube site. PHYSICAL EXAMINATION: Vital Signs: Temperature is 97.9 degrees, pulse 73, respirations 15, blood pressure 176/73. General: This is a chronically ill-appearing elderly female. She is lying in bed. She is in no acute distress. Head, Eyes, Ears, Nose, and Throat: She appears to be able to see near objects, and I am not certain as to how good her hearing is. Neck: She does not seem to hurt when I gently moved her head. Lungs: Clear to auscultation. Cardiovascular: Heart rate is regular with a systolic murmur. Abdomen: The abdominal wall cellulitis has improved quite a bit. There is still some pinkish-red tissue present, but there is no purulence, and there is no necrotic tissue. There is very minimal drainage coming from the tube site itself. Neurologic: The patient is awake. She does not follow our requests to do things such as moving her arms or opening her mouth. She does track with her eyes. DIAGNOSTIC STUDIES: There is no new radiographic study. The creatinine is 0.6, GFR is greater than 60. Liver function studies are normal. There is not a CBC for today. ASSESSMENT AND PLAN: The patient is being treated for abdominal wall cellulitis. She is going to be transferred to an LTAC. I have ordered the following: Fluconazole 200 mg IV daily and Levaquin 500 mg IV daily, both to be given for 1 week. The daptomycin will be discontinued when the patient leaves [facility]. I have discontinued the aztreonam. PATIENT'S COMORBIDITIES: 1. She is elderly. 2. She has had a previous stroke with an aphasia. 3. She has vascular dementia. 4. Bipolar disease. 5. Renal cell carcinoma. cc: MD Remington Shelton MD
[2018-06-10] MEDS: EXELON 9.5MG/24HRS TD SCH (13:24)
[2018-06-10] MEDS: NS 1,000 ML IV SCH ×2 (13:27→21:20)
[2018-06-10] MEDS: LEVAQUIN 500 MG/D5W 500 MG/100 ML IVPB IV SCH (13:28)
[2018-06-10] MEDS: LIPOSYN 20% 250 ML IV SCH (15:32)
[2018-06-10] MEDS: TPN ELECTROLYTES 20 ML, MAGNESIUM SULFATE 5 MEQ, POTASSIUM CHLORIDE 10 MEQ, POTASSIUM P... IV SCH ×8 (15:33)
[2018-06-10] MEDS: DIFLUCAN 200 MG/NS 200 MG/100 ML IVPB IV SCH (15:33)
[2018-06-10] MEDS: COLACE LIQUID PO SCH (21:20)
[2018-06-10] MEDS: MORPHINE IV PRN (21:34)
[2018-06-11] MEDS: MORPHINE IV PRN ×3 (04:36→17:16)
[2018-06-11] MEDS ORDERED: LASIX IV ONE (07:14)
[2018-06-11] MEDS ORDERED: LOPRESSOR IV PRN (07:27)
--- NOTE | 2018-06-11 08:03 | PROGRESS NOTE ---
DATE: 06/11/2018 SUBJECTIVE: Ms. Morris is doing fair. Tolerating TPN well. Not able to give any history. OBJECTIVE: Vital Signs: T-max 99.2 degrees, heart rate was 110, blood pressure 128/66, O2 saturation was 95%. Skin: Senile turgor. Neck: Supple. No JVD. Lungs: Bibasilar crepitations. Heart: S1 and S2 heard. Abdomen: Soft, globular. Bowel sounds present. DIRECTOR OF PERSONNEL: Alert, awake, not communicating. Able to move all 4 limbs. LABORATORY DATA: Done yesterday noted. ASSESSMENT AND PLAN: Consideration cellulitis abdominal wall, CVA. The patient has expressive aphasia and dysphagia. Paroxysmal atrial fibrillation. The patient is on TPN. Sepsis. Repeat blood culture was negative. The patient is waiting for insurance approval to go to LTAC. We will continue current treatment and close observation. Overall prognosis fair to guarded. Antibiotic recommendations from ID specialist noted. cc: Remington Lane MD
[2018-06-11 08:24] LABS: AGAP 9; BUN 22 mg/dL (8-22); CALCIUM 8.6 mg/dL (8.8-10.2); CHLORIDE 108 mmol/L (98-107); CHOLESTEROL 126 mg/dL (0-200); COSMO 285; CREATININE 0.7 mg/dL (0.5-0.9); ESTIMATED GFR > 60; GLUCOSE 141 mg/dL (70-104); GOT 24 U/L (10-30); PHOSPHORUS 2.4 mg/dL (2.7-4.5); POTASSIUM 4.3 mmol/L (3.5-5.1); SODIUM 140 mmol/L (136-145); TCO2 23 mmol/L (25-35); TRIGLYCERIDES 164 mg/dL (35-135)
[2018-06-11 10:17] LABS: PREALBUMIN 13.1 mg/dL (20-40)
--- NOTE | 2018-06-11 10:28 | PROVIDER PROGRESS NOTE ---
Progress Note SUBJECTIVE: No acute overnight events. Afebrile. No N/V. Unable to obtain ROS given dementia and nonverbal. OBJECTIVE: Last Vital Signs Temp 100.4 F H 06/11/18 07:53 Pulse 129 H 06/11/18 07:53 Resp 22 06/11/18 07:53 BP 123/76 06/11/18 07:53 Pulse Ox 94 L 06/11/18 07:53 Height 5 ft Weight 130 lb GEN: awake, alert, NAD HEENT: anicteric, MMM, EOMI NECK: supple, no jvd CARDS: 2/6 KLAUS, irregularly, irregular PULM: increased WOB ABD: stoma with dressing in place; no purulence, appears to be improving; BS present, NT/ND EXT: no edema NEURO: moves upper extremities symmetrically; does not follow commands LABS: 06/11/18 07:27 Sodium 140 Potassium 4.3 Chloride 108 H Carbon Dioxide 23 L BUN 22 Creatinine 0.7 Glucose 141 H Calcium 8.6 L Phosphorus 2.4 L Prealbumin 13.1 L Triglycerides 164 H IMAGING: EXAM: CHEST-PORTABLE 06/10/2018 HISTORY: sob TECHNIQUE: AP portable at 0700 COMMENT: There is a PICC line on the right with its tip just above the right atrium. There is cardiomegaly and increased pulmonary vascularity. Compared to 06/06/2018 there has been no significant change. 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 IMPRESSION: Mild pulmonary edema and cardiomegaly. IMPRESSION AND PLAN: Ms. Hyun Morris is an 87-year-old nonverbal with history for CVA and vascular dementia who presented from long-term with PEG-associated abdominal wall cellulitis and E faecalis bacteremia. PEG was removed. She is on antibiotics as per ID recommendations. No evidence of necrotizing fasciitis on imaging or exam. Repeat blood cultures are negative to date. Patient started on TPN. #Abdominal wall cellulitis: improving - continue abx per ID - continue wound care and keep area dry; change dressing daily; continue zinc oxide in the area; defer to wound RN #E faecalis bacteremia: abx as above #Dysphagia: PEG removed; - on TPN - nutrition following; appreciate recommendations - recommend outpatient EGD in 5 weeks to resite PEG #Protein calorie malnutrition: low pre-albumin; nutrition following #SOB: suspect volume overload from CHF; receiving diuretics as per primary #Bilateral renal masses concerning for RCC: noted; defer to primary #GI ppx: continue PPI Will follow with you. Please call with questions
[2018-06-11] MEDS: LEVAQUIN 500 MG/D5W 500 MG/100 ML IVPB IV SCH (12:05)
[2018-06-11] MEDS: NS 1,000 ML IV SCH (12:05)
[2018-06-11] MEDS: CALTRATE 600 + D PEG SCH (12:09)
[2018-06-11] MEDS: ASPIRIN PEG SCH (12:09)
[2018-06-11] MEDS: EXELON 9.5MG/24HRS TD SCH (12:10)
[2018-06-11] MEDS: COZAAR PEG SCH (12:10)
[2018-06-11] MEDS: CARDIZEM SCH ×2 (12:10→15:12)
[2018-06-11] MEDS: LACTULOSE PEG SCH (12:11)
[2018-06-11] MEDS: TENORMIN PEG SCH (12:12)
[2018-06-11] MEDS: LOVENOX SUBQ SCH (12:12)
[2018-06-11] MEDS: ZOLOFT PEG SCH (12:13)
[2018-06-11] MEDS: SODIUM CHLORIDE 0.9% INJ SCH (12:13)
[2018-06-11] MEDS: PROTONIX IV SCH (12:13)
[2018-06-11] MEDS: SSD CREAM TOP SCH (12:15)
[2018-06-11] MEDS: LANOXIN IV SCH (12:16)
--- NOTE | 2018-06-11 15:08 | DISCHARGE SUMMARY ---
ADMISSION DATE: 06/03/2018 DISCHARGE DATE: FINAL DISCHARGE DIAGNOSIS: 1. Cellulitis of the abdominal wall around the PEG tube, nonfunctioning PEG tube. 2. Paroxysmal atrial fibrillation. 3. Cerebrovascular accident with expressive aphasia and dysphagia. 4. Multiple renal mass presumed to be renal cell carcinoma. 5. Vascular dementia. 6. Her other problems include chronic pain, hypertension, gastritis, and reflux disease. HOSPITAL COURSE: Ms. Morris is an 87-year-old white female patient, resident of [facility], admitted with cellulitis of the abdominal wall around the PEG tube. Her PEG tube was not functioning. The patient was sent to the emergency room, evaluated by ER physician, admitted for further care. The patient was treated with IV hydration. Her PEG tube was changed by ginger farmer but it was not working. It was leaking around the PEG tube causing skin irritation. Her PEG tube was removed, and they decided to treat patient with TPN. The patient's wound culture from the abdominal wall did grow Klebsiella pneumoniae and Brianna albicans. One of her blood cultures was positive for enterococcal faecalis. Infectious Disease consult obtained with Dr. Flannery. Recommendation noted. The patient was started on daptomycin and Azactam. The patient's clinical condition stabilized. The group home will not be able to take care of TPN. I talked to the family and we decided to send the patient to LTAC in [place] for TPN and further care once we get approval from her insurance. Overall, the patient is doing fair. I changed her medicine to IV medicine, pain medicine to Duragesic patch and IV morphine. I started her on Catapres TTS and also p.r.n. Lopressor. Overall, the patient is doing fair. Once we have a bed available, I am planning to transfer the patient to LTAC for further care. At the family's request, as per group home, I made her DNR 1. Her blood work done on 06/10/2018, sodium 146, potassium 4.4, chloride 113, CO2 23, BUN was 20, creatinine 0.6. Pre-albumin was 14.1, triglyceride 165, total cholesterol 132. The patient had a chest x-ray done and the results revealed mild fluid overload. Overall, the patient received maximum benefit of hospitalization. CT scan of the abdomen and pelvis revealed G tube was in place, stable bilateral renal masses most consistent with renal cell carcinoma. Other incidental nonacute findings as per discussion. The patient will need monitoring of her electrolytes and blood sugar closely. Monitor for fluid overload, oxygen, fall precaution, change position frequently, dressing of the abdominal wall. Once the patient's condition stabilizes, the patient will have PEG tube placed again and she will be transferred back to [facility]. cc: Remington Lane MD
[2018-06-11] MEDS: DIFLUCAN 200 MG/NS 200 MG/100 ML IVPB IV SCH (15:09)
[2018-06-11] MEDS: LIPOSYN 20% 250 ML IV SCH (16:17)
[2018-06-11] MEDS: TPN ELECTROLYTES 20 ML, MAGNESIUM SULFATE 5 MEQ, POTASSIUM CHLORIDE 10 MEQ, POTASSIUM P... IV SCH ×8 (16:17)
--- NOTE | 2018-06-11 18:25 | INFECTIOUS DISEASE PROGRESS NO ---
DATE: 06/11/2018 PRESENT ILLNESS: The patient has an infected PEG tube site with Klebsiella and Brianna albicans. The patient also has an enterococcal bacteremia. MEDICATIONS: The patient has been on Levaquin and fluconazole, both being given intravenously now for 1 day. She has been receiving intravenous daptomycin for 4 days. AST is 24. PHYSICAL EXAMINATION: Vital Signs: Temperature is 100.4 degrees, pulse 90, respirations 24, blood pressure 130/60. General: This is a chronically ill-appearing elderly female. She stares ahead and does not respond to verbal stimuli. Head/eyes/ears/nose/throat: No drainage noted from the nose or ears. She does track with her eyes. Neck: Did not seem to hurt her when I passively moved her neck. Lungs: Clear to auscultation. Cardiovascular: Heart rate is regular. Abdomen: The abdominal wall cellulitis is erythematous and there is a yellowish discharge which may be from the cream that we are putting on the patient's abdominal wall. Neurologic: The patient is awake. She does track with her eyes. She did not follow request to move her extremities. LAB AND X-RAY: There is no new radiographic study. The patient's AST is 24. The creatinine is 0.7. GFR is greater than 60. There is not a new CBC for today. ASSESSMENT AND PLAN: The patient has abdominal wall cellulitis and an enterococcal bacteremia. I plan to continue daptomycin, which is day 4 now of its use and also continue intravenous Levaquin and fluconazole and this is day 1 for each of those 2 medications. COMORBIDITIES: She is elderly. She has had a stroke which has left her aphasic. She has vascular dementia and bipolar disease and she has a renal cell carcinoma. cc: MD Remington Shelton MD
[2018-06-12] MEDS: CALTRATE 600 + D PEG SCH ×3 (00:14→22:06)
[2018-06-12] MEDS: LACTULOSE PEG SCH ×3 (00:15→22:07)
[2018-06-12] MEDS: COLACE LIQUID PO SCH ×2 (00:15→22:07)
[2018-06-12] MEDS: CARDIZEM SCH ×4 (00:15→22:07)
[2018-06-12] MEDS: SSD CREAM TOP SCH ×3 (00:16→22:08)
[2018-06-12] MEDS: CUBICIN 350 MG in NS 100 ML IV SCH ×2 (00:16→22:08)
[2018-06-12] MEDS: PROTONIX IV SCH ×3 (00:29→22:08)
[2018-06-12] MEDS: DURAGESIC 12 MICROGM/HR PATCH TD SCH (07:00)
[2018-06-12 08:13] LABS: AGAP 10; BUN 26 mg/dL (8-22); CALCIUM 8.7 mg/dL (8.8-10.2); CHLORIDE 107 mmol/L (98-107); COSMO 289; CREATININE 0.8 mg/dL (0.5-0.9); ESTIMATED GFR > 60; GLUCOSE 122 mg/dL (70-104); MAGNESIUM 2.1 mg/dL (1.5-2.7); PHOSPHORUS 2.9 mg/dL (2.7-4.5); POTASSIUM 4.5 mmol/L (3.5-5.1); SODIUM 142 mmol/L (136-145); TCO2 25 mmol/L (25-35)
[2018-06-12] MEDS ORDERED: LASIX IV ONE (08:31)
--- NOTE | 2018-06-12 09:22 | PROVIDER PROGRESS NOTE ---
Progress Note SUBJECTIVE: No acute overnight events. No N/V/F. Follows simple commands OBJECTIVE: Last Vital Signs Temp 98.5 F 06/12/18 07:59 Pulse 78 06/12/18 07:59 Resp 28 H 06/12/18 07:59 BP 131/89 06/12/18 07:59 Pulse Ox 99 06/12/18 07:59 Height 5 ft Weight 130 lb GEN: awake, alert, NAD HEENT: anicteric, MMM, EOMI NECK: supple, no jvd CARDS: 2/6 KLAUS, irregularly, irregular PULM: improved WOB, CTAB anteriorly ABD: stoma with dressing in place; no purulence, appears to be improving; BS present, NT, minimal distension EXT: no edema NEURO: moves upper extremities symmetrically; follows simple commands; nonverbal LABS: 06/12/18 07:00 Sodium 142 Potassium 4.5 Chloride 107 Carbon Dioxide 25 BUN 26 H Creatinine 0.8 Glucose 122 H Calculated Osmolality 289 Calcium 8.7 L Phosphorus 2.9 Magnesium 2.1 IMPRESSION AND PLAN: Ms. Hyun Morris is an 87-year-old nonverbal with history for CVA and vascular dementia who presented [facility] [place] with PEG-associated abdominal wall cellulitis and E faecalis bacteremia. PEG was removed. She is on antibiotics as per ID recommendations. Cellulitis improving. Repeat blood cultures are negative to date. Tolerating TPN #Abdominal wall cellulitis: improving - continue abx per ID - continue wound care and keep area dry; change dressing daily; defer to wound RN #E faecalis bacteremia: resolved; abx as above #Dysphagia: PEG removed; - on TPN - nutrition following; appreciate recommendations - recommend outpatient EGD in 5 weeks to re-site PEG tube #Protein calorie malnutrition: low pre-albumin; nutrition following, appreciate recs #SOB: suspect volume overload from CHF; improved; receiving diuretics as per primary #Bilateral renal masses concerning for RCC: noted; defer to primary #GI ppx: continue PPI #DISPO: patient awaiting discharge to LTAC Please call with questions
--- NOTE | 2018-06-12 09:48 | PROGRESS NOTE ---
DATE: 06/12/2018 SUBJECTIVE: Ms. Morris is doing fair. Tolerating TPN well. No fevers or chills. OBJECTIVE: VITAL SIGNS: Stable. Her vital signs noted. NECK: Supple. No JVD. LUNGS: Bibasilar crepitation. HEART: S1 and S2 heard. ABDOMEN: Soft, nontender. Bowel sounds present. LOGISTICS ENGINEERING MANAGER: Alert, awake and cooperative for detailed exam. Her lab data done today: BUN was 26, creatinine 0.8. Potassium 4.5. Blood sugar was 122. Overall, patient is doing fair. Her problem includes cellulitis of the abdominal wall, possible sepsis, paroxysmal atrial fibrillation, CVA, dementia. I am going to continue current treatment, close observation. Overall plan discussed with the patient. cc: Remington Lane MD
[2018-06-12] MEDS: LANOXIN IV SCH (09:56)
[2018-06-12] MEDS: EXELON 9.5MG/24HRS TD SCH (09:59)
[2018-06-12] MEDS: LOVENOX SUBQ SCH (09:59)
[2018-06-12] MEDS: TENORMIN PEG SCH (10:19)
[2018-06-12] MEDS: NS 1,000 ML IV SCH (10:19)
[2018-06-12] MEDS: ZOLOFT PEG SCH (10:19)
[2018-06-12] MEDS: ASPIRIN PEG SCH (10:20)
[2018-06-12] MEDS: COZAAR PEG SCH (10:20)
[2018-06-12] MEDS: DIFLUCAN 200 MG/NS 200 MG/100 ML IVPB IV SCH (13:40)
[2018-06-12] MEDS: LEVAQUIN 500 MG/D5W 500 MG/100 ML IVPB IV SCH (14:05)
[2018-06-12] MEDS: LIPOSYN 20% 250 ML IV SCH (14:59)
[2018-06-12] MEDS: TPN ELECTROLYTES 20 ML, MAGNESIUM SULFATE 5 MEQ, POTASSIUM CHLORIDE 10 MEQ, POTASSIUM P... IV SCH ×8 (14:59)
[2018-06-12] MEDS: SODIUM CHLORIDE 0.9% INJ SCH (22:08)
[2018-06-13] MEDS: MORPHINE IV PRN ×2 (04:08→12:28)
[2018-06-13 07:12] LABS: BASO# 0.08 X1000 (0.0-0.2); EOS# 0.32 X1000 (0.0-0.7); EOS% 3.9 % (0.0-10.0); HEMATOCRIT 38.6 % (37.0-47.0); HEMOGLOBIN 12.4 g/dL (12.0-16.0); IMM GRAN% 2.5 % (0.0-0.5); LYMPH# 1.44 X1000 (1.2-3.4); LYMPH% 17.8 % (20.5-51.1); MCHC 32.1 g/dL (33-37); MCV 90.4 FL (81-99); MONO# 1.07 X1000 (0.11-0.59); MONO% 13.2 % (1.7-9.3); MPV 11.5 FL (7.4-10.4); NEUT% 61.6 % (42.2-75.2); PLT 177 X1000 (130-400); RBC 4.27 XMIL (4.2-5.4); RDW 14.5 % (11.5-14.5); WBC 8.11 X1000 (4.8-10.8)
--- NOTE | 2018-06-13 07:31 | Diag Imaging Result Doc PS360 ---
CHEST-1 VIEW - 06/13/2018 INDICATION: sob COMPARISON: 06/10/2018 FINDINGS: Stable right PICC line. There is worsening bilateral lower lobe infiltrate with loss of visualization of the hemidiaphragms. Stable cardiomegaly and pulmonary vascular congestion. No large pleural effusion. IMPRESSION: Worsening bilateral lower lobe infiltrates, nonspecific. Electronically signed by Carl Rodrigues 06/13/2018 7:28 AM
[2018-06-13 07:48] LABS: AGAP 10; BUN 25 mg/dL (8-22); CALCIUM 8.3 mg/dL (8.8-10.2); CHLORIDE 107 mmol/L (98-107); COSMO 283; CREATININE 0.7 mg/dL (0.5-0.9); ESTIMATED GFR > 60; GLUCOSE 125 mg/dL (70-104); MAGNESIUM 1.9 mg/dL (1.5-2.7); POTASSIUM 4.3 mmol/L (3.5-5.1); SODIUM 139 mmol/L (136-145); TCO2 22 mmol/L (25-35)
[2018-06-13] MEDS: LANOXIN IV SCH (09:15)
[2018-06-13] MEDS: LOVENOX SUBQ SCH (09:15)
[2018-06-13] MEDS: LACTULOSE PEG SCH ×2 (09:15→21:21)
[2018-06-13] MEDS: PROTONIX IV SCH ×2 (09:15→21:20)
[2018-06-13] MEDS: COZAAR PEG SCH (09:15)
[2018-06-13] MEDS: EXELON 9.5MG/24HRS TD SCH (09:15)
[2018-06-13] MEDS: ASPIRIN PEG SCH (09:16)
[2018-06-13] MEDS: NS 1,000 ML IV SCH (09:16)
[2018-06-13] MEDS: ZOLOFT PEG SCH (09:16)
[2018-06-13] MEDS: TENORMIN PEG SCH (09:16)
[2018-06-13] MEDS: CALTRATE 600 + D PEG SCH ×2 (09:16→21:21)
[2018-06-13] MEDS: CARDIZEM SCH ×3 (09:16→21:22)
[2018-06-13] MEDS: SSD CREAM TOP SCH (09:16)
[2018-06-13] MEDS ORDERED: LASIX IV ONE (09:51)
--- NOTE | 2018-06-13 10:06 | PROVIDER PROGRESS NOTE ---
Progress Note SUBJECTIVE: No acute overnight events. Afebrile. OBJECTIVE: Last Vital Signs Temp 98.6 F 06/13/18 04:00 Pulse 72 06/13/18 09:15 Resp 21 06/13/18 04:00 BP 119/64 06/13/18 04:00 Pulse Ox 95 06/13/18 04:00 Height 5 ft Weight 130 lb GEN: awake, alert, NAD HEENT: anicteric, MMM, EOMI NECK: supple, no jvd CARDS: 2/6 KLAUS, irregularly, irregular PULM: end-expiratory wheeze, increased WOB ABD: stoma with dressing in place that is c/d/i; BS present, NT, minimal distension EXT: no edema NEURO: moves upper extremities symmetrically; follows simple commands; nonverbal LABS: 06/13/18 06/13/18 06/13/18 07:02 07:02 07:02 WBC 8.11 Hgb 12.4 Plt Count 177 Sodium 139 Potassium 4.3 Chloride 107 Carbon Dioxide 22 L BUN 25 H Creatinine 0.7 Glucose 125 H Calcium 8.3 L Phosphorus 3.0 Magnesium 1.9 Albumin 2.9 L CHEST-1 VIEW - 06/13/2018 INDICATION: sob COMPARISON: 06/10/2018 FINDINGS: Stable right PICC line. There is worsening bilateral lower lobe infiltrate with loss of visualization of the hemidiaphragms. Stable cardiomegaly and pulmonary vascular congestion. No large pleural effusion. IMPRESSION: Worsening bilateral lower lobe infiltrates, nonspecific. IMPRESSION AND PLAN: Ms. Hyun Morris is an 87-year-old nonverbal with history for CVA and vascular d ementia who [place] [facility] with PEG-associated abdominal wall cellulitis and E faecalis bacteremia. PEG was removed. She is on antibiotics as per ID recommendations. Cellulitis improving. Repeat blood cultures are negative to date. Tolerating TPN. Her main issue appears to be pulmonary. #Abdominal wall cellulitis: improving - continue abx per ID - continue wound care and keep area dry; change dressing daily; defer to wound RN #SOB: bilateral infiltrates on CXR; suspect volume overload +/- pneumonia; defer mgmt to primary #E faecalis bacteremia: resolved; abx as above #Dysphagia: PEG removed; on TPN; nutrition following; appreciate recommendations; recommend outpatient EGD in 5 weeks to re-site PEG tube #Protein calorie malnutrition: low pre-albumin; nutrition following, appreciate recs #Bilateral renal masses concerning for RCC: noted; defer to primary #GI ppx: continue PPI #DISPO: patient awaiting discharge to LTAC Will follow with you. Please call with questions
--- NOTE | 2018-06-13 10:15 | PROGRESS NOTE ---
DATE: 06/13/2018 SUBJECTIVE: The patient is noncommunicative. She has had a stroke which left her aphasic and she has had some dementia. Has had a feeding tube in and got a cellulitis around the feeding tube site. She has been on Levaquin. OBJECTIVE: Vital Signs: Show blood pressure 119/64, respirations 21, pulse 82, temperature 98.6 degrees Fahrenheit. HEENT: She is normocephalic. Lungs: Have rales in the bases bilaterally. Heart: Irregularly irregular without murmurs, gallops, or friction rubs. Abdomen: Soft, with active bowel sounds. She does have an area of cellulitis around her PEG hole. Neurological Examination: The patient is alert and awake but not responding. Chest x-ray on 06/10/2018 showed mild pulmonary edema and cardiomegaly. Chest x-ray this morning shows worsening bilateral lower lobe infiltrates, nonspecific, stable cardiomegaly, and pulmonary vascular congestion. No large pleural effusion. This could either be aspiration pneumonia or it could be just some congestive heart failure with pulmonary edema. She is on Levaquin for her infection but if she did have some aspiration, that might not cover anaerobes. She has been given furosemide at different times. We will cover for anaerobes and give her some Lasix. We will get a proBNP. ASSESSMENT: 1. Cellulitis of abdominal wall. 2. Bilateral pulmonary infiltrates. 3. Status post cerebrovascular accident. 4. History of renal cell carcinoma. 5. Atrial fibrillation. PLAN: We will support with changes above. cc: MD Remington Vail Jr, MD
[2018-06-13] MEDS: LEVAQUIN 500 MG/D5W 500 MG/100 ML IVPB IV SCH (12:29)
[2018-06-13] MEDS: DIFLUCAN 200 MG/NS 200 MG/100 ML IVPB IV SCH (13:15)
[2018-06-13] MEDS: LIPOSYN 20% 250 ML IV SCH (14:34)
[2018-06-13] MEDS: TPN ELECTROLYTES 20 ML, MAGNESIUM SULFATE 5 MEQ, POTASSIUM CHLORIDE 10 MEQ, POTASSIUM P... IV SCH ×8 (14:34)
[2018-06-13] MEDS: DUONEB (A & A) INH SCH ×2 (15:13→20:00)
[2018-06-13] MEDS: LABETALOL IV PRN (17:29)
[2018-06-13] MEDS: SODIUM CHLORIDE 0.9% INJ SCH (21:20)
[2018-06-13] MEDS: COLACE LIQUID PO SCH (21:22)
[2018-06-13] MEDS: CUBICIN 350 MG in NS 100 ML IV SCH (21:30)
[2018-06-14] MEDS: DUONEB (A & A) INH SCH ×5 (00:18→19:10)
[2018-06-14] MEDS: SSD CREAM TOP SCH ×3 (03:48→22:57)
[2018-06-14] MEDS: NS 1,000 ML IV SCH (06:37)
[2018-06-14] MEDS ORDERED: LASIX IV ONE (07:13)
[2018-06-14] MEDS ORDERED: DULCOLAX PR ONE (07:14)
--- NOTE | 2018-06-14 07:39 | PROGRESS NOTE ---
DATE: 06/14/2018 SUBJECTIVE: Ms. Morris is doing fair. No high-grade fever or chills. The patient does have at times tachycardia and tachypnea. The patient is getting TPN. No diarrhea. Her urine output is noted. OBJECTIVE: Vital Signs: Reviewed. Neck: Supple. No JVD. Lungs: Decreased air entry both bases. Cardiovascular: S1 and S2 heard. Abdomen: Soft, globular. Bowel sounds present. Central Nervous System: Alert, awake, uncooperative for detailed exam. CONSIDERATIONS: The patient admitted with: 1. Cellulitis of the abdominal wall. 2. Sepsis. 3. Paroxysmal atrial fibrillation. 4. Severe chronic pain. Her lab data done yesterday was noted. Overall prognosis fair to guarded. Family is aware of the prognosis. We are still waiting for a bed at [facility] and approval from her insurance company. cc: Remington Lane MD
[2018-06-14 07:57] LABS: BASO# 0.04 X1000 (0.0-0.2); BASO% 0.5 % (0.0-0.8); EOS# 0.24 X1000 (0.0-0.7); HEMATOCRIT 34.8 % (37.0-47.0); IMM GRAN# 0.19 X1000 (0.0-0.04); IMM GRAN% 2.4 % (0.0-0.5); LYMPH# 1.26 X1000 (1.2-3.4); LYMPH% 15.6 % (20.5-51.1); MCH 28.5 PG (27-31); MCHC 31.6 g/dL (33-37); MCV 90.2 FL (81-99); MONO# 1.22 X1000 (0.11-0.59); MONO% 15.1 % (1.7-9.3); MPV 12.3 FL (7.4-10.4); NEUT# 5.13 X1000 (1.4-6.5); NEUT% 63.4 % (42.2-75.2); PLT 194 X1000 (130-400); RBC 3.86 XMIL (4.2-5.4); RDW 14.4 % (11.5-14.5); WBC 8.08 X1000 (4.8-10.8)
[2018-06-14] MEDS: LANOXIN IV SCH (08:56)
[2018-06-14] MEDS: LOVENOX SUBQ SCH (08:57)
[2018-06-14] MEDS: CARDIZEM SCH (09:06)
[2018-06-14] MEDS: EXELON 9.5MG/24HRS TD SCH (09:18)
--- NOTE | 2018-06-14 09:46 | GASTROENTEROLOGY PROGRESS NOTE ---
DATE: 06/14/2018 SUBJECTIVE: The patient was resting in bed. She was sleeping. She was able to wake up on command. I spoke to the patient's nurse at bedside. No fevers reported over the last 24 hours. The patient is currently on TPN. She is tolerating well. The last bowel movement was on 06/10/2018. OBJECTIVE: Vital signs: Temperature of 98.9 degrees, pulse rate 83, respiratory rate of 22, blood pressure 153/92, saturating 97% on room air. General Appearance: Moderately built, lying in bed, in no acute distress. HEENT: Pale, pallor. No icterus. Neck: Supple. Abdomen: The surgical dressing was removed. The PEG tube site was examined. The erythema seems to be improving. The site appears less than inflamed as compared to before. There are still excoriations and redness around the PEG tube site. Overall, the picture is improving. Abdomen is otherwise soft. Some tenderness around the PEG tube site. No guarding. Extremities: No cyanosis, clubbing. Neurologic: Alert, awake. She is nonverbal. LABORATORY DATA: Hemoglobin and hematocrit is 11 and 34.8, white count of 8.08, platelet count of 194,000. Blood glucose of 121, albumin of 2.4. IMPRESSION AND PLAN: 1. Abdominal wall cellulitis. She is on antibiotics and local wound care per the primary care team and Dr. Flannery and the wound care nurse. 2. Sepsis is improving. Her blood cultures x2 are negative from 06/08/2018. 3. Paroxysmal atrial fibrillation. She is being treated with digoxin. She also gets Cardizem per the primary care team. 4. Malnutrition, she is on TPN. She is tolerating well. 5. Hypoalbuminemia, secondary to the above. 6. Chronic pain. She is on fentanyl transdermal patch. This can make her constipated. Last bowel movement was 4 days ago. We will start on Dulcolax suppository. 7. Gastrointestinal prophylaxis with Protonix IV b.i.d. 8. Bowel regimen with Dulcolax 10 mg per rectal at bedtime. 9. Dementia. She is on rivastigmine Exelon patch. 10. Deep venous thrombosis prophylaxis with Lovenox. The above plans was discussed with the patient and the nursing staff at bedside. Please call us with any questions. cc: MD Remington Martinez MD MTDD
[2018-06-14] MEDS: LACTULOSE PEG SCH ×2 (10:19→20:59)
[2018-06-14] MEDS: ASPIRIN PEG SCH (10:19)
[2018-06-14] MEDS: TENORMIN PEG SCH (10:20)
[2018-06-14] MEDS: ZOLOFT PEG SCH (10:20)
[2018-06-14] MEDS: COZAAR PEG SCH (10:22)
[2018-06-14] MEDS: CALTRATE 600 + D PEG SCH ×2 (10:24→20:58)
[2018-06-14] MEDS: PROTONIX IV SCH ×2 (10:39→20:57)
--- NOTE | 2018-06-14 10:48 | EKG Report ---
Test Performed on : 06/14/2018 10:37:24 AM Test Reason : possible afib Blood Pressure : / mmHG Vent. Rate : 079 BPM Atrial Rate : 079 BPM P-R Int : 156 ms QRS Dur : 076 ms QT Int : 346 ms P-R-T Axes : 051 036 088 degrees QTc Int : 396 ms Sinus rhythm. with premature atrial complexes. Nonspecific ST and T wave abnormality Abnormal ECG When compared with ECG of 11-MAR-2017 22:20, premature atrial complexes. are now present Nonspecific T wave abnormality now evident in Anterior leads QT has shortened Confirmed by Holden CHILDERS, Shahid ([id number]) on 06/15/2018 8:59:47 AM
[2018-06-14 12:03] LABS: AGAP 9; BUN 27 mg/dL (8-22); CALCIUM 8.3 mg/dL (8.8-10.2); CHLORIDE 98 mmol/L (98-107); COSMO 298; CREATININE 0.7 mg/dL (0.5-0.9); ESTIMATED GFR > 60; MAGNESIUM 2.4 mg/dL (1.5-2.7); PHOSPHORUS 5.1 mg/dL (2.7-4.5); POTASSIUM 5.7 mmol/L (3.5-5.1); SODIUM 132 mmol/L (136-145); TCO2 25 mmol/L (25-35)
[2018-06-14 12:04] LABS: GLUCOSE 604 mg/dL (70-104)
[2018-06-14] MEDS: LEVAQUIN 500 MG/D5W 500 MG/100 ML IVPB IV SCH (12:38)
[2018-06-14] MEDS: DIFLUCAN 200 MG/NS 200 MG/100 ML IVPB IV SCH (12:38)
[2018-06-14 12:59] LABS: HEMOGLOBIN A1C 4.9 % (4.8-6.0)
[2018-06-14 13:24] LABS: AGAP 12; ALB/GLOB RATIO 0.9; ALBUMIN 2.5 g/dL (3.5-5.0); ALKALINE PHOSPHATASE 89 U/L (32-104); BUN 28 mg/dL (8-22); CALCIUM 8.6 mg/dL (8.8-10.2); CHLORIDE 105 mmol/L (98-107); COSMO 288; CREATININE 0.8 mg/dL (0.5-0.9); ESTIMATED GFR > 60; GLUCOSE 130 mg/dL (70-104); GOT 28 U/L (10-30); GPT 11 U/L (10-36); PHOSPHORUS 3.1 mg/dL (2.7-4.5); POTASSIUM 4.2 mmol/L (3.5-5.1); SODIUM 141 mmol/L (136-145); TCO2 24 mmol/L (25-35); TOTAL BILIRUBIN 0.24 mg/dL (0.20-1.00); TOTAL PROTEIN 5.4 g/dL (6.3-8.3)
--- NOTE | 2018-06-14 13:36 | CONSULTATION ---
DATE OF CONSULTATION: 06/14/2018 IMPRESSION: 1. Paroxysmal to atrial tachyarrhythmias appeared to be atrial fibrillation versus atrial flutter. 2. 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 There is no significant aortic stenosis by echocardiography last year. 3. Status post cerebrovascular accident with significant debility. 4. Paroxysmal atrial fibrillation in the past. 5. Dementia. 6. Hypertension. 7. Coronary artery disease. RECOMMENDATIONS: 1. Suggest consolidating rate control regimen to metoprolol titrated to achieve adequate dose response. 2. May consider amiodarone to suppress atrial tachyarrhythmias in this setting. Patient currently on Levaquin and will hold off on this given potential drug interaction and excessive QT prolongation. 3. The patient overall appears to be a questionable candidate for long-term anticoagulation at best. Continue aspirin p.o. daily. 4. Conservative cardiovascular management overall. HISTORY: This 87-year-old white female with past history of previous cerebrovascular accident, significant debility, dementia, paroxysmal atrial fibrillation, hypertension, dynamic left ventricular outflow tract obstructive ventricular obstructive physiology, and significant debility requiring her living in a retirement was admitted originally for nonfunctioning PEG tube. She has had a rather complicated hospital stay well documented. She apparently has some cellulitis and is receiving parental antibiotics for this. She has also had enterococcal bacteremia. She is being treated with daptomycin as well as intravenous Levaquin and fluconazole. She has been monitored on telemetry while she has been here and n demonstrates episodes of narrow complex tachycardia that appear to be atrial fibrillation versus atrial flutter. Heart rate gets up around 140 beats per minute. Rate control measures were being instituted but cardiology consultation was requested in advance of this to try and determine most efficacious regimen. Patient is nonverbal. PAST MEDICAL HISTORY: 1. Status post cerebrovascular accident with extensive debility. 2. Dementia. 3. 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 4. Hypertension. 5. Paroxysmal atrial fibrillation. 6. Atherosclerotic coronary disease. 7. Hyperlipidemia. 8. Bipolar disorder. 9. Thyroid goiter. 10. Renal cell carcinoma. ALLERGIES: She is allergic or intolerant to penicillin. MEDICATIONS PRIOR TO ADMISSION: As listed. SOCIAL HISTORY: She resides at [facility]. She does not currently smoke or use alcohol. FAMILY HISTORY: Noncontributory. REVIEW OF SYSTEMS: Not obtainable given patient being. PHYSICAL EXAMINATION: General: This is an overweight elderly white female in no apparent distress. Vital signs: Blood pressure 114/91, heart rate 96 and regular with ECG monitor showing sinus rhythm currently. Oxygen saturation 98% on room air. HEENT: Extraocular movements intact. Mucous membranes are moist. Neck: Supple without discernible jugular distention. Chest: Auscultation of the chest reveals a few scattered expiratory wheezes. Cardiac Exam: Reveals a regular rate and rhythm with a grade 2-3/6 crescendo/decrescendo systolic murmur at the left ventricular apex and right upper sternal border. No gallop could be appreciated. Abdomen: Somewhat distended with audible bowel sounds. Abdomen is nontender. Extremities: Without edema. PERTINENT DATA: Twelve lead EKG demonstrates sinus rhythm with premature atrial complexes and nonspecific ST and T-wave abnormality. Review of telemetry strips demonstrates episode of what appears to be paroxysmal atrial fibrillation or possible paroxysmal atrial flutter with rapid ventricular rate. LABORATORY DATA: Includes a white blood cell count 8.08, hematocrit 34.8, hemoglobin 11.8, platelet count 194,000, albumin 2.4. Sodium 132, potassium 5.7, chloride 98, carbon dioxide 25, BUN 27, creatinine 0.7. cc: MD Remington Lomeli MD
[2018-06-14] MEDS: TPN ELECTROLYTES 20 ML, MAGNESIUM SULFATE 5 MEQ, POTASSIUM CHLORIDE 10 MEQ, POTASSIUM P... IV SCH ×8 (14:05)
[2018-06-14] MEDS: LIPOSYN 20% 250 ML IV SCH (14:27)
[2018-06-14] MEDS ORDERED: DOXYCYCLINE 100 MG in NS 250 ML IV SCH ×2 (16:45→17:00)
--- NOTE | 2018-06-14 17:10 | INFECTIOUS DISEASE PROGRESS NO ---
DATE: 06/14/2018 PRESENT ILLNESS: Ms. Morris has an infected PEG tube that has grown a Klebsiella pneumoniae and Brianna albicans. She is also being treated for enterococcal bacteremia, and on chest x-ray yesterday, there was a worsening of her bilateral lower lobe infiltrate which may represent a pneumonia. She also has a worsening cough today, according to the nurse. MEDICATIONS: She has been receiving IV Levaquin 500 mg daily, fluconazole 200 mg IV daily, daptomycin 350 mg IV daily. PHYSICAL EXAMINATION: Vital Signs: Temperature is 98.7 degrees, pulse rate 85, respiratory rate 22, blood pressure 114/91, O2 saturation is 98% on room air. General: This is a chronically ill- appearing elderly female. She is lying in the bed, currently in mild distress with a cough and audible wheezing. HEENT: Atraumatic, normocephalic. Conjunctivae are pink. Unable to visualize oral vestibule. Respiratory: Lung sounds have coarse wheezes noted bilaterally. Abdomen is soft, round and tender. The PEG tube site still has some erythema and purulent drainage noted. Cardiovascular: Heart rate and rhythm are regular with systolic murmur noted. Normal sinus rhythm on the monitor. Neurologic: She is awake and alert, but does not follow commands and is nonverbal. She does make eye contact appropriately. DIAGNOSTIC STUDIES: Today her white count is 8.08, hemoglobin 11, platelet count 194,000. Creatinine is 0.8, estimated GFR is greater than 60. Her original blood cultures grew 1/2 Enterococcus faecalis, and her abdominal culture grew Klebsiella pneumoniae and Brianna albicans. Chest x-ray yesterday showed worsening bilateral lower lobe infiltrates. ASSESSMENT AND PLAN: Ms. Morris is being treated for an infected PEG tube site, and Enterococcal bacteremia. Now she appears to have developed a pneumonia. We will discontinue Levaquin today and start her on aztreonam due to her penicillin allergy, at 1 g IV every 8 hours. This will cover the Klebsiella in her abdomen and gram negative coverage for her pneumonia. We will also add on doxycycline 100 mg IV every 12 hours to cover for gram-positive coverage for her pneumonia. We will also continue the daptomycin which is for coverage of her enterococcal bacteremia, but will not help the pneumonia. She will also continue the fluconazole for the Brianna growing to her abdominal wound. These plans have been discussed with and recommended by Dr. Flannery. COMORBIDITIES: For Ms. Morris include: 1. She is elderly. 2. Stroke with aphasia. 3. Vascular dementia. 4. Bipolar disease. 5. History of renal cell carcinoma. ADDENDUM: IV doxycycline is currently not available. IV clindamycin started. Dictated by LANA Montanez for Fuentes Flannery MD cc: MD Remington Shelton MD [facility]PITALMartir
--- NOTE | 2018-06-14 17:31 | INFECTIOUS DISEASE PROGRESS NO ---
DATE: 06/14/2018 The patient was ordered to have doxycycline 100 mg IV every 12 hours. However, according to the pharmacy, IV doxycycline is on hold at this time. What I have done is to discontinue doxycycline and instead put the patient on clindamycin 600 mg IV every 8 hours. cc: MD Remington Shelton MD MTDD
[2018-06-14] MEDS: AZACTAM 1 GM in NS 50 ML IV SCH (18:16)
[2018-06-14] MEDS: CLINDAMYCIN 600 MG/D5W 600 MG/50 ML IVPB IV SCH (18:16)
[2018-06-14] MEDS: SODIUM CHLORIDE 0.9% INJ SCH (20:57)
[2018-06-14] MEDS: DULCOLAX PR SCH (20:57)
[2018-06-14] MEDS: COLACE LIQUID PO SCH (20:59)
[2018-06-14] MEDS: LOPRESSOR PEG SCH (20:59)
[2018-06-14] MEDS: CUBICIN 350 MG in NS 100 ML IV SCH (21:00)
[2018-06-14] MEDS ORDERED: LOPRESSOR PEG SCH (21:00)
[2018-06-15] MEDS: AZACTAM 1 GM in NS 50 ML IV SCH ×3 (00:09→18:00)
[2018-06-15] MEDS: NS 1,000 ML IV SCH (00:09)
[2018-06-15] MEDS: DUONEB (A & A) INH SCH ×3 (00:16→15:25)
[2018-06-15] MEDS: CLINDAMYCIN 600 MG/D5W 600 MG/50 ML IVPB IV SCH ×4 (01:16→18:25)
[2018-06-15] MEDS: DURAGESIC 12 MICROGM/HR PATCH TD SCH (05:57)
[2018-06-15] MEDS: CATAPRES-TTS-2 TD SCH (06:05)
[2018-06-15] MEDS ORDERED: LASIX IV ONE ×2 (06:48→16:46)
--- NOTE | 2018-06-15 07:52 | PROGRESS NOTE ---
DATE: 06/15/2018 SUBJECTIVE: Ms. Morris is doing fair. She does have some pulmonary congestion, wheezing. She is not keeping her oxygen on. No high-grade fever or chills. No nausea or vomiting. The patient did have watery stool this morning. History part is limited. OBJECTIVE: Vital Signs: Vital signs are noted. Neck: Supple. No JVD. Lungs: Bilateral expiratory wheezing. CVS: S1 and S2 heard. Abdomen: Soft, globular. Bowel sounds present. CUSTOM MILLER: Alert, awake. Uncooperative for detailed exam. Laboratory Data: Ordered for today, result is pending. MEDICAL PROBLEMS: 1. Pneumonia. 2. Abdominal wall cellulitis. 3. Gastritis. 4. Cerebrovascular accident. 5. Expressive aphasia. PLAN: The patient is on TPN. We are going to continue current treatment. I gave her Lasix. Close observation. I am going to repeat chest x-ray today. Once clinical condition stabilized, I will plan discharging patient to LTAC. cc: Remington Lane MD
[2018-06-15 08:06] LABS: AGAP 3; BUN 23 mg/dL (8-22); CALCIUM 8.3 mg/dL (8.8-10.2); CHLORIDE 102 mmol/L (98-107); COSMO 278; CREATININE 0.7 mg/dL (0.5-0.9); ESTIMATED GFR > 60; GLUCOSE 133 mg/dL (70-104); PHOSPHORUS 3.1 mg/dL (2.7-4.5); POTASSIUM 3.9 mmol/L (3.5-5.1); SODIUM 136 mmol/L (136-145); TCO2 31 mmol/L (25-35)
[2018-06-15] MEDS: LOVENOX SUBQ SCH (09:24)
[2018-06-15] MEDS: PROTONIX IV SCH ×2 (09:24→21:11)
[2018-06-15] MEDS: EXELON 9.5MG/24HRS TD SCH (09:24)
[2018-06-15] MEDS: CALTRATE 600 + D PEG SCH ×2 (09:26→22:42)
[2018-06-15] MEDS: LOPRESSOR PEG SCH ×2 (09:26→22:42)
[2018-06-15] MEDS: LACTULOSE PEG SCH ×2 (09:26→22:42)
[2018-06-15] MEDS: ASPIRIN PEG SCH (09:26)
[2018-06-15] MEDS: COZAAR PEG SCH (09:26)
[2018-06-15] MEDS: SSD CREAM TOP SCH ×2 (09:26→21:12)
[2018-06-15] MEDS: ZOLOFT PEG SCH (09:26)
--- NOTE | 2018-06-15 09:34 | Diag Imaging Result Doc PS360 ---
EXAM: CHEST-1 VIEW 06/15/2018 HISTORY: sob TECHNIQUE: AP portable at 0853 COMMENT: The inspiration is suboptimal. The lungs are clearer than they were on 06/13/2018 and both hemidiaphragms are well defined on the current study. The heart size remains slightly enlarged. IMPRESSION: Improved pulmonary edema. Electronically signed by Dmitriy Rios 06/15/2018 9:32 AM
[2018-06-15] MEDS: LOPRESSOR IV PRN ×2 (11:29→22:46)
[2018-06-15] MEDS: XOPENEX NEB INH SCH ×4 (11:44→23:51)
[2018-06-15] MEDS: DIFLUCAN 200 MG/NS 200 MG/100 ML IVPB IV SCH (15:04)
[2018-06-15] MEDS: TPN ELECTROLYTES 20 ML, MAGNESIUM SULFATE 5 MEQ, POTASSIUM CHLORIDE 10 MEQ, POTASSIUM P... IV SCH ×8 (15:04)
[2018-06-15] MEDS: LIPOSYN 20% 250 ML IV SCH (15:04)
[2018-06-15] MEDS: MORPHINE IV PRN (16:08)
[2018-06-15] MEDS: CUBICIN 350 MG in NS 100 ML IV SCH (22:12)
[2018-06-15] MEDS: COLACE LIQUID PO SCH (22:42)
[2018-06-15] MEDS: DULCOLAX PR SCH (22:43)
[2018-06-16] MEDS: AZACTAM 1 GM in NS 50 ML IV SCH ×3 (01:26→16:52)
[2018-06-16] MEDS: CLINDAMYCIN 600 MG/D5W 600 MG/50 ML IVPB IV SCH ×2 (02:26→10:14)
[2018-06-16] MEDS: XOPENEX NEB INH SCH ×6 (03:20→22:50)
[2018-06-16 04:56] LABS: CALCIUM 8.3 mg/dL (8.8-10.2); CREATININE 0.9 mg/dL (0.5-0.9); MAGNESIUM 2.1 mg/dL (1.5-2.7); PHOSPHORUS 4.2 mg/dL (2.7-4.5); POTASSIUM 4.5 mmol/L (3.5-5.1)
--- NOTE | 2018-06-16 06:41 | DISCHARGE SUMMARY ---
ADMISSION DATE: 06/03/2018 DISCHARGE DATE: COURSE: Ms. Morris discharge was delayed because of chest congestion, cough, and there was an issue for getting approval from her insurance, and also availability of bed at a long-term LTAC. The patient also had some chest congestion, cough and wheezing. The patient is doing better. A congressional representative from the LTAC came and evaluated the patient. She reassured the nurse yesterday it is a hospital and they can take care of all of the problems, over at the LTAC they do have physicians and nurses. The patient is overall doing better. No high-grade fever or chills. The patient does have occasional wheezing, at times tachycardia. The patient is not communicating. I looked at the abdominal wound and it is looking better. PHYSICAL EXAMINATION: Vitals: Her vital signs are noted. Neck: Supple. No JVD. Lungs: Bilateral occasional wheezing. CVS: S1 and S2 heard. Abdomen: Soft. No distention. Bowel sounds present. PROFESSOR OF GRAPHIC DESIGN: Alert, awake, but not communicating. The patient does have expressive aphasia. LABORATORY DATA: Laboratory data was done yesterday. Chest x-ray did show improvement in pulmonary edema. Blood work done today with BUN 31, creatinine 0.9, sodium 130, potassium 4.5. Last WBC count 8.08, hemoglobin 11, hematocrit 34.8. Her cholesterol was 100, triglycerides 184. ASSESSMENT AND PLAN: Overall, the patient is doing fairly well. She did received maximum benefit of hospitalization. The patient is going to a [facility] care facility where we are going to continue TPN, IV antibiotics as per Dr. Flannery, TPN as per Dr. Feng, supportive care. I am going to discuss with her granddaughter. Overall discharge condition stable, though overall prognosis is poor, which I am going to discuss with the granddaughter. The patient does have multiple medical problems, including cellulitis of the abdominal wall and infection sepsis, repeat blood culture was better, paroxysmal atrial fibrillation, history of CVA, and pneumonia, improved. Overall discharge condition is satisfactory and stable. cc: Remington Lane MD
--- NOTE | 2018-06-16 08:12 | INFECTIOUS DISEASE PROGRESS NO ---
DATE: 06/16/2018 SUBJECTIVE: Patient has pneumonia, abdominal wall cellulitis, and bacteremia. I have written for the following antibiotics to be done at the LTAC that she is going to today: Aztreonam 1 g IV every 8 hours, fluconazole 200 mg IV daily, clindamycin 600 mg IV q.8 hours and daptomycin 350 mg IV q.24 hours. All these are for a total of 10 days. I have also written for the following laboratory studies: CBC with differential, creatinine, CK q. Thursday x10 days. cc: MD Remington Shelton MD MTDD
[2018-06-16] MEDS: NS NEB INH SCH ×2 (08:15→11:19)
[2018-06-16] MEDS: MORPHINE IV PRN ×2 (08:27→10:37)
[2018-06-16] MEDS: ATIVAN IV PRN ×3 (08:59→16:55)
[2018-06-16 09:11] LABS: ALLEN TEST YES; BE 6.7 mmoll (-3.0-3.0); BLOOD TYPE ARTERIAL; HCO3-(ACT) 30.1 mmoll (20.0-26.0); METHB 1.1 % (0.0-1.5); MODALITY CANNULA; O2(CT) 15.2 mL/dL (15.0-23.0); O2HB 93.7 % (95.0-99.0); PCO2(98.6) 44 mmHg (35-45); PO2(98.6) 69 mmHg (60-100); SAMPLE BLOOD; SAO2 96.2 % (95.0-100.0); THB 11.5 g/dL (11.5-17.4); pH(98.6) 7.46 (7.35-7.45)
--- NOTE | 2018-06-16 09:26 | Diag Imaging Result Doc PS360 ---
EXAM: CHEST-2 VIEWS HISTORY: labored resperations, poor lung sounds TECHNIQUE: Chest two views COMPARISON: 06/15/2018 FINDINGS: The right hemidiaphragm is elevated. Heart is mildly prominent. Mild pulmonary edema. No change in the right-sided PICC line. No pleural effusions. IMPRESSION: Stable chest. Electronically signed by Porfirio Houser 06/16/2018 9:24 AM
[2018-06-16] MEDS: ASPIRIN PEG SCH (09:40)
[2018-06-16] MEDS: LOPRESSOR PEG SCH ×2 (09:40→22:38)
[2018-06-16] MEDS: LOVENOX SUBQ SCH (09:40)
[2018-06-16] MEDS: CALTRATE 600 + D PEG SCH ×2 (09:40→22:32)
[2018-06-16] MEDS: PROTONIX IV SCH ×2 (09:40→22:35)
[2018-06-16] MEDS: EXELON 9.5MG/24HRS TD SCH (09:40)
[2018-06-16] MEDS: COZAAR PEG SCH (09:40)
[2018-06-16] MEDS: SSD CREAM TOP SCH ×2 (09:41→22:38)
[2018-06-16] MEDS: ZOLOFT PEG SCH (09:41)
[2018-06-16] MEDS ORDERED: LASIX IV ONE (09:54)
[2018-06-16] MEDS: LACTULOSE PEG SCH ×2 (10:07→22:37)
[2018-06-16] MEDS: LOPRESSOR IV PRN (10:18)
[2018-06-16] MEDS ORDERED: S2 RACEPINEPHRINE 2.25% INH ONE (11:44)
[2018-06-16] MEDS ORDERED: NS NEB INH SCH ×3 (11:45→19:15)
[2018-06-16] MEDS: DIFLUCAN 200 MG/NS 200 MG/100 ML IVPB IV SCH (13:53)
[2018-06-16] MEDS ORDERED: NS 500 ML IV ONE (15:09)
--- NOTE | 2018-06-16 15:44 | PROGRESS NOTE ---
DATE: 06/16/2018 SUBJECTIVE: Ms. Morris is not doing well. The patient had increasing shortness of breath and wheezing. We gave her a breathing treatment, Lasix. I repeated a chest x-ray which showed right hemidiaphragm is elevated, mild pulmonary edema. The patient did receive IV Lasix. Repeat blood work did show elevated BUN and creatinine. After second Lasix her blood pressure was dropping. The patient is getting morphine and Ativan for comfort. Patient is not able to give any history. OBJECTIVE: Vital signs: Blood pressure 86/60, respiratory rate is high, 99.5 temperature. Neck: Supple. No JVD. Lungs: Bilateral good air entry present. Decreased air entry both the bases. Bilateral expiratory wheezing. CVS: S1 and S2 heard. Abdomen: Soft, globular. Bowel sounds present. NETWORK DIAGNOSTIC SUPPORT SPECIALIST: Alert, awake. Uncooperative for detailed exam. LAB DATA: Blood gas and chest x-ray noted. ASSESSMENT: 1. Respiratory distress. 2. Gastritis. 3. Renal cell carcinoma. 4. Cellulitis of the abdominal wall. 5. Mild dehydration. PLAN: I did talk to patient's granddaughter who is the next of kin. Discussed about poor prognosis. She understood but she is not ready for hospice and comfort care. I am going to continue current treatment. She is in agreement for DNR and she does understand what DNR 1 is. I did talk to Dr. Hill to evaluate the patient. Meanwhile, we will continue current treatment and close observation. Patient is on IV antibiotics, pain management, supportive care, bronchodilator treatment. cc: Remington Lane MD
[2018-06-16] MEDS: S2 RACEPINEPHRINE 2.25% INH PRN (16:00)
[2018-06-16] MEDS: TPN ELECTROLYTES 20 ML, MAGNESIUM SULFATE 5 MEQ, POTASSIUM CHLORIDE 10 MEQ, POTASSIUM P... IV SCH ×8 (16:52)
[2018-06-16] MEDS: LIPOSYN 20% 250 ML IV SCH (16:52)
--- NOTE | 2018-06-16 18:43 | INFECTIOUS DISEASE PROGRESS NO ---
DATE: 06/16/2018 PRESENT ILLNESS: The patient has a PEG tube infection with Klebsiella and Brianna albicans. She also has an enterococcal bacteremia and also a pneumonia. Clinically, she has been coughing more recently. MEDICATIONS: The patient currently is receiving aztreonam 1 g IV every 8 hours, clindamycin 600 mg IV every 8 hours, daptomycin 350 mg every 24 hours, and fluconazole 200 mg IV every 24 hours. PHYSICAL EXAMINATION: Vital Signs: Temperature is 99.5 degrees, pulse 93, respirations 32, blood pressure 86/60. General: This is a chronically ill-appearing, elderly female. She has an expiratory wheeze that can be heard even without a stethoscope. It sounds like it kind of originates from the upper respiratory tract. Head, eyes, ears, nose, throat: No drainage noted from the nose or ears. I was unable to visualize her oral cavity. As mentioned above, she makes this expiratory type of noise that can be heard without a stethoscope. Neck: There did not seem to be any rigidity. Lungs: There were some bilateral wheezes. Cardiovascular: Heart rate is regular with a systolic murmur. Abdomen: Soft. It is not tender. There is still some erythema around the G-tube site. Neurologic: The patient does not respond to verbal stimuli. There is no tremor. LAB AND X-RAY: Chest x-ray shows mild pulmonary edema. Creatinine is 0.9. GFR is 59. Blood gases show a pH of 7.46, a PO2 of 69, and a pCO2 of 44. ASSESSMENT AND PLAN: The patient is being treated for the entities I mentioned above, namely an infected PEG tube site, an enterococcal bacteremia, and a pneumonia. The medications that I am using are the following: Aztreonam 1 g IV every 8 hours, fluconazole 200 mg IV daily, clindamycin 600 mg IV every 8 hours, and daptomycin 350 mg IV every 24 hours. I have written for the same medications for the patient when she is going to the LTAC. I have requested that the antibiotics be continued for 10 more days. I have also written for the following laboratory studies: CBC with differential, creatinine, CK to be drawn every Thursday x10 days. COMORBIDITIES: She is elderly. She has had a stroke. She has vascular dementia. She also has bipolar disease. She has a history of renal cell carcinoma. cc: MD Remington Shelton MD
[2018-06-16] MEDS ORDERED: BENADRYL IV ONE (19:10)
[2018-06-16] MEDS ORDERED: LEVAQUIN 500 MG/D5W 500 MG/100 ML IVPB IV ONE (19:14)
[2018-06-16] MEDS ORDERED: LEVAQUIN 250 MG/D5W 250 MG/50 ML IVPB IV SCH (19:15)
[2018-06-16 19:47] LABS: BASO# 0.05 X1000 (0.0-0.2); BASO% 0.6 % (0.0-0.8); EOS% 1.1 % (0.0-10.0); HEMATOCRIT 33.7 % (37.0-47.0); HEMOGLOBIN 10.7 g/dL (12.0-16.0); IMM GRAN# 0.28 X1000 (0.0-0.04); IMM GRAN% 3.1 % (0.0-0.5); LYMPH# 1.24 X1000 (1.2-3.4); LYMPH% 13.7 % (20.5-51.1); MCH 28.6 PG (27-31); MCHC 31.8 g/dL (33-37); MCV 90.1 FL (81-99); MONO% 12.2 % (1.7-9.3); MPV 11.9 FL (7.4-10.4); NEUT# 6.27 X1000 (1.4-6.5); NEUT% 69.3 % (42.2-75.2); PLT 182 X1000 (130-400); RBC 3.74 XMIL (4.2-5.4); RDW 14.7 % (11.5-14.5); WBC 9.04 X1000 (4.8-10.8)
[2018-06-16] MEDS: SOLU-MEDROL IV SCH (20:00)
--- NOTE | 2018-06-16 22:30 | PULMONOLOGY CONSULTATION ---
DATE: 06/16/2018 REQUESTING PHYSICIAN: Remington Lane MD REASON FOR CONSULTATION: Respiratory distress. HISTORY OF PRESENT ILLNESS: Ms. Morris is an 88-year-old white female who was admitted to the hospital on 06/03/2018 with a malfunctioning PEG tube and an anterior abdominal wall cellulitis. The patient has a history of vascular dementia with expressive aphasia. Her PEG tube was ultimately removed, and she was initiated on TPN. An LTAC was planned. The patient had an Enterococcus faecalis bacteremia on 06/02/2018 and Klebsiella and Brianna grew from her PEG site. She has been on broad-spectrum antibiotics. The patient had a change in antibiotics on 06/14/2018 with the addition of clindamycin and aztreonam. The patient has previously received aztreonam without difficulty. The patient's chest exam was clear but diminished on 06/14/2018. On the morning following the initiation of these 2 medicines, patient had wheezing. Her wheezing has continued to progress. Today she had audible wheezing with increased work of breathing. She has had marginal improvement with racemic epinephrine. Chest x-ray was performed, which reveals some bowing of the trachea, but this has been present for several years. She does have mild elevation of the right hemidiaphragm, which may be slightly more prominent. She has mild vascular congestion but no overt pulmonary edema. PAST MEDICAL HISTORY: Problem List: 1. Prior CVA. 2. History of bipolar disorder. 3. Vascular dementia. 4. Status post PEG tube placement. 5. History of renal cell cancer. 6. Atrial fibrillation. 7. Hypertension. 8. Coronary artery disease. 9. Paroxysmal atrial fibrillation. SOCIAL HISTORY: Patient resides in the retirement. She is nonverbal. She is bed-bound. REVIEW OF SYSTEMS: Cannot be obtained. PHYSICAL EXAMINATION: General: Reveals an 88-year-old white female with mild to moderate work of breathing with audible wheezing. She has had increasing oxygen requirements. Vital signs: Blood pressure 155/55, heart rate 77, respiratory rate 32, oxygen saturation 100%. HEENT: Pupils are equal and reactive. Oropharynx appears clear, but evaluation is limited. Neck: Supple. Movement of the trachea does not change the wheezing. Cardiac Exam: S1, S2. Regular rhythm. Abdomen: Soft with wound dressings in place. Chest: Reveals diffuse wheezing on exhalation. Extremities: Without edema. LABORATORIES: White blood count 9.04, hemoglobin 10.7, platelet count 182,000. Sodium 140, potassium 4.5, chloride 102, bicarbonate 31, creatinine 0.9, glucose 139. IMPRESSION: 1. An 88-year-old with acute hypoxemic respiratory failure. 2. Audible wheezing with respiratory distress. 3. Recent addition of new antibiotics. DISCUSSION: An 88-year-old with wheezing as outlined above. I suspect that she is having an allergic reaction to either clindamycin or aztreonam. She had aztreonam earlier in this hospitalization without difficulty, but she could have been sensitized. The time frame is appropriate for these 2 antibiotics. The patient does have some bowing of the trachea, which raises the possibility that she may have a large airway obstruction. This is not obvious from a chest x-ray. CT scan of the thorax has been considered, but I will give her treatment for acute bronchospasm this evening and evaluate her progress. Her overall prognosis is poor, and she is a level 1 Do Not Resuscitate. RECOMMENDATIONS: 1. Discontinue clindamycin and aztreonam for possible allergy to these medications. 2. Give a dose of Benadryl along with steroids. 3. We will use racemic epinephrine q.4 hours p.r.n. severe wheezing. 4. Consider CT scan of the thorax tomorrow if she does not have clinical improvement. 5. Ask Dr. Flannery to re-evaluate her drug regimen tomorrow. 6. Overall prognosis is guarded to poor given her age and acute respiratory distress. Her code status has been addressed, and she will be allowed to have a natural if she does not improve. cc: MD Remington Brown MD
[2018-06-16] MEDS: DULCOLAX PR SCH (22:33)
[2018-06-16] MEDS: COLACE LIQUID PO SCH (22:33)
[2018-06-16] MEDS: CUBICIN 350 MG in NS 100 ML IV SCH (22:35)
[2018-06-17] MEDS: S2 RACEPINEPHRINE 2.25% INH PRN ×3 (00:14→16:05)
[2018-06-17] MEDS: SOLU-MEDROL IV SCH ×4 (01:45→18:31)
[2018-06-17] MEDS: XOPENEX NEB INH SCH ×6 (03:04→23:16)
[2018-06-17] MEDS: ATIVAN IV PRN ×4 (04:32→16:50)
[2018-06-17] MEDS: MORPHINE IV PRN ×4 (04:41→16:50)
[2018-06-17] MEDS: CLINDAMYCIN 600 MG/D5W 600 MG/50 ML IVPB IV SCH (05:45)
--- NOTE | 2018-06-17 06:21 | PROGRESS NOTE ---
DATE: 06/17/2018 SUBJECTIVE: Ms. Morris is doing fair. The patient is still has some wheezing, work of respiration. Not able to give good history. Appreciate Dr. Hill's help managing this patient. No diarrhea, blood or mucus in the stool. Mild abdominal distention. Urine output yesterday was 1650 mL. Yesterday, the patient was in moderate respiratory distress with audible wheezing, questionable stridor. Discussed patient's condition with the daughter again. Canceled discharge. Discussed with Dr. Hill, he evaluated patient, recommendation noted. The patient was started on steroid. PHYSICAL EXAMINATION: Vital signs: Reviewed. Neck: Supple. No JVD. Lungs: Bibasilar crepitations. Occasional wheezing. Cardiovascular system: S1 and S2. Tachycardia. Abdomen: Soft, globular. Bowel sounds present. WOOD TANK BUILDER: Alert, awake, able to move all 4 limbs. Uncooperative for detailed neurologic examination. Patient is not communicating. ASSESSMENT: The patient does have multiple complex medical issues. 1. Bronchospasm, respiratory distress. The patient is on steroid, which I will continue. I am going to get CT scan of the soft tissue of the neck along with the chest. 2. Cellulitis of the abdominal wall. 3. Sepsis. 4. Her other problems include cerebrovascular accident, expressive aphasia and dysphagia, paroxysmal atrial fibrillation, the patient is on TPN, chronic pain, on pain medication. 5. We will continue comfort care. cc: Remington Lane MD
[2018-06-17] MEDS ORDERED: S2 RACEPINEPHRINE 2.25% ONE ×2 (07:24→15:22)
--- NOTE | 2018-06-17 07:31 | Diag Imaging Result Doc PS360 ---
CHEST-1 VIEW - 06/17/2018 INDICATION: pneumonia COMPARISON: 06/16/2018 FINDINGS: Stable left PICC line. Stable low lung volumes. Stable cardiomegaly. Stable right hemidiaphragm elevation. No significant infiltrates or effusion. IMPRESSION: No change from prior. Electronically signed by Carl Rodrigues 06/17/2018 7:28 AM
[2018-06-17 07:43] LABS: BASO# 0.02 X1000 (0.0-0.2); BASO% 0.2 % (0.0-0.8); HEMATOCRIT 34.4 % (37.0-47.0); IMM GRAN# 0.21 X1000 (0.0-0.04); IMM GRAN% 2.1 % (0.0-0.5); LYMPH# 0.62 X1000 (1.2-3.4); LYMPH% 6.3 % (20.5-51.1); MCH 28.6 PG (27-31); MCV 89.4 FL (81-99); MONO# 0.38 X1000 (0.11-0.59); MONO% 3.9 % (1.7-9.3); MPV 11.9 FL (7.4-10.4); NEUT# 8.54 X1000 (1.4-6.5); NEUT% 87.5 % (42.2-75.2); PLT 183 X1000 (130-400); RBC 3.85 XMIL (4.2-5.4); RDW 14.5 % (11.5-14.5); WBC 9.77 X1000 (4.8-10.8)
[2018-06-17] MEDS: CALTRATE 600 + D PEG SCH (08:02)
[2018-06-17] MEDS: ASPIRIN PEG SCH (08:02)
[2018-06-17] MEDS: COZAAR PEG SCH (08:04)
[2018-06-17 08:07] LABS: CALCIUM 8.5 mg/dL (8.8-10.2); POTASSIUM 4.5 mmol/L (3.5-5.1)
--- NOTE | 2018-06-17 08:44 | Diag Imaging Result Doc PS360 ---
EXAM: CT NECK W/O CONTRAST 06/17/2018 HISTORY: SOB TECHNIQUE: This exam was performed using automated exposure control, adjustment of mA or kV according to patient size, and/or use of iterative reconstruction technique. COMMENT: There is fluid in the ethmoid and sphenoid sinuses and mucosal thickening in the maxillary sinuses more so on the left than the right. These findings were not present on the previous CT of the head dated 06/28/2017. There is some effacement of the left fossa of Rosenmuller which was not present at the time the previous study. The pharynx is otherwise unremarkable in appearance. The epiglottis is not enlarged. There is no definite laryngeal or tracheal abnormality. There is some motion artifact. There is enlargement/mass of the inferior left thyroid lobe which displaces the trachea and compresses it to the right. There is some calcification in the capsule. The mass measures 4.8 x 3.8 cm. It was partially imaged at the time of the CT of the cervical spine of 06/28/2017. There is some visible mediastinal adenopathy with a precarinal node measuring 1.8 cm in diameter. IMPRESSION: Left thyroid mass. Sinusitis. Nonspecific mucosal thickening in the left fossa of Rosenmuller. Electronically signed by Dmitriy Rios 06/17/2018 8:41 AM
[2018-06-17] MEDS: LOVENOX SUBQ SCH (08:49)
[2018-06-17] MEDS: PROTONIX IV SCH ×2 (08:50→21:44)
[2018-06-17] MEDS: EXELON 9.5MG/24HRS TD SCH (08:50)
[2018-06-17] MEDS: SSD CREAM TOP SCH ×2 (08:51→21:00)
[2018-06-17] MEDS: LOPRESSOR PEG SCH (08:51)
[2018-06-17] MEDS: LACTULOSE PEG SCH (08:51)
--- NOTE | 2018-06-17 09:10 | Diag Imaging Result Doc PS360 ---
EXAM: CT THORAX W/O CONTRAST 06/17/2018 HISTORY: SOB TECHNIQUE: This exam was performed using automated exposure control, adjustment of mA or kV according to patient size, and/or use of iterative reconstruction technique. COMMENT: The current examination is compared where possible with the abdominal study of 06/03/2018. There are no previous thoracic studies. There are bilateral pleural effusions more so on the left than the right. There are multiple nodules in the left thyroid lobe with calcifications. Rim calcifications are seen in or around a large hypodense mass extending below the level of the sternal notch. There may actually be two separate masses superimposed in the superior inferior dimension with the upper mass measuring 4.5 x 3.8 cm in axial dimension and the more inferior mass measuring 4.4 x 2.6 cm. In aggregate, this measures at least 5.2 cm in superior-inferior dimension. The trachea is displaced to the right and compressed by the mass. There is some motion artifact. There is adenopathy with a paratracheal node on image 37 measuring up to 2.4 cm. There are patchy alveolar opacities in both upper lobes particularly in the right apex. There are more nodular opacities in the right upper lobe seen posteriorly on image 42 and on image 47. There is atelectasis or pneumonia with air bronchograms in the left lower lobe. There is an apparently partially cavitary nodular opacity in the posterior medial costophrenic sulcus of the right lower lobe on image 83 measuring 13 mm in diameter. There is platelike opacity in the right middle lobe inferiorly. Compared to the previous abdominal study none of the basilar opacities were present previously with the exception of some fibrosis in the inferior lingula. The pleural fluid collections were not present previously. IMPRESSION: 1. Thyroid mass(es) on the left as described. Mediastinal adenopathy. 2. Patchy pulmonary opacities and nodules. The possibility of metastatic disease cannot be entirely excluded although the distribution primarily in the right upper lobe would suggest inflammatory or infectious disease. Atelectasis and/or pneumonia left lower lobe. 3. New pleural effusions. Electronically signed by Dmitriy Rios 06/17/2018 9:07 AM
--- NOTE | 2018-06-17 10:11 | GASTROENTEROLOGY PROGRESS NOTE ---
DATE: 06/17/2018 SUBJECTIVE: Resting in bed. She is tachypneic. She is getting breathing treatment and Dr. Grant is on board. She had a recent neck CT which showed left thyroid mass, sinusitis, nonspecific mucosal thickening in the left fossa of Rosenmller. She also had a chest CT which showed thyroid masses in the left, patchy pulmonary opacities and nodules, the possibility of metastatic disease cannot be entirely excluded, new pleural effusion, atelectasis, and pneumonia in the left lower lobe. The patient currently being treated for abdominal wall cellulitis. She had a temperature of 99.9 degrees yesterday. She has been tachypneic and tachycardic on a face mask. The respiratory therapist is at the bedside. OBJECTIVE: Vital signs: Temperature 97.4 degrees, pulse rate of 121, respiratory rate of 32, blood pressure 140/74, saturating 92% on mask. Body weight of 130 pounds, BMI of 25.4 kg. HEENT: mild pallor. No icterus. Face mask in place. Neck: She is tachypneic. I could hear some wheezes from her lungs. Abdominal wall dressing was removed. There is persistent abdominal wall cellulitis. The area around the PEG tube site showed evidence of erythema, erosions, ulcerations suggesting abdominal wall cellulitis. There is discomfort around the PEG tube site. Extremities: No cyanosis or clubbing. Neurological: She is awake, alert. She is nonverbal. DIAGNOSTIC STUDIES: Hemoglobin 11, hematocrit 34.4, white count 9.7, platelet count of 183,000. Sodium 140, potassium 4.5, chloride of 100, bicarbonate 27, anion gap 13, BUN of 52, creatinine 1, glucose of 222, calcium 8.5. Creatine kinase 48. Neck and chest CT as described in HPI. IMPRESSION AND PLAN: 1. Bronchospasm, respiratory distress., The patient is on steroids. She is being managed by the primary care team and Dr. Hill. 2. Abdominal wall cellulitis. Dr. Flannery is on board. She is on antibiotics. 3. Malnutrition. She is on TPN. 4. Gastrointestinal prophylaxis. Protonix b.i.d. 5. Chronic pain. She is on fentanyl patch. 6. Bowel regimen with Dulcolax. Last bowel movement was on 06/15/2018. 7. Deep vein thrombosis prophylaxis. Lovenox. The patient is acute respiratory distress. The respiratory therapist is giving nebulizer treatment. Dr. Hill is on board. We will follow along. Please call us with any further questions. cc: MD Remington Martinez MD James E. Boyle, MD MTDD
[2018-06-17] MEDS: ZOLOFT PEG SCH (11:44)
[2018-06-17] MEDS: DIFLUCAN 200 MG/NS 200 MG/100 ML IVPB IV SCH (13:35)
--- NOTE | 2018-06-17 14:28 | PULMONOLOGY PROGRESS NOTE ---
DATE: 06/17/2018 SUBJECTIVE: The patient is aphasic. The patient has less work of breathing than last evening. Family members are at the bedside and agree that she appears to be breathing easier than last night or yesterday afternoon. OBJECTIVE: Vital Signs: The patient's maximum temperature in the last 24 hours was 99.9 degrees, BP 140/74. HEENT: Pupils are equal. Oropharynx appears clear. Neck: Supple with slight deviation of the trachea to the right. Chest: Reveals expiratory wheezing bilaterally with mild work of breathing. Abdomen: Soft with abdominal dressing in place. The patient does have findings consistent with abdominal wall cellulitis as outlined by Dr. Xiong. Extremities: Without edema. LABORATORIES: White blood count 9.77, hemoglobin 11.0, platelet count 183,000. Sodium 140, potassium 4.5, chloride 100, bicarbonate 27, BUN 52, creatinine 1.0. CT scan of the chest reveals a mass below the sternal notch with a rim of calcification. There may be 2 masses. The mass is pushing on the trachea. Peritracheal adenopathy also noted. There are patchy infiltrates present with small effusions. CT scan of the neck reveals sinusitis and a left thyroid mass. IMPRESSIONS: This is an 88-year-old with: 1. Audible wheezing with acute hypoxemic respiratory failure. 2. Dementia/prior stroke with dysphagia. 3. Abdominal wall cellulitis. 4. Enterococcal faecalis bacteremia. DISCUSSION: This is an 88-year-old with problems outlined above. 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 She had a chest x-ray on 08/26/2016 which looks similar to the current chest x-ray, suggesting this mass has been present for several years. In the body of the report on that film, it indicates that the mass could be seen back to 2009, suggesting this mass may have been present for 9 years. She is a poor surgical candidate. She has improved with steroids, bronchodilators, and discontinuing her antibiotics. Would like to begin steroid weaning given her underlying infection. Her overall prognosis appears to be poor. RECOMMENDATIONS: 1. Antibiotics per Dr. Fuentes Flannery. I discussed discontinuing aztreonam and clindamycin earlier today. 2. Continue bronchodilators. 3. Begin steroid weaning. 4. Observation versus additional evaluation of the thyroid mass. Radiographic dictations suggest that this has been present back to 2009. She is not a good surgical candidate. cc: MD Remington Brown MD
[2018-06-17] MEDS: LIPOSYN 20% 250 ML IV SCH (15:28)
[2018-06-17] MEDS: TPN ELECTROLYTES 20 ML, MAGNESIUM SULFATE 5 MEQ, POTASSIUM CHLORIDE 10 MEQ, POTASSIUM P... IV SCH ×8 (15:29)
[2018-06-17] MEDS: NS NEB INH SCH (15:47)
[2018-06-17] MEDS ORDERED: LANOXIN IV ONE (16:00)
--- NOTE | 2018-06-17 18:26 | PROGRESS NOTE ---
DATE: 06/17/2018 SUBJECTIVE: The patient is aphasic. She does not appear to be in any distress from a respiratory standpoint. She has continued in atrial fibrillation with elevated ventricular rate response at times. OBJECTIVE: Vital Signs: Blood pressure 143/88, heart rate 130 and irregular with ECG monitor showing atrial fibrillation. There is no significant jugular distention. Chest: Auscultation of the chest reveals scattered expiratory wheezes. Cardiac: Reveals an irregular rate and rhythm. There is no evidence of peripheral edema. LABORATORY DATA: Includes white blood cell count 9.77, hematocrit 34.4, hemoglobin 11.0, platelet count 183,000. Sodium 140, potassium 4.5, chloride 100, carbon dioxide 27, BUN 13. Sodium 140, potassium 4.5, chloride 100, carbon dioxide 27, BUN 52 creatinine 1.2. IMPRESSION: 1. Persistent atrial fibrillation with rapid ventricular rate. 2. Status post previous cerebrovascular accident with significant debility. 3. Dynamic left ventricular outflow tract, obstructive physiology. With preserved left ventricular ejection fraction. 4. Paroxysmal atrial fibrillation in the past. 5. Dementia. 6. Hypertension. RECOMMENDATIONS: Add digoxin to try and improve rate control. cc: MD Remington Lomeli MD
[2018-06-17] MEDS ORDERED: XOPENEX NEB INH ONE (19:27)
--- NOTE | 2018-06-17 19:41 | Diag Imaging Result Doc PS360 ---
EXAM: CHEST-PORTABLE - 06/17/2018 HISTORY: Possible aspiration TECHNIQUE: Portable chest COMPARISON: Prior exam of 06/17/2018 FINDINGS: There has been interval insertion of a nasogastric tube. The distal nasogastric tube is partially looped in the stomach. Inspiration is a bit deeper compared to prior. There is subsegmental atelectasis at the lung bases, which is decreased compared to prior. The upper lungs appear essentially clear. Heart size is stable. PICC remains in place. IMPRESSION: Nasogastric tube extending into stomach. Somewhat deeper inspiration compared to prior, with some decrease in basilar atelectasis. Electronically signed by Jesus Calvo 06/17/2018 7:39 PM
[2018-06-17 19:51] LABS: BASO# 0.04 X1000 (0.0-0.2); BASO% 0.2 % (0.0-0.8); EOS# 0.01 X1000 (0.0-0.7); EOS% 0.1 % (0.0-10.0); HEMATOCRIT 35.9 % (37.0-47.0); HEMOGLOBIN 11.4 g/dL (12.0-16.0); IMM GRAN# 0.27 X1000 (0.0-0.04); IMM GRAN% 1.5 % (0.0-0.5); LYMPH# 0.62 X1000 (1.2-3.4); LYMPH% 3.4 % (20.5-51.1); MCH 28.4 PG (27-31); MCHC 31.8 g/dL (33-37); MCV 89.3 FL (81-99); MONO# 0.86 X1000 (0.11-0.59); MONO% 4.7 % (1.7-9.3); MPV 11.9 FL (7.4-10.4); NEUT# 16.44 X1000 (1.4-6.5); NEUT% 90.1 % (42.2-75.2); PLT 211 X1000 (130-400); RBC 4.02 XMIL (4.2-5.4); RDW 14.5 % (11.5-14.5); WBC 18.24 X1000 (4.8-10.8)
[2018-06-17 20:06] LABS: CREATININE 1.1 mg/dL (0.5-0.9); POTASSIUM 4.8 mmol/L (3.5-5.1)
[2018-06-17 20:27] LABS: BANDS 2 % (0-1); LYMPHS 5 % (21-51); MONO 1 % (1-9); SEGS 92 % (42-75)
[2018-06-17 20:31] LABS: ALLEN TEST YES; BE 2.4 mmoll (-3.0-3.0); BLOOD TYPE ARTERIAL; HCO3-(ACT) 26.8 mmoll (20.0-26.0); METHB 1.2 % (0.0-1.5); O2(CT) 14.9 mL/dL (15.0-23.0); O2HB 96.5 % (95.0-99.0); PCO2(98.6) 42 mmHg (35-45); PO2(98.6) 99 mmHg (60-100); SAMPLE BLOOD; SAO2 98.8 % (95.0-100.0); THB 10.9 g/dL (11.5-17.4); pH(98.6) 7.42 (7.35-7.45)
[2018-06-17 20:32] LABS: MODALITY COOL AEROSOL
[2018-06-17] MEDS: DULCOLAX PR SCH (21:00)
[2018-06-17] MEDS: HUMALOG SUBQ SCH (21:46)
[2018-06-17] MEDS: CUBICIN 350 MG in NS 100 ML IV SCH (21:47)
[2018-06-18] MEDS: SOLU-MEDROL IV SCH ×5 (00:43→21:26)
[2018-06-18] MEDS: CALTRATE 600 + D PEG SCH ×3 (02:39→21:35)
[2018-06-18] MEDS: COLACE LIQUID PO SCH ×2 (02:40→21:35)
[2018-06-18] MEDS: LACTULOSE PEG SCH ×3 (02:42→21:36)
[2018-06-18] MEDS: LOPRESSOR PEG SCH ×3 (02:42→21:36)
[2018-06-18] MEDS: MORPHINE IV PRN ×5 (02:51→16:02)
[2018-06-18] MEDS: XOPENEX NEB INH SCH ×6 (03:11→23:28)
[2018-06-18] MEDS: ATIVAN IV PRN ×4 (03:44→16:02)
[2018-06-18] MEDS: DURAGESIC 12 MICROGM/HR PATCH TD SCH (06:57)
[2018-06-18] MEDS: HUMALOG SUBQ SCH ×3 (07:05→16:01)
--- NOTE | 2018-06-18 07:05 | PROGRESS NOTE ---
DATE: 06/18/2018 SUBJECTIVE: Ms. Morris is not doing well. The patient does have respiratory distress at times, tachy arrhythmia. Appreciate Dr. Hill's help managing patient. The patient was started on Solu- Medrol. We are tapering the dose. Because of possible stridor, I did CT scan of soft tissue of the neck and chest. The result reviewed which revealed left thyroid mass and sinusitis. CT scan of the chest result also reviewed. I had a lengthy discussion with the patient's granddaughter on 06/16. She was not ready at that time for hospice or comfort care though she was in agreement for DNR1. Patient had NG tube placed yesterday. She had 60 mL aspirate from NG tube. It did not deflate her stomach. I am going to discontinue the NG tube. I think it is increasing her discomfort. OBJECTIVE: Patient is afebrile. Heart rate 117, blood pressure 120/85, and temperature 98 degrees. Neck is supple. No JVD. Lungs: Decreased air entry in both bases. CVS: S1 and S2. Tachycardia. Abdomen: Soft, globular. Bowel sounds present. Cellulitis seems to be getting better EDI PROGRAMMER: Alert and awake. Able to move all 4 limbs. Patient does have expressive aphasia and dysphagia. ASSESSMENT AND PLAN: The patient does have multiple complex problems including cellulitis of the abdominal wall, cerebrovascular accident with expressive aphasia and dysphagia, and pneumonia. New problems include thyroid mass possible malignancy, lung mass, renal cell cancer, and possible aspiration bronchospasm, her age and CVA. My plan is to keep the patient comfortable. Consider [facility] if family is in agreement. I am going to talk to granddaughter again if they are in agreement. Meanwhile, we will continue current treatment. Overall prognosis fair to guarded. The patient is not ready to go to LTAC yet. cc: Remington Lane MD
[2018-06-18 08:24] LABS: CALCIUM 9.1 mg/dL (8.8-10.2); CREATININE 0.9 mg/dL (0.5-0.9); MAGNESIUM 2.7 mg/dL (1.5-2.7); PHOSPHORUS 3.4 mg/dL (2.7-4.5); POTASSIUM 4.8 mmol/L (3.5-5.1); PREALBUMIN 13.2 mg/dL (20-40)
[2018-06-18] MEDS: NS NEB INH SCH ×3 (08:28→15:22)
[2018-06-18] MEDS: COZAAR PEG SCH (09:29)
[2018-06-18] MEDS: ASPIRIN PEG SCH (09:29)
[2018-06-18] MEDS: LOVENOX SUBQ SCH (09:33)
[2018-06-18] MEDS: LANOXIN IV SCH (09:33)
[2018-06-18] MEDS: ZOLOFT PEG SCH (09:34)
[2018-06-18] MEDS: PROTONIX IV SCH (09:34)
[2018-06-18] MEDS: EXELON 9.5MG/24HRS TD SCH (09:34)
[2018-06-18] MEDS: SSD CREAM TOP SCH ×2 (09:35→21:36)
[2018-06-18] MEDS: S2 RACEPINEPHRINE 2.25% INH PRN (10:02)
[2018-06-18] MEDS ORDERED: TPN ELECTROLYTES 20 ML, MAGNESIUM SULFATE 4 MEQ, POTASSIUM CHLORIDE 10 MEQ, POTASSIUM P... IV SCH ×16 (12:27→15:00)
[2018-06-18] MEDS: DIFLUCAN 200 MG/NS 200 MG/100 ML IVPB IV SCH (15:00)
[2018-06-18] MEDS: LIPOSYN 20% 250 ML IV SCH (15:00)
[2018-06-18] MEDS ORDERED: VANCOMYCIN IV PER PHARMACY MISC SCH (16:15)
[2018-06-18] MEDS ORDERED: VANCOMYCIN 1,500 MG in NS 250 ML IV ONE (18:00)
--- NOTE | 2018-06-18 18:04 | INFECTIOUS DISEASE PROGRESS NO ---
DATE: 06/18/2018 PRESENT ILLNESS: Ms. Morris s being treated for a PEG tube infection which has grown a Klebsiella and Brianna albicans. There is also an enterococcal bacteremia and pneumonia as well, which was seen on CT of the chest. MEDICATIONS: She has been receiving daptomycin 350 mg IV daily and fluconazole 200 mg IV daily. PHYSICAL EXAMINATION: Vital Signs: Temperature is 97.9, pulse rate 79, respiratory rate 24, blood pressure 111/53, O2 sat is 98% on a 30% FiO2 on the BiPAP. General: This is an elderly, chronically ill appearing female. She is lying in the bed in mild to moderate respiratory distress on the BiPAP. HEENT: Atraumatic, normocephalic. Oral mucous membranes are not visible. Conjunctiva are pale. Cardiovascular: Heart rate and rhythm are regular. Normal sinus rhythm on the monitor. Respiratory: Lung sounds have some coarse wheezes and rhonchi bilaterally; diminished in the bases. Use of accessory muscles for respiration with dyspnea note. Abdomen: Soft, round, and has a clean, dry dressing in place to the mid epigastric area where the PEG tube has been removed. Integumentary: There is a PICC line in place to her right upper arm. The site is without edema, erythema or drainage. Neurologic: She is combative, opening her eyes, but not following commands. LABORATORY AND X-RAY: None today, but yesterday her white count was 18.24, hemoglobin 11.4, platelet count 211,000 with ABGs showing a pH of 7.42, pCO2 42, PO2 99, HC03 26.8. Today her creatinine is 0.9, GFR is 59. AST is 52. Creatine kinase yesterday was 348. Chest x-ray yesterday showed subsegmental atelectasis at the lung bases which has decreased. ASSESSMENT AND PLAN: Ms. Morris is having respiratory distress most likely due to pneumonia. She needs broad-spectrum coverage so we will order IV vancomycin per pharmacy dosing and put her back on aztreonam 1 g IV every 8 hours. There is also a candidal infection and Klebsiella to her abdomen. The aztreonam will cover the Klebsiella, but she is also receiving fluconazole which we will continue. Because her creatine kinase is elevated, we will stop the daptomycin. These plans have been discussed with and recommended by Dr. Flannery. COMORBIDITIES: For Ms. Morris include that she is elderly, with a history of stroke, vascular dementia, bipolar disease, and renal cell carcinoma. Dictated by LANA Montanez for Fuentes Flannery MD cc: MD Remington Shelton MD MTDD
[2018-06-18] MEDS: AZACTAM 1 GM in NS 50 ML IV SCH (18:09)
[2018-06-18] MEDS ORDERED: LANOXIN IV ONE (19:42)
--- NOTE | 2018-06-18 20:04 | PROGRESS NOTE ---
DATE: 06/18/2018 SUBJECTIVE: The patient is on BiPAP and in moderate respiratory distress. She is aphasic. She has manifest atrial fibrillation with rapid ventricular rate. OBJECTIVE: Blood pressure 111/53, heart rate 79, oxygen saturation 98% on BiPAP.Chest: Auscultation of chest reveals scattered expiratory wheezes. Cardiac: Reveals a irregular rate and rhythm without appreciable murmur or gallop. Extremities: Cool. There is mild peripheral edema. LABORATORY DATA: Includes sodium 136, potassium 4.8, chloride 98, carbon dioxide 28, BUN 63, creatinine 0.9, glucose 209, albumin 2.8 on June 16. IMPRESSION: 1. Persistent atrial fibrillation with rapid ventricular rate. 2. Multiple infections ongoing with percutaneous endoscopic gastrostomy tube infection, enterococcal bacteremia and pneumoniae. I suspect the acuity of her illness is helping drive up her heart rate. 3. Status post previous cerebrovascular accident with significant debility. 4. 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 5. Paroxysmal atrial fibrillation in the past. 6. Dementia. 7. Hypertension. RECOMMENDATIONS: 1. Continue metoprolol. 2. Supplement digoxin. 3. Ultimately may consider amiodarone. However patient's current antibiotic regimen conflicts with amiodarone. cc: MD Remington Lomeli MD
[2018-06-18] MEDS: DULCOLAX PR SCH (21:35)
[2018-06-19] MEDS: HUMALOG SUBQ SCH ×5 (00:37→23:21)
[2018-06-19] MEDS: SODIUM CHLORIDE 0.9% INJ SCH ×3 (02:09→22:39)
[2018-06-19] MEDS: PROTONIX IV SCH ×3 (02:09→22:40)
[2018-06-19] MEDS: AZACTAM 1 GM in NS 50 ML IV SCH ×3 (02:09→16:49)
[2018-06-19] MEDS: SOLU-MEDROL IV SCH ×6 (02:09→23:21)
[2018-06-19] MEDS: XOPENEX NEB INH SCH ×5 (03:10→19:43)
[2018-06-19 05:45] LABS: ALLEN TEST YES; BE 5.5 mmoll (-3.0-3.0); BLOOD TYPE ARTERIAL; HCO3-(ACT) 29.2 mmoll (20.0-26.0); O2HB 95.4 % (95.0-99.0); PCO2(98.6) 36 mmHg (35-45); PO2(98.6) 76 mmHg (60-100); SAMPLE BLOOD; SAO2 97.7 % (95.0-100.0); THB 10.4 g/dL (11.5-17.4); pH(98.6) 7.51 (7.35-7.45)
[2018-06-19 05:47] LABS: MODALITY BI PAP
[2018-06-19] MEDS: NS NEB INH SCH ×3 (08:09→15:40)
[2018-06-19 08:42] LABS: CALCIUM 9.6 mg/dL (8.8-10.2); CREATININE 0.9 mg/dL (0.5-0.9); MAGNESIUM 2.7 mg/dL (1.5-2.7); PHOSPHORUS 3.2 mg/dL (2.7-4.5); POTASSIUM 5.8 mmol/L (3.5-5.1)
[2018-06-19] MEDS: LOVENOX SUBQ SCH (09:47)
[2018-06-19] MEDS: LANOXIN IV SCH (09:47)
[2018-06-19] MEDS: EXELON 9.5MG/24HRS TD SCH (09:47)
[2018-06-19] MEDS: COZAAR PEG SCH (09:48)
[2018-06-19] MEDS: ASPIRIN PEG SCH (09:48)
[2018-06-19] MEDS: CALTRATE 600 + D PEG SCH ×2 (09:48→22:43)
[2018-06-19] MEDS: LACTULOSE PEG SCH ×2 (09:49→22:45)
[2018-06-19] MEDS: LOPRESSOR PEG SCH ×2 (09:49→22:44)
[2018-06-19] MEDS: SSD CREAM TOP SCH ×2 (09:49→22:43)
[2018-06-19] MEDS: MORPHINE IV PRN ×3 (09:50→22:39)
[2018-06-19] MEDS: ZOLOFT PEG SCH (09:50)
--- NOTE | 2018-06-19 13:08 | PROGRESS NOTE ---
DATE: 06/19/2018 SUBJECTIVE: This is an 88-year-old white female who was admitted to the hospital on 06/03/2018. Multiple medical problems. She is a poor historian, complex history. Cellulitis of abdominal wall. PEG was taken out. She had a stroke with expressive aphasia, on BiPAP machine. Most of the history was obtained from the previous reports. PAST MEDICAL HISTORY: Reviewed. PAST SURGICAL HISTORY: Reviewed. MEDICATIONS: Reviewed. ALLERGIES: Penicillin. REVIEW OF SYSTEMS: Not able to obtain since she is on BiPAP. OBJECTIVE: Temperature is 98.1, pulse is 83, blood pressure 156/81, on BiPAP 100%. Rhonchi bilaterally. Distant heart sounds. Belly is soft. Abdominal wound dressing noted. PICC line on the right side. Diapers with a Manuel. Extremities: No peripheral edema. DIAGNOSTIC DATA: ABG shows pH is 7.51, pCO2 is 36, pO2 is 76 on 29.2 BiPAP machine, FiO2 of 30%. Sodium is 138, potassium 5.8, chloride 101, BUN is 66, creatinine 0.9, glucose 170. Prealbumin 13.2. Repeat blood culture on 06/08/2018 were negative. Abdominal wound reported Klebsiella, jm. Initial blood cultures with enterococci. ASSESSMENT AND PLAN: 1. Abdominal cellulitis with Klebsiella sepsis. IV vancomycin. Aztreonam 1 g q.8. 2. Acute respiratory failure on BiPAP, currently on IV prednisone 30 mg q.6, bronchodilators. 3. Cerebrovascular accident with vascular dementia, on Exelon patch. 4. Nutrition through the IV TPN. 5. DVT prophylaxis with Lovenox. 6. GI prophylaxis with IV Protonix. 7. Klebsiella and jm albicans from the cellulitis. Also receiving now fluconazole 200 IV daily and daptomycin 300 IV daily. 8. Atrial fibrillation. Status post CVA. As per Dr. Guzman, just giving digoxin. Prognosis is poor. Living will is DNR. Continue present treatment. Dr. Lane is planning to go disposition with LTAC in the future. Level of documentation is 35 minutes. cc: MD Remington Da Silva MD [facility]
[2018-06-19] MEDS: DIFLUCAN 200 MG/NS 200 MG/100 ML IVPB IV SCH (13:33)
[2018-06-19] MEDS: LIPOSYN 20% 250 ML IV SCH (13:33)
[2018-06-19] MEDS: ATIVAN IV PRN ×2 (13:44→23:06)
[2018-06-19] MEDS: [UNRECOGNIZED DRUG - OTHER] IV SCH ×7 (16:52)
[2018-06-19] MEDS: POTASSIUM PHOSPHATE IV SCH ×7 (16:52)
[2018-06-19] MEDS: MAGNESIUM SULFATE IV SCH ×7 (16:52)
[2018-06-19] MEDS: TPN ELECTROLYTES IV SCH ×7 (16:52)
[2018-06-19] MEDS: DULCOLAX PR SCH (22:45)
[2018-06-19] MEDS: COLACE LIQUID PO SCH (22:45)
[2018-06-20] MEDS: AZACTAM 1 GM in NS 50 ML IV SCH ×3 (00:21→17:32)
[2018-06-20] MEDS: XOPENEX NEB INH SCH ×7 (03:10→23:20)
[2018-06-20] MEDS: MORPHINE IV PRN (04:29)
[2018-06-20] MEDS: SOLU-MEDROL IV SCH ×3 (05:01→18:25)
[2018-06-20 06:34] LABS: ALLEN TEST YES; BE 7.7 mmoll (-3.0-3.0); BLOOD TYPE ARTERIAL; HCO3-(ACT) 30.9 mmoll (20.0-26.0); METHB 1.1 % (0.0-1.5); O2HB 96.9 % (95.0-99.0); PCO2(98.6) 37 mmHg (35-45); PO2(98.6) 132 mmHg (60-100); SAMPLE BLOOD; SAO2 99.2 % (95.0-100.0); THB 10.1 g/dL (11.5-17.4); pH(98.6) 7.53 (7.35-7.45)
[2018-06-20 06:36] LABS: MODALITY COOL AEROSOL
[2018-06-20] MEDS: HUMALOG SUBQ SCH ×4 (06:36→21:55)
[2018-06-20 07:48] LABS: ALB/GLOB RATIO 0.9; ALBUMIN 2.7 g/dL (3.5-5.0); DIRECT BILIRUBIN 0.1 mg/dL (0.00-0.20); TOTAL BILIRUBIN 0.22 mg/dL (0.20-1.00); TOTAL PROTEIN 5.7 g/dL (6.3-8.3)
[2018-06-20 07:54] LABS: CALCIUM 9.2 mg/dL (8.8-10.2); CREATININE 0.9 mg/dL (0.5-0.9); MAGNESIUM 2.7 mg/dL (1.5-2.7); PHOSPHORUS 3.8 mg/dL (2.7-4.5); POTASSIUM 5.9 mmol/L (3.5-5.1)
[2018-06-20] MEDS ORDERED: LASIX IV ONE (08:22)
[2018-06-20] MEDS: NS NEB INH SCH ×2 (08:24→16:01)
[2018-06-20] MEDS: EXELON 9.5MG/24HRS TD SCH (08:33)
[2018-06-20] MEDS: SODIUM CHLORIDE 0.9% INJ SCH (08:33)
[2018-06-20] MEDS: LOVENOX SUBQ SCH (08:33)
[2018-06-20] MEDS: LANOXIN IV SCH (08:33)
[2018-06-20] MEDS: PROTONIX IV SCH ×2 (08:33→21:59)
[2018-06-20] MEDS: ASPIRIN PEG SCH (08:39)
[2018-06-20] MEDS ORDERED: LASIX ONE (08:39)
[2018-06-20] MEDS: LACTULOSE PEG SCH ×2 (08:39→20:10)
[2018-06-20] MEDS: CALTRATE 600 + D PEG SCH ×2 (08:40→20:09)
[2018-06-20] MEDS: LOPRESSOR PEG SCH ×2 (08:40→20:10)
[2018-06-20] MEDS: COZAAR PEG SCH (08:40)
[2018-06-20] MEDS: ZOLOFT PEG SCH (08:40)
[2018-06-20 08:56] LABS: ALLEN TEST YES; BE 7.2 mmoll (-3.0-3.0); BLOOD TYPE ARTERIAL; HCO3-(ACT) 30.5 mmoll (20.0-26.0); METHB 1.1 % (0.0-1.5); O2(CT) 14.8 mL/dL (15.0-23.0); O2HB 93.9 % (95.0-99.0); PCO2(98.6) 41 mmHg (35-45); PO2(98.6) 67 mmHg (60-100); SAMPLE BLOOD; SAO2 96.1 % (95.0-100.0); THB 11.2 g/dL (11.5-17.4); pH(98.6) 7.49 (7.35-7.45)
[2018-06-20 08:57] LABS: MODALITY COOL AEROSOL
--- NOTE | 2018-06-20 10:42 | Diag Imaging Result Doc PS360 ---
EXAM: CHEST-1 VIEW HISTORY: pulmonary congestion TECHNIQUE: Chest single view COMPARISON: 06/17/2018 FINDINGS: Poor inspiratory effort. No change in the right-sided PICC line. Heart is enlarged. There is pulmonary edema. There is also atelectasis versus in the right base. There may be an underlying infiltrate as well. There is a small right pleural effusion. IMPRESSION: 1.Pulmonary edema with cardiomegaly and a small right pleural effusion 2.Right basilar atelectasis. There may be an underlying infiltrate as well. Electronically signed by Porfirio Houser 06/20/2018 10:39 AM
[2018-06-20] MEDS: DIFLUCAN 200 MG/NS 200 MG/100 ML IVPB IV SCH (12:22)
--- NOTE | 2018-06-20 14:02 | PROGRESS NOTE ---
DATE: 06/20/2018 SUBJECTIVE: The patient is doing very poor and she is agitated. She is still in moderate respiratory distress, on a Ventimask. The patient is obtunded and she is congested. REVIEW OF SYSTEMS: None reported. PHYSICAL EXAMINATION: Vital Signs: Temperature is 96 degrees, heart rate 105, blood pressure 174/93, 6 L nasal cannula. Rhonchi on both sides. Very distant heart sounds. Belly is soft. Abdominal bandage was applied. Extremities: No peripheral edema. No obvious deficits. INVESTIGATIONS: Repeat blood cultures are negative. Abdominal wound abscess with Klebsiella and Brianna. Blood cultures initially, group B Enterococcus faecalis. Chest x-ray, worsening pulmonary edema, right pleural effusion, atelectasis, possible pneumonia in the right lung. She had a PICC line on the right side, getting TPN. ASSESSMENT AND PLAN: 1. Acute respiratory failure, volume overload, plus or minus pneumonia, aspiration. Plan of care is intravenous Lasix, was given. 2. Nutrition through the intravenous total parenteral nutrition. 3. Abdominal cellulitis with Klebsiella and Brianna. Currently on intravenous vancomycin, aztreonam, and fluconazole. 4. History of atrial fibrillation, status post cerebrovascular accident. Was getting digoxin. 5. Deep venous thrombosis prophylaxis with Lovenox. 6. Gastrointestinal prophylaxis with intravenous Protonix. 7. Enterococcal bacteremia, stable. With all the comorbid conditions, her prognosis is poor. 8. Deconditioning. 9. Living will, Do Not Resuscitate. Dr. Lane is going to follow up about the disposition LEVEL OF DOCUMENTATION: 25 minutes. cc: MD Remington Da Silva MD
[2018-06-20] MEDS: SSD CREAM TOP SCH ×2 (17:44→21:33)
[2018-06-20] MEDS: [UNRECOGNIZED DRUG - NUTRITION] IV SCH ×5 (18:24)
[2018-06-20] MEDS: LIPOSYN 20% 250 ML IV SCH (18:25)
[2018-06-20] MEDS: POTASSIUM PHOSPHATE IV SCH ×7 (18:26)
[2018-06-20] MEDS: [UNRECOGNIZED DRUG - OTHER] IV SCH ×7 (18:26)
[2018-06-20] MEDS: TPN ELECTROLYTES IV SCH ×7 (18:26)
[2018-06-20] MEDS: MAGNESIUM SULFATE IV SCH ×7 (18:26)
[2018-06-20] MEDS: VANCOMYCIN 1,150 MG in NS 250 ML IV SCH (18:26)
[2018-06-20] MEDS: COLACE LIQUID PO SCH (20:09)
[2018-06-20] MEDS: DULCOLAX PR SCH (20:10)
[2018-06-21] MEDS: AZACTAM 1 GM in NS 50 ML IV SCH ×3 (02:11→23:01)
[2018-06-21] MEDS: SOLU-MEDROL IV SCH ×4 (02:11→23:12)
[2018-06-21] MEDS: XOPENEX NEB INH SCH ×6 (03:10→22:50)
[2018-06-21 05:35] LABS: ALLEN TEST YES; BE 8.6 mmoll (-3.0-3.0); BLOOD TYPE ARTERIAL; HCO3-(ACT) 31.6 mmoll (20.0-26.0); METHB 0.5 % (0.0-1.5); O2(CT) 13.9 mL/dL (15.0-23.0); O2HB 94.1 % (95.0-99.0); PCO2(98.6) 43 mmHg (35-45); PO2(98.6) 66 mmHg (60-100); SAMPLE BLOOD; SAO2 97.7 % (95.0-100.0); THB 10.5 g/dL (11.5-17.4); pH(98.6) 7.49 (7.35-7.45)
[2018-06-21 05:36] LABS: MODALITY COOL AEROSOL
[2018-06-21] MEDS: DURAGESIC 12 MICROGM/HR PATCH TD SCH (05:45)
[2018-06-21] MEDS: HUMALOG SUBQ SCH ×5 (05:46→23:11)
--- NOTE | 2018-06-21 06:35 | PROGRESS NOTE ---
DATE: 06/21/2018 SUBJECTIVE: Ms. Morris is doing fair. No high-grade fever or chills. The patient is not communicating. Her breathing is variable. Chest x-ray showing pulmonary edema. Atelectasis versus pneumonia. We are doing IV nutrition, IV antibiotics, pulmonary toilet and bronchodilator treatment. PHYSICAL EXAMINATION: Her vital signs noted.Neck: Supple. No JVD. Respiratory: Decreased air entry both the bases. CVS: S1 and S2. Tachycardia. Abdomen: Soft, globular. Bowel sounds present. SURG NURSE: Alert, awake. Uncooperative for detailed exam. The patient does have expressive aphasia. LABORATORY DATA: Done yesterday noted. I am going to check appropriate labs. ASSESSMENT AND PLAN: The patient does have multiple medical problems, including possible aspiration pneumonia, atrial fibrillation, CVA, abdominal wall cellulitis and pleural effusion. Continue current treatment and close observation. Overall prognosis fair to guarded. Family is aware of the prognosis. cc: Remington Lane MD
[2018-06-21 06:36] LABS: AGAP 10; ALB/GLOB RATIO 1.2; ALBUMIN 2.7 g/dL (3.5-5.0); BUN 51 mg/dL (8-22); CALCIUM 9.2 mg/dL (8.8-10.2); CHLORIDE 103 mmol/L (98-107); COSMO 303; CREATININE 0.8 mg/dL (0.5-0.9); DIRECT BILIRUBIN 0.1 mg/dL (0.00-0.20); ESTIMATED GFR > 60; GLUCOSE 204 mg/dL (70-104); MAGNESIUM 2.4 mg/dL (1.5-2.7); PHOSPHORUS 3.1 mg/dL (2.7-4.5); POTASSIUM 4.2 mmol/L (3.5-5.1); SODIUM 142 mmol/L (136-145); TCO2 29 mmol/L (25-35); TOTAL BILIRUBIN 0.2 mg/dL (0.20-1.00); TOTAL PROTEIN 4.9 g/dL (6.3-8.3)
[2018-06-21] MEDS: NS NEB INH SCH ×2 (08:17→15:22)
[2018-06-21] MEDS: MORPHINE IV PRN ×5 (09:03→18:21)
[2018-06-21] MEDS: ATIVAN IV PRN ×5 (09:03→18:21)
[2018-06-21] MEDS: SODIUM CHLORIDE 0.9% INJ SCH (09:16)
[2018-06-21] MEDS: PROTONIX IV SCH ×2 (09:16→23:08)
[2018-06-21] MEDS: EXELON 9.5MG/24HRS TD SCH (09:17)
[2018-06-21] MEDS: LOVENOX SUBQ SCH (09:17)
[2018-06-21] MEDS: COZAAR PEG SCH (09:18)
[2018-06-21] MEDS: ASPIRIN PEG SCH (09:18)
[2018-06-21] MEDS: CALTRATE 600 + D PEG SCH ×2 (09:18→23:05)
[2018-06-21] MEDS: LACTULOSE PEG SCH ×2 (09:18→23:06)
[2018-06-21] MEDS: LOPRESSOR PEG SCH ×2 (09:22→23:06)
[2018-06-21] MEDS: ZOLOFT PEG SCH (09:22)
[2018-06-21] MEDS: SSD CREAM TOP SCH ×2 (09:22→23:06)
[2018-06-21] MEDS: LANOXIN IV SCH (09:34)
--- NOTE | 2018-06-21 11:13 | GASTROENTEROLOGY PROGRESS NOTE ---
DATE: 06/21/2018 SUBJECTIVE: Patient resting in bed. She is tachypneic. She is drowsy. She is dealing with pneumonia and respiratory failure. She is on a face mask. She has been on antibiotics per the ID team. OBJECTIVE: Vital signs: Temperature of 98.9 degrees, pulse of 91, respiratory blood pressure 149/77, saturating 95% on face mask. General Appearance: Moderately built, moderately nourished, lying in bed, currently tachypneic. HEENT: Positive pallor. No icterus. Face mask in place. Neck: Supple. Abdomen: Dressing in place. I removed the dressing. She continues to have erythema and excoriations at the prior PEG tube site. She has abdominal wall cellulitis. Extremities: No cyanosis, clubbing. Neurologic: She is nonverbal. She opens her eyes but she is tachypneic, in respiratory distress. LABS: Her ABG showing pH 7.49, pCO2 43, PO2 66. This is on 28% FiO2. Sodium 140, potassium 4.2, chloride 103, bicarb 29, anion gap 10, BUN of 15, creatinine 0.8, glucose of 204, calcium 9.2, phosphorus 3.1, magnesium 2.4. Total bilirubin is 0.2, AST 43, ALT 18, alkaline phosphatase 62, total protein 4.8, albumin of 2.7. IMPRESSION/PLAN: 1. Abdominal wall cellulitis. She is undergoing treatment per Dr. Flannery. She is on aztreonam, fluconazole and topical silver sulfadiazine cream and vancomycin. 2. Gastrointestinal prophylaxis proton pump inhibitor. 3. Pneumonia respiratory distress being treated by Pulmonary team and the primary team and ID team. She is on antibiotics. 4. Malnutrition. She is on total parenteral nutrition. 5. Renal masses, aware. 6. Two atrial fibrillation, aware. 7. 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 Aware. 8. Living will, do not resuscitate. 9. The above plan of care was discussed with the patient's nurse at bedside. All questions answered. Please call us with any further questions. cc: MD Remington Martinez MD
[2018-06-21] MEDS: LIPOSYN 20% 250 ML IV SCH (16:19)
[2018-06-21] MEDS: DIFLUCAN 200 MG/NS 200 MG/100 ML IVPB IV SCH (16:25)
--- NOTE | 2018-06-21 17:15 | INFECTIOUS DISEASE PROGRESS NO ---
DATE: 06/21/2018 PRESENT ILLNESS: Ms. Morris is being treated for a gastrostomy tube infection with Klebsiella and Brianna albicans growing. There is also an enterococcal bacteremia as well as a pneumonia. MEDICATIONS: She is receiving aztreonam 1 g IV every 8 hours, fluconazole 200 mg IV daily, and vancomycin IV per Pharmacy dosing. PHYSICAL EXAMINATION: Vital Signs: Temperature is 98.6 degrees, pulse rate 72, respiratory rate 15, blood pressure 127/82, O2 saturation is 100% on a face mask. General: This is a chronically ill-appearing elderly female. She is lying in the bed in mild respiratory distress. HEENT: Atraumatic, normocephalic. Oral mucous membranes cannot be visualized. Conjunctivae are pale. Respiratory: Lung sounds are tight with wheezes noted bilaterally, diminished in the bases. The patient is breathing using accessory muscles and is clearly dyspneic. Cardiovascular: Heart rate is regular. Abdomen is soft, round. There is a dressing in place. The PEG tube site continues to have erythema and some purulent brown drainage noted to the dressing. She has a PICC in place to the right upper arm. That site is without edema or erythema. There is some bruising and to the site. Neurologic: She is not responding or opening her eyes at this time.She is having regular administration of sedation due to her labored respirations. DIAGNOSTIC STUDIES: Today her ABGs show a pH of 7.49, pCO2 of 43, PO2 of 66, HCO3 of 31.6. Creatinine is 0.8, estimated GFR is greater than 60, AST 43, ALT 18, alkaline phosphatase 62. No imaging reports today. Yesterday, her chest x-ray showed right basilar atelectasis with a possible underlying infiltrate and pulmonary edema with cardiomegaly. ASSESSMENT AND PLAN: Ms Morris has a percutaneous endoscopic gastrostomy tube site infection, an enterococcal bacteremia, and pneumonia. At this point, she is not doing well. We will, however, continue to give her IV vancomycin, aztreonam, and fluconazole which we plan to continue for the next 5 days. These plans have been discussed with and recommended by Dr. Flannery. COMORBIDITIES: For Ms. Morris include: 1. She is elderly. 2. Vascular dementia. 3. History of stroke. 4. Bipolar disorder. 5. Renal cell carcinoma. Dictated by LANA Montanez for Fuentes Flannery MD cc: MD Remington Shelton MD MTDD
[2018-06-21] MEDS: [UNRECOGNIZED DRUG - NUTRITION] IV SCH ×5 (18:16)
--- NOTE | 2018-06-21 18:22 | PULMONOLOGY PROGRESS NOTE ---
DATE: 06/21/2018 SUBJECTIVE: The patient does not communicate. She has mild work of breathing. The patient has been afebrile for the last 24 hours. OBJECTIVE: Blood pressure 127/82, heart rate 72, respiratory rate 15, oxygen saturation 100%. HEENT: Pupils are equal and reactive. Oropharynx appears clear, but evaluation is limited. Neck is supple. Chest reveals expiratory wheezing bilaterally. Abdomen is soft with positive bowel sounds. Extremities with chronic edema. DIAGNOSTIC STUDIES: No new microbiology data. Sodium 142, potassium 4.2, chloride 103, bicarbonate 29, BUN 51, creatinine 0.8. IMPRESSION: An 88-year-old with: 1. Aspiration pneumonia. 2. Bronchospasm and wheezing. 3. Hypoxemic respiratory failure. 4. Abdominal wall cellulitis. 5. Prior stroke with dysphagia. 6. Prior enterococcal bacteremia. DISCUSSION: An 88-year-old with multiple problems as outlined above. Her prognosis is relatively poor. Potential for rehabilitation is very poor. RECOMMENDATION: 1. Continue current treatment regimen. 2. Discussed with Dr. Lane. LTAC being considered, but she does appear to be a good candidate for hospice. cc: MD Remington Brown MD
[2018-06-21] MEDS: COLACE LIQUID PO SCH (23:05)
[2018-06-21] MEDS: DULCOLAX PR SCH (23:05)
[2018-06-22] MEDS: AZACTAM 1 GM in NS 50 ML IV SCH ×3 (02:00→18:23)
[2018-06-22] MEDS: MORPHINE IV PRN (03:12)
[2018-06-22] MEDS: ATIVAN IV PRN (03:12)
[2018-06-22] MEDS: XOPENEX NEB INH SCH ×6 (03:40→23:15)
[2018-06-22 05:16] LABS: ALLEN TEST YES; BE 8.8 mmoll (-3.0-3.0); BLOOD TYPE ARTERIAL; HCO3-(ACT) 31.7 mmoll (20.0-26.0); PO2(98.6) 66 mmHg (60-100); SAMPLE BLOOD; pH(98.6) 7.44 (7.35-7.45)
[2018-06-22 05:19] LABS: MODALITY COOL AEROSOL; PCO2(98.6) 51 mmHg (35-45)
[2018-06-22] MEDS: SOLU-MEDROL IV SCH ×3 (06:11→22:50)
[2018-06-22] MEDS: CATAPRES-TTS-2 TD SCH (06:12)
[2018-06-22] MEDS: HUMALOG SUBQ SCH ×4 (06:12→23:04)
--- NOTE | 2018-06-22 06:36 | PROGRESS NOTE ---
DATE: 06/22/2018 SUBJECTIVE: Ms. Morris is doing fair. No high-grade fever or chills. The patient does have at times respiratory distress. The patient is on TPN. At times her respiratory secretion is bloody. No nausea or vomiting. Blood gas did reveal elevated pCO2. Electrolytes done yesterday BUN was 51, creatinine 0.8. CBC last done on result reviewed which revealed leukocytosis. I did leave a message for the granddaughter to call me yesterday to discuss about discharge planning, but I have not heard from her. The patient is aphasic. Discussed with Dr. Hill about her condition and discharge planning. OBJECTIVE: Vital signs: Noted. Neck: Is supple. Lungs: Bibasilar crepitations. HEART: Heart S1 and S2 heard. Abdomen: Soft, globular. Bowel sounds present. COUNTRY DIRECTOR: Alert, awake. Uncooperative for detailed exam. Her wound seems to be improving. Drainage is less. CONSIDERATION: Cellulitis of the abdominal wall clinically getting better. Her other problems includes paroxysmal atrial fibrillation, CVA, thyroid mass, abnormal lung CT scan, possible renal cell tumor. I am going to discuss with her granddaughter and then make the final decision about discharge to LTAC versus hospice. cc: Remington Lane MD
--- NOTE | 2018-06-22 07:26 | PROGRESS NOTE ---
DATE: 06/22/2018 ADDENDUM: I was able to talk to patient's granddaughter, Jovanna, about the patient's condition. Discussed about poor prognosis, different treatment options including comfort care, hospice versus continuing current treatment. The granddaughter wants to think it over and then she will let me know. I also explained about my thinking about the patient's condition. At this stage I think comfort care and hospice is better option but whatever they all decide will respect their wishes. The patient will think over and she will let me know and we will respect the family's wishes. cc: Remington Lane MD
[2018-06-22 07:30] LABS: AGAP 8; BUN 45 mg/dL (8-22); CALCIUM 9.5 mg/dL (8.8-10.2); CHLORIDE 103 mmol/L (98-107); COSMO 298; CREATININE 0.7 mg/dL (0.5-0.9); ESTIMATED GFR > 60; GLUCOSE 187 mg/dL (70-104); MAGNESIUM 2.3 mg/dL (1.5-2.7); PHOSPHORUS 2.6 mg/dL (2.7-4.5); POTASSIUM 4.4 mmol/L (3.5-5.1); SODIUM 141 mmol/L (136-145); TCO2 30 mmol/L (25-35)
[2018-06-22] MEDS: LANOXIN IV SCH (10:10)
[2018-06-22] MEDS: SSD CREAM TOP SCH ×2 (10:30→22:52)
[2018-06-22] MEDS: ASPIRIN PEG SCH (10:33)
[2018-06-22] MEDS: CALTRATE 600 + D PEG SCH ×2 (10:34→22:52)
[2018-06-22] MEDS: PROTONIX IV SCH ×2 (10:35→22:50)
[2018-06-22] MEDS: EXELON 9.5MG/24HRS TD SCH (10:35)
[2018-06-22] MEDS: ZOLOFT PEG SCH (10:35)
[2018-06-22] MEDS: LOPRESSOR PEG SCH ×2 (10:36→22:53)
[2018-06-22] MEDS: COZAAR PEG SCH (10:38)
[2018-06-22] MEDS: LOVENOX SUBQ SCH (10:40)
[2018-06-22] MEDS: LACTULOSE PEG SCH ×2 (11:19→22:53)
[2018-06-22] MEDS: DIFLUCAN 200 MG/NS 200 MG/100 ML IVPB IV SCH ×2 (15:30→16:57)
--- NOTE | 2018-06-22 16:13 | INFECTIOUS DISEASE PROGRESS NO ---
DATE: 06/22/2018 PRESENT ILLNESS: The patient has the following infections: 1. Gastrostomy tube site infection with Klebsiella and Brianna. 2. Enterococcal bacteremia. 3. Possible right lower lobe infiltrate suggestive of pneumonia. MEDICATIONS: The patient has been receiving aztreonam for 4 days, fluconazole for 12 days, and vancomycin for 4 days. PHYSICAL EXAMINATION: Vital Signs: Temperature is 97.2 degrees, pulse 87 respirations 14, blood pressure 149/94. General: This is an ill-appearing elderly female. She appears to be very uncomfortable. Head, Eyes, Ears, Nose, and Throat: No drainage was noted from the nose or the ears. Neck: I moved the neck, and it did not seem to bother the patient more. Lungs: Clear to auscultation. Cardiovascular: Heart rate is regular. Abdomen: Has bile pouring out the prior gastrostomy tube site and the abdominal wall, where the bile is, is erythematous. Extremities: Patient has a PICC in her right arm. The site is not erythematous or purulent. Neurologic: The patient did not respond to verbal stimuli. She did not move her extremities while I was examining her. DIAGNOSTIC STUDIES: Chest x-ray shows possible infiltrate versus atelectasis. Blood gases show a pH of 7.44, a pO2 of 66, and a pCO2 of 51. Creatinine is 0.7, GFR is greater than 60. ASSESSMENT AND PLAN: The patient has the infections listed above, namely: 1. Gastrostomy tube site infection. 2. Enterococcal bacteremia. 3. Possible pneumonia. My plan is to continue the current antibiotics. I discussed the patient's case with Dr. Lane and Dr. Xiong. Dr. Xiong plans to put a nasogastric tube down the patient in hopes of the diverting some of the bile from coming out on the abdominal wall. PATIENT'S COMORBIDITIES: Include: 1. Elderly. 2. Vascular dementia. 3. Stroke. 4. Bipolar disorder. 5. Renal cell carcinoma. cc: MD Remington Shelton MD MTDD
[2018-06-22] MEDS: VANCOMYCIN 1,150 MG in NS 250 ML IV SCH (19:30)
[2018-06-22] MEDS: SODIUM PHOSPHATE IV SCH ×6 (20:00)
[2018-06-22] MEDS: TPN ELECTROLYTES IV SCH ×6 (20:00)
[2018-06-22] MEDS: M V I IV SCH ×6 (20:00)
[2018-06-22] MEDS: [UNRECOGNIZED DRUG - OTHER] IV SCH ×6 (20:00)
[2018-06-22] MEDS: LIPOSYN 20% 250 ML IV SCH (20:05)
--- NOTE | 2018-06-22 20:09 | PULMONOLOGY PROGRESS NOTE ---
DATE: 06/22/2018 SUBJECTIVE: The patient does not respond to voice. She has mild work of breathing. She has evidence of recent emesis on her hospital gown.HEENT: Pupils are equal. Oropharynx has residual bilious material present. Neck: Is supple. Chest: Reveals coarse rhonchi and wheezing bilaterally. Cardiac exam: S1-S2. Abdomen: Is soft. Extremities: Reveal trace edema. LABORATORIES: Sodium 141, potassium 4.4, chloride 103, bicarbonate 30, BUN 45, creatinine 0.7. IMPRESSION: 88-year-old with 1. Recurrent aspiration pneumonia with evidence of emesis today. 2. Ongoing bronchospasm and wheezing. 3. 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 4. Abdominal wall cellulitis. 5. Prior stroke with dysphagia. 6. Prior enterococcal bacteremia. PLAN: 1. Continue comfort measures. 2. Continue DNR level 1. 3. I agree with Dr. Lane's ongoing discussions with the granddaughter and hospice is recommended. cc: MD Remington Brown MD
[2018-06-22] MEDS: SODIUM CHLORIDE 0.9% INJ SCH (22:50)
[2018-06-22] MEDS: DULCOLAX PR SCH (22:53)
[2018-06-22] MEDS: COLACE LIQUID PO SCH (22:54)
[2018-06-23] MEDS: AZACTAM 1 GM in NS 50 ML IV SCH ×2 (00:58→08:33)
[2018-06-23] MEDS: MORPHINE IV PRN ×2 (02:03→14:53)
[2018-06-23] MEDS: XOPENEX NEB INH SCH ×6 (03:05→23:24)
[2018-06-23] MEDS: SSD CREAM TOP SCH ×2 (04:36→10:31)
[2018-06-23] MEDS: SOLU-MEDROL IV SCH ×3 (06:04→23:03)
[2018-06-23] MEDS: HUMALOG SUBQ SCH ×4 (06:04→23:05)
--- NOTE | 2018-06-23 07:11 | PROGRESS NOTE ---
DATE: 06/23/2018 SUBJECTIVE: Ms. Morris is doing fair. The patient seems to be, at times, struggling for breathing. Low-grade fever. Patient is getting TPN. Not able to communicate well. We are doing her medicine through IV, as patient is not able to swallow well. Dr. Flannery talked to regional sales coordinator about her the drainage from the PEG tube site. I did talk to her granddaughter yesterday. OBJECTIVE: Vital signs: Noted. Neck: Supple. No JVD. Lungs: Decreased air entry both the bases. CVS: S1 and S2 heard. Abdomen: Soft, globular. Bowel sounds hypoactive. TOOL REPAIRER BENCH: The patient is resting but arousable. LAB DATA: Pending. Last CBC did reveal leukocytosis. I am going to recheck CBC today along with the electrolytes. ASSESSMENT AND PLAN: 1. Cellulitis of the abdominal wall. 2. Acute kidney injury. 3. Paroxysmal atrial fibrillation. 4. History of cerebrovascular accident with expressive aphasia and dysphagia. I am going to repeat chest x-ray and abdominal x-ray, thyroid mass. Overall prognosis fair to guarded. Possibility of aspiration pneumonia cannot be ruled out. cc: Remington Lane MD
[2018-06-23 07:55] LABS: AGAP 9; ALBUMIN 2.6 g/dL (3.5-5.0); BASO% 1.1 % (0.0-0.8); BUN 38 mg/dL (8-22); CALCIUM 8.8 mg/dL (8.8-10.2); CHLORIDE 103 mmol/L (98-107); CHOLESTEROL 159 mg/dL (0-200); COSMO 296; CREATININE 0.6 mg/dL (0.5-0.9); ESTIMATED GFR > 60; GLUCOSE 199 mg/dL (70-104); GOT 32 U/L (10-30); HEMATOCRIT 35.8 % (37.0-47.0); HEMOGLOBIN 11.3 g/dL (12.0-16.0); IMM GRAN# 1.28 X1000 (0.0-0.04); IMM GRAN% 7.3 % (0.0-0.5); LYMPH# 1.18 X1000 (1.2-3.4); LYMPH% 6.7 % (20.5-51.1); MAGNESIUM 2.2 mg/dL (1.5-2.7); MCH 28.3 PG (27-31); MCHC 31.6 g/dL (33-37); MCV 89.7 FL (81-99); MONO# 1.28 X1000 (0.11-0.59); MONO% 7.3 % (1.7-9.3); MPV 11.7 FL (7.4-10.4); NEUT# 13.55 X1000 (1.4-6.5); NEUT% 77.6 % (42.2-75.2); PHOSPHORUS 2.8 mg/dL (2.7-4.5); PLT 289 X1000 (130-400); POTASSIUM 4.1 mmol/L (3.5-5.1); PREALBUMIN 20.1 mg/dL (20-40); RBC 3.99 XMIL (4.2-5.4); SODIUM 141 mmol/L (136-145); TCO2 29 mmol/L (25-35); TRIGLYCERIDES 212 mg/dL (35-135); WBC 17.49 X1000 (4.8-10.8)
--- NOTE | 2018-06-23 07:59 | Diag Imaging Result Doc PS360 ---
FLAT/UPRIGHT ABD/1 VIEW CHEST - 06/23/2018 INDICATION: wbc TECHNIQUE: COMPARISON: 06/20/2018 FINDINGS: Stable right PICC line. Stable severely low lung volumes. There has been decrease in the right lower lobe infiltrate. There is mild cardiomegaly stable from prior. There is a nonobstructive bowel gas pattern. No free air or abnormal calcifications. IMPRESSION: Decrease in the right lower lobe infiltrate. No acute process in the abdomen. Electronically signed by Carl Rodrigues 06/23/2018 7:57 AM
[2018-06-23] MEDS: SODIUM CHLORIDE 0.9% INJ SCH (08:34)
[2018-06-23] MEDS: LANOXIN IV SCH (08:34)
[2018-06-23] MEDS: LOVENOX SUBQ SCH (08:34)
[2018-06-23] MEDS: PROTONIX IV SCH ×2 (08:34→23:02)
[2018-06-23] MEDS: EXELON 9.5MG/24HRS TD SCH (08:38)
[2018-06-23 08:48] LABS: BANDS 6 % (0-1); LYMPHS 8 % (21-51); MONO 4 % (1-9); SEGS 78 % (42-75)
[2018-06-23] MEDS: ASPIRIN PEG SCH (14:26)
[2018-06-23] MEDS: COZAAR PEG SCH (14:27)
[2018-06-23] MEDS: LOPRESSOR PEG SCH ×2 (14:27→23:06)
[2018-06-23] MEDS: CALTRATE 600 + D PEG SCH ×2 (14:27→23:04)
[2018-06-23] MEDS: LACTULOSE PEG SCH ×2 (14:28→23:06)
[2018-06-23] MEDS: ZOLOFT PEG SCH (14:28)
[2018-06-23] MEDS: LIPOSYN 20% 250 ML IV SCH (14:54)
--- NOTE | 2018-06-23 14:59 | INFECTIOUS DISEASE PROGRESS NO ---
DATE: 06/23/2018 PRESENT ILLNESS: The patient is being treated for the following infections. 1. Gastrostomy tube site infection initially with Klebsiella and Brianna. 2. Enterococcal bacteremia. 3. Possible right lower lobe pneumonia. MEDICATIONS: The patient has been on aztreonam for 14 days, fluconazole for 13 days, and vancomycin for 4 days. PHYSICAL EXAMINATION: Vital Signs: Temperature is 100 degrees, pulse 75, respirations 14, blood pressure 120/60. General: This is an ill-appearing, elderly female. She appears to be very uncomfortable. She is lying in bed and does not make any movements when I was present. Head/eyes/ears/nose/throat: She does not have any drainage from the nose or ears. Neck: There is some resistance to movement of her neck. Lungs: Scattered rhonchi bilaterally. Cardiovascular: Heart rate is regular. Abdomen: Soft. Where the PEG tube site infection is present, today there is a lot of drainage, but instead of it being looking like bowel, it looked more like purulent fluid. Extremities: The patient has a PICC in her right arm. The site is not swollen or erythematous. Neurologic: The patient did not respond to verbal stimuli. When I tried to move her left arm, she appeared to try to keep it in a flexured state. The patient is obtunded. She does not respond to verbal stimuli. LAB AND X-RAY: X-ray of the abdomen showed a decrease in the right lobe infiltrate and no acute process in the abdomen. [place] [address], hemoglobin 11.3, platelet count 289,000. Creatinine is 0.6. GFR is greater than 60. AST is 32. ASSESSMENT AND PLAN: The patient has an infected gastrostomy tube site. I have repeated the patient's culture from the site. I have discontinued fluconazole and aztreonam. For now, vancomycin will be given pending the results of a culture I took from the purulent drainage at the G-tube site. COMORBIDITIES: The patient is elderly. 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 She has vascular dementia, stroke, bipolar disorder, and renal cell carcinoma. cc: MD Remington Shelton MD
--- NOTE | 2018-06-23 15:06 | PROVIDER PROGRESS NOTE ---
Progress Note SUBJECTIVE: No acute overnight events. Patient continues to require non- rebreather. She is lethargic. Brother at bedside OBJECTIVE: Last Vital Signs Temp 99.6 F 06/23/18 03:48 Pulse 72 06/23/18 08:34 Resp 16 06/23/18 08:04 BP 126/66 06/23/18 03:48 Pulse Ox 93 L 06/23/18 08:04 Height 5 ft Weight 130 lb GEN: awake, lethargic, in respiratory distress HEENT: anicteric, MMM NECK: supple, no jvd CV: RRR, no murmurs PULM: patient gurgling, upper airway sounds obscuring lung sounds ABD: stoma with dressing c/d/i, mild distension, BS present, mild TTP throughout EXT: no cce NEURO: moving extremities LABS: 06/22/18 06/23/18 06/23/18 05:06 06:46 06:46 WBC 17.49 H Hgb 11.3 L Plt Count 289 pH 7.44 pCO2 51 H* Sodium 141 Potassium 4.1 Chloride 103 Carbon Dioxide 29 BUN 38 H Creatinine 0.6 Glucose 199 H Albumin 2.6 L FLAT/UPRIGHT ABD/1 VIEW CHEST - 06/23/2018 INDICATION: wbc TECHNIQUE: COMPARISON: 06/20/2018 FINDINGS: Stable right PICC line. Stable severely low lung volumes. There has been decrease in the right lower lobe infiltrate. There is mild cardiomegaly stable from prior. There is a nonobstructive bowel gas pattern. No free air or abnormal calcifications. IMPRESSION: Decrease in the right lower lobe infiltrate. No acute process in the abdomen. IMPRESSION AND PLAN: Ms. Hyun Morris is an 87-year-old nonverbal with history for CVA and vascular dementia who presented from snf with PEG-associated abdominal wall cellulitis and E faecalis bacteremia. Her course complicated by acute respiratory distress secondary to aspiration pneumonia. She continues to have a tenuous respiratory status. Her stoma appears to be draining bile and gastric contents soiling abdominal wound making it difficult to treat wound. Pulmonary and ID following. She her exam is concerning for silent aspiration. Labs notable for leukocytosis and CO2 retention. There is an option for endoscopic closure of stoma; however, we do not have the equipment to do bear claw closure endoscopically. This may help with her cellulitis, but not address her primary problem, which is her pneumonia and aspiration. I agree with Dr. Hill and Dr. Flannery that palliative care measures should be pursued given she is high anesthesia risk at this point. #Aspiration PNA: on IV vancomycin, aztreonam, and fluconazole as per ID #Hypoxic/hypercapneic respiratory failure: pulmonary following #Abdominal wall cellulitis: persistent: continue wound care and keep wound dry; NGT and reglan would not improve stoma output - continue abx per ID - continue wound care and keep area dry; change dressing daily; defer to wound RN #E faecalis bacteremia: resolved; abx as above #Dysphagia: PEG removed; on TPN; nutrition following; appreciate recommendations #Protein calorie malnutrition: low pre-albumin; nutrition following, appreciate recs #Bilateral renal masses concerning for RCC: noted; defer to primary #GI ppx: continue PPI Will follow with you. Please call with questions
[2018-06-23] MEDS: M V I IV SCH ×6 (19:22)
[2018-06-23] MEDS: SODIUM PHOSPHATE IV SCH ×6 (19:22)
[2018-06-23] MEDS: TPN ELECTROLYTES IV SCH ×6 (19:22)
[2018-06-23] MEDS: [UNRECOGNIZED DRUG - OTHER] IV SCH ×6 (19:22)
--- NOTE | 2018-06-23 22:01 | PULMONOLOGY PROGRESS NOTE ---
DATE: 06/23/2018 SUBJECTIVE: The patient responds to painful stimuli. She does not respond to voice. She has mild work of breathing. OBJECTIVE: Vital Signs: The patient has been afebrile for the last 24 hours. Blood pressure 126/66, heart rate 71, respiratory rate 20, oxygen saturation 97% on face mask. HEENT: Pupils are equal. Oropharynx appears clear. Neck: Supple. Chest: Reveals prolonged expiratory phase with evidence of obstruction. Wheezing has diminished. Abdomen: Soft with continued drainage from her cellulitis. Extremities: Reveal 1+ peripheral edema. LABORATORIES: Chest x-ray reveals decrease in right basilar infiltrate. IMPRESSION: An 88-year-old with: 1. Recurrent aspiration pneumonia with mild radiographic improvement. 2. Bronchospasm with decrease in amount of edema. 3. 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 4. Abdominal wall cellulitis. 5. Prior stroke with dysphagia. 6. Enterococcal bacteremia. RECOMMENDATIONS: 1. Continue antibiotics. 2. Continue bronchodilators. 3. Continue current steroid regimen. PROGNOSIS: Poor. Comfort measures recommended. cc: MD Remington Brown MD
[2018-06-23] MEDS: COLACE LIQUID PO SCH (23:04)
[2018-06-24] MEDS: MORPHINE IV PRN ×3 (00:09→14:59)
[2018-06-24] MEDS: SSD CREAM TOP SCH ×3 (00:11→23:33)
[2018-06-24] MEDS: DULCOLAX PR SCH ×2 (00:11→23:33)
[2018-06-24] MEDS: XOPENEX NEB INH SCH ×6 (03:40→23:10)
[2018-06-24] MEDS: DURAGESIC 12 MICROGM/HR PATCH TD SCH (05:56)
[2018-06-24] MEDS: SOLU-MEDROL IV SCH ×3 (05:56→23:20)
[2018-06-24] MEDS: HUMALOG SUBQ SCH ×4 (06:41→23:23)
--- NOTE | 2018-06-24 06:58 | PROGRESS NOTE ---
DATE: 06/24/2018 SUBJECTIVE: Ms. Morris is doing fair. The patient according to nurses seems to be in less distress. No high-grade fever or chills. OBJECTIVE: Her vital signs as noted. O2 saturation ranging from 92 to 93 percent. The patient is on oxygen via Ventimask.Neck: Supple. No JVD. Lungs: Decreased air entry both bases. Occasional wheezing. CVS: S1 and S2 heard. Abdomen: Soft and globular. Bowel sounds present. FOUNDRY FINISHER: The patient is resting but arousable and uncooperative for detailed exam. CONSIDERATION: The patient does have multiple medical problems including abdominal wall cellulitis, paroxysmal atrial fibrillation with rapid ventricular response, and possible recurrent pulmonary aspiration. Constipation. Patient is on TPN. Her granddaughter came yesterday according to the nurses. She had an exam, and she needs a few more days to think about hospice and comfort care. Meanwhile, we will continue current treatment and close observation. Her abdominal x-ray did reveal decrease in right lower lobe infiltrate. I appreciate GI, Pulmonary and ID's help managing this patient. Overall prognosis fair to guarded. Her other problems includes thyroid mass, renal mass, dementia and aphasia. cc: Remington Lane MD
[2018-06-24 08:07] LABS: AGAP 8; ALBUMIN 2.3 g/dL (3.5-5.0); BUN 38 mg/dL (8-22); CALCIUM 8.7 mg/dL (8.8-10.2); CHLORIDE 104 mmol/L (98-107); CHOLESTEROL 161 mg/dL (0-200); COSMO 300; CREATININE 0.6 mg/dL (0.5-0.9); ESTIMATED GFR > 60; GLUCOSE 207 mg/dL (70-104); GOT 25 U/L (10-30); MAGNESIUM 2.2 mg/dL (1.5-2.7); PHOSPHORUS 3.1 mg/dL (2.7-4.5); POTASSIUM 3.8 mmol/L (3.5-5.1); PREALBUMIN 20.2 mg/dL (20-40); SODIUM 143 mmol/L (136-145); TCO2 31 mmol/L (25-35); TRIGLYCERIDES 185 mg/dL (35-135)
[2018-06-24] MEDS: EXELON 9.5MG/24HRS TD SCH (08:22)
[2018-06-24] MEDS: LOVENOX SUBQ SCH (08:23)
[2018-06-24] MEDS: LANOXIN IV SCH (08:23)
[2018-06-24] MEDS: SODIUM CHLORIDE 0.9% INJ SCH (08:24)
[2018-06-24] MEDS: PROTONIX IV SCH ×3 (08:24→23:21)
[2018-06-24] MEDS: NS NEB INH SCH ×2 (11:36→15:56)
--- NOTE | 2018-06-24 13:26 | GASTROENTEROLOGY PROGRESS NOTE ---
DATE: 06/24/2018 SUBJECTIVE: The patient is resting in bed. She was sleeping but was able to wake up spontaneously. She is on a face mask. She is nonverbal. PHYSICAL EXAMINATION: Vital Signs: Temperature 99, pulse rate of 60, respiratory rate of 22, blood pressure 150/62, saturating 94% on face mask at 5 L. General Appearance: Thinly built, lying in bed, in no acute distress. HEENT: Mild pallor. No icterus. Positive face mask in place. Neck: Supple. Abdomen: The dressing was noted at the PEG tube site. I opened the dressing. The erythema has improved. There is less drainage at the PEG tube site. It appeared more dry to me than before. The abdomen is sore around the PEG tube site. Extremities: No cyanosis, clubbing. Neurologic: She is normal. She was able to wake up on command. LABS: Hemoglobin and hematocrit are 11.3 and 35.8, white count of 17.49, platelet count of 289,000. Sodium of 140, potassium 3.8, chloride of 104, bicarb of 29, anion gap 8, BUN of 38, creatinine 0.6, glucose of 207, calcium is 8.7, phosphorus 3.1, magnesium 2.2. AST 25, albumin of 2.3. Triglycerides of 185. Blood culture 06/18/2018. ASSESSMENT AND PLAN: 1. Abdominal wall cellulitis. She is continuing on antibiotics with vancomycin and topical silver sulfadiazine cream. 2. Malnutrition. Continue on total parenteral nutrition. 3. Abdominal pain. She is on morphine as needed. 4. Deep venous thrombosis prophylaxis with Lovenox. 5. Bowel regimen with Dulcolax per rectum at bedtime. 6. Diabetes. She is on sliding scale insulin. 7. Gastrointestinal prophylaxis with Protonix twice daily. 8. Respiratory failure secondary to recurrent aspiration pneumonia and bronchospasm. She is on bronchodilators and antibiotics and steroid regimen per Dr. Hill. 9. Thyroid mass with deviation of trachea. Aware. 10. Prior stroke with dysphagia and aphasia. Aware. 11. Prognosis is guarded. We will follow along. Please call us with any further questions. cc: MD Remington Martinez MD MTDD
[2018-06-24] MEDS: LIPOSYN 20% 250 ML IV SCH (14:59)
--- NOTE | 2018-06-24 16:29 | INFECTIOUS DISEASE PROGRESS NO ---
DATE: 06/24/2018 PRESENT ILLNESS: The patient has a gastrostomy tube site infection and the culture taken yesterday shows gram-negative rods have been isolated. The patient's enterococcal bacteremia has cleared. The patient may have a right lower lobe pneumonia also. MEDICATIONS: The patient is on vancomycin as a single agent. PHYSICAL EXAMINATION: Vital Signs: Temperature is 99 degrees, pulse 79, respirations 24, blood pressure 158/77. General: This is an ill-appearing elderly female. She is in no acute distress. Head/eyes/ears/nose/throat: No drainage noted from the nose or ears. Lungs: Clear to auscultation. Cardiovascular: Heart rate is irregular. Abdomen: Soft. The PEG tube site has a tannish color secretions and around the tube site there is erythema. Extremities: The patient has a PICC in her right arm. The site is not swollen or purulent. Neurologic: The patient appears to be in a delirium. She does not respond to verbal stimuli. There is no tremor. LAB AND X-RAY: The patient's gastrostomy site infection is growing a gram-negative maria fernanda. The creatinine is 0.6. GFR is greater than 60. ASSESSMENT AND PLAN: The patient has infected gastrostomy tube site. I plan to continue vancomycin even though only gram-negative rods were found because gram-positive coccus may be isolated tomorrow. As for the patient's gram-negative maria fernanda I am going to wait for identification and susceptibility data because the patient has a penicillin allergy manifested by anaphylaxis, which would make for me at least that I should not give the patient penicillin of course, but also not give the patient cephalosporin antibiotics or carbapenem antibiotics. Therefore, I am going to wait for the identification and susceptibility. Also I have ordered a chest x-ray for tomorrow to see how the patient's possible pneumonia is doing. COMORBIDITIES: She is elderly. 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 She has vascular dementia, stroke, bipolar disorder and renal cell carcinoma. cc: MD Remington Shelton MD
[2018-06-24] MEDS: TPN ELECTROLYTES IV SCH ×6 (18:15)
[2018-06-24] MEDS: M V I IV SCH ×6 (18:15)
[2018-06-24] MEDS: [UNRECOGNIZED DRUG - OTHER] IV SCH ×6 (18:15)
[2018-06-24] MEDS: SODIUM PHOSPHATE IV SCH ×6 (18:15)
[2018-06-24] MEDS: CALTRATE 600 + D PEG SCH ×2 (18:16→23:22)
[2018-06-24] MEDS: ASPIRIN PEG SCH (18:16)
[2018-06-24] MEDS: LACTULOSE PEG SCH ×2 (18:17→23:23)
[2018-06-24] MEDS: COZAAR PEG SCH (18:17)
[2018-06-24] MEDS: LOPRESSOR PEG SCH ×2 (18:17→23:24)
[2018-06-24] MEDS: ZOLOFT PEG SCH (18:18)
[2018-06-24] MEDS ORDERED: VANCOMYCIN 1 GM/NS 1 GM/250 ML IVPB IV SCH (20:00)
--- NOTE | 2018-06-24 21:53 | PULMONOLOGY PROGRESS NOTE ---
DATE: 06/24/2018 SUBJECTIVE: The patient's eyes are open. She does not follow the practitioner. She appears to be more comfortable today than yesterday. OBJECTIVE: Vital Signs: The patient is afebrile for the last 24 hours. Blood pressure 158/77, heart rate 79, respiratory rate 24, oxygen saturation 100%. HEENT: Pupils are equal and reactive. Oropharynx is dry, but clear. Neck: Supple. Chest: Reveals occasional rhonchi bilaterally. Cardiac exam: S1, S2. Abdomen: Soft with drainage noted under dressing. Extremities: Reveal trace edema. LABORATORIES: Sodium 143, potassium 3.8, chloride 104, bicarbonate 31, BUN 38, creatinine 0.6. Pre-albumin is low normal at 20.2. IMPRESSION: An 88-year-old with: 1. Recurrent aspiration pneumonia. 2. Hypoxemic respiratory failure. 3. Decreasing bronchospasm. 4. 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 5. Abdominal wall cellulitis/fistula with gram-negative maria fernanda growing on cultures. 6. Dysphagia. 7. Prior enterococcal bacteremia. PLAN: 1. Continue antibiotics. 2. Continue n.p.o. status. 3. Continue TPN. 4. Consider weaning steroids as she improves. 5. Follow up chest x-ray tomorrow. PROGNOSIS: Poor. cc: MD Remington Brown MD
[2018-06-24] MEDS: COLACE LIQUID PO SCH (23:22)
[2018-06-25] MEDS: XOPENEX NEB INH SCH ×6 (03:10→22:52)
[2018-06-25] MEDS: ATIVAN IV PRN (06:25)
[2018-06-25] MEDS: SOLU-MEDROL IV SCH ×3 (06:29→22:20)
[2018-06-25] MEDS: HUMALOG SUBQ SCH ×4 (06:30→22:17)
--- NOTE | 2018-06-25 07:16 | Diag Imaging Result Doc PS360 ---
EXAM: CHEST-1 VIEW 06/25/2018 HISTORY: pneumonia TECHNIQUE: AP portable at 0534 COMMENT: There is slightly worsened bibasilar opacity particularly in the right lower lobe compared to 06/23/2018. IMPRESSION: Worsened right lower lobe and middle lobe pneumonia. Electronically signed by Dmitriy Rios 06/25/2018 7:13 AM
[2018-06-25 07:43] LABS: AGAP 10; ALBUMIN 2.5 g/dL (3.5-5.0); BUN 36 mg/dL (8-22); CALCIUM 8.8 mg/dL (8.8-10.2); CHLORIDE 102 mmol/L (98-107); COSMO 299; CREATININE 0.5 mg/dL (0.5-0.9); ESTIMATED GFR > 60; GLUCOSE 196 mg/dL (70-104); MAGNESIUM 2.1 mg/dL (1.5-2.7); PHOSPHORUS 2.6 mg/dL (2.7-4.5); POTASSIUM 3.6 mmol/L (3.5-5.1); SODIUM 143 mmol/L (136-145); TCO2 31 mmol/L (25-35)
[2018-06-25 07:44] LABS: BASO% 0.8 % (0.0-0.8); HEMATOCRIT 37.4 % (37.0-47.0); HEMOGLOBIN 11.8 g/dL (12.0-16.0); IMM GRAN# 2.55 X1000 (0.0-0.04); IMM GRAN% 10.2 % (0.0-0.5); LYMPH# 1.55 X1000 (1.2-3.4); LYMPH% 6.2 % (20.5-51.1); MCH 27.8 PG (27-31); MCHC 31.6 g/dL (33-37); MCV 88.2 FL (81-99); MONO# 1.45 X1000 (0.11-0.59); MONO% 5.8 % (1.7-9.3); MPV 11.6 FL (7.4-10.4); NEUT# 19.26 X1000 (1.4-6.5); PLT 319 X1000 (130-400); RBC 4.24 XMIL (4.2-5.4); RDW 14.9 % (11.5-14.5); WBC 25.01 X1000 (4.8-10.8)
[2018-06-25] MEDS: EXELON 9.5MG/24HRS TD SCH (09:41)
[2018-06-25] MEDS: PROTONIX IV SCH ×2 (09:41→22:20)
[2018-06-25] MEDS: ZOLOFT PEG SCH (09:44)
[2018-06-25] MEDS: LACTULOSE PEG SCH ×2 (09:45→22:33)
[2018-06-25] MEDS: LOPRESSOR PEG SCH ×2 (09:45→22:32)
[2018-06-25] MEDS: COZAAR PEG SCH (09:46)
[2018-06-25] MEDS: ASPIRIN PEG SCH (09:49)
[2018-06-25] MEDS: CALTRATE 600 + D PEG SCH ×2 (09:49→22:32)
[2018-06-25] MEDS: SSD CREAM TOP SCH ×2 (09:49→22:20)
[2018-06-25] MEDS: LANOXIN IV SCH (09:51)
[2018-06-25] MEDS: LOVENOX SUBQ SCH ×2 (09:52→22:20)
[2018-06-25] MEDS ORDERED: TYGACIL 100 MG in NS 100 ML IV ONE (10:40)
[2018-06-25] MEDS: LIPOSYN 20% 250 ML IV SCH (13:20)
[2018-06-25] MEDS: NS NEB INH SCH ×3 (16:18→22:52)
--- NOTE | 2018-06-25 17:11 | INFECTIOUS DISEASE PROGRESS NO ---
DATE: 06/25/2018 PRESENT ILLNESS: Ms. Morris has a gastrostomy tube infection which has grown Escherichia coli that is ESBL producing. There is also a worsening pneumonia based on today's chest x-ray. MEDICATION: She has been receiving IV vancomycin as a single agent which we will discontinue today. PHYSICAL EXAMINATION: Vital Signs: Temperature is 98.1 degrees, pulse rate 84, respiratory rate 18, blood pressure 181/86. O2 saturation is 97% per face mask. General: This is a chronically ill-appearing, elderly female. She is lying in bed, currently in mild respiratory distress with tachypnea and using accessory muscles to breathe. HEENT: Atraumatic, normocephalic. Oral mucous membranes are difficult to see. Conjunctivae are pale. Respiratory: Lung sounds have coarse rhonchi noted bilaterally. Diminished in the bases. Cardiovascular: Heart rate and rhythm are regular. Normal sinus rhythm on the monitor. Abdomen: Soft and round with erythema and greenish brown drainage noted to her PEG tube site. Bowel sounds are hypoactive. Neurologic: She is awake but lethargic. Able to move her upper extremities with generalized weakness. There is a PICC to her right upper arm. Site is without edema, erythema, or drainage. LABORATORY AND X-RAY: Today her white count is 25.01, hemoglobin 11.8, platelet count 319,000. Creatinine is 0.5, estimated GFR is greater than 60. Chest x-ray today shows worsened right lower lobe and middle lobe pneumonia. ASSESSMENT AND PLAN: Ms. Morris has grown an extended-spectrum beta lactamase producing Escherichia coli to her gastrostomy tube. Her pneumonia is getting worse based on the chest x-ray today, so se will go ahead and discontinue vancomycin. She has a history of anaphylactic reaction to penicillins, so we are unable to give her carbapenems. At this time we will try Tigecycline 100mg IV now and 50mg IV every 12 hours. These plans have been discussed with and recommended by Dr. Flannery. COMORBIDITIES: For Ms. Morris include that she is elderly with vascular dementia, stroke history, bipolar disorder, and renal cell carcinoma. Dictated by LANA Montanez for Fuentes Flannery MD cc: MD Remington Shelton MD MTDD
[2018-06-25] MEDS: APRESOLINE IV PRN (17:32)
--- NOTE | 2018-06-25 18:21 | PROGRESS NOTE ---
DATE: 06/25/2018 ADDENDUM: I tried to contact Ms. Morris' granddaughter Jovanna and left a message but she was not available. I wanted to discuss her condition, prognosis and plan and will try again later. cc: Remington Lane MD
--- NOTE | 2018-06-25 18:25 | PROGRESS NOTE ---
DATE: 06/25/2018 SUBJECTIVE: Ms. Morris is doing fair. Not able to give any history. No fever or chills. At times the patient is tachycardic. OBJECTIVE: Her vital signs are noted. The patient has swelling of the right upper limb. I did venous Doppler, which did reveal possible DVT at the right axillary vein. Neck supple. No JVD. Lungs: Decreased air entry in both bases. The patient seems to have left shoulder dislocation. CVS: S1 and S2. Tachycardia. Abdomen soft, globular. Bowel sounds hypoactive. ELECTRONIC WARFARE TECHNICIAN: Alert, awake. Uncooperative for detailed examination. LABORATORY DATA: Her lab data done today did reveal leukocytosis. Platelet count was 319,000. Electrolytes done today: BUN 36, creatinine 0.5, potassium 3.6. DIAGNOSTIC DATA: The patient's chest x-ray done revealed worsened right lower lobe and middle lobe pneumonia. ASSESSMENT AND PLAN: 1. The patient does have multiple medical problems. She has deep venous thrombosis involving the right axillary vein. I do not have official result. The patient is terminally ill; our options limited. We decided to keep the peripherally inserted central catheter line. I am worrying about her overall prognosis. I increased Lovenox 40 mg subcutaneously q.12 hours. If the patient shows improvement, we will consider removing the peripherally inserted central catheter line and do further intervention. Plan discussed with the transformation specialist. 2. Her other problem includes worsening pneumonia. 3. Her other problem includes paroxysmal atrial fibrillation. 4. Leukocytosis. 5. Overall prognosis is poor. The patient does have possible renal cell cancer, thyroid mass with deviated trachea, cellulitis of the abdominal wall. cc: Remington Lane MD
[2018-06-25] MEDS: TPN ELECTROLYTES IV SCH ×6 (18:35)
[2018-06-25] MEDS: [UNRECOGNIZED DRUG - OTHER] IV SCH ×6 (18:35)
[2018-06-25] MEDS: M V I IV SCH ×6 (18:35)
[2018-06-25] MEDS: SODIUM PHOSPHATE IV SCH ×6 (18:35)
--- NOTE | 2018-06-25 20:05 | PULMONOLOGY PROGRESS NOTE ---
DATE: 06/25/2018 SUBJECTIVE: The patient is resting quietly. She does not have as much work of breathing today as yesterday. OBJECTIVE: The patient is on face mask for oxygen. She has been afebrile for the last 24 hours. HEENT: Pupils are equal and reactive. Oropharynx is clear. Neck is supple. Chest reveals coarse rhonchi bilaterally, with crackles in both lung bases. Cardiac exam: Distant heart sounds. Normal S1, normal S2. Abdomen is soft. Extremities reveal some edema in the right upper extremity. IMPRESSION: 1. An 88-year-old with recurrent aspiration pneumonia. 2. Abdominal wall cellulitis, with current cultures growing an extended-spectrum beta-lactamase- positive Escherichia coli. 3. Hypoxemic respiratory failure. 4. 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 5. Dysphagia. 6. Protein-calorie malnutrition. 7. Venous thrombosis, right upper extremity, likely related to the peripherally inserted central catheter line. PLAN: 1. Continue antibiotics under the direction of Dr. Fuentes Flannery. 2. Continue oxygen for hypoxemic respiratory failure. 3. We will wean steroids beginning tomorrow. 4. Continue to observe venous thrombosis. The patient will need PICC line removed, but end-of- life discussions are ongoing with family. 5. Prognosis remains poor. cc: MD Remington Brown MD
[2018-06-25] MEDS: TYGACIL 50 MG in NS 50 ML IV SCH (22:14)
[2018-06-25] MEDS: SODIUM CHLORIDE 0.9% INJ SCH (22:20)
[2018-06-25] MEDS: MORPHINE IV PRN (22:25)
[2018-06-25] MEDS: DULCOLAX PR SCH (22:31)
[2018-06-25] MEDS: COLACE LIQUID PO SCH (22:32)
[2018-06-26] MEDS: NS NEB INH SCH ×4 (03:06→14:28)
[2018-06-26] MEDS: XOPENEX NEB INH SCH ×7 (03:06→22:58)
[2018-06-26] MEDS: HUMALOG SUBQ SCH ×4 (05:59→21:57)
[2018-06-26] MEDS: SOLU-MEDROL IV SCH ×3 (06:00→17:07)
[2018-06-26 07:44] LABS: ESTIMATED GFR > 60
[2018-06-26 07:50] LABS: AGAP 10; ALBUMIN 2.3 g/dL (3.5-5.0); BUN 52 mg/dL (8-22); CALCIUM 8.6 mg/dL (8.8-10.2); CHLORIDE 103 mmol/L (98-107); COSMO 304; CREATININE 0.6 mg/dL (0.5-0.9); GLUCOSE 193 mg/dL (70-104); MAGNESIUM 2.1 mg/dL (1.5-2.7); POTASSIUM 3.5 mmol/L (3.5-5.1); SODIUM 143 mmol/L (136-145); TCO2 30 mmol/L (25-35)
[2018-06-26] MEDS: LANOXIN IV SCH (09:54)
[2018-06-26] MEDS: EXELON 9.5MG/24HRS TD SCH (09:54)
[2018-06-26] MEDS: LOVENOX SUBQ SCH ×2 (09:55→22:00)
[2018-06-26] MEDS: PROTONIX IV SCH ×2 (09:55→22:00)
[2018-06-26] MEDS: SSD CREAM TOP SCH ×2 (09:55→22:00)
[2018-06-26] MEDS: TYGACIL 50 MG in NS 50 ML IV SCH ×2 (11:05→22:00)
--- NOTE | 2018-06-26 13:17 | PROGRESS NOTE ---
DATE: 06/26/2018 SUBJECTIVE: Ms. Morris has abdominal wall cellulitis. She has aspiration pneumonia. She is on IV Tygacil. She gets Silvadene cream on the fistula. The E coli was isolated. BUN is 52, creatinine 0.6. Electrolytes are normal. She is somewhat short of breath. Vital signs are stable today. She is here for [facility]. Overall condition is otherwise guarded. -3 cc: MD Remington Samano MD
[2018-06-26] MEDS: LIPOSYN 20% 250 ML IV SCH (14:23)
[2018-06-26] MEDS: LOPRESSOR IV PRN (14:36)
--- NOTE | 2018-06-26 16:22 | PULMONOLOGY PROGRESS NOTE ---
DATE: 06/26/2018 SUBJECTIVE: The patient's eyes are open. She does not regard the examiner. She does have family members at the bedside. OBJECTIVE: Vital Signs: BP 157/94, heart rate 78, respiratory rate 22, oxygen saturation 99% on nasal cannula. HEENT: Pupils are equal and reactive. Oropharynx appears clear but dry. Neck: Is supple. Chest: Reveals occasional rhonchi bilaterally. No increased work of breathing. Cardiac: S1-S2. Abdomen: Is soft with wound dressings in place. Extremities: Reveal some edema of the right upper extremity LABORATORIES: No new white blood count today. Sodium 143, potassium 3.5, chloride 103, bicarbonate 30, BUN 52, creatinine 0.6. IMPRESSION: 88-year-old with 1. Recurrent aspiration pneumonia. 2. Hypoxemic respiratory failure. 3. Abdominal wall cellulitis. 4. 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 5. Dysphagia. 6. Protein calorie malnutrition. 7. Venous thrombosis right upper extremity. RECOMMENDATIONS: 1. Continue current antibiotic regimen per Dr. Fuentes Flannery. 2. Initiate steroid weaning. 3. Continue oxygen for hypoxemic respiratory failure. 4. Overall prognosis appears poor. cc: MD Remington Brown MD
[2018-06-26] MEDS: MORPHINE IV PRN ×3 (17:04→22:36)
[2018-06-26] MEDS: [UNRECOGNIZED DRUG - OTHER] IV SCH ×6 (17:34)
[2018-06-26] MEDS: SODIUM PHOSPHATE IV SCH ×6 (17:34)
[2018-06-26] MEDS: M V I IV SCH ×6 (17:34)
[2018-06-26] MEDS: TPN ELECTROLYTES IV SCH ×6 (17:34)
--- NOTE | 2018-06-26 18:57 | GASTROENTEROLOGY PROGRESS NOTE ---
DATE: 06/26/2018 SUBJECTIVE: Patient resting. The patient is currently tachypneic. She in respiratory distress. I spoke to the patient's nurse at bedside. She was recently seen by Dr. Hill. Dr. Hill has ordered a chest x-ray. She is having recurrent aspiration pneumonia. She is n.p.o. and getting TPN. But since she had chronic dysphagia from prior CVA, that may be contributing to her recurrent aspiration pneumonia. OBJECTIVE/PHYSICAL EXAMINATION: Vital Signs: Temperature 97.7, pulse rate of 64, respiratory rate of 20, blood pressure 137/91, saturating 100% on mask. Body weight of 130 pounds, BMI 25.4 kg. General: The patient is a thin female lying in bed in respiratory distress. HEENT no pallor. Face mask in place. No icterus. Neck: Showing signs of tachypnea. Abdomen: Dressing was noted at the prior PEG tube site. I removed the dressing, and there was evidence of some drainage and erythema at the prior PEG tube site. There is tenderness around the PEG tube site. No rebound. No guarding. Extremities: No cyanosis, clubbing. Neurologic: She is nonverbal. LABS: Hemoglobin and hematocrit are 11 and 37.4 from yesterday. White count of 45 yesterday. Sodium was 143, potassium 3.5, chloride 103, bicarb 30, anion gap 10, BUN of 52, creatinine 0.6, glucose of 193. Calcium is 8.6, phosphorus 3.0, magnesium 2.1. Albumin 2.3. Stool for C difficile toxin is negative, and stool white cells negative from yesterday. Her PEG tube site culture showed ESBL positive E. coli. IMPRESSION AND PLAN: 1. Respiratory failure secondary to recurrent aspiration pneumonia. Dr. Hill is on board. She is on a full face mask oxygen support. Dr. Hill ordered a chest x-ray. I spoke with the patient's nurse at bedside. The patient is DO NOT RESUSCITATE level 1. Her prognosis is poor. 2. Abdominal wall cellulitis. She is on antibiotics per Dr. Flannery. 3. 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 Aware. 4. Chronic dysphagia from prior cerebrovascular accident. Aware. 5. 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 Aware. 6. Protein calorie malnutrition. She is on total parenteral nutrition. 7. Venous thrombosis of the right upper extremity. Aware. She is on Lovenox twice daily. 8. Diabetes. She is on sliding-scale Humalog. 9. Prognosis is poor. We will follow along. The above plans were discussed with the patient's nurse at bedside, and all questions were answered. Please call us with further questions. cc: MD Remington Martinez MD Leroy F. Harris, MD James E. Boyle, MD
[2018-06-26] MEDS: DULCOLAX PR SCH (22:00)
[2018-06-27] MEDS: XOPENEX NEB INH SCH ×6 (03:17→22:15)
[2018-06-27] MEDS: MORPHINE IV PRN ×5 (04:20→23:15)
[2018-06-27] MEDS: SOLU-MEDROL IV SCH ×2 (06:02→16:51)
[2018-06-27] MEDS: HUMALOG SUBQ SCH ×3 (06:02→20:40)
[2018-06-27] MEDS: DURAGESIC 12 MICROGM/HR PATCH TD SCH (06:02)
[2018-06-27 07:04] LABS: ESTIMATED GFR > 60
[2018-06-27 07:06] LABS: AGAP 13; ALBUMIN 2.5 g/dL (3.5-5.0); BUN 63 mg/dL (8-22); CALCIUM 8.7 mg/dL (8.8-10.2); CHLORIDE 106 mmol/L (98-107); COSMO 312; CREATININE 0.7 mg/dL (0.5-0.9); GLUCOSE 165 mg/dL (70-104); MAGNESIUM 2.1 mg/dL (1.5-2.7); PHOSPHORUS 3.3 mg/dL (2.7-4.5); POTASSIUM 3.5 mmol/L (3.5-5.1); SODIUM 146 mmol/L (136-145); TCO2 27 mmol/L (25-35)
--- NOTE | 2018-06-27 08:01 | Diag Imaging Result Doc PS360 ---
EXAM: CHEST-PORTABLE INDICATION: abnormal exam TECHNIQUE: One view COMPARISON: 06/25/2018 FINDINGS: Right PICC line is in stable position. The right middle lobe and right lower lobe consolidations are stable to marginally improved. There has been improvement in the left basilar opacity. No new consolidation is identified. Cardiac silhouette is stable. IMPRESSION: Improvement of left basilar opacity and stable to marginal improvement of the right basilar opacity. Electronically signed by Julio Posadas 06/27/2018 7:59 AM
[2018-06-27] MEDS: NS NEB INH SCH ×3 (08:03→16:02)
[2018-06-27] MEDS: PROTONIX IV SCH ×3 (08:23→20:39)
[2018-06-27] MEDS: LOVENOX SUBQ SCH ×2 (08:23→20:39)
[2018-06-27] MEDS: LANOXIN IV SCH (08:24)
[2018-06-27] MEDS: SSD CREAM TOP SCH ×2 (08:26→20:41)
[2018-06-27] MEDS: EXELON 9.5MG/24HRS TD SCH (08:26)
[2018-06-27] MEDS: TYGACIL 50 MG in NS 50 ML IV SCH ×2 (11:42→23:15)
[2018-06-27] MEDS: ATIVAN IV PRN ×3 (11:43→23:15)
--- NOTE | 2018-06-27 12:25 | PROGRESS NOTE ---
DATE: 06/27/2018 Ms. Morris seems to be doing poorly. She is more drowsy. She has more pulmonary congestion, has respiratory failure. She has abdominal wound with cellulitis and she has chronic thyroid mass, and she has failure secondary from stroke. Yesterday, she had transient episode of ventricular fibrillation. She came out of it on her own. The chest x-ray, however, showed some improvement. BUN is 63, creatinine 0.7. I personally feel like she is getting adequate amount of fluids. Her electrolytes are stable. We will continue to watch her. The family understands that her condition is very poor. -0 cc: MD Remington Samano MD MTDD
--- NOTE | 2018-06-27 17:52 | PULMONOLOGY PROGRESS NOTE ---
DATE: 06/27/2018 SUBJECTIVE: The patient's eyes are closed. She did not open them when I called her name. She has minimal increased work of breathing. OBJECTIVE: Vital Signs: The patient has been afebrile over the last 24 hours. Blood pressure 162/69, heart rate 75, respiratory rate 20, oxygen saturation 100% on face mask. HEENT: Pupils are equal and reactive. Oropharynx appears clear but dry. Neck: Supple. Chest: Reveals faint wheezing bilaterally. Cardiac: S1, S2. Abdomen: Soft with good bowel sounds. Extremities: Reveal edema most prominent in the right upper extremity. LABORATORY: Sodium 146, potassium 3.5, chloride 106, bicarbonate 27, BUN 63, creatinine 0.7. Chest x-ray reveals improvement in both lung bases. IMPRESSIONS: This is an 88-year-old with: 1. Recurrent aspiration pneumonia. 2. PEG tube placement with removal following abdominal wall cellulitis. Most recent wound culture growing an extended spectrum beta lactamase positive Escherichia coli. 3. 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 4. Protein calorie malnutrition. 5. Venous thrombosis, right upper extremity. DISCUSSION: This is an 88-year-old with problems outlined above. She has had marginal improvement. She has tolerated decrease in steroid dosing. PLAN: 1. Continue current antibiotics per Dr. Fuentes Flannery. 2. Consider additional steroid weaning tomorrow. 3. Overall prognosis is poor. End of life discussions are in progress between Dr. Lane and the patient's granddaughter. cc: MD Remington Brown MD
[2018-06-27] MEDS: M V I IV SCH ×6 (18:15)
[2018-06-27] MEDS: TPN ELECTROLYTES IV SCH ×6 (18:15)
[2018-06-27] MEDS: LIPOSYN 20% 250 ML IV SCH (18:15)
[2018-06-27] MEDS: SODIUM PHOSPHATE IV SCH ×6 (18:15)
[2018-06-27] MEDS: [UNRECOGNIZED DRUG - OTHER] IV SCH ×6 (18:15)
[2018-06-27] MEDS: REGLAN IV SCH (19:35)
[2018-06-27] MEDS: SODIUM CHLORIDE 0.9% INJ SCH (20:39)
[2018-06-27] MEDS: DULCOLAX PR SCH (20:40)
--- NOTE | 2018-06-27 22:27 | Extremity Venous Study ---
PROCEDURE NAME: Venous U/S Right Arm - 06/25/2018 REFERRING PHYSICIAN: Remington Lane MD. READING PHYSICIAN: Dr. Pulliam. FRUIT CULLER: Neida. INDICATION: Right arm swelling. There is a PICC line in the right arm. FINDINGS: The right internal jugular was compressible, patent, and without thrombus. The subclavian was patent and had good flow and without thrombus. The axillary vein, however, did have thrombosis and decreased compressibility, but flow was preserved. The basilic vein appeared to be compressible, patent and without thrombus. The brachial vein and cephalic veins also appear to be compressible and patent and without thrombus. INTERPRETATION: There is a nonoccluding acute DVT of the right axillary vein around the PICC line. cc: MD Remington Sampson MD
[2018-06-28] MEDS: XOPENEX NEB INH SCH ×6 (03:40→23:00)
--- NOTE | 2018-06-28 04:21 | GASTROENTEROLOGY PROGRESS NOTE ---
DATE: 06/27/2018 SUBJECTIVE: Patient is resting in bed. She is on a face mask. She is getting breathing treatment. She is nonverbal. According to the records, she has been afebrile. She has been receiving TPN. She had liquid brown stool today. OBJECTIVE: General: Moderately nourished, lying in bed, currently sleepy. Vital Signs: Temperature of 99 degrees, pulse of 75, respiratory rate 20, blood pressure 162/69, saturating 100% on 5 L on a face mask. Body weight of 130 pounds. BMI 25.4 kg. HEENT: Face mask in place. No pallor. No icterus. Neck: Supple. Abdomen: The PEG tube site was examined. There was evidence of bile at the PEG tube site and erythema and excoriation at the PEG tube site. There was soreness at the PEG tube site. No guarding. Extremities: No cyanosis, clubbing. Neurologic: She is nonvocal. She is sleeping. LABS: Sodium 142, potassium 3.5, chloride 106, bicarb 27.9, gap of 13, BUN of 60, creatinine of 0.7, glucose of 165, calcium of 8.7, phosphorus 3.3, magnesium 2.1, albumin 2.5. Chest x-ray done today showed improvement of left basilar opacity and stable to moderate improvement of the right basilar opacity. IMPRESSION AND PLAN: 1. Respiratory failure, secondary to recurrent aspiration pneumonia. Dr. Grant is on board now. She is currently getting breathing treatment and she is feeling better, per the respiratory therapist. 2. Abdominal wall cellulitis. She will continue antibiotics by Dr. Flannery. 3. Bile drainage at the percutaneous endoscopic gastrostomy tube site. We will try Reglan intravenously 5 mg b.i.d. and hold for side effects like tardive dyskinesia and dystonia. 4. Chronic dysphagia from prior cerebrovascular accident with evidence of aphasia secondary to cerebrovascular accident. Aware. 5. Protein-calorie malnutrition. She is on total parenteral nutrition. 6. Venous thrombosis of the right upper extremity. She is on Lovenox twice daily. 7. Diabetes, on sliding scale with Humalog. 8. Ventricular fibrillation, being managed by the primary care team. 9. Prognosis is guarded to poor. We will follow along on the above plans with the patient's nurse. 10. We will follow along. Please call us with any further questions. cc: MD Remington Martinez MD MTDD
[2018-06-28] MEDS: SOLU-MEDROL IV SCH ×2 (05:27)
[2018-06-28] MEDS: REGLAN IV SCH ×2 (05:27→17:20)
[2018-06-28] MEDS: HUMALOG SUBQ SCH ×5 (06:31→21:01)
[2018-06-28] MEDS: MORPHINE IV PRN ×2 (06:36→14:25)
[2018-06-28 06:46] LABS: ALBUMIN 2.1 g/dL (3.5-5.0); BUN 65 mg/dL (8-22); CALCIUM 8.3 mg/dL (8.8-10.2); CREATININE 0.7 mg/dL (0.5-0.9); ESTIMATED GFR > 60; GLUCOSE 138 mg/dL (70-104); MAGNESIUM 2.2 mg/dL (1.5-2.7); PHOSPHORUS 3.2 mg/dL (2.7-4.5); TCO2 25 mmol/L (25-35)
[2018-06-28 06:54] LABS: CHLORIDE 104 mmol/L (98-107); POTASSIUM 3.9 mmol/L (3.5-5.1); SODIUM 143 mmol/L (136-145)
--- NOTE | 2018-06-28 06:55 | PROGRESS NOTE ---
DATE: 06/28/2018 SUBJECTIVE: Ms. Morris is doing fair. The patient does have, at times, respiratory distress, bronchospasm. No high-grade fever or chills. At times, tachycardia and tachypnea. The patient is getting TPN. OBJECTIVE: Vital Signs: Noted. Neck: Supple. No JVD. Lungs: Bilateral occasional wheezing. Decreased air entry at both the bases. CVS: S1 and S2. Irregularly irregular. Abdomen: Soft, globular. Bowel sounds present. DRY PRESS OPERATOR: Alert, awake. Uncooperative for detailed exam. Laboratory Data: Done yesterday, noted. ASSESSMENT AND PLAN: The patient does have nonoccluding deep venous thrombosis of the right axillary vein. The patient is on Lovenox. Continue rest of the treatment. Overall prognosis is fair to guarded. Family is aware. I am going to talk to the granddaughter again today. The patient does have multiple problems including respiratory failure, constipation, excoriation of the abdominal wall and possible cellulitis, cerebrovascular accident, paroxysmal atrial fibrillation. cc: Remington Lane MD
[2018-06-28 06:57] LABS: AGAP 14
[2018-06-28 06:58] LABS: COSMO 306
[2018-06-28] MEDS ORDERED: XOPENEX NEB ONE (07:28)
[2018-06-28] MEDS: PROTONIX IV SCH ×3 (08:27→21:00)
[2018-06-28] MEDS: SODIUM CHLORIDE 0.9% INJ SCH ×2 (08:27→21:00)
[2018-06-28] MEDS: LANOXIN IV SCH (08:28)
[2018-06-28] MEDS: EXELON 9.5MG/24HRS TD SCH (08:29)
[2018-06-28] MEDS: LOVENOX SUBQ SCH ×2 (08:29→21:00)
[2018-06-28] MEDS: SSD CREAM TOP SCH (08:38)
[2018-06-28] MEDS: TYGACIL 50 MG in NS 50 ML IV SCH ×2 (10:42→23:16)
--- NOTE | 2018-06-28 11:54 | GASTROENTEROLOGY PROGRESS NOTE ---
DATE: 06/28/2018 SUBJECTIVE: Ms. Hyun Morris is sitting in bed. She is drowsy. Her family was at bedside. I spoke with the family at bedside. The patient has been having low-grade fevers of 99.3. She is on TPN. She had a bowel movement yesterday. OBJECTIVE: Vital signs: Temperature 99.3 degrees, pulse rate of 90, respiratory rate 20, blood pressure 157/85, saturating 98% on 5 L nasal cannula. Body weight of 130 pounds, BMI 25.4 kg. General: Ms. Morris lying in bed, currently drowsy. HEENT: No pallor. No icterus. Face mask in place. Neck: Supple. Abdomen: Discomfort in the periumbilical region at the PEG tube site. It showed evidence of erythema and excoriation. It is consistent with abdominal cellulitis. Less drainage noted today. No guarding. Some appropriately tender around the PEG tube site. Extremities: No cyanosis, clubbing. Neurologic: She is drowsy. LABORATORY DATA: Sodium 143, potassium 3.9, chloride 104, bicarb 25, anion gap of 14, BUN of 65, creatinine 0.7, glucose of 130, calcium is 8.3, phosphorus 3.2, magnesium 2.2 albumin of 2.1. IMPRESSION AND PLAN: 1. Abdominal wall cellulitis. She is on antibiotics per the Infectious Disease team. She has shown minimal improvement. 2. Respiratory failure secondary to recurrent aspiration. Dr. Hill is on board. She is continuing oxygen support and breathing treatments and antibiotics. 3. Bile drainage at the PEG tube site. We will try Reglan. We will hold Reglan for side effects like tardive dyskinesia and dystonia. 4. Malnutrition. Continue TPN. 5. Chronic dysphagia and aphasia from prior cerebrovascular accident, aware. 6. Venous thrombosis right upper extremity. She is on Lovenox twice daily. 7. Diabetes. She is on sliding scale insulin with Humalog. 8. Atrial fibrillation, aware. Being managed by primary team. Above plan of care was discussed with the patient's family at bedside and all questions answered. Please call us with any further questions. cc: MD Remington Martinez MD
--- NOTE | 2018-06-28 14:35 | PULMONOLOGY PROGRESS NOTE ---
DATE: 06/28/2018 SUBJECTIVE: The patient's eyes are closed. She has minimal increased work of breathing. She does not appear to be in any distress. OBJECTIVE: Vital Signs: The patient has been afebrile for the last 24 hours. Blood pressure 139/91, heart rate 85, respiratory rate 17, oxygen saturation 98% on face mask. HEENT: Pupils are equal. Oropharynx is clear. Neck: Supple. Chest: Reveals mild prolonged expiratory phase with minimal wheezing. Cardiac: S1, S2. Abdomen: Soft with continued erythema and drainage around the prior PEG tube site. LABORATORY DATA: Sodium 143, potassium 3.9, chloride 104, bicarbonate 25, BUN 65, creatinine 0.7, glucose 137, albumin 2.1. IMPRESSION: An 88-year-old with 1. Recurrent aspiration pneumonia with clinical improvement. 2. Hypoxemic respiratory failure. 3. PEG tube removal for abdominal wall cellulitis. Current culture growing extended-spectrum beta lactamase positive Escherichia coli. 4. 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 5. Nonoccluding venous thrombosis, right upper extremity. 6. Protein calorie malnutrition. DISCUSSION: An 88-year-old with multiple medical problems outlined above. Her pulmonary status has marginally improved but she has not shown overall improvement in her clinical status. RECOMMENDATION: 1. Discontinue steroids. 2. Continue current antibiotics per Dr. Fuentes Flannery. 3. Overall prognosis is poor. Comfort measures recommended. cc: MD Remington Brown MD
--- NOTE | 2018-06-28 17:00 | INFECTIOUS DISEASE PROGRESS NO ---
DATE: 06/28/2018 PRESENT ILLNESS: The patient has a gastrostomy tube infection. She also has a pneumonia. MEDICATIONS: The patient has been switched to Tygacil and it appears that it is improving the patient's gastrostomy tube site and the pneumonia. PHYSICAL EXAMINATION: Vital Signs: Temperature is 99.3 degrees, pulse 113, respirations 23, blood pressure 123/83. General: This is a chronically ill-appearing elderly female. She is in no acute distress. Head, eyes, ears, nose and throat: No drainage noted from the nose or ears. Neck: The patient did not seem to have pain when she moved her neck. Lungs: There were bilateral rhonchi. Cardiovascular: Heart rate was regular and rapid. Abdomen: Soft. The G- tube site looks less erythematous and smaller in size. Neurologic: The patient opened her eyes. She did not respond to verbal stimuli. There was no tremor. LAB AND X-RAY: Chest x-ray shows improvement in the patient's infiltrates. CBC shows a white count of 25,010, hemoglobin 11.8, and platelet count of 319,000. Creatinine is 0.7. GFR is greater than 60. Stool for Clostridium difficile toxin was negative. ASSESSMENT AND PLAN: The patient has gastrostomy tube site infection and pneumonia. Both seem better today since the Tygacil was started, which I will continue. COMORBIDITIES: Patient is elderly, she has vascular dementia, stroke, bipolar disorder and renal cell carcinoma. cc: MD Remington Shelton MD
[2018-06-28] MEDS: [UNRECOGNIZED DRUG - OTHER] IV SCH ×6 (18:12)
[2018-06-28] MEDS: SODIUM PHOSPHATE IV SCH ×6 (18:12)
[2018-06-28] MEDS: M V I IV SCH ×6 (18:12)
[2018-06-28] MEDS: LIPOSYN 20% 250 ML IV SCH (18:12)
[2018-06-28] MEDS: TPN ELECTROLYTES IV SCH ×6 (18:12)
[2018-06-28] MEDS: DULCOLAX PR SCH (21:00)
[2018-06-29] MEDS: SSD CREAM TOP SCH ×3 (00:09→21:34)
[2018-06-29] MEDS: XOPENEX NEB INH SCH ×6 (03:30→23:10)
[2018-06-29] MEDS: CATAPRES-TTS-2 TD SCH (06:05)
[2018-06-29] MEDS: REGLAN IV SCH ×2 (06:06→17:36)
[2018-06-29] MEDS: HUMALOG SUBQ SCH ×4 (06:12→21:34)
--- NOTE | 2018-06-29 07:01 | PROGRESS NOTE ---
DATE: 06/29/2018 SUBJECTIVE: Ms. Morris is doing fair. The patient is not communicating. OBJECTIVE: The patient had low-grade fever of 100.2. Tachycardia. Heart rate was 105, respiratory rate was 28. No nausea or vomiting. Lungs: Decreased air entry, both the bases. CVS: S1 and S2 heard. Abdomen: Soft, globular. Bowel sounds present. GUARDIAN AD LITEM: Alert, awake. Uncooperative for detailed exam. Patient is not communicating. Patient does have swelling of the right upper limb. According to nurses, the granddaughter is not ready for comfort care yet. I am going to get another consult for a peripherally inserted central catheter line to continue total parenteral nutrition as current peripherally inserted central catheter line is working but we were thinking if granddaughter decided comfort care, we did not want patient to go through another invasive procedure. Her chest x-ray done yesterday noted, which was showing some improvement. Blood work done yesterday: BUN was 65, creatinine 0.7. Infectious disease specialist, laborer electroplating, and critical care, pulmonary specialists following patient with us. ASSESSMENT: Her problems include: 1. Recurrent aspiration pneumonia. 2. Deep venous thrombosis, right axillary vein. 3. 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 4. Renal mass. 5. Patient had gastrostomy tube which was removed and the opening is not healing. 6. Cellulitis of the abdominal wall. 7. History of cerebrovascular accident. 8. Recurrent aspiration. 9. Overall prognosis fair to guarded. cc: Remington Lane MD
[2018-06-29 07:17] LABS: BASO# 0.03 X1000 (0.0-0.2); BASO% 0.1 % (0.0-0.8); HEMATOCRIT 37.5 % (37.0-47.0); HEMOGLOBIN 11.7 g/dL (12.0-16.0); IMM GRAN# 0.33 X1000 (0.0-0.04); IMM GRAN% 1.1 % (0.0-0.5); LYMPH# 1.26 X1000 (1.2-3.4); LYMPH% 4.2 % (20.5-51.1); MCH 27.9 PG (27-31); MCHC 31.2 g/dL (33-37); MCV 89.3 FL (81-99); MONO# 1.67 X1000 (0.11-0.59); MONO% 5.5 % (1.7-9.3); MPV 12.1 FL (7.4-10.4); NEUT% 89.1 % (42.2-75.2); PLT 181 X1000 (130-400); RDW 16.2 % (11.5-14.5); WBC 30.29 X1000 (4.8-10.8)
[2018-06-29 07:21] LABS: INR 0.96; PROTIME 13.5 Seconds (11.0-16.0)
[2018-06-29 07:22] LABS: PTT 31.9 Seconds (22.3-41.8)
[2018-06-29 07:33] LABS: ESTIMATED GFR > 60; LYMPHS 6 % (21-51); SEGS 94 % (42-75)
[2018-06-29 07:34] LABS: AGAP 7; ALBUMIN 1.9 g/dL (3.5-5.0); BUN 56 mg/dL (8-22); CALCIUM 7.8 mg/dL (8.8-10.2); CHLORIDE 109 mmol/L (98-107); CHOLESTEROL 109 mg/dL (0-200); COSMO 316; CREATININE 0.6 mg/dL (0.5-0.9); GLUCOSE 185 mg/dL (70-104); GOT 49 U/L (10-30); MAGNESIUM 2.1 mg/dL (1.5-2.7); PHOSPHORUS 2.1 mg/dL (2.7-4.5); POTASSIUM 3.6 mmol/L (3.5-5.1); PREALBUMIN 12.5 mg/dL (20-40); SODIUM 149 mmol/L (136-145); TCO2 33 mmol/L (25-35); TRIGLYCERIDES 161 mg/dL (35-135)
[2018-06-29] MEDS: EXELON 9.5MG/24HRS TD SCH (08:38)
[2018-06-29] MEDS: PROTONIX IV SCH ×2 (08:38→21:34)
[2018-06-29] MEDS: LANOXIN IV SCH (08:38)
[2018-06-29] MEDS: LOVENOX SUBQ SCH ×2 (08:39→21:34)
[2018-06-29] MEDS ORDERED: NS 250 ML ONE (08:47)
--- NOTE | 2018-06-29 10:28 | Diag Imaging Result Doc PS360 ---
EXAM: CHEST-PORTABLE HISTORY: Picc placement TECHNIQUE: Chest single view COMPARISON: 07/12/2018 FINDINGS: A left-sided PICC line has been placed. The tip lies near the mid superior vena cava. Heart is mildly prominent and there is mild pulmonary edema. No pleural effusions identified. IMPRESSION: The tip of the PICC line is near the mid superior vena cava. Electronically signed by Porfirio Houser 06/29/2018 10:26 AM
[2018-06-29] MEDS: TYGACIL 50 MG in NS 50 ML IV SCH ×2 (10:59→23:53)
[2018-06-29] MEDS: MORPHINE IV PRN ×2 (11:25→16:52)
[2018-06-29] MEDS: SODIUM PHOSPHATE IV SCH ×6 (12:20)
[2018-06-29] MEDS: [UNRECOGNIZED DRUG - OTHER] IV SCH ×6 (12:20)
[2018-06-29] MEDS: M V I IV SCH ×6 (12:20)
[2018-06-29] MEDS: LIPOSYN 20% 250 ML IV SCH ×2 (12:20→13:10)
[2018-06-29] MEDS: TPN ELECTROLYTES IV SCH ×6 (12:20)
--- NOTE | 2018-06-29 15:12 | PROVIDER PROGRESS NOTE ---
Progress Note SUBJECTIVE: No acute overnight events. Low grade fever. Nonverbal OBJECTIVE: Last Vital Signs Temp 98.9 F 06/29/18 12:00 Pulse 87 06/29/18 12:00 Resp 18 06/29/18 12:00 BP 136/82 06/29/18 12:00 Pulse Ox 99 06/29/18 12:00 Height 5 ft Weight 130 lb GEN: awake, lethargic, in respiratory distress HEENT: anicteric, MMM, nasal trumpet in place NECK: supple, no jvd CV: RRR, no murmurs PULM: patient with coarse BS b/l; increased WOB ABD: stoma with dressing saturated with bilious fluid, mild distension, BS present, mild TTP throughout EXT: no cce NEURO: spontaneous UE movement, nonverbal 06/29/18 06/29/18 06:56 06:56 WBC 30.29 H Hgb 11.7 L Plt Count 181 Sodium 149 H Potassium 3.6 Chloride 109 H Carbon Dioxide 33 BUN 56 H Creatinine 0.6 Glucose 185 H Albumin 1.9 L A/P: Ms. Hyun Morris is an 88-year-old nonverbal with history for CVA and vascular dementia who presented from long term with PEG-associated abdominal wall cellulitis and E faecalis bacteremia. Her course complicated by acute respiratory distress secondary to aspiration pneumonia. She continues to have a tenuous respiratory status. Her stoma appears to be draining bile and gastric contents soiling abdominal wound making it difficult to treat wound. Pulmonary and ID following. Granddaughter is not prepared to make patient comfort measures. She continues to do poorly with minimal improvement. She has worsening leukocytosis and appears to have prerenal azotemia. #Leukocytosis: suspect from underlying infections #Aspiration PNA: on abx as per ID #Hypoxic/hypercapneic respiratory failure: pulmonary following #Abdominal wall cellulitis: persistent: continue wound care and keep wound dry; on regular, abx per ID #E faecalis bacteremia: resolved; abx as above #Dysphagia: PEG removed; on TPN; nutrition following; appreciate recommendations #Protein calorie malnutrition: low pre-albumin; nutrition following, appreciate recs #Bilateral renal masses concerning for RCC: noted; defer to primary #GI ppx: continue PPI Will follow with you. Please call with questions
--- NOTE | 2018-06-29 20:45 | PULMONOLOGY PROGRESS NOTE ---
DATE: 06/29/2018 SUBJECTIVE: The patient does not respond to voice. She has mild work of breathing. Maximum temperature in the last 24 hours is 100.6 degrees. OBJECTIVE: HEENT: Pupils are equal. Oropharynx is dry. Neck: Supple. Chest: Reveals occasional rhonchi bilaterally. Cardiac: S1, S2. Abdomen: Mildly tympanitic. Bowel sounds are diminished. Extremities: Reveal trace edema. LABORATORIES: Right-sided PICC line has been replaced with a left-sided PICC line. Chest reveals prominent heart size with mild vascular congestion. No significant change. White blood count markedly increased at 30,000, hemoglobin 11.7, platelet count 16,000. Chemistry: Sodium 149, potassium 3.6, chloride 109, bicarbonate 56, creatinine 0.6, albumin 1.9. IMPRESSION: An 88-year-old with: 1. Recurrent aspiration pneumonia which appears to be clearing. 2. Gastrostomy tube site infection. 3. Increasing temperature curve and white blood count. 4. Abdominal wall cellulitis. 5. Long-standing thyroid mass with deviation of the trachea. 6. Noninclusive venous thrombosis of the right upper extremity with removal of PICC line. 7. Protein calorie malnutrition. 8. Dementia. RECOMMENDATIONS: 1. Continue Lovenox 40 mg b.i.d. 2. Continue antibiotics per Infectious Disease. 3. Continue comfort measures. 4. The patient's family wants ongoing treatment despite her extreme poor prognosis. 5. Prognosis is poor. cc: MD Remington Brown MD
[2018-06-29] MEDS: DULCOLAX PR SCH (21:33)
[2018-06-30] MEDS: XOPENEX NEB INH SCH ×6 (03:23→23:21)
[2018-06-30] MEDS: MORPHINE IV PRN ×4 (04:40→21:39)
[2018-06-30] MEDS: REGLAN IV SCH ×2 (04:48→16:55)
[2018-06-30] MEDS: DURAGESIC 12 MICROGM/HR PATCH TD SCH ×2 (06:24→06:50)
[2018-06-30] MEDS ORDERED: TYLENOL PR PRN (06:49)
[2018-06-30] MEDS: HUMALOG SUBQ SCH ×4 (06:49→21:40)
[2018-06-30] MEDS: NS NEB INH SCH ×3 (07:20→14:54)
--- NOTE | 2018-06-30 07:35 | PROGRESS NOTE ---
DATE: 06/30/2018 SUBJECTIVE: Ms. Morris is doing fair. The patient had low-grade fever. At times, the patient seems to be in significant pain. No nausea or vomiting. The patient seems to be having aspiration and aspiration pneumonia. No diarrhea. Her history part is limited. OBJECTIVE: Vital Signs: Noted. T-max 101.1 degrees. At times, patient is tachycardic and tachypneic. Neck: Supple. No JVD. Lungs: Bibasilar crepitations. Decreased air entry in both the bases. Cardiovascular: S1 and S2. Tachycardia. Abdomen: Soft, mild distention. Bowel sounds hypoactive. The patient still has drainage from PEG tube site. Central Nervous System/Extremities: Sleeping, but arousable. Able to move all 4 limbs. Swelling of the right upper limb. We removed the PICC line from the right side and placed on the left because of DVT. The patient is on Lovenox. LABORATORY DATA: Labs done yesterday revealed increasing leukocytosis with left shift. PT and PTT results reviewed. Electrolytes results noted. ASSESSMENT AND PLAN: The patient does have multiple medical problems includin. Deep vein thrombosis of right axillary vein. 2. Recurrent aspiration pneumonia. 3. Abdominal wall cellulitis. 4. Cerebrovascular accident with expressive aphasia and dysphagia. 5. Paroxysmal atrial fibrillation. 6. Protein-calorie nutrition. 7. Dementia. 8. Thyroid mass. 9. 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 I did discuss the patient's condition with her granddaughter, and she wants to continue current treatment. She does understand the overall poor prognosis. We will continue current treatment. Overall prognosis is poor. I am going to optimize pain management. We will use Tylenol suppository for fever. cc: Remington Lane MD
[2018-06-30 07:45] LABS: ESTIMATED GFR > 60
[2018-06-30 07:49] LABS: AGAP 8; ALB/GLOB RATIO 0.7; ALBUMIN 1.6 g/dL (3.5-5.0); ALKALINE PHOSPHATASE 80 U/L (32-104); BUN 54 mg/dL (8-22); CHLORIDE 107 mmol/L (98-107); COSMO 313; CREATININE 0.7 mg/dL (0.5-0.9); GLUCOSE 165 mg/dL (70-104); GOT 49 U/L (10-30); GPT 53 U/L (10-36); MAGNESIUM 2.2 mg/dL (1.5-2.7); PHOSPHORUS 2.4 mg/dL (2.7-4.5); POTASSIUM 3.4 mmol/L (3.5-5.1); SODIUM 148 mmol/L (136-145); TCO2 33 mmol/L (25-35); TOTAL PROTEIN 3.8 g/dL (6.3-8.3)
[2018-06-30] MEDS: ATIVAN IV PRN ×3 (08:11→21:39)
[2018-06-30] MEDS: EXELON 9.5MG/24HRS TD SCH (08:12)
[2018-06-30] MEDS: LANOXIN IV SCH (08:12)
[2018-06-30] MEDS: SSD CREAM TOP SCH ×2 (08:15→21:41)
[2018-06-30] MEDS: LOVENOX SUBQ SCH ×2 (08:26→21:39)
[2018-06-30] MEDS: PROTONIX IV SCH ×2 (08:31→21:39)
[2018-06-30] MEDS: DURAGESIC 25 MICROGM/HR PATCH TD SCH (08:31)
[2018-06-30] MEDS: TPN ELECTROLYTES 20 ML, SODIUM PHOSPHATE 15 MMOL, M.V.I.-12 10 ML, MTE CONCENTRATE 1 ML... IV SCH ×7 (13:31)
[2018-06-30] MEDS: TYGACIL 50 MG in NS 50 ML IV SCH ×2 (13:33→23:43)
[2018-06-30] MEDS: LIPOSYN 20% 250 ML IV SCH (13:46)
--- NOTE | 2018-06-30 14:14 | INFECTIOUS DISEASE PROGRESS NO ---
DATE: 06/30/2018 PRESENT ILLNESS: Ms. Morris has been treated for a gastrostomy tube infection and pneumonia. Yesterday, she had a temperature max of 102.1. MEDICATIONS: She is receiving tigecycline 50 mg IV every 12 hours. PHYSICAL EXAMINATION: Vital Signs: Temperature is 100.7 degrees, pulse rate 84, respiratory rate 26, blood pressure 109/41, O2 saturation is 99% on a face mask. General: This is a critically ill-appearing elderly female. She is lying in the bed minimally responsive, with mild to moderate work of breathing. HEENT: Oral mucous membranes are pink and dry. Conjunctivae are pink. Neck: Has a decrease in suppleness. Respiratory: Lung sounds have coarse rhonchi bilaterally. She is tachypneic with mild to moderate work of breathing. Cardiovascular: Heart rate is regular. Abdomen: Soft, obese and tender to palpation. I did not hear any bowel sounds. Integumentary: There is a dressing in place to mid upper abdomen which was removed. There is less erythema to the gastrostomy tube site, which has a moderate amount of slimy, white/brown drainage. She also has a PICC in place to her left upper arm; that site is without edema, erythema or drainage. Neurologic: She is lethargic and minimally responsive. She did not open her eyes, but did fight against any abdominal assessment using her left arm. LABORATORY AND X-RAY: No CBC today, but yesterday, her white count was 30.29, hemoglobin 11.7, platelet count 181,000. Today her creatinine is 0.7, estimated GFR is greater than 60. Her total bilirubin is 0.19, AST 49, ALT 53, alkaline phosphatase 80. She had previously grown Enterococcus in her blood, and a Klebsiella and Brianna albicans to her abdominal wound. Most recent check of her abdominal wound grew an Escherichia coli, which with ESBL producing. No imaging reports today. However, yesterday her chest x-ray showed mild pulmonary edema with no mention of opacities or infiltrates. ASSESSMENT AND PLAN: Ms. Morris is critically ill. Prognosis is poor at this point. For now, we will continue tigecycline, due to her penicillin allergy. She has had a temp up to 102.1 yesterday with increased leukocytosis. We will get repeat blood, urine, and gastrostomy site cultures. We will also recheck a chest x-ray again tomorrow. These plans have been discussed with and recommended by Dr. Flannery. COMORBIDITIES: Comorbidities for Ms. Morris include that she is elderly with vascular dementia, history of stroke, bipolar disorder and renal cell carcinoma. Dictated by LANA Montanez for Fuentes Flannery MD cc: MD Remington Shelton MD MTDD
[2018-06-30 14:28] LABS: URINE SOURCE CATH
[2018-06-30 14:36] LABS: BILIRUBIN URINE NEGATIVE (NEGATIVE); BLOOD URINE NEGATIVE (NEGATIVE); COLOR YELLOW; GLUCOSE URINE NEGATIVE (NEGATIVE); KETONE URINE NEGATIVE (NEGATIVE); LEUKOCYTES URINE NEGATIVE (NEGATIVE); NITRITE URINE NEGATIVE (NEGATIVE); PH URINE 5.5; PROTEIN URINE TRACE mg/dL (NEGATIVE); SP GRAVITY URINE 1.023; TURBIDITY URINE CLEAR (CLEAR); UR EPITHELIAL CELLS <10 /HPF (<10); URINE BACTERIA NEGATIVE /HPF; URINE RBC <10 /HPF (<10); URINE WBC <10 /HPF (<10); UROBILINOGEN URINE NORMAL (NORMAL)
[2018-06-30] MEDS: SODIUM CHLORIDE 0.9% INJ SCH (21:39)
[2018-06-30] MEDS: TYLENOL PR PRN (21:39)
[2018-06-30] MEDS: DULCOLAX PR SCH (21:40)
[2018-07-01] MEDS: XOPENEX NEB INH SCH ×6 (02:50→23:05)
[2018-07-01] MEDS: MORPHINE IV PRN ×4 (03:26→22:28)
[2018-07-01] MEDS: ATIVAN IV PRN ×4 (03:26→22:27)
[2018-07-01] MEDS: TYLENOL PR PRN ×3 (03:26→22:10)
[2018-07-01] MEDS: REGLAN IV SCH ×2 (05:07→18:07)
[2018-07-01] MEDS: HUMALOG SUBQ SCH ×4 (06:09→22:11)
[2018-07-01] MEDS: NS NEB INH SCH ×3 (07:35→14:56)
--- NOTE | 2018-07-01 07:36 | Diag Imaging Result Doc PS360 ---
EXAM: CHEST-PORTABLE HISTORY: pneumonia TECHNIQUE: Chest single view COMPARISON: 06/29/2018 FINDINGS: There are infiltrates throughout both lungs. These are more pronounced than they were on the prior study. The heart remains mildly enlarged. There is a small right pleural effusion. No change in the left-sided PICC line. IMPRESSION: Interval worsening. Electronically signed by Porfirio Houser 07/01/2018 7:33 AM
--- NOTE | 2018-07-01 07:37 | PROGRESS NOTE ---
DATE: 07/01/2018 SUBJECTIVE: Ms. Morris is not doing well. Her clinical condition seems to be deteriorating. At times, her blood pressure is low. The patient, at times, is in mild respiratory distress. No high-grade fever or chills. We are using rectal Tylenol suppository. The patient is not able to give good history. The patient had expressive aphasia. PHYSICAL EXAMINATION: T-max yesterday was 100.4. Neck: Supple. No JVD. Heart: S1 and S2 heard. Her vital signs noted. Lungs: Decreased air entry at both the bases. Abdomen: Soft, globular. Bowel sounds hypoactive. No acute DVT in the legs. The patient does have DVT in right axillary vein. MACHINIST MATE: Alert, awake. Uncooperative for detailed exam. LABORATORY DATA: Done yesterday noted. ASSESSMENT: The patient does have multiple problems includin. Deep venous thrombosis, right axillary vein. 2. Aspiration pneumonia. 3. 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 4. Renal mass. 5. Cellulitis of the abdominal wall. 6. Paroxysmal atrial fibrillation. 7. Dysphagia. PLAN: Overall prognosis is poor. The patient's clinical condition seems to be deteriorating. We will continue current treatment. Close observation. Patient is Do Not Resuscitate. cc: Remington Lane MD
[2018-07-01 07:38] LABS: MAGNESIUM 2.4 mg/dL (1.5-2.7); PHOSPHORUS 3.4 mg/dL (2.7-4.5)
[2018-07-01 08:04] LABS: ALBUMIN 1.6 g/dL (3.5-5.0); CALCIUM 7.7 mg/dL (8.8-10.2); CREATININE 1.1 mg/dL (0.5-0.9); POTASSIUM 3.7 mmol/L (3.5-5.1)
[2018-07-01] MEDS: SODIUM CHLORIDE 0.9% INJ SCH ×2 (08:49→22:10)
[2018-07-01] MEDS: LOVENOX SUBQ SCH ×2 (08:49→22:10)
[2018-07-01] MEDS: LANOXIN IV SCH (08:49)
[2018-07-01] MEDS: PROTONIX IV SCH ×2 (08:49→22:10)
[2018-07-01] MEDS: EXELON 9.5MG/24HRS TD SCH (08:50)
[2018-07-01] MEDS: SSD CREAM TOP SCH ×2 (08:52→22:12)
[2018-07-01] MEDS: TYGACIL 50 MG in NS 50 ML IV SCH (12:44)
--- NOTE | 2018-07-01 12:44 | GASTROENTEROLOGY PROGRESS NOTE ---
DATE: 07/01/2018 SUBJECTIVE: The patient is resting in bed. She is drowsy. She is on a face mask. She has family at bedside. PHYSICAL EXAMINATION: Vital Signs: Temperature 99 degrees, pulse rate of 104, respiratory rate of 18, blood pressure of 63/44, saturating 98% on mask. General Appearance: Thinly built, lying in bed. Currently tachypneic, on a face mask, and I can hear some gurgling from her lungs, likely from aspiration pneumonia. HEENT: Face mask in place. No pallor. There is no icterus. Neck: Has signs of tachypnea. Abdomen: Soft. I looked at the abdominal wall. PEG tube site has less drainage and erythema seems to be improved. No guarding. Extremities: No cyanosis or clubbing. Neurologic: She is drowsy and does not answer any questions. LABS: Sodium 140, potassium 3.7, chloride 104, bicarb of 31, anion gap 9, BUN of 87, creatinine 1, glucose of 149, calcium is 7.7, phosphorus 3.4, magnesium 2.4, albumin of 1.6. Blood cultures x2 were drawn yesterday which are currently pending. The wound culture from yesterday is currently pending. It shows 1+ gram positive rods and more incubation is needed. IMPRESSION AND PLAN: 1. Abdominal wall cellulitis. She is on antibiotics per primary team and per the infectious disease team. 2. Aspiration pneumonia. Again, she is on antibiotics per the primary team. 3. Deep venous thrombosis of the right axillary vein. She is on Lovenox twice daily. 4. Respiratory failure. She is on a face mask. 5. 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 Aware. 6. Renal mass on imaging, concerning for renal cell carcinoma. 7. Chronic dysphagia and aphasia secondary to cerebrovascular accident. 8. Prognosis. The patient is critically ill. Her overall prognosis is poor. I have discussed that with the patient's family at bedside. 9. Malnutrition. She is on total parenteral nutrition. 10. We will follow along. The above plans were discussed with the patient and family at bedside. All questions were answered. Please call us with any further questions. cc: MD Remington Martinez MD
[2018-07-01] MEDS: TPN ELECTROLYTES 20 ML, SODIUM PHOSPHATE 15 MMOL, M.V.I.-12 10 ML, MTE CONCENTRATE 1 ML... IV SCH ×7 (12:47)
[2018-07-01] MEDS: LIPOSYN 20% 250 ML IV SCH (14:01)
[2018-07-01] MEDS ORDERED: VANCOMYCIN IV PER PHARMACY MISC SCH (15:30)
--- NOTE | 2018-07-01 16:12 | INFECTIOUS DISEASE PROGRESS NO ---
DATE: 07/01/2018 PRESENT ILLNESS: The patient is febrile, and she appears to have bilateral pneumonia. MEDICATIONS: The patient has been receiving Tygacil. PHYSICAL EXAMINATION: Vital Signs: Temperature is 98.6 degrees, pulse 138, respirations 16, blood pressure 102/53. General: This is an ill-appearing elderly female. She is obtunded. Head/eyes/ears/nose/throat: There is no drainage from the nose or ears. I was unable to see the patient's oral cavity. Neck: No meningismus. Lungs: There were bilateral rhonchi. Cardiovascular: Heart rate is regular. Abdomen: Soft and not tender. The patient's G-tube site is less erythematous, and there is no drainage currently coming out from the wound. Neurologic: The patient is obtunded. She did not respond to verbal stimuli. Extremities: The patient has a PICC in her arm. There is no is no purulence or swelling. LABORATORY STUDIES AND RADIOLOGY: Chest x-ray shows bilateral infiltrates. Creatinine is 1.1. GFR is 47. Urinalysis shows no white cells or bacteria. There is not an abdominal wound. Gram stain shows gram-positive rods. The culture is pending. ASSESSMENT AND PLAN: The patient appears to have bilateral pneumonia that has been unresponsive to antibiotic treatment. I have ordered a sputum for culture and, pending the culture results, I have placed the patient on a combination of vancomycin and Levaquin. The patient is not having diarrhea. COMORBIDITIES: The patient's comorbidities is that she is elderly. She has dementia, history of a stroke, bipolar disorder, and renal cell carcinoma. cc: MD Remington Shelton MD
[2018-07-01] MEDS: LEVAQUIN 500 MG/D5W 500 MG/100 ML IVPB IV SCH (16:55)
[2018-07-01] MEDS ORDERED: VANCOMYCIN 1,500 MG in NS 250 ML IV ONE (18:00)
[2018-07-01] MEDS: LOPRESSOR IV PRN (18:07)
--- NOTE | 2018-07-01 22:01 | PULMONOLOGY PROGRESS NOTE ---
DATE: 07/01/2018 SUBJECTIVE: The patient is poorly responsive. She has moderate work of breathing. OBJECTIVE: Vital Signs: Current temperature 101.8 degrees, heart rate 105, respiratory rate 28, oxygen saturation 100%. HEENT: Pupils are equal and reactive, but sluggish to light. Oropharynx appears dry. Neck: Supple. Chest: Reveals coarse rhonchi throughout all lung hubbard with a prolonged expiratory phase. Cardiac: S1, S2. Abdomen: Soft. Diminished bowel sounds. Extremities: Warm to the touch. LABORATORIES: Chest x-ray reveals new bilateral infiltrates. IMPRESSION: An unfortunate 88-year-old with: 1. Recurrent aspiration pneumonia. Her pneumonia had appeared to be clearing and now has markedly worsened. 2. Worsening fevers. 3. Gastrostomy tube infection. 4. Longstanding thyroid mass with deviation of the trachea. 5. Nonocclusive venous thrombosis of the right upper extremity with subsequent removal of peripherally inserted central catheter line. 6. Protein-calorie malnutrition. 7. Dementia. DISCUSSION: An 88-year-old with problems outlined above. She has fluctuation in her overall status, but looks significantly worse today. Her prognosis is poor. RECOMMENDATION: 1. Continue current Lovenox dose. 2. Antibiotics per Infectious Disease. 3. Comfort measures are recommended. 4. Prognosis is poor. She is a Do Not Resuscitate level 1. cc: MD Remington Brown MD
[2018-07-01] MEDS: DULCOLAX PR SCH (22:11)
[2018-07-02] MEDS: XOPENEX NEB INH SCH ×6 (03:00→23:05)
[2018-07-02] MEDS: MORPHINE IV PRN ×5 (05:03→10:58)
[2018-07-02] MEDS: TYLENOL PR PRN (05:57)
[2018-07-02] MEDS: REGLAN IV SCH ×2 (05:57→17:15)
[2018-07-02] MEDS: ATIVAN IV PRN ×3 (06:00→10:59)
[2018-07-02] MEDS: HUMALOG SUBQ SCH ×4 (06:05→21:57)
--- NOTE | 2018-07-02 07:43 | PROGRESS NOTE ---
DATE: 07/02/2018 SUBJECTIVE: Ms Morris is doing better. Ms Morris is not doing well. Her clinical condition is deteriorating. No high-grade fever or chills. The patient does have pulmonary congestion and low- grade fever. The patient at times seems to have respiratory distress. History part is limited. OBJECTIVE: Vital signs noted. Patient is tachycardic, tachypneic and febrile. Neck: Supple. No JVD. Lungs: Bibasilar crepitation. Bibasilar rales. CVS: S1 and S2 heard. Abdomen: Soft and globular. Bowel sounds present. MIXING PICKER TENDER: Alert and awake. Uncooperative for detailed exam. LABORATORY DATA AND DIAGNOSTIC: Lab data and chest x-ray done yesterday noted. ASSESSMENT AND PLAN: Her overall prognosis is poor. Family is aware of prognosis. The patient does have protein calorie malnutrition, recurrent aspiration pneumonia, acute renal failure, respiratory failure, cellulitis of the abdominal wall, possible thyroid mass most likely malignancy, and renal cell cancer though we do not have biopsy confirmation. Dementia and CVA. We are going to continue current treatment. Close observation. The patient does have poor prognosis. Clinical condition is deteriorating. cc: Remington Lane MD
[2018-07-02] MEDS ORDERED: LASIX IV ONE (07:48)
[2018-07-02 07:49] LABS: ALBUMIN 1.5 g/dL (3.5-5.0); CALCIUM 7.8 mg/dL (8.8-10.2); CREATININE 1.2 mg/dL (0.5-0.9); MAGNESIUM 2.4 mg/dL (1.5-2.7); PHOSPHORUS 3.9 mg/dL (2.7-4.5); POTASSIUM 3.9 mmol/L (3.5-5.1)
[2018-07-02] MEDS ORDERED: MORPHINE ONE (08:21)
--- NOTE | 2018-07-02 09:41 | Diag Imaging Result Doc PS360 ---
CHEST-1 VIEW - 07/02/2018 INDICATION: pulmonary edeme COMPARISON: 07/01/2018 FINDINGS: Stable left PICC line. There has been slight improvement in the heterogeneous bilateral diffuse infiltrates. Stable significant cardiomegaly. Stable low lung volumes. IMPRESSION: Slight improvement in the ill-defined bilateral infiltrates. Electronically signed by Carl Rodrigues 07/02/2018 9:38 AM
[2018-07-02 09:57] LABS: ALLEN TEST YES; BE 7.4 mmoll (-3.0-3.0); BLOOD TYPE ARTERIAL; HCO3-(ACT) 30.7 mmoll (20.0-26.0); METHB 1.5 % (0.0-1.5); O2(CT) 15.6 mL/dL (15.0-23.0); O2HB 96.2 % (95.0-99.0); PO2(98.6) 125 mmHg (60-100); SAMPLE BLOOD; SAO2 99.5 % (95.0-100.0); THB 11.4 g/dL (11.5-17.4); pH(98.6) 7.42 (7.35-7.45)
[2018-07-02 10:05] LABS: MODALITY COOL AEROSOL; PCO2(98.6) 51 mmHg (35-45)
[2018-07-02] MEDS ORDERED: HALDOL IV PRN (10:45)
[2018-07-02] MEDS: LOVENOX SUBQ SCH ×2 (11:26→21:52)
[2018-07-02] MEDS: EXELON 9.5MG/24HRS TD SCH (11:26)
[2018-07-02] MEDS: SSD CREAM TOP SCH ×2 (11:27→21:56)
[2018-07-02] MEDS: LANOXIN IV SCH (11:27)
[2018-07-02] MEDS: PROTONIX IV SCH ×2 (11:28→21:57)
[2018-07-02] MEDS: M V I IV SCH ×8 (14:21)
[2018-07-02] MEDS: SODIUM PHOSPHATE IV SCH ×8 (14:21)
[2018-07-02] MEDS: TPN ELECTROLYTES IV SCH ×8 (14:21)
[2018-07-02] MEDS: [UNRECOGNIZED DRUG - OTHER] IV SCH ×8 (14:21)
[2018-07-02] MEDS: LIPOSYN 20% 250 ML IV SCH (14:21)
[2018-07-02] MEDS: LEVAQUIN 500 MG/D5W 500 MG/100 ML IVPB IV SCH (17:15)
[2018-07-02] MEDS: DULCOLAX PR SCH (21:52)
[2018-07-03] MEDS: XOPENEX NEB INH SCH ×6 (03:05→23:00)
[2018-07-03] MEDS: REGLAN IV SCH ×2 (06:21→18:29)
[2018-07-03] MEDS: HUMALOG SUBQ SCH ×4 (06:21→21:18)
[2018-07-03] MEDS: DURAGESIC 25 MICROGM/HR PATCH TD SCH (06:22)
[2018-07-03 08:27] LABS: ALBUMIN 1.6 g/dL (3.5-5.0); CALCIUM 7.8 mg/dL (8.8-10.2); CREATININE 1.2 mg/dL (0.5-0.9); MAGNESIUM 2.4 mg/dL (1.5-2.7); PHOSPHORUS 2.7 mg/dL (2.7-4.5); POTASSIUM 3.9 mmol/L (3.5-5.1)
[2018-07-03 09:31] LABS: ALLEN TEST YES; BE 11.6 mmoll (-3.0-3.0); BLOOD TYPE ARTERIAL; METHB 1.4 % (0.0-1.5); MODALITY BI PAP; O2(CT) 13.6 mL/dL (15.0-23.0); O2HB 95.9 % (95.0-99.0); PCO2(98.6) 49 mmHg (35-45); PO2(98.6) 113 mmHg (60-100); SAMPLE BLOOD; SAO2 98.6 % (95.0-100.0); THB 9.9 g/dL (11.5-17.4); pH(98.6) 7.48 (7.35-7.45)
--- NOTE | 2018-07-03 12:45 | PROGRESS NOTE ---
DATE: 07/03/2018 SUBJECTIVE: Ms Morris is not doing well. Her respiration was deteriorating. We have to put BiPAP on. The patient is not able to give good history. The patient had low-grade fever yesterday, at times hypotension. OBJECTIVE: Skin: Some bruise cher on the arm, swelling of the right upper limb. Lungs: Decreased air entry both the bases. Neck: Swelling of the neck. Cardiovascular: S1 and S2 heard. Abdomen: Soft, globular. Bowel sounds hypoactive. Central nervous system: Alert, awake. The patient is sleeping but arousable. CONSIDERATION: The patient does have multiple medical problems, including respiratory failure, possible sepsis, recurrent aspiration, infection of the PEG tube site. PEG tube site is also not healing. Thyroid mass, renal mass presumed to be renal cell carcinoma. Patient's brother and his were present. Discussed her condition. They do not want patient to suffer, they prefer comfort care but durable power of assistant prosecuting attorney is patient's granddaughter. I will try to talk to her again next week. LABORATORY DATA: Noted. Blood gas done today, pH 7.48, pCO2 49, PO2 was 113. Overall prognosis fair to guarded. cc: Remington Lane MD
[2018-07-03] MEDS: M V I IV SCH ×8 (13:55)
[2018-07-03] MEDS: [UNRECOGNIZED DRUG - OTHER] IV SCH ×8 (13:55)
[2018-07-03] MEDS: TPN ELECTROLYTES IV SCH ×8 (13:55)
[2018-07-03] MEDS: SODIUM PHOSPHATE IV SCH ×8 (13:55)
[2018-07-03] MEDS: LIPOSYN 20% 250 ML IV SCH (14:09)
[2018-07-03] MEDS: EXELON 9.5MG/24HRS TD SCH (14:11)
[2018-07-03] MEDS: PROTONIX IV SCH ×2 (14:12→22:57)
[2018-07-03] MEDS: LANOXIN IV SCH (14:12)
[2018-07-03] MEDS: SODIUM CHLORIDE 0.9% INJ SCH ×2 (14:12→22:57)
[2018-07-03] MEDS: LOVENOX SUBQ SCH ×2 (14:12→22:57)
[2018-07-03] MEDS: SSD CREAM TOP SCH ×2 (14:14→22:58)
--- NOTE | 2018-07-03 16:34 | INFECTIOUS DISEASE PROGRESS NO ---
DATE: 07/03/2018 PRESENT ILLNESS: Ms. Morris is being treated for pneumonia. She has also been febrile. There is also a Proteus mirabilis growing to the previous gastrostomy site. MEDICATIONS: She has been receiving vancomycin IV per pharmacy dosing as well as Levaquin 500 mg IV daily. PHYSICAL EXAM: Vital Signs: Temperature is 98.2 degrees, pulse rate 99, respiratory rate 22, blood pressure 125/66, O2 saturation 100% on BiPAP. General: This is a chronically ill-appearing elderly female. She is lying in bed currently in mild respiratory distress with work of breathing noted. HEENT: Atraumatic, normocephalic. Oral mucous membranes are pink and dry. Conjunctivae are pink. Neck: Has a decrease in suppleness. Respiratory: Lung sounds have coarse rhonchi bilaterally with noted use of accessory muscles for respirations. Cardiovascular: Heart rate is regular. Abdomen: Soft, obese and tender to palpation. There is a dressing in place to her mid epigastric area. Neurologic: She is drowsy and lethargic but arousable and fights against any manipulation to the abdominal area. LABORATORY AND X-RAY: Today on a 40% FiO2 on the BiPAP her pH is 7.48, pCO2 49, PO2 of 113, HCO3 34. Her blood cultures have been sterile since June 30. Her abdominal wound grew a Proteus mirabilis which is resistant to Levaquin. Chest x-ray done yesterday shows a slight improvement in ill-defined bilateral infiltrates. ASSESSMENT AND PLAN: Ms. Morris is critically ill and at this point shows little progress from her treatment. There is a new bacteria that has grown to her previous gastrostomy site, which is resistant to Levaquin, so we will discontinue that, and start her on aztreonam 2 g IV every 8 hours. We have also called the lab to have them check for susceptibility to the aztreonam on the Proteus mirabilis. She also has pneumonia and has been febrile. We will continue vancomycin. Her creatinine has gone up, but we cannot give her Zyvox because of the fentanyl patch. Unfortunately, the power of workers compensation attorney has not come to see her in about a week and a half according to the family members who are at bedside. For now we will continue vancomycin and aztreonam as ordered. These plans have been discussed with and recommended by Dr. Flannery. COMORBIDITIES: Include that she is elderly with dementia, stroke, bipolar disorder and renal cell carcinoma. Dictated by LANA Montanez for Fuentes Flannery MD cc: MD Remington Shelton MD MTDD
[2018-07-03] MEDS ORDERED: VANCOMYCIN 1,150 MG in NS 250 ML IV SCH (18:00)
[2018-07-03] MEDS: MORPHINE IV PRN ×2 (18:27→23:56)
[2018-07-03] MEDS: ATIVAN IV PRN (18:27)
[2018-07-03] MEDS: AZACTAM 2 GM in NS 100 ML IV SCH ×2 (18:29→22:55)
[2018-07-03] MEDS: DULCOLAX PR SCH (21:20)
[2018-07-04] MEDS: AZACTAM 2 GM in NS 100 ML IV SCH ×3 (02:24→22:45)
[2018-07-04] MEDS: XOPENEX NEB INH SCH ×6 (03:10→23:10)
[2018-07-04] MEDS: REGLAN IV SCH ×2 (04:41→16:29)
[2018-07-04 04:58] LABS: ALLEN TEST YES; BE 9.2 mmoll (-3.0-3.0); BLOOD TYPE ARTERIAL; METHB 2.1 % (0.0-1.5); O2(CT) 12.6 mL/dL (15.0-23.0); O2HB 92.8 % (95.0-99.0); PO2(98.6) 79 mmHg (60-100); SAMPLE BLOOD; THB 9.6 g/dL (11.5-17.4); pH(98.6) 7.42 (7.35-7.45)
[2018-07-04 05:06] LABS: MODALITY CANNULA; PCO2(98.6) 54 mmHg (35-45)
[2018-07-04] MEDS: HUMALOG SUBQ SCH ×4 (06:07→23:49)
[2018-07-04] MEDS: ATIVAN IV PRN ×6 (06:32→22:28)
[2018-07-04] MEDS: MORPHINE IV PRN ×6 (06:33→22:29)
[2018-07-04 07:47] LABS: ALBUMIN 1.7 g/dL (3.5-5.0); CALCIUM 7.6 mg/dL (8.8-10.2); CREATININE 1.3 mg/dL (0.5-0.9); MAGNESIUM 2.4 mg/dL (1.5-2.7); PHOSPHORUS 3.8 mg/dL (2.7-4.5); POTASSIUM 4.8 mmol/L (3.5-5.1)
--- NOTE | 2018-07-04 08:25 | PROGRESS NOTE ---
DATE: 07/04/2018 SUBJECTIVELY: Ms. Morris is not doing well. The patient does have at times respiratory distress, much more than other. Patient was on BiPAP intermittently. No fever or chills. The patient temperature maximum this morning was 100. Yesterday it was 100.8. At times patient was tachycardic. We are trying to keep the patient as comfortable as we can as we know overall prognosis is poor. We talked to granddaughter about comfort care and stopping her other medication, but granddaughter is not ready. OBJECTIVE: Vital Signs: Noted. Neck: Supple. Lungs: Decreased air entry both bases. CVS: S1 and S2 heard. Abdomen: Soft, globular. Bowel sounds hypoactive. Swelling of the right upper limb. CARTON STAMPER: Patient is sleeping, but arousable. Able to move all 4 limbs. The patient has severe expressive aphasia. Uncooperative for detailed exam. LABORATORY STUDIES: Blood gas done today: PH 7.42, pCO2 54, PO2 79. BUN 95, creatinine 1.3. Albumin 1.7. CONSIDERATION: 1. Chronic hypoxemic respiratory failure. 2. Aspiration pneumonia. 3. Thyroid mass. 4. Hypoalbuminemia. 5. Cellulitis of the abdominal wall. PLAN: Overall prognosis is poor. Family is aware of prognosis. cc: Remington Lane MD
[2018-07-04] MEDS: LOVENOX SUBQ SCH (08:57)
[2018-07-04] MEDS: SODIUM CHLORIDE 0.9% INJ SCH (08:58)
[2018-07-04] MEDS: EXELON 9.5MG/24HRS TD SCH (08:58)
[2018-07-04] MEDS: PROTONIX IV SCH (08:58)
[2018-07-04] MEDS: LANOXIN IV SCH ×2 (08:58→09:02)
[2018-07-04] MEDS: SSD CREAM TOP SCH (09:13)
[2018-07-04] MEDS: LIPOSYN 20% 250 ML IV SCH (14:27)
[2018-07-04] MEDS: DULCOLAX PR SCH (23:50)
[2018-07-05] MEDS: LOVENOX SUBQ SCH ×3 (00:03→21:42)
[2018-07-05] MEDS: PROTONIX IV SCH ×3 (00:04→21:43)
[2018-07-05] MEDS: SSD CREAM TOP SCH ×3 (00:04→21:42)
[2018-07-05] MEDS: XOPENEX NEB INH SCH ×6 (03:10→23:16)
[2018-07-05] MEDS: AZACTAM 2 GM in NS 100 ML IV SCH ×2 (06:01→14:13)
[2018-07-05] MEDS: REGLAN IV SCH ×2 (06:02→17:33)
[2018-07-05] MEDS: HUMALOG SUBQ SCH ×4 (06:28→21:41)
[2018-07-05 07:23] LABS: BASO# 0.02 X1000 (0.0-0.2); BASO% 0.2 % (0.0-0.8); EOS# 0.01 X1000 (0.0-0.7); EOS% 0.1 % (0.0-10.0); HEMATOCRIT 30.9 % (37.0-47.0); HEMOGLOBIN 9.3 g/dL (12.0-16.0); IMM GRAN# 0.18 X1000 (0.0-0.04); IMM GRAN% 1.9 % (0.0-0.5); LYMPH# 0.63 X1000 (1.2-3.4); LYMPH% 6.7 % (20.5-51.1); MCH 27.6 PG (27-31); MCHC 30.1 g/dL (33-37); MCV 91.7 FL (81-99); MONO# 0.48 X1000 (0.11-0.59); MONO% 5.1 % (1.7-9.3); MPV 13.5 FL (7.4-10.4); NEUT# 8.05 X1000 (1.4-6.5); PLT 78 X1000 (130-400); RBC 3.37 XMIL (4.2-5.4); RDW 18.6 % (11.5-14.5); WBC 9.37 X1000 (4.8-10.8)
--- NOTE | 2018-07-05 07:33 | Diag Imaging Result Doc PS360 ---
EXAM: CHEST-1 VIEW INDICATION: SOB TECHNIQUE: One view COMPARISON: 07/02/2018 FINDINGS: The left PICC line is in stable position. Bilateral diffuse infiltrates with a basilar and perihilar predominance are essentially stable. No new consolidation is identified. Cardiac silhouette is stable. IMPRESSION: Stable chest. Electronically signed by Julio Posadas 07/05/2018 7:30 AM
[2018-07-05 07:39] LABS: ALB/GLOB RATIO 0.9; ALBUMIN 1.7 g/dL (3.5-5.0); CALCIUM 7.6 mg/dL (8.8-10.2); CREATININE 1.5 mg/dL (0.5-0.9); DIRECT BILIRUBIN 0.4 mg/dL (0.00-0.20); MAGNESIUM 2.7 mg/dL (1.5-2.7); PHOSPHORUS 4.5 mg/dL (2.7-4.5); POTASSIUM 4.3 mmol/L (3.5-5.1); PREALBUMIN 5.8 mg/dL (20-40); TOTAL BILIRUBIN 0.71 mg/dL (0.20-1.00); TOTAL PROTEIN 3.6 g/dL (6.3-8.3)
--- NOTE | 2018-07-05 07:48 | PROGRESS NOTE ---
DATE: 07/05/2018 SUBJECTIVE: Ms. Morris is not doing well. The patient is poorly responsive. Her respirations are shallow. No high-grade fever or chills. The patient is not communicating. OBJECTIVE: Vital Signs: Vital signs noted. Neck: Supple. Decreased air entry at both the bases. Inspiratory crepitations at both upper lung hubbard. CVS: S1 and S2 heard. Abdomen: Soft, globular. Bowel sounds hypoactive. Extremities: No cyanosis, clubbing. No acute DVT. The patient does have DVT of the right axillary vein. PROFESSIONAL WRESTLER: Patient is sedated. Uncooperative for detailed exam. CONSIDERATION: The patient does have multiple medical problems includin. Recurrent aspiration pneumonia. 2. Cellulitis of the abdominal wall. 3. Dehydration. 4. Malnutrition. 5. Thyroid mass. 6. Renal cell mass. 7. Dementia. 8. Cerebrovascular accident with expressive aphasia. PLAN: We will continue current treatment, observation. Overall prognosis is poor. Family is aware of the prognosis. cc: Remington Lane MD
[2018-07-05] MEDS: EXELON 9.5MG/24HRS TD SCH (09:22)
[2018-07-05] MEDS: SODIUM CHLORIDE 0.9% INJ SCH ×2 (09:22→21:43)
[2018-07-05] MEDS: LANOXIN IV SCH (09:23)
--- NOTE | 2018-07-05 11:08 | GASTROENTEROLOGY PROGRESS NOTE ---
DATE: 07/05/2018 SUBJECTIVE: Resting in bed. She is drowsy. She is having low grade temperature over the weekend. Her T-max was 100.8 on 07/03/2018. I spoke to the patient's nurse at bedside. The patient had brown stool yesterday. According to the description, it also has some black and tarry stuff mixed in the stools. OBJECTIVE: Vital Signs: Temperature 99.7, pulse 84, respiratory rate 13, blood pressure 107/54, saturating 88% on 10 L mask, body weight of 130 pounds, BMI 25.4 kg. General: The patient is thinly built, lying in bed, currently drowsy and on a face mask. HEENT: Positive pallor. No icterus. Face mask in place. Neck: Signs of tachypnea. Abdomen: Abdominal wall was examined. I removed the dressing at the PEG tube site. The PEG tube site has less drainage and it has erythema. Abdomen is soft. No guarding or rebound. Extremities: No cyanosis and clubbing. Neurological: She is drowsy and does not answer any questions. She has a baseline history of stroke and she has chronic aphasia and dysphasia. LABS: Hemoglobin 9.3 and hematocrit 30.9, white count 9.37, platelet count of 78,000. Sodium 149, potassium 4.3, chloride 109, bicarb 30, anion gap 10, BUN of 106, creatinine 1.5, glucose of 87, calcium 7.6, phosphorus 4.5, magnesium 2.7, total bilirubin is 0.7, AST 37, ALT 52, alkaline phosphatase 175, total protein is 3.6, albumin of 1.7. Direct bilirubin 0.4. Sputum culture showing E. Coli which was resistant to Levaquin. Blood culture x2 negative at 48 hours on 06/30/2018. Chest x-ray was done today which showed bilateral diffuse infiltrates with the basilar and perihilar predominance are essentially stable. No new consolidations identified. The left PICC line is in stable position. IMPRESSION AND PLAN: 1. Recurrent aspiration pneumonia. She is on antibiotics per the primary care team and infectious disease team. 2. Abdominal wall cellulitis. She is on antibiotics per infectious disease team. She is on vancomycin and topical silver sulfadiazine cream and aztreonam. She had a dressing change done today by the nursing staff. 3. Gastrointestinal prophylaxis with Protonix. 4. I had put her on Reglan to help reduce the drainage at the PEG tube site. 5. Respiratory failure secondary to aspiration pneumonia. This is being monitored by Dr. Hill. 6. Bowel regimen with Dulcolax. 7. Malnutrition. She will continue on TPN. We will restart TPN. 8. Thyroid mass, aware. 9. Renal cell mass on imaging, aware. 10. Dementia, aware. 11. History of cerebrovascular accident with expressive aphasia and chronic dysphagia. 12. Deep venous thrombosis right axillary vein. She is on Lovenox 40 mg subcu b.i.d. 13. Prognosis is poor. I have spoken with the patient's nurse at bedside and all questions answered. Please call us with any further questions. cc: MD Remington Martinez MD MTDD
[2018-07-05] MEDS: LIPOSYN 20% 250 ML IV SCH ×2 (11:09→14:14)
[2018-07-05] MEDS: TPN ELECTROLYTES IV SCH ×8 (11:14)
[2018-07-05] MEDS: [UNRECOGNIZED DRUG - OTHER] IV SCH ×8 (11:14)
[2018-07-05] MEDS: SODIUM PHOSPHATE IV SCH ×8 (11:14)
[2018-07-05] MEDS: M V I IV SCH ×8 (11:14)
[2018-07-05] MEDS: MORPHINE IV PRN (14:04)
[2018-07-05] MEDS: ATIVAN IV PRN (14:04)
--- NOTE | 2018-07-05 16:31 | INFECTIOUS DISEASE PROGRESS NO ---
DATE: 07/05/2018 PRESENT ILLNESS: Ms. Morris has been treated for pneumonia and has grown an extended spectrum beta lactamase producing Escherichia coli in her sputum. There is also a Proteus mirabilis growing to the previous gastrostomy tube site. She continues to be febrile with a temp this afternoon of 100.6. MEDICATIONS: She has been receiving vancomycin IV per pharmacy dosing and aztreonam 2 g IV every 8 hours. PHYSICAL EXAMINATION: Vital Signs: Temperature is 100.6 degrees, pulse rate 99, respiratory rate 15, blood pressure 103/48, O2 saturation is 100%. General: This is a chronically ill-appearing, elderly female. She is lying in the bed in [id number] respiratory distress with work of breathing noted. HEENT: She is normocephalic. There are areas of erythema noted to the bridge of her nose from the BiPAP mask. Oral mucous membranes are darkened colored and dry. Conjunctivae are pale. Respiratory: Lung sounds have coarse rhonchi noted bilaterally. She is noted to be dyspneic and breathing with accessory muscles. Heart: Rate is irregular. Abdomen: Soft, obese and tender to palpation. The previous gastrostomy site is pink with milky white drainage noted from the tube. Neurologic: She is lethargic, does not open her eyes and is not moving any extremities at this point. Integumentary: There is a PICC line in place to the left upper arm. The site is without edema or erythema. There is some mild bruising around the site. LABORATORY AND X-RAY: Today her white count is 9.37, hemoglobin 9.3, platelet count 78,000. Creatinine is 1.5, GFR 33. Direct bilirubin is 0.4, total bilirubin 0.71. AST 37, ALT 52, alkaline phosphatase 175. Her sputum has most recently grown an Escherichia coli which is extended spectrum beta lactamase producing and her abdomen has had multiple organisms that have grown, most recently with a Proteus mirabilis. Chest x-ray today shows bilateral diffuse infiltrates which are essentially stable. ASSESSMENT AND PLAN: Ms. Morris is an elderly, critically ill patient. At this point, after discussing her case with Dr. Flannery, we do not feel that there are any antibiotics that we can give that will help her to recover from her current infections. Unfortunately she has a history of anaphylactic reaction to penicillin which means we are unable to provide Carbapenem antibiotics for her pneumonia. At this point we will discontinue her antibiotics and sign off the case. These plans have been discussed with and recommended by Dr. Flannery. COMORBIDITIES: For Ms. Morris include that she is elderly with dementia, stroke, bipolar disorder and renal cell carcinoma. Dictated by LANA Montanez for Fuentes Flannery MD cc: MD Remington Shelton MD [facility] HOSPITALMartir
[2018-07-05] MEDS ORDERED: TYLENOL PR PRN (18:30)
--- NOTE | 2018-07-05 21:34 | PULMONOLOGY PROGRESS NOTE ---
DATE: 07/05/2018 SUBJECTIVE: The patient does not respond when her voice is called. Painful stimuli was not utilized. She has mild to moderate work of breathing. OBJECTIVE: Vital Signs: Current temperature 101.6 degrees. Oxygen saturation 95%. HEENT: Pupils are equal, but sluggish. Oropharynx appears clear, but dry. Neck: Supple. Chest: Scattered rhonchi bilaterally. Cardiac: Increased rate, regular rhythm. Abdomen: Soft. No bowel sounds are present. Extremities: Warm to the touch with mild edema. LABORATORIES: White blood count 9.37, hemoglobin 9.3, platelet count 78,000. Sodium 149, potassium 4.3, chloride 109, bicarbonate 30, BUN 106, creatinine 1.5. IMPRESSION: An 88-year-old with extended-spectrum beta lactamase positive Escherichia coli, anaphylaxis to penicillin, quinolone resistant Proteus, who has failed antibiotics. She continues to have fevers. She continues to decline. Infectious Disease believes her case is terminal and there is not an antibiotic that will help her recover. Her prognosis is dismal and she is unlikely to survive. PLAN: 1. Continue Lovenox for previously identified nonocclusive thrombus of the right upper extremity. 2. Continue comfort measures. 3. Anticipate continued decline and . cc: MD Remington Brown MD
[2018-07-05] MEDS: DULCOLAX PR SCH (21:41)
[2018-07-06] MEDS: XOPENEX NEB INH SCH ×3 (03:00→11:06)
[2018-07-06] MEDS: REGLAN IV SCH (05:44)
[2018-07-06] MEDS: DURAGESIC 25 MICROGM/HR PATCH TD SCH (06:00)
[2018-07-06] MEDS: CATAPRES-TTS-2 TD SCH (06:06)
[2018-07-06] MEDS: HUMALOG SUBQ SCH (06:06)
[2018-07-06] MEDS: NS NEB INH SCH (07:25)
[2018-07-06] MEDS ORDERED: VANCOMYCIN 1,150 MG in NS 250 ML IV SCH (08:00)
[2018-07-06] MEDS: PROTONIX IV SCH (08:45)
[2018-07-06] MEDS: LANOXIN IV SCH (08:46)
[2018-07-06] MEDS: SODIUM CHLORIDE 0.9% INJ SCH (08:46)
[2018-07-06] MEDS: LOVENOX SUBQ SCH (08:46)
[2018-07-06] MEDS: SSD CREAM TOP SCH (08:47)
[2018-07-06] MEDS: EXELON 9.5MG/24HRS TD SCH (08:47)
[2018-07-06 09:01] VITALS: BP 68/44
[2018-07-06 10:50] LABS: ALB/GLOB RATIO 0.6; ALBUMIN 1.6 g/dL (3.5-5.0); CALCIUM 7.9 mg/dL (8.8-10.2); CREATININE 1.3 mg/dL (0.5-0.9); MAGNESIUM 2.7 mg/dL (1.5-2.7); PHOSPHORUS 3.5 mg/dL (2.7-4.5); POTASSIUM 4.4 mmol/L (3.5-5.1); TOTAL BILIRUBIN 0.42 mg/dL (0.20-1.00); TOTAL PROTEIN 4.4 g/dL (6.3-8.3)
--- NOTE | 2018-07-14 15:05 | DISCHARGE SUMMARY ---
ADMISSION DATE: 06/03/2018 DISCHARGE DATE: 07/06/2018 FINAL DISCHARGE DIAGNOSIS: 1. Sepsis due to Enterococcus faecalis. 2. Cellulitis of the abdominal wall at the PEG tube site. 3. Nonocclusive deep vein thrombosis right axillary vein. 4. Acute renal failure. 5. Recurrent aspiration pneumonia. 6. 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 7. Renal mass, presumed to be renal cell carcinoma. 8. Protein calorie malnutrition. 9. Paroxysmal atrial fibrillation. 10. Cerebrovascular accident with expressive aphasia and dysphagia. 11. Chronic pain. 12. Dementia. 13. Chronic constipation. 14. Hyperlipidemia. 15. Hypertension. 16. History of bipolar disorder. 17. Coronary artery disease. HISTORY OF PRESENT ILLNESS: Ms. Morris is an 88-year-old white female patient, resident of [facility], admitted with evidence of infection around the PEG tube site and her PEG tube was not functioning. They tried to flush the PEG tube in the ER and also at the detention with partial success. Because of the infection, the patient was admitted to the hospital. GI consult obtained. The patient was started on IV antibiotics. After they put back a new PEG tube by tool filer there was still some leakage of feeding around the PEG tube. The hole of the PEG tube in the abdominal wall was bigger. Tank Terminal Gauger decided to remove the PEG tube and start the patient on parenteral nutrition for 6 weeks until the current opening heals and then he was going to do another PEG tube placement. Patient was very feeble. We started TPN. The patient was very sick. She did have cellulitis of the abdominal wall which was not healing well. The patient still continued to have gastric content coming out of her PEG tube site. I did a CT scan of the neck, also abdomen. Neck CT did reveal thyroid mass. Also patient had some evidence of sinusitis, some lesion in the chest suspicious for malignancy, though biopsy was not done. The patient also had some tracheal deviation. Hospital course complicated by recurrent aspiration pneumonia. The patient had a PICC line placed. The patient developed DVT in the axillary vein. Initially we continued Lovenox and using PICC line for a few days because family was deciding about comfort care, but they did not decide. We removed the PICC line and put it on the other side. The patient's clinical condition was not getting better. The patient had ID consult done. Pulmonary energy specialist was following patient with us. Also the tool filer. The patient's clinical condition continued to deteriorate. We had multiple discussions with the family, her granddaughter, about patient's condition and plan. She was not making any firm decision about the care and we continued current treatment. Her renal function was deteriorating, so was her respiration. Her brother did not want any aggressive measures but according to brother, granddaughter had [id number]. The patient's blood pressure dropped on July 06 so her respiration was labored and patient became bradycardic and she on July 06. LABORATORY DATA: Revealed hemoglobin was 9.3, hematocrit 30.9, WBC count 9.37, platelet count was 78,000. Last blood gas done July 04, pH 7.42, pCO2 54, PO2 was 79, O2 saturation was 97; this was done on 5 L via nasal cannula. Last electrolytes checked on July 06, sodium 149, potassium 4.4, chloride 111, carbon dioxide 22, anion gap was 16, BUN 106, creatinine 1.3, magnesium 2.7, albumin 1.6, total protein 4.4, suggestive of protein calorie malnutrition. Her chest x-ray done on July 05, bilateral diffuse infiltrate with basilar and perihilar predominance, suggestive of pneumonia. Venous Doppler revealed nonoccluding acute DVT of the right axillary vein. The patient had a CT scan of the neck done which revealed left thyroid mass, sinusitis. Chest CT revealed thyroid mass on the left, mediastinal adenopathy, patchy pulmonary opacity and nodules, possibility of metastatic disease cannot be ruled out, pleural effusion. CT scan of the abdomen and pelvis, bilateral renal mass most consistent with renal cell carcinoma. The patient on July 06. cc: Remington Lane MD
== END 2018-07-06 10:35 | disposition expired | DRG 393 ==
LOC: ED 22:21 → EDIPHOLD 06-03 02:29 → SUATTDRO 06-03 02:29 → 3N 06-04 12:32
PROVIDERS: ADMIT Internal Medicine; ATTEND Internal Medicine
CPT/HCPCS: 36569; 51702; 70490; 71010; 71020; 71045; 71046; 71250; 74019; 74020; 74022; 74177; 80048; 80053; 80076; 80202; 81001; 82040; 82465; 82550; 82805; 82948; 83036; 83605; 83690; 83735; 83880; 84100; 84132; 84134; 84450; 84478; 84484; 85025; 85610; 85730; 87040; 87070; 87077; 87186; 87205; 87324; 89055; 93005; 93010; 93971; 94640; 94660; 94760; 94761; 94762; 96365; 96366; 96367; 96368; 96372; 96375; 96376; 99285; A9270; C9113; J0360; J0696; J0878; J1160; J1200; J1450; J1650; J1815; J1940; J1956; J2060; J2248; J2270; J2405; J2765; J2920; J2930; J3243; J3370; J3475; J3480; J7030; J7040; J7050; Q9967; S0073; S0164; XXXXX